=== PATIENT | female | born 1980 | race Caucasian/White ===

== ENCOUNTER → 2016-10-01 | Outpatient (CLI) | payer BC, MEDICAID ==
[~2016-10-01] MED LIST: AMLO10TA4 PO; ASP81CT PO; Amlodipine Besylate PO; CEPH-507 PO; CEPH500C PO; Docusate Sodium PO; Ibuprofen PO; LORA10CA PO; NITR-65 PO; Oxycodone Hcl/Acetaminophen PO; PREN-93 PO; PREN1TAB71 PO; antibiotic; blood pressure; nasal spray NS
--- NOTE | 2016-10-01 13:13 | Diagnostic Imaging Report ---
PROCEDURE: US Abdomen, limited. TECHNIQUE: Multiple realtime grayscale images were obtained over the abdomen in various projections. INDICATION: Right-sided abdominal pain. COMPARISON: None. DISCUSSION: Sonographic evaluation of the right upper quadrant was performed. The liver appears normal in echotexture and size. No hepatic mass identified. The gallbladder is contracted as the patient is not n.p.o. No shadowing stone or pericholecystic fluid identified. No evidence of biliary duct dilatation. The common bile duct is normal measuring 0.4 cm. The pancreas appears normal as visualized. The right kidney appears normal in echotexture and size without evidence of hydronephrosis or renal mass. The right kidney measures 12.0 cm.. There is no ascites or abnormal bowel loops identified. No sonographic Anthony sign was reported. The right lower quadrant was also evaluated with ultrasound; however, the appendix was not identified with certainty. No abnormal mass or fluid identified within the right lower quadrant. IMPRESSION: 1. Contracted gallbladder. 2. Nonvisualization of the appendix. Dictated by: Dictated on workstation # [id number]
== END ==
LOC: RAD 12:21
PROVIDERS: ATTEND Nurse Practitioner Family
DX: K82.8 Other specified diseases of gallbladder (principal)
CPT/HCPCS: 76705

== ENCOUNTER → 2016-11-20 | Outpatient (CLI) | payer BC, MEDICAID ==
--- NOTE | 2016-11-20 17:09 | Diagnostic Imaging Report ---
PROCEDURE: US Thyroid. TECHNIQUE: Multiple real-time grayscale images were obtained of the thyroid in various projections. INDICATION: Hyperthyroidism. FINDINGS: The right thyroid lobe is 5.2 x 2.4 x 2 cm. The left lobe is 5.8 x 2.5 x 2.7 cm. The thyroid parenchyma is heterogenous and hypervascular with no discrete lesion. IMPRESSION: Enlarged heterogenous and hypervascular thyroid gland may relate to thyroiditis. Multinodular goiter with numerous tiny nodules is possible. Dictated by: Dictated on workstation # [id number]
== END ==
LOC: RAD 14:07
PROVIDERS: ATTEND Nurse Practitioner Family
DX: E04.9 Nontoxic goiter, unspecified (principal)
CPT/HCPCS: 76536

== ENCOUNTER → 2018-04-02 | Outpatient (CLI) | payer MEDICAID ==
--- NOTE | 2018-04-02 16:22 | Diagnostic Imaging Report ---
PROCEDURE: US Non-ob pelvis comp/trans. TECHNIQUE: Multiple realtime grayscale images were obtained of the pelvis in various projections endovaginally. Transabdominal imaging was also performed. INDICATION: Evaluate IUD. FINDINGS: The uterus measures 9.4 x 6.6 x 5.2 cm. There is a 15 mm fibroid in the left uterus. Endometrium is 8 mm in thickness. IUD appears to be appropriately centered in the endometrial canal. The ovaries were not visualized due to bowel gas. No adnexal mass or free fluid is seen. IMPRESSION: 1. Appropriately positioned IUD within the endometrial canal. 2. Nonvisualized ovaries. Dictated by: Dictated on workstation # [id number]
== END ==
LOC: RAD 14:01
PROVIDERS: ATTEND Nurse Practitioner
DX: T83.32XA Displacement of intrauterine contraceptive device, initial encounter (principal); Z97.5 Presence of (intrauterine) contraceptive device
CPT/HCPCS: 76830; 76856

== ENCOUNTER → 2018-06-08 | Outpatient (CLI) | payer MEDICAID ==
[~2018-06-08] VITALS: Ht 162.6 cm; Wt 69.9 kg
[~2018-06-08] MED LIST changes: +CATHETER FLUSH 10 ML SYR IV PRN
[2018-06-08 09:00] VITALS: BP 145/86
[2018-06-08 09:13] VITALS: BP 116/64
[2018-06-08 09:23] VITALS: BP 101/48
[2018-06-08 09:25] VITALS: BP 166/100
[2018-06-08 09:26] VITALS: BP 160/101
[2018-06-08 09:27] VITALS: BP 147/99
--- NOTE | 2018-06-10 17:54 | STRESS TEST ---
DATE OF SERVICE: 06/08/2018 LEXISCAN MYOVIEW STRESS TEST REPORT Baseline heart rate is 74, baseline blood pressure 114/83, baseline EKG is sinus rhythm with no ischemic changes. In summary, the patient was injected with 10.45 mCi of technetium-99 Myoview and the resting images were obtained. Then, the patient received 0.4 mg of Lexiscan followed by 29.7 mCi of technetium-99 Myoview. Throughout the test, there were no EKG changes. The resting and stress images were reviewed and compared in the short axis, horizontal long axis, and vertical long axis views. Review of the images showed decreased uptake involving the mid to apical inferior wall and inferolateral wall with mild reversibility. SSS is 11, SDS 11. TID value 0.92. On the gated images, the left ventricle appeared to be in normal size with normal contractility. Calculated ejection fraction 60%. CONCLUSION: 1. The patient tolerated Lexiscan well. 2. Reversible ischemia involving the mid to apical inferior wall and inferolateral wall. 3. Normal left ventricular size with normal contractility. Calculated ejection fraction 60%. Job ID: [id number] DocumentID: [id number] Dictated Date: 06/10/2018 14:12:34 Goat Driver Date: 06/10/2018 17:53:35 Dictated By: JOSE DE JESUS ELAINE MD
== END ==
LOC: CARD 07:22
PROVIDERS: ATTEND Internal Medicine Cardiovascular Disease
DX: I25.10 Atherosclerotic heart disease of native coronary artery without angina pectoris (principal); I10 Essential (primary) hypertension; E78.2 Mixed hyperlipidemia; E05.00 Thyrotoxicosis with diffuse goiter without thyrotoxic crisis or storm; I25.2 Old myocardial infarction
CPT/HCPCS: 78452; 93017

== ENCOUNTER → 2018-06-09 | Outpatient (CLI) | payer MEDICAID ==
[~2018-06-09] MED LIST changes: -CATHETER FLUSH 10 ML SYR IV PRN
== END ==
LOC: CARD 14:41
PROVIDERS: ATTEND Internal Medicine Cardiovascular Disease
DX: I25.10 Atherosclerotic heart disease of native coronary artery without angina pectoris (principal); E05.00 Thyrotoxicosis with diffuse goiter without thyrotoxic crisis or storm; I10 Essential (primary) hypertension; I21.9 Acute myocardial infarction, unspecified; E78.2 Mixed hyperlipidemia
CPT/HCPCS: 93306

== ENCOUNTER 2018-06-17 08:51 | Day surgery (SDC) | payer MEDICAID ==
[~2018-06-17] VITALS: Ht 162.6 cm; Wt 70.3 kg
[2018-06-17] VITALS (11 sets, daily range): BP systolic 110–134; BP diastolic 74–90
[2018-06-17] MEDS ORDERED: NS IV 1000 ML 1,000 ML ONE (08:59)
[2018-06-17] MEDS ORDERED: HEParin (CATH LAB) 2,000 ML IV ONE (08:59)
[2018-06-17] MEDS ORDERED: LIDOCAINE 1% INJ 20 ML 20 ML VIAL ONE (08:59)
[2018-06-17] MEDS ORDERED: NS IV 1000 ML 1,000 ML IV SCH ×2 (09:06→12:49)
[2018-06-17 09:32] LABS: HEMOGLOBIN 13.8 G/DL (11.5-16.0); MEAN PLATELET VOLUME 9.8 FL (7.4-10.4); RED BLOOD COUNT 4.64 10^6/uL (4.35-5.85); RED CELL DISTRIBUTION WIDTH 12.9 % (10.0-14.5)
[2018-06-17 09:34] LABS: BILIRUBIN,URINE NEGATIVE (NEGATIVE); CLARITY,URINE CLEAR; COLOR,URINE YELLOW; GLUCOSE, URINE (UA) NEGATIVE (NEGATIVE); KETONES,URINE NEGATIVE (NEGATIVE); LEUKOCYTE ESTERASE ,URINE 1+ (NEGATIVE); NITRITE,URINE NEGATIVE (NEGATIVE); PH,URINE 6 (5-9); PROTEIN,URINE NEGATIVE (NEGATIVE); UROBILINOGEN,URINE NORMAL (NORMAL)
[2018-06-17] MEDS ORDERED: LOSA100T8 PO (09:34)
[2018-06-17] MEDS ORDERED: ASPI-999 PO (09:34)
[2018-06-17] MEDS ORDERED: METO-387 PO (09:34)
[2018-06-17] MEDS ORDERED: CLON0.5T13 PO (09:34)
[2018-06-17 09:44] LABS: BACTERIA,URINE TRACE /HPF
[2018-06-17 09:47] LABS: PROTHROMBIN TIME PATIENT 13.5 SEC (12.2-14.7)
[2018-06-17 09:52] LABS: ALANINE AMINOTRANSFERASE 16 U/L (0-55); ALBUMIN 4.2 GM/DL (3.2-4.5); ALKALINE PHOSPHATASE 85 U/L (40-136); BILIRUBIN,TOTAL 0.5 MG/DL (0.1-1.0); BUN/CREATININE RATIO 14; CALCIUM 8.9 MG/DL (8.5-10.1); CARBON DIOXIDE 24 MMOL/L (21-32); CHLORIDE 108 MMOL/L (98-107); CHOLESTEROL 139 MG/DL (< 200); CREATININE SERUM 0.79 MG/DL (0.60-1.30); GFR ESTIMATED > 60; GLUCOSE 77 MG/DL (70-105); HDL CHOLESTEROL 36 MG/DL (40-60); POTASSIUM 4.2 MMOL/L (3.6-5.0); SODIUM 140 MMOL/L (135-145); TOTAL PROTEIN 6.5 GM/DL (6.4-8.2); TRIGLYCERIDES 48 MG/DL (<150); VLDL CHOLESTEROL 10 MG/DL (5-40)
--- NOTE | 2018-06-17 09:52 | Diagnostic Imaging Report ---
INDICATION: Abnormal stress test with coronary artery disease and hypertension. TIME OF EXAM: 9:41 AM No prior studies are available for comparison. FINDINGS: The heart size is normal. The pulmonary vascularity is unremarkable. The lungs are clear. No infiltrate, effusion or pneumothorax is detected. IMPRESSION: No acute cardiopulmonary process is detected. Dictated by: Dictated on workstation # [id number]
[2018-06-17] MEDS ORDERED: FLU QUADRIvalent (5+ YOA) 2018-2019 (AFLURIA) 0.5 ML IM ONE (10:15)
[2018-06-17] MEDS ORDERED: MIDAZOLAM 5 MG/5 ML (VERSED) VIAL ONE (11:24)
--- OUTSIDE RECORDS SUMMARY | 2018-06-17 11:24 | XMS REPORT ---
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 Name Role Phone AGUSTÍN NGUYEN Unavailable PROBLEMS Type Condition ICD9-CM Code RVR60-HF Code Onset Dates Condition Status SNOMED Code Problem History of ST elevation myocardial infarction (STEMI) I25.2 Active 181441137434310 Problem Anxiety about health F41.8 Active 044487497 Problem Coronary artery disease involving kotlik heart, angina presence unspecified, unspecified vessel or lesion type I25.10 Active 12096257 Problem Major depressive disorder, recurrent, moderate F33.1 Active 98631271 Problem Hyperthyroidism E05.90 Active 98867041 Problem S/P coronary artery stent placement Z95.5 Active 108243684 Problem Seasonal allergic rhinitis due to other allergic trigger J30.89 Active 612784387 Problem Graves disease E05.00 Active 321318070 Problem Dyslipidemia E78.5 Active 210394587 Problem Anxiety F41.9 Active 56499988 Problem Thyroid nodule E04.1 Active 007414700 Problem Enlarged thyroid E01.0 Active 59490464 ALLERGIES No Information ENCOUNTERS Encounter Location Date Diagnosis [facility] [address] [facility] [id number] [address] Jul, [facility] [address] [id number] [address] Jun, [facility] [address] [id number] [id number] May, [facility] [address] [id number] [address] May, Graves disease E05.00 [facility] [address] [facility] [id number], [place] [address] May, Graves disease E05.00 [facility] [address] [id number] [id number] Apr, Periodontitis K05.30 [facility] [address] [place] [address] Apr, Graves disease E05.00 and Major depressive disorder, recurrent, moderate F33.1 [facility] [address] [id number][place] [id number] Apr, Periodontitis K05.30 and Dental examination Z01.20 [facility] [address] [place] [address] Mar, [facility] [id number] [place] [address] Jan, Graves disease E05.00 [facility] [address] [place] [address] Dec, Major depressive disorder, recurrent, moderate F33.1 [facility] [id number][place] [id number] Dec, Dental examination Z01.20 [facility] [address] [place] [address] Nov, Graves disease E05.00 and Major depressive disorder, recurrent, moderate F33.1 [facility] [address] [id number] Nov, Sinus congestion R09.81 and Seasonal allergic rhinitis due to other allergic trigger J30.89 [facility] [address] [place] [id number] Oct, Acute non-recurrent frontal sinusitis J01.10 [facility] [id number] [place] [address] Oct, Graves disease E05.00 [facility] [address] [place] [address] September, Major depressive disorder, recurrent, moderate F33.1 [facility] [address] [address] September, Graves disease E05.00 and Major depressive disorder, recurrent, moderate F33.1 [facility] [id number] [id number] Aug, [facility] [address] [id number] [id number] Aug, Graves disease E05.00 [facility] [address] [place] [address] [id number] [id number] Aug, Dental caries K02.9 [place] [id number] [place] [address] Aug, Major depressive disorder, recurrent, moderate F33.1 [place] [address] [address] Aug, Major depressive disorder, recurrent, moderate F33.1 and Graves disease E05.00 [facility] [address] [address] Jul, Graves disease E05.00 [place] [id number] [place] [address] Jul, Major depressive disorder, recurrent, moderate F33.[address] [id number][place] [id number] Jul, Dental examination Z01.[address] [id number][place] [id number] Jul, Dental examination Z01.20 [id number] [id number] Jul, Major depressive disorder, recurrent, moderate F33.1 ; Anxiety F41.9 ; Graves disease E05.[address] elevation myocardial infarction (STEMI) I25.2 [facility] [address] [address] Jul, Major depressive disorder, recurrent, moderate F33.1 [facility] [id number] [place] [address] Jun, Major depressive disorder, recurrent, moderate F33.1 [id number] [place] [id number] Jun, Graves disease E05.00 [id number] [place] [id number] Jun, Influenza A J10.1 [facility] [address] [address] May, Chest wall pain R07.89 [facility] [address] [address] May, Major depressive disorder, recurrent, moderate F33.1 [facility] [address] [address] May, Graves disease E05.00 and Major depressive disorder, recurrent, moderate F33.1 [id number] [place] [id number] May, Anxiety F41.9 and Graves disease E05.00 [facility] [address] [address] Apr, Major depressive disorder, recurrent, moderate F33.1 and Graves disease E05.00 [id number] [place] [address] [id number] Apr, Anxiety F41.9 [facility] [id number] [place] [address] Apr, Major depressive disorder, recurrent, moderate F33.[address] [id number] Apr, Graves disease E05.00 ; Anxiety F41.9 ; S/P coronary artery stent placement Z95.5 ; Dyslipidemia E78.5 ; History of IN (myocardial infarction) I25.2 ; Hypokalemia E87.6 ; High risk medication use Z79.899 and Controlled substance agreement signed Z79.8[address] [place] [id number] Mar, Atypical mole D22.[address] [id number] Mar, Graves disease E05.00 ; Anxiety F41.9 ; S/P coronary artery stent placement Z95.5 ; Dyslipidemia E78.5 ; History of IN (myocardial infarction) I25.2 ; Hypokalemia E87.6 and Encounter for immunization Z23 [id number] [place] [id number] Jan, Anxiety F41.[address] [id number] Nov, Anxiety F41.9 [address] [place] [address] [id number] Nov, Hyperthyroidism E05.90 ; Anxiety F41.9 ; Enlarged thyroid E01.0 ; Right sided abdominal pain R10.9 ; Thyroid nodule E04.1 ; Dyslipidemia E78.[address] elevation myocardial infarction (STEMI) I25.2 [address] [id number] [place] [address] [id number] Nov, Hyperthyroidism E05.90 ; Enlarged thyroid E01.0 and Thyroid nodule E04.1 [address] [place] [address] [id number] Oct, [address] [address] [place] [address] [id number] Oct, Hyperthyroidism E05.90 [address] [place] [address] [id number] Oct, Anxiety F41.9 ; Right sided abdominal pain R10.9 ; Dyslipidemia E78.[address] elevation myocardial infarction (STEMI) I25.2 [address] [id number] [place] [address] [id number] September, Coronary artery disease involving kotlik heart, angina presence unspecified, unspecified vessel or lesion type I25.10 ; Anxiety F41.9 ; History of ST elevation myocardial infarction (STEMI) I25.2 and Low back pain M54.5 [facility] [id number] [place] [address] [id number] September, RLQ abdominal pain R10.31 and Diarrhea, unspecified type R19.7 [address] [place] [id number] Aug, Coronary artery disease involving kotlik heart, angina presence unspecified, unspecified vessel or lesion type I25.10 ; Anxiety F41.9 ; Anxiety about health F41.8 ; History of ST elevation myocardial infarction (STEMI) I25.2 and S/P coronary artery stent placement Z95.5 [id number] [place] [address] [id number] Jul, [address] [place] [address] [id number] Jul, Nonintractable headache, unspecified chronicity pattern, unspecified headache type R51 and Sleeping difficulty G47.9 [address] [place] [address] [id number] Jul, Essential hypertension, hypertension with unspecified goal I10 [address] [place] [address] [id number] Jun, Essential hypertension, hypertension with unspecified goal I10 and Cervicalgia M54.[address] [id number] [id number] May, Bronchiolitis J21.9 and Essential hypertension, hypertension with unspecified goal I10 [address] [place] [address] [id number] Mar, [address] [place] [address] [id number] Mar, Cervical stenosis of spinal canal M48.02 and Foraminal stenosis of cervical region M99.81 [address] [place] [address] [id number] Mar, [facility] [address] [address] Mar, [place] [id number] [place] [address] [place] [id number] Mar, Cervicalgia M54.2 [facility] [address] [id number] [place] [id number] Mar, [facility] [address] [id number] [place] [id number] Jan, [facility] [address] [id number] [place] [id number] Dec, [facility] [address] [id number] [place] [id number] Dec, [facility] [address] [id number] [place] [id number] Dec, Cervicalgia M54.[address] [facility] [address] [id number] [id number] Nov, Cervicalgia M54.2 [facility] [address] [id number] [place] [id number] Nov, Cervicalgia M54.2 [facility] [address] [id number] [place] [id number] Oct, Cervicalgia M54.2 and Essential hypertension, hypertension with unspecified goal I10 [facility] [address] [id number] [place] [id number] Oct, [facility] [address] [id number][place] [id number] Aug, Cervicalgia M54.2 [facility] [address] [id number][place] [id number] Aug, [facility] [address] [id number][place] [id number] Aug, Headache R51 and Essential hypertension, hypertension with unspecified goal I10 [facility] [address] [id number], [place] [id number] Jul, [facility] [address] [address] Aug, [facility] [address] [place] [address] [id number]- 9813 Aug, [facility] [address] [facility] [id number][place] [address] Mar, [facility] [address] [facility] [id number], [place] [address] Mar, [facility] [address] [facility] [id number], [place] [address] Dec, [facility] [address] [id number], [place] [id number] Dec, [facility] [address] [id number], [place] [id number] Aug, [facility] [address] [facility] [id number], [place] [address] Aug, [facility] [address] [facility] [id number], [place] [address] Jul, [facility] [address] [facility] [id number], [place] [address] Jul, [facility] [address] [facility] [id number], [place] [id number] Dec, [facility] [address] [id number], [place] [id number] Apr, [facility] [address] [facility] [id number], [place] [address] Apr, [facility] [address] [facility] [id number], [place] [address] Mar, [facility] [address] [id number], [place] [id number] Mar, [facility] [address] [id number], [place] [id number] Oct, [facility] [address] [facility] [id number], [place] [address] Oct, [facility] [address] [id number], [place] [id number] Oct, [facility] [address] [id number], [place] [id number] September, [facility] [address] [facility] [id number] [place] [id number] Jul, [facility] 120 [facility] [id number], [place] [id number] Jun, [facility] [address] [facility] [id number], [place] [id number] Jun, [facility] [address] [address] May, [facility] [address] [address] May, [facility] [address] [address] May, [facility] [address] [address] May, [facility] [address] [address] Dec, IMMUNIZATIONS No Known Immunizations SOCIAL HISTORY Never Assessed REASON FOR VISIT klonopin refill PLAN OF CARE VITAL SIGNS MEDICATIONS Medication Instructions Dosage Frequency Start Date End Date Duration Status Clonazepam 1 mg Orally BID as needed for anxiety 0.5-1 tablet September, 30 days Active RESULTS No Results PROCEDURES No Known procedures INSTRUCTIONS MEDICATIONS ADMINISTERED No Known Medications MEDICAL (GENERAL) HISTORY Type Description Date Medical History preeclampsia x3 Medical History neck pain Medical History 08/2016 Acute STEMI inferior wall, cardiogenic shock Medical History Dr. Bella cardiology fu, stress echo, holter, labs 12/2016-- FU 04/2017 Medical History HBP Medical History Blood thinners Medical History Metal plate in neck Medical History Angina Medical History Coronary artery disease Medical History Grave's Disease Surgical History section x's 4 Surgical History Cervical stenosis repair, hardware placed by at [address] 07/2016 Surgical History Acute STEMI, heart cath performed-balloon stent to RCA, stent Mid LAD 08/2016 Hospitalization History [facility] STEMI, Cardiogenic shock, increased LFTS 08/2016 Hospitalization History inpatient psych [place] after OD after losing baby 2009
--- OUTSIDE RECORDS SUMMARY | 2018-06-17 11:24 | XMS REPORT ---
Author Author AGUSTÍN NGUYEN Organization [facility] Address [address] [place] [address] Care Team Providers Care Cardiac Technologist Name Role Phone AGUSTÍN NGUYEN Unavailable PROBLEMS Type Condition ICD9-CM Code MIE91-BF Code Onset Dates Condition Status SNOMED Code Problem History of ST elevation myocardial infarction (STEMI) I25.2 Active 180850558365709 Problem Anxiety about health F41.8 Active 085059255 Problem Coronary artery disease involving quileute heart, angina presence unspecified, unspecified vessel or lesion type I25.10 Active 32863676 Problem Major depressive disorder, recurrent, moderate F33.1 Active 44703811 Problem Hyperthyroidism E05.90 Active 25710555 Problem S/P coronary artery stent placement Z95.5 Active 574836527 Problem Seasonal allergic rhinitis due to other allergic trigger J30.89 Active 730261973 Problem Graves disease E05.00 Active 088187240 Problem Dyslipidemia E78.5 Active 139172845 Problem Anxiety F41.9 Active 43125600 Problem Thyroid nodule E04.1 Active 754513216 Problem Enlarged thyroid E01.0 Active 59585421 ALLERGIES No Information ENCOUNTERS Encounter Location Date Diagnosis [facility] [address] [facility] [id number] [address] Jul, [facility] [address] [id number] [address] Jun, [facility] [id number] [id number] [place] [id number] May, [facility] [address] [id number] [address] May, Graves disease E05.00 [facility] [address] [facility] [id number] [address] May, Graves disease E05.00 [facility] [address] [facility] [id number] [place] [id number] Apr, Periodontitis K05.30 [facility] [address] [place] [address] Apr, Graves disease E05.00 and Major depressive disorder, recurrent, moderate F33.1 [facility] [address] [facility] [id number] [place] [id number] Apr, Periodontitis K05.30 and Dental examination Z01.20 [facility] [address] [place] [address] Mar, [facility] [id number] [place] [address]- [address] Jan, Graves disease E05.00 [facility] [address] [place] [address]- [address]68 Dec, Major depressive disorder, recurrent, moderate F33.1 [facility] [address] [facility] [id number] [place] [id number] Dec, Dental examination Z01.20 [facility] [address] [place] [address] Nov, Graves disease E05.00 and Major depressive disorder, recurrent, moderate F33.1 [facility] [address] [id number] Nov, Sinus congestion R09.81 and Seasonal allergic rhinitis due to other allergic trigger J30.89 [facility] [address] [place] [id number] Oct, Acute non-recurrent frontal sinusitis J01.10 [facility] [id number] [place] [address]44- 2116 Oct, Graves disease E05.00 [facility] [address] [place] [address]5942- 6648 September, Major depressive disorder, recurrent, moderate F33.1 [facility] [address] [address] September, Graves disease E05.00 and Major depressive disorder, recurrent, moderate F33.1 [facility] [id number][place] [id number] Aug, [facility] [address] [id number] [id number] Aug, Graves disease E05.00 [facility] [address] [place] [address] [id number] [place] [id number] Aug, Dental caries K02.9 [place] [id number] [place] [address] Aug, Major depressive disorder, recurrent, moderate F33.1 [place] [address]65100[place] [address] Aug, Major depressive disorder, recurrent, moderate F33.1 and Graves disease E05.00 [facility] [address], [place] [address] Jul, Graves disease E05.00 [place] [id number] [place] [address]15- [address] Jul, Major depressive disorder, recurrent, moderate F33.[address] [id number] [place] [id number] Jul, Dental examination Z01.[address] [id number] [place] [id number] Jul, Dental examination Z01.20 [address] [id number] [id number] Jul, Major depressive disorder, recurrent, moderate F33.1 ; Anxiety F41.9 ; Graves disease E05.[address] elevation myocardial infarction (STEMI) I25.2 [facility] [address] [address] Jul, Major depressive disorder, recurrent, moderate F33.1 [facility] [id number] [place] [address]- [address]84 Jun, Major depressive disorder, recurrent, moderate F33.1 [id number] [place] [id number] Jun, Graves disease E05.00 [address] [id number] [place] [id number] Jun, Influenza A J10.1 [facility] [address] [address] May, Chest wall pain R07.89 [facility] [address] [address] May, Major depressive disorder, recurrent, moderate F33.1 [facility] [address] [address] May, Graves disease E05.00 and Major depressive disorder, recurrent, moderate F33.1 [address] [id number] [place] [address] [id number] May, Anxiety F41.9 and Graves disease E05.00 [facility] [address] [address] Apr, Major depressive disorder, recurrent, moderate F33.1 and Graves disease E05.00 [id number] [place] [address] [id number] Apr, Anxiety F41.9 [facility] [id number] [place] [address] Apr, Major depressive disorder, recurrent, moderate F33.[address] [id number] Apr, Graves disease E05.00 ; Anxiety F41.9 ; S/P coronary artery stent placement Z95.5 ; Dyslipidemia E78.5 ; History of DE (myocardial infarction) I25.2 ; Hypokalemia E87.6 ; High risk medication use Z79.899 and Controlled substance agreement signed Z79.[address] [place] [address] [id number] Mar, Atypical mole D22.[address] [id number] Mar, Graves disease E05.00 ; Anxiety F41.9 ; S/P coronary artery stent placement Z95.5 ; Dyslipidemia E78.5 ; History of DE (myocardial infarction) I25.2 ; Hypokalemia E87.6 and Encounter for immunization Z23 [place] [id number] [place] [address] [id number] Jan, Anxiety F41.[address] [id number] Nov, Anxiety F41.9 [address] [id number] [place] [id number] Nov, Hyperthyroidism E05.90 ; Anxiety F41.9 ; Enlarged thyroid E01.0 ; Right sided abdominal pain R10.9 ; Thyroid nodule E04.1 ; Dyslipidemia E78.[address] elevation myocardial infarction (STEMI) I25.2 [place] [address] [id number] [place] [address] [id number] Nov, Hyperthyroidism E05.90 ; Enlarged thyroid E01.0 and Thyroid nodule E04.1 [place] [address] [id number] [place] [address] [id number] Oct, [place] [address] [id number] [place] [address] [id number] Oct, Hyperthyroidism E05.90 [place] [address] [address] [place] [address] [id number] Oct, Anxiety F41.9 ; Right sided abdominal pain R10.9 ; Dyslipidemia E78.[address] elevation myocardial infarction (STEMI) I25.2 [id number] [place] [address] [id number] September, Coronary artery disease involving quileute heart, angina presence unspecified, unspecified vessel or lesion type I25.10 ; Anxiety F41.9 ; History of ST elevation myocardial infarction (STEMI) I25.2 and Low back pain M54.5 [facility] [id number] [place] [address] [id number] September, RLQ abdominal pain R10.31 and Diarrhea, unspecified type R19.7 [id number] [place] [address] [id number] Aug, Coronary artery disease involving quileute heart, angina presence unspecified, unspecified vessel or lesion type I25.10 ; Anxiety F41.9 ; Anxiety about health F41.8 ; History of ST elevation myocardial infarction (STEMI) I25.2 and S/P coronary artery stent placement Z95.5 [id number] [place] [address] [id number] Jul, [address] [address] [id number] [place] [address] [id number] Jul, Nonintractable headache, unspecified chronicity pattern, unspecified headache type R51 and Sleeping difficulty G47.9 [id number] [place] [address] [id number] Jul, Essential hypertension, hypertension with unspecified goal I10 [address] [id number] [place] [address] [id number] Jun, Essential hypertension, hypertension with unspecified goal I10 and Cervicalgia M54.[address] [id number] [place] [id number] May, Bronchiolitis J21.9 and Essential hypertension, hypertension with unspecified goal I10 [address] [place] [address] [id number] Mar, [address] [place] [address] [id number] Mar, Cervical stenosis of spinal canal M48.02 and Foraminal stenosis of cervical region M99.[address] [place] [address] [id number] Mar, [facility] [address]005[address]100[place] [address] Mar, [place] [id number] [place] [address] [place] [id number] Mar, Cervicalgia M54.2 [facility] [address] [id number] [place] [id number] Mar, [facility] [address] [id number] [place] [id number] Jan, [facility] [address] [id number] [place] [id number] Dec, [facility] [address] [id number] [place] [id number] Dec, [facility] [address] [id number] [place] [id number] Dec, Cervicalgia M54.[address] [facility] [address] [id number]. [facility] [id number] Nov, Cervicalgia M54.2 [facility] [address] [id number] [place] [id number] Nov, Cervicalgia M54.2 [facility] [address] [id number] [place] [id number] Oct, Cervicalgia M54.2 and Essential hypertension, hypertension with unspecified goal I10 [facility] [address] [id number] [place] [id number] Oct, [facility] [address] [id number][place] [id number] Aug, Cervicalgia M54.2 [facility] [address] [id number][place] [id number] Aug, [facility] [address] [id number][place] [id number] Aug, Headache R51 and Essential hypertension, hypertension with unspecified goal I10 [facility] [address] [id number][place] [id number] Jul, [facility] [address] [address] Aug, [facility] [address] [place] [address] [id number]- [address]287 Aug, [facility] [address] [facility] [id number] [address] Mar, [facility] [address] [facility] [id number], [place] [address]- [address] Mar, [facility] [address] [facility] [id number], [place] [address] Dec, [facility] [address] [id number], [place] [id number] Dec, [facility] [address] [id number], [place] [id number] Aug, [facility] [address] [facility] [id number], [place] [address] Aug, [facility] [address] [facility] [id number], [place] [address] Jul, [facility] [address] [facility] [id number] [address]- [address] Jul, [facility] [address] [facility] [id number], [place] [id number] Dec, [facility] [address] [id number][place] [id number] Apr, [facility] [address] [facility] [id number], [place] [address] Apr, [facility] [address] [facility] [id number], [place] [address] Mar, [facility] [address] [id number], [place] [id number] Mar, [facility] [address] [id number], [place] [id number] Oct, [facility] [address] [facility] [id number], [place] [address]- [address] Oct, [facility] [address] [id number], [place] [id number] Oct, [facility] [address] [id number], [place] [id number] September, [facility] [address] [facility] [id number] [place] [id number] Jul, [facility] [address] [facility] [id number], [place] [id number] Jun, [facility] [address] [facility] [id number], [place] [id number] Jun, [facility] [address]65[address], [place] [address] May, [facility] [address]00565100[place], [place] [address]- [address] May, [facility] [address]65100[place], [place] [address]- 7[address] May, [facility] [address]65100[place], [place] [address]- [address] May, [facility] [address] [address] Dec, IMMUNIZATIONS No Known Immunizations SOCIAL HISTORY Never Assessed REASON FOR VISIT med refill PLAN OF CARE VITAL SIGNS MEDICATIONS [...] Cervical stenosis repair, hardware placed by at [address] 07/2016 Surgical History Acute STEMI, heart cath performed-balloon stent to RCA, stent Mid LAD 08/2016 Hospitalization History [facility] STEMI, Cardiogenic shock, increased LFTS 08/2016 Hospitalization History inpatient psych [facility] after OD after losing baby 2009
--- OUTSIDE RECORDS SUMMARY | 2018-06-17 11:24 | XMS REPORT ---
Author Author ROBYN BAHENA [facility] Address [address] [place] [address] Care Team Providers Care Analytical Sciences Director Name Role Phone ROBYN BAHENA Unavailable PROBLEMS Type Condition ICD9-CM Code ILR02-HH Code Onset Dates Condition Status SNOMED Code Problem History of ST elevation myocardial infarction (STEMI) I25.2 Active 777835027670843 Problem Anxiety about health F41.8 Active 002292709 Problem Coronary artery disease involving [place] heart, angina presence unspecified, unspecified vessel or lesion type I25.10 Active 37515204 Problem Major depressive disorder, recurrent, moderate F33.1 Active 13686211 Problem Hyperthyroidism E05.90 Active 50454205 Problem S/P coronary artery stent placement Z95.5 Active 159468511 Problem Seasonal allergic rhinitis due to other allergic trigger J30.89 Active 556062722 Problem Graves disease E05.00 Active 712677321 Problem Dyslipidemia E78.5 Active 248267427 Problem Anxiety F41.9 Active 49743462 Problem Thyroid nodule E04.1 Active 492666639 Problem Enlarged thyroid E01.0 Active 36859120 ALLERGIES No Information ENCOUNTERS Encounter Location Date Diagnosis [place] [id number], [place] [address] Jul, [place] [id number] [place] [phone] Jun, [facility] [address] [place] [address] AVE [id number][place] [id number] May, [address] [id number][place] [id number] Apr, Periodontitis K05.30 [place] [id number], [place] [address] Apr, Graves disease E05.00 and Major depressive disorder, recurrent, moderate F33.1 [facility] [address] [facility] [address] [id number][place] [id number] Apr, Periodontitis K05.30 and Dental examination Z01.20 [facility] [address], [place] [address] Mar, [facility] [address] [place] [address] 964614- [address]77 Jan, Graves disease E05.00 [facility] [address] [place] [address]- 8986 Dec, Major depressive disorder, recurrent, moderate F33.1 [facility] [address] [facility] [address] [address] [id number][place] [id number] Dec, Dental examination Z01.20 [facility] [address] [place] [address] 9[address]- [address] Nov, Graves disease E05.00 and Major depressive disorder, recurrent, moderate F33.1 [address] [place] [id number] Nov, Sinus congestion R09.81 and Seasonal allergic rhinitis due to other allergic trigger J30.89 [place] [id number] [place] [id number] Oct, Acute non-recurrent frontal sinusitis J01.10 [facility] [address] [place] [address] 45175- 9293 Oct, Graves disease E05.00 [facility] [address] [place] [address] 48[address]- [address]26 September, Major depressive disorder, recurrent, moderate F33.1 [facility] [id number] [place] [address] 030[address]- [address] September, Graves disease E05.00 and Major depressive disorder, recurrent, moderate F33.1 [address] [place] [id number] Aug, [address] [id number] [place] [id number] Aug, Graves disease E05.00 [facility] [address] [id number][place] [id number] Aug, Dental caries K02.9 [facility] [address], [place] [address] Aug, Major depressive disorder, recurrent, moderate F33.1 [facility] [address], [place] [address] Aug, Major depressive disorder, recurrent, moderate F33.1 and Graves disease E05.00 [facility] [address] [place] [address]64- 2518 Jul, Graves disease E05.00 [facility] [address], [place] [address] Jul, Major depressive disorder, recurrent, moderate F33.1 [facility] [address] [facility] [address] [id number], [place] [id number] Jul, Dental examination Z01.20 [facility] [address] [place] [id number] Jul, Dental examination Z01.20 [facility] [address] [facility] [id number] [place] [id number] Jul, Major depressive disorder, recurrent, moderate F33.1 ; Anxiety F41.9 ; Graves disease E05.[address] elevation myocardial infarction (STEMI) I25.2 [facility] [address], [place] [address] Jul, Major depressive disorder, recurrent, moderate F33.1 [facility] [address], [place] [address] Jun, Major depressive disorder, recurrent, moderate F33.1 [facility] [address] [id number] [place] [id number] Jun, Graves disease E05.00 [address] [place] [address] [id number] Jun, Influenza A J10.1 [facility] [address] [address] May, Chest wall pain R07.89 [facility] [address] [address] May, Major depressive disorder, recurrent, moderate F33.1 [facility] [address] [address] May, Graves disease E05.00 and Major depressive disorder, recurrent, moderate F33.[address] [id number] May, Anxiety F41.9 and Graves disease E05.00 [facility] [address] [address] Apr, Major depressive disorder, recurrent, moderate F33.1 and Graves disease E05.00 [place] [id number] [place] [id number] Apr, Anxiety F41.[address] [address] Apr, Major depressive disorder, recurrent, moderate F33.1 [place] [id number] [place] [address] [id number] Apr, Graves disease E05.00 ; Anxiety F41.9 ; S/P coronary artery stent placement Z95.5 ; Dyslipidemia E78.5 ; History of [place] (myocardial infarction) I25.2 ; Hypokalemia E87.6 ; High risk medication use Z79.899 and Controlled substance agreement signed Z79.899 [place] [id number] [place] [address] [id number] Mar, Atypical mole D22.9 [place] [id number] [place] [address] [id number] Mar, Graves disease E05.00 ; Anxiety F41.9 ; S/P coronary artery stent placement Z95.5 ; Dyslipidemia E78.5 ; History of GA (myocardial infarction) I25.2 ; Hypokalemia E87.6 and Encounter for immunization Z23 [place] [id number] [place] [address] [id number] Jan, Anxiety F41.9 [place] [id number] [place] [address] [id number] Nov, Anxiety F41.9 [place] [id number] [place] [address] [id number] Nov, Hyperthyroidism E05.90 ; Anxiety F41.9 ; Enlarged thyroid E01.0 ; Right sided abdominal pain R10.9 ; Thyroid nodule E04.1 ; Dyslipidemia E78.[address] elevation myocardial infarction (STEMI) I25.2 [place] [id number] [place] [address] [id number] Nov, Hyperthyroidism E05.90 ; Enlarged thyroid E01.0 and Thyroid nodule E04.1 [place] [id number] [place] [address] [id number] Oct, [place] [id number] [place] [address] [id number] Oct, Hyperthyroidism E05.90 [place] [id number] [place] [address] [id number] Oct, Anxiety F41.9 ; Right sided abdominal pain R10.9 ; Dyslipidemia E78.[address] elevation myocardial infarction (STEMI) I25.2 [place] [id number] [place] [address] [id number] September, Coronary artery disease involving [place] heart, angina presence unspecified, unspecified vessel or lesion type I25.10 ; Anxiety F41.9 ; History of ST elevation myocardial infarction (STEMI) I25.2 and Low back pain M54.5 [place] [id number] [place] [address] [id number] September, RLQ abdominal pain R10.31 and Diarrhea, unspecified type R19.7 [place] [id number] [place] [address] [id number] Aug, Coronary artery disease involving [place] heart, angina presence unspecified, unspecified vessel or lesion type I25.10 ; Anxiety F41.9 ; Anxiety about health F41.8 ; History of ST elevation myocardial infarction (STEMI) I25.2 and S/P coronary artery stent placement Z95.5 [facility] [id number] [place] [id number] Jul, [place] [id number] [place] [address] [id number] Jul, Nonintractable headache, unspecified chronicity pattern, unspecified headache type R51 and Sleeping difficulty G47.9 [place] [id number] [place] [address] [id number] Jul, Essential hypertension, hypertension with unspecified goal I10 [place] [id number] [place] [address] [id number] Jun, Essential hypertension, hypertension with unspecified goal I10 and Cervicalgia M54.2 [address] [id number] May, Bronchiolitis J21.9 and Essential hypertension, hypertension with unspecified goal I10 [place] [id number] [place] [address] [id number] Mar, [place] [id number] [place] [address] [id number] Mar, Cervical stenosis of spinal canal M48.02 and Foraminal stenosis of cervical region M99.81 [facility] [address]005[address] [id number] Mar, [facility] [address], [place] [address] Mar, [place] [id number] [place] [address] [id number] Mar, Cervicalgia M54.2 [facility] [id number] [place] [address] [id number] Mar, [place] [id number] [place] [address] [id number] Jan, [facility] [address] [id number] [place] [id number] Dec, [facility] [address] [id number] [place] [id number] Dec, [facility] [address] [id number] [place] [id number] Dec, Cervicalgia M54.2 [facility] [place] [address] [id number] [id number] Nov, Cervicalgia M54.2 [facility] [address] [id number] [place] [id number] Nov, Cervicalgia M54.2 [facility] [address] [id number] [place] [id number] Oct, Cervicalgia M54.2 and Essential hypertension, hypertension with unspecified goal I10 [facility] [address] [id number] [place] [id number] Oct, [facility] [address] [id number] [place] [id number] Aug, Cervicalgia M54.2 [facility] [address] [id number] [place] [id number] Aug, [facility] [address] [id number] [place] [id number] Aug, Headache R51 and Essential hypertension, hypertension with unspecified goal I10 [facility] [address] [id number] [place] [id number] Jul, [facility] [address] [address] Aug, [facility] [address] [place] [address] [phone] Aug, [facility] [id number] [place] [address] 947683- 7986 Mar, [facility] [address] [place] [address] [phone]- 1503 Mar, [facility] [id number] [place] [address] 82957- 4076 Dec, [facility] [address] [id number] [place] [id number] Dec, [facility] [address] [id number] [place] [id number] Aug, [facility] [address] [facility] [id number], [place] [address]- [address] Aug, [facility] [address] [facility] [id number], [place] [address] Jul, [facility] [address] [facility] [id number], [place] [address] Jul, [facility] [address] [id number] [place] [id number] Dec, [facility] [address] [id number] [place] [id number] Apr, [facility] [address] [facility] [id number], [place] [address]- 8[address] Apr, [facility] [address] [facility] [id number], [place] [address]- 7069 Mar, [facility] [address] [id number] [place] [id number] Mar, [facility] [address] [id number] [place] [id number] Oct, [facility] [address] [facility] [id number], [place] [address]- [address] Oct, [facility] [address] [id number] [place] [id number] Oct, [facility] [address] [id number] [place] [id number] September, [facility] [address] [id number] [place] [id number] Jul, [facility] [address] [id number] [place] [id number] Jun, [facility] [address] [id number] [place] [id number] Jun, [facility] [address] [facility] [id number] [place] [address]- [address] May, [facility] [address] [facility] [id number], [place] [address]- 2857 May, [facility] [address] [facility] [id number], [place] [address]- 3937 May, [facility] [address] [facility] [id number], [place] [address]- 0498 May, [facility] [address] [facility] [id number], [place] [address]- 2078 Dec, IMMUNIZATIONS No Known Immunizations SOCIAL HISTORY Never Assessed REASON FOR VISIT SRP PLAN OF CARE Activity Details Follow Up SRP 1.5 hour Reason: VITAL SIGNS Height 63.75 in 2018-04-30 Heart Rate 90 bpm 2018-04-30 Blood pressure systolic 122 mmHg 2018-04-30 Blood pressure diastolic 79 mmHg 2018-04-30 MEDICATIONS Medication Instructions Dosage Frequency Start Date End Date Duration Status Aspir-81 81 MG Orally Once a day 1 tablet 24h Active Propylthiouracil 50 mg Orally 3 times a day 4 tablets 8h Active Potassium Chloride ER 20 MEQ Orally Once a day 1 tablet with food 24h Active Clonazepam 1 mg Orally BID as needed for anxiety 0.5-1 tablet September, 30 days Active Atorvastatin Calcium 20 MG Orally Once a day 1 tablet 24h Active Toprol XL 25 MG Orally Once a day at bedtime 1 tablet Active Sotalol HCl 80 MG Orally every 12 hrs 1/2 tablet 12h Active Plavix 75 MG Orally Once a day 1 tablet 24h Active Nitroglycerin 0.4 MG Active Zoloft 100 MG Orally Once a day 2 tablets 24h 30 days Active RESULTS No Results PROCEDURES Procedure Date Ordered Result Body Site Periodontal scaling and root Apr 30, 2018 Periodontal scaling and root Apr 30, 2018 Billing Notes on claim Apr 30, 2018 Periodontal scaling and root Apr 30, 2018 INSTRUCTIONS MEDICATIONS ADMINISTERED No Known Medications MEDICAL [...] Cervical stenosis repair, hardware placed by at [address] 07/2016 Surgical History Acute STEMI, heart cath performed-balloon stent to RCA, stent Mid LAD 08/2016 Hospitalization History [facility] STEMI, Cardiogenic shock, increased LFTS 08/2016 Hospitalization History inpatient psych [place] after OD after losing baby 2009
[2018-06-17] MEDS ORDERED: fentaNYL INJECTION 100 MCG/2 ML AMP ONE (11:25)
--- OUTSIDE RECORDS SUMMARY | 2018-06-17 11:25 | XMS REPORT ---
Author Author AGUSTÍN SAMUEL Organization [facility] Address [address] [place] [address] Care Team Providers Care Milk Sampler Name Role Phone LIZZIE AGUSTÍN Unavailable PROBLEMS Type Condition ICD9-CM Code XHU25-YP Code Onset Dates Condition Status SNOMED Code Problem History of ST elevation myocardial infarction (STEMI) I25.2 Active [id number] Problem Anxiety about health F41.8 Active 164055954 Problem Coronary artery disease involving [place] heart, angina presence unspecified, unspecified vessel or lesion type I25.10 Active 80455261 Problem Major depressive disorder, recurrent, moderate F33.1 Active 76286202 Problem Hyperthyroidism E05.90 Active 87764106 Problem S/P coronary artery stent placement Z95.5 Active 778829072 Problem Seasonal allergic rhinitis due to other allergic trigger J30.89 Active 825839459 Problem Graves disease E05.00 Active 296137561 Problem Dyslipidemia E78.5 Active 474067404 Problem Anxiety F41.9 Active 64949249 Problem Thyroid nodule E04.1 Active 416248197 Problem Enlarged thyroid E01.0 Active 00738707 ALLERGIES No Information ENCOUNTERS Encounter Location Date Diagnosis [facility] [id number], [place] [address] Jul, [facility] [id number] [place] [address] Jun[facility] [address] [id number] [id number] May, [address] [id number][place] [id number] Apr, Periodontitis K05.30 [facility] [id number], [place] [address] Apr, Graves disease E05.00 and Major depressive disorder, recurrent, moderate F33.1 [facility] [address] [id number][place] [id number] Apr, Periodontitis K05.30 and Dental examination Z01.20 [facility] [address], [place] [address] Mar, [facility] [address] [place] [address] 122881- [address] Jan, Graves disease E05.00 [facility] [address] [place] [address]- [address] Dec, Major depressive disorder, recurrent, moderate F33.1 [facility] [address] [id number][place] [id number] Dec, Dental examination Z01.20 [facility] [address] [place] [address]69- [address] Nov, Graves disease E05.00 and Major depressive disorder, recurrent, moderate F33.1 [address] [place] [address] [id number] Nov, Sinus congestion R09.81 and Seasonal allergic rhinitis due to other allergic trigger J30.89 [id number] [place] [id number] Oct, Acute non-recurrent frontal sinusitis J01.10 [facility] [address] [place] [address] Oct, Graves disease E05.00 [facility] [address] [place] [address] 0[address]92- [address] September, Major depressive disorder, recurrent, moderate F33.1 [facility] [id number] [place] [address] September, Graves disease E05.00 and Major depressive disorder, recurrent, moderate F33.1 [address] [place] [address] [id number] Aug, [address] [id number][place] [id number] Aug, Graves disease E05.00 [facility] [address] [address] [id number][place] [id number] Aug, Dental caries K02.9 [facility] [address], [place] [address] Aug, Major depressive disorder, recurrent, moderate F33.1 [facility] [address], [place] [address] Aug, Major depressive disorder, recurrent, moderate F33.1 and Graves disease E05.00 [facility] [address] [place] [address] Jul, Graves disease E05.00 [facility] [address], [place] [address] Jul, Major depressive disorder, recurrent, moderate F33.1 [facility] [address] [id number][place] [id number] Jul, Dental examination Z01.20 [facility] [address] [place] [id number] Jul, Dental examination Z01.20 [facility] [address] [facility] [id number][place] [id number] Jul, Major depressive disorder, recurrent, moderate F33.1 ; Anxiety F41.9 ; Graves disease E05.[address] elevation myocardial infarction (STEMI) I25.2 [facility] [address], [place] [address] Jul, Major depressive disorder, recurrent, moderate F33.1 [facility] [address] [address] Jun, Major depressive disorder, recurrent, moderate F33.1 [facility] [address] [id number] [id number] Jun, Graves disease E05.00 [address] [place] [id number] Jun, Influenza A J10.1 [facility] [address] [address] May, Chest wall pain R07.89 [facility] [address] [address] May, Major depressive disorder, recurrent, moderate F33.1 [facility] [address] [address] May, Graves disease E05.00 and Major depressive disorder, recurrent, moderate F33.[address] [id number] May, Anxiety F41.9 and Graves disease E05.00 [facility] [address] [address] Apr, Major depressive disorder, recurrent, moderate F33.1 and Graves disease E05.00 [id number] [place] [id number] Apr, Anxiety F41.[address] [address] Apr, Major depressive disorder, recurrent, moderate F33.1 [id number] [place] [address] [id number] Apr, Graves disease E05.00 ; Anxiety F41.9 ; S/P coronary artery stent placement Z95.5 ; Dyslipidemia E78.5 ; History of [place] (myocardial infarction) I25.2 ; Hypokalemia E87.6 ; High risk medication use Z79.899 and Controlled substance agreement signed Z79.899 [id number] [place] [id number] Mar, Atypical mole D22.9 [id number] [place] [address] [id number] Mar, Graves disease E05.00 ; Anxiety F41.9 ; S/P coronary artery stent placement Z95.5 ; Dyslipidemia E78.5 ; History of [place] (myocardial infarction) I25.2 ; Hypokalemia E87.6 and Encounter for immunization Z23 [id number] [place] [address] [id number] Jan, Anxiety F41.9 [id number] [place] [address] [id number] Nov, Anxiety F41.9 [id number] [place] [address] [id number] Nov, Hyperthyroidism E05.90 ; Anxiety F41.9 ; Enlarged thyroid E01.0 ; Right sided abdominal pain R10.9 ; Thyroid nodule E04.1 ; Dyslipidemia E78.[address] elevation myocardial infarction (STEMI) I25.2 [id number] [place] [address] [id number] Nov, Hyperthyroidism E05.90 ; Enlarged thyroid E01.0 and Thyroid nodule E04.1 [id number] [place] [address] [id number] Oct, [id number] [place] [address] [id number] Oct, Hyperthyroidism E05.90 [id number] [place] [address] [id number] Oct, Anxiety F41.9 ; Right sided abdominal pain R10.9 ; Dyslipidemia E78.[address] elevation myocardial infarction (STEMI) I25.2 [id number] [place] [address] [id number] September, Coronary artery disease involving [place] heart, angina presence unspecified, unspecified vessel or lesion type I25.10 ; Anxiety F41.9 ; History of ST elevation myocardial infarction (STEMI) I25.2 and Low back pain M54.5 [id number] [place] [address] [id number] September, RLQ abdominal pain R10.31 and Diarrhea, unspecified type R19.7 [id number] [place] [address] [id number] Aug, Coronary artery disease involving [place] heart, angina presence unspecified, unspecified vessel or lesion type I25.10 ; Anxiety F41.9 ; Anxiety about health F41.8 ; History of ST elevation myocardial infarction (STEMI) I25.2 and S/P coronary artery stent placement Z95.5 [facility] [id number][place] [id number] Jul, [id number] [place] [address] [id number] Jul, Nonintractable headache, unspecified chronicity pattern, unspecified headache type R51 and Sleeping difficulty G47.9 [id number] [place] [address] [id number] Jul, Essential hypertension, hypertension with unspecified goal I10 [id number] [place] [address] [id number] Jun, Essential hypertension, hypertension with unspecified goal I10 and Cervicalgia M54.2 [address] [id number] May, Bronchiolitis J21.9 and Essential hypertension, hypertension with unspecified goal I10 [id number] [place] [address] [id number] Mar, [id number] [place] [address] [id number] Mar, Cervical stenosis of spinal canal M48.02 and Foraminal stenosis of cervical region M99.81 [facility] [address] [id number] Mar, [facility] [address] [address] Mar, [id number] [place] [address] [id number] Mar, Cervicalgia M54.2 [facility] [id number] [place] [address] [id number] Mar, [id number] [place] [address] [id number] Jan, [facility] [address] [id number] [place] [id number] Dec, [facility] [address] [id number] [place] [id number] Dec, [facility] [address] [id number] [place] [id number] Dec, Cervicalgia M54.2 [facility] [id number] [facility] [id number]. [facility] [place] [id number] Nov, Cervicalgia M54.2 [facility] [address] [id number] [place] [id number] Nov, Cervicalgia M54.2 [facility] [address] [id number] [place] [id number] Oct, Cervicalgia M54.2 and Essential hypertension, hypertension with unspecified goal I10 [facility] [address] [id number] [place] [id number] Oct, [facility] [address] [id number] [place] [id number] Aug, Cervicalgia M54.2 [facility] [address] [id number] [place] [id number] Aug, [facility] [address] [id number] [place] [id number] Aug, Headache R51 and Essential hypertension, hypertension with unspecified goal I10 [facility] [address] [id number] [place] [id number] Jul, [facility] [address] [address] Aug, [facility] [id number] [place] [address] [id number]- 1208 Aug, [facility] [id number] [place] [address] 538944- 7465 Mar, [facility] [address] [place] [address] 298998- [address] Mar, [facility] [id number] [place] [address] 11566- 0[address] Dec, [facility] [address] [id number] [place] [id number] Dec, [facility] [address] [id number] [place] [id number] Aug, [facility] [address] [facility] [id number], [place] [address] Aug, [facility] [address] [facility] [id number], [place] [address] Jul, [facility] [address] [facility] [id number], [place] [address] Jul, [facility] [address] [id number] [place] [id number] Dec, [facility] [address] [id number] [place] [id number] Apr, [facility] [address] [facility] [id number], [place] [address] Apr, [facility] [address] [facility] [id number], [place] [address] Mar, [facility] [address] [id number] [place] [id number] Mar, [facility] [address] [id number] [place] [id number] Oct, [facility] [address] [facility] [id number], [place] [address] Oct, [facility] [address] [id number] [place] [id number] Oct, [facility] [address] [id number] [place] [id number] September, [facility] [address] [id number] [place] [id number] Jul, [facility] [address] [id number] [place] [id number] Jun, [facility] [address] [id number] [place] [id number] Jun, [facility] [address] [facility] [id number], [place] [address] May, [facility] [address] [facility] [id number], [place] [address] May, [facility] [address] [facility] [id number], [place] [address] May, [facility] [address] [facility] [id number], [place] [address] May, [facility] [address] [facility] [id number], [place] [address] Dec, IMMUNIZATIONS No Known Immunizations SOCIAL HISTORY Never Assessed REASON FOR VISIT f/natalie ott ma, contract and PDM PLAN OF CARE Activity Details Follow Up 4 Months Reason: VITAL SIGNS Height 63.75 in 2018-04-27 Weight 154.6 lbs 2018-04-27 Heart Rate 87 bpm 2018-04-27 Respiratory Rate 20 2018-04-27 BMI 26.74 kg/m2 2018-04-27 Blood pressure systolic 146 mmHg 2018-04-27 Blood pressure diastolic 112 mmHg 2018-04-27 MEDICATIONS Medication Instructions Dosage Frequency Start Date End Date Duration Status Propylthiouracil 50 mg Orally 3 times a day 4 tablets 8h Active Aspir-81 81 MG Orally Once a day 1 tablet 24h Active Plavix 75 MG Orally Once a day 1 tablet 24h Active Zoloft 100 MG Orally Once a day 2 tablets 24h 30 days Active Atorvastatin Calcium 20 MG Orally Once a day 1 tablet 24h Active Clonazepam 1 mg Orally BID as needed for anxiety 0.5-1 tablet September, 30 days Active Toprol XL 25 MG Orally Once a day at bedtime 1 tablet Active Potassium Chloride ER 20 MEQ Orally Once a day 1 tablet with food 24h Active Nitroglycerin 0.4 MG Active Sotalol HCl 80 MG Orally every 12 hrs 1/2 tablet 12h Active RESULTS No Results PROCEDURES No Known [...] Cervical stenosis repair, hardware placed by at [address] 07/2016 Surgical History Acute STEMI, heart cath performed-balloon stent to RCA, stent Mid LAD 08/2016 Hospitalization History [facility] STEMI, Cardiogenic shock, increased LFTS 08/2016 Hospitalization History inpatient psych [place] after OD after losing baby 2010
--- OUTSIDE RECORDS SUMMARY | 2018-06-17 11:25 | XMS REPORT ---
Author Author ROBYN BAHENA [facility] Address [address] [place] [address] Care Team Providers Care Embroiderer Name Role Phone ROBYN BAHENA Unavailable PROBLEMS Type Condition ICD9-CM Code RJP75-RC Code Onset Dates Condition Status SNOMED Code Problem History of ST elevation myocardial infarction (STEMI) I25.2 Active [id number] Problem Anxiety about health F41.8 Active 175204601 Problem Coronary artery disease involving nez perce heart, angina presence unspecified, unspecified vessel or lesion type I25.10 Active 05033798 Problem Major depressive disorder, recurrent, moderate F33.1 Active 49955800 Problem Hyperthyroidism E05.90 Active 24515495 Problem S/P coronary artery stent placement Z95.5 Active 447649558 Problem Seasonal allergic rhinitis due to other allergic trigger J30.89 Active 507933153 Problem Graves disease E05.00 Active 270685481 Problem Dyslipidemia E78.5 Active 155717964 Problem Anxiety F41.9 Active 60548124 Problem Thyroid nodule E04.1 Active 928724144 Problem Enlarged thyroid E01.0 Active 15620710 ALLERGIES No Known Allergies ENCOUNTERS Encounter Location Date Diagnosis [facility] [address] [id number] [address] Jul, [facility] [address] [id number], [place] [address] Jun, [facility] [address] [place] [address] AVE [id number] [id number] May, [facility] [address] [id number] [id number] Apr, Periodontitis K05.30 [id number], [place] [address] Apr, Graves disease E05.00 and Major depressive disorder, recurrent, moderate F33.1 [facility] [address] [id number][place] [id number] Apr, Periodontitis K05.30 and Dental examination Z01.20 [facility] [address], [place] [address] Mar, [facility] [id number] [place] [address] Jan, Graves disease E05.00 [facility] [address] [place] [address] Dec, Major depressive disorder, recurrent, moderate F33.1 [facility] [address] [id number][place] [id number] Dec, Dental examination Z01.20 [facility] [address] [place] [address] Nov, Graves disease E05.00 and Major depressive disorder, recurrent, moderate F33.1 [address] [place] [id number] Nov, Sinus congestion R09.81 and Seasonal allergic rhinitis due to other allergic trigger J30.89 [id number] [place] [id number] Oct, Acute non-recurrent frontal sinusitis J01.10 [facility] [address] [place] [address] Oct, Graves disease E05.00 [facility] [address] [place] [address] September, Major depressive disorder, recurrent, moderate F33.1 [address] [address] [id number] [place] [address] September, Graves disease E05.00 and Major depressive disorder, recurrent, moderate F33.1 [address] [place] [id number] Aug, [address] [id number] [id number] Aug, Graves disease E05.00 [facility] [address] [id number] [id number] Aug, Dental caries K02.9 [facility] [address], [place] [address] Aug, Major depressive disorder, recurrent, moderate F33.1 [facility] [address], [place] [address] Aug, Major depressive disorder, recurrent, moderate F33.1 and Graves disease E05.00 [facility] [address], [place] [address] Jul, Graves disease E05.00 [facility] [address], [place] [address] Jul, Major depressive disorder, recurrent, moderate F33.1 [facility] [address] [id number] [id number] Jul, Dental examination Z01.20 [facility] [id number] [place] [id number] Jul, Dental examination Z01.20 [facility] [address] [facility] [id number][place] [id number] Jul, Major depressive disorder, recurrent, moderate F33.1 ; Anxiety F41.9 ; Graves disease E05.[address] elevation myocardial infarction (STEMI) I25.2 [facility] [address] [id number], [place] [address] Jul, Major depressive disorder, recurrent, moderate F33.1 [facility] [address]100[place] [address] Jun, Major depressive disorder, recurrent, moderate F33.1 [facility] [address] [id number][place] [id number] Jun, Graves disease E05.00 [address] [place] [id number] Jun, Influenza A J10.1 [facility] [address] [address] May, Chest wall pain R07.89 [facility] [address] [address] May, Major depressive disorder, recurrent, moderate F33.1 [facility] [address] [address] May, Graves disease E05.00 and Major depressive disorder, recurrent, moderate F33.[address] [id number] May, Anxiety F41.9 and Graves disease E05.00 [facility] [address] [address] Apr, Major depressive disorder, recurrent, moderate F33.1 and Graves disease E05.00 [id number] [place] [id number] Apr, Anxiety F41.9 [address] [address] Apr, Major depressive disorder, recurrent, moderate F33.1 [address] [place] [id number] Apr, Graves disease E05.00 ; Anxiety F41.9 ; S/P coronary artery stent placement Z95.5 ; Dyslipidemia E78.5 ; History of PR (myocardial infarction) I25.2 ; Hypokalemia E87.6 ; High risk medication use Z79.899 and Controlled substance agreement signed Z79.899 [address] [place] [id number] Mar, Atypical mole D22.9 [address] [place] [id number] Mar, Graves disease E05.00 ; Anxiety F41.9 ; S/P coronary artery stent placement Z95.5 ; Dyslipidemia E78.5 ; History of PR (myocardial infarction) I25.2 ; Hypokalemia E87.6 and Encounter for immunization Z23 [address] [place] [id number] Jan, Anxiety F41.[address] [id number] Nov, Anxiety F41.[address] [id number] Nov, Hyperthyroidism E05.90 ; Anxiety F41.9 ; Enlarged thyroid E01.0 ; Right sided abdominal pain R10.9 ; Thyroid nodule E04.1 ; Dyslipidemia E78.[address] elevation myocardial infarction (STEMI) I25.2 [id number] [place] [address] [id number] Nov, Hyperthyroidism E05.90 ; Enlarged thyroid E01.0 and Thyroid nodule E04.1 [address] [place] [address] [id number] Oct, [address] [place] [address] [id number] Oct, Hyperthyroidism E05.90 [address] [place] [address] [id number] Oct, Anxiety F41.9 ; Right sided abdominal pain R10.9 ; Dyslipidemia E78.[address] elevation myocardial infarction (STEMI) I25.2 [address] [place] [address] [id number] September, Coronary artery disease involving nez perce heart, angina presence unspecified, unspecified vessel or lesion type I25.10 ; Anxiety F41.9 ; History of ST elevation myocardial infarction (STEMI) I25.2 and Low back pain M54.[address] [id number] September, RLQ abdominal pain R10.31 and Diarrhea, unspecified type R19.7 [address] [place] [address] [id number] Aug, Coronary artery disease involving nez perce heart, angina presence unspecified, unspecified vessel or lesion type I25.10 ; Anxiety F41.9 ; Anxiety about health F41.8 ; History of ST elevation myocardial infarction (STEMI) I25.2 and S/P coronary artery stent placement Z95.5 [facility] [id number][place] [id number] Jul, [address] [place] [address] [id number] Jul, Nonintractable headache, unspecified chronicity pattern, unspecified headache type R51 and Sleeping difficulty G47.9 [id number] [place] [address] [id number] Jul, Essential hypertension, hypertension with unspecified goal I10 [address] [place] [address] [id number] Jun, Essential hypertension, hypertension with unspecified goal I10 and Cervicalgia M54.2 [address] [id number] May, Bronchiolitis J21.9 and Essential hypertension, hypertension with unspecified goal I10 [address] [place] [address] [id number] Mar, [address] [place] [address] [id number] Mar, Cervical stenosis of spinal canal M48.02 and Foraminal stenosis of cervical region M99.81 [facility] [id number], [place] [id number] Mar, [facility] [address]100[place] [address] Mar, [address] [id number] [place] [address] [id number] Mar, Cervicalgia M54.2 [facility] [id number], [place] [id number] Mar, [address] [place] [address] [id number] Jan, [facility] [address] [id number] [place] [id number] Dec, [facility] [address] [id number] [place] [id number] Dec, [facility] [address] [id number] [place] [id number] Dec, Cervicalgia M54.[address] [facility] [address] [id number] [id number] Nov, Cervicalgia M54.2 [facility] [address] [id number] [place] [id number] Nov, Cervicalgia M54.2 [facility] [address] [id number] [place] [id number] Oct, Cervicalgia M54.2 and Essential hypertension, hypertension with unspecified goal I10 [facility] [address] [id number] [place] [id number] Oct, [facility] [address] [id number] [place] [id number] Aug, Cervicalgia M54.2 [facility] [address] [id number] [place] [id number] Aug, [facility] [address] [id number] [place] [id number] Aug, Headache R51 and Essential hypertension, hypertension with unspecified goal I10 [facility] [address] [id number] [place] [id number] Jul, [facility] [address] [address] Aug, [facility] [address] [place] [id number] Aug, [facility] [id number] [place] [address]365[address] Mar, [facility] [address] [address] Mar, [facility] [id number] [place] [address] Dec, [facility] [address] [id number] [place] [id number] Dec, [facility] [address] [id number] [place] [id number] Aug, [facility] [address] [facility] [id number] [place] [address] Aug, [facility] [address] [facility] [address] [id number], [place] [address] Jul, [facility] [address] [facility] [address] [id number] [place] [address] Jul, [facility] [address] [id number] [place] [id number] Dec, [facility] [address] [id number] [place] [id number] Apr, [facility] [address] [facility] [address] [id number], [place] [address] Apr, [facility] [address] [facility] [address] [id number], [place] [address] Mar, [facility] [address] [id number] [place] [id number] Mar, [facility] [address] [id number] [place] [id number] Oct, [facility] [address] [facility] [address] [id number] [address] Oct, [facility] [address] [id number] [place] [id number] Oct, [facility] [address] [id number] [place] [id number] September, [facility] [address] [id number] [place] [id number] Jul, [facility] [address] [id number] [place] [id number] Jun, [facility] [address] [id number] [place] [id number] Jun, [facility] [address] [facility] [address] [id number], [place] [address] May, [facility] [address] [facility] [address] [id number], [place] [address] May, [facility] [address] [facility] [address] [id number] [address] May, [facility] [address] [facility] [address] [id number], [place] [address] May, [facility] [address] [facility] [address] [id number], [place] [address] Dec, IMMUNIZATIONS No Known Immunizations SOCIAL HISTORY Never Assessed REASON FOR VISIT x rays / prophy PLAN OF CARE Activity Details Follow Up SRP all 4 quads with localized anesthetic Reason: VITAL SIGNS MEDICATIONS Medication Instructions Dosage Frequency Start Date End Date Duration Status Aspir-81 81 MG Orally Once a day 1 tablet 24h Active Plavix 75 MG Orally Once a day 1 tablet 24h Active Atorvastatin Calcium 20 MG Orally Once a day 1 tablet 24h Active Clonazepam 1 MG Orally Three times a day as needed for anxiety 1 tablet September, 30 days Active Fluticasone Propionate 50 MCG/ACT Nasally Once a day 1 spray in each nostril 24h Nov, 30 day(s) Active Propylthiouracil 50 mg Orally 3 times a day 4 tablets 8h Active Toprol XL 25 MG Orally Once a day at bedtime 1 tablet Active Nitroglycerin 0.4 MG Active Potassium Chloride ER 20 MEQ Orally Once a day 1 tablet with food 24h Active Sotalol HCl 80 MG Orally every 12 hrs 1/2 tablet 12h Active Zoloft 100 MG Orally Once a day 2 tablets 24h 30 days Active RESULTS No Results PROCEDURES Procedure Date Ordered Result Body Site INTRAORL-PERIAPICAL 1 FILM [id number] Apr 21, 2018 INTRAORL-PERIAPICAL EA ADD FILM Apr 21, 2018 INTRAORL-PERIAPICAL EA ADD FILM Apr 21, 2018 INTRAORL-PERIAPICAL EA ADD FILM Apr 21, 2018 Full mouth debridement Apr 21, 2018 VERTICAL BITEWINGS - 7 TO 8 FILMS Apr 21, 2018 INSTRUCTIONS MEDICATIONS ADMINISTERED No Known Medications [...] Cervical stenosis repair, hardware placed by at [address] 07/2016 Surgical History Acute STEMI, heart cath performed-balloon stent to RCA, stent Mid LAD 08/2016 Hospitalization History [facility] STEMI, Cardiogenic shock, increased LFTS 08/2016 Hospitalization History inpatient psych [place] after OD after losing baby 2009
--- OUTSIDE RECORDS SUMMARY | 2018-06-17 11:26 | XMS REPORT ---
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 Name Role Phone HERNANDEZ IMMANUEL Unavailable PROBLEMS Type Condition ICD9-CM Code [id number] Code Onset Dates Condition Status SNOMED Code Problem History of ST elevation myocardial infarction (STEMI) I25.2 Active 559536726454141 Problem Anxiety about health F41.8 Active 201191286 Problem Coronary artery disease involving eastern shoshone heart, angina presence unspecified, unspecified vessel or lesion type I25.10 Active 97080034 Problem Major depressive disorder, recurrent, moderate F33.1 Active 69964251 Problem Hyperthyroidism E05.90 Active 41053679 Problem S/P coronary artery stent placement Z95.5 Active 601061480 Problem Seasonal allergic rhinitis due to other allergic trigger J30.89 Active 927687226 Problem Graves disease E05.00 Active 700554382 Problem Dyslipidemia E78.5 Active 960588459 Problem Anxiety F41.9 Active 97647837 Problem Thyroid nodule E04.1 Active 492827814 Problem Enlarged thyroid E01.0 Active 70562984 ALLERGIES No Known Allergies ENCOUNTERS Encounter Location Date Diagnosis [place] [id number] [facility] [id number] [place] [id number] Apr, [facility] [address] [facility] [id number] [id number] Mar, [facility] [address] [facility] [id number], [place] [address] Jan, Graves disease E05.00 [facility] [address] [facility] [id number] [address] Dec, Major depressive disorder, recurrent, moderate F33.[address] [id number] [place] [id number] Dec, Dental examination Z01.20 [facility] [address] [place] [address]37- 8827 Nov, Graves disease E05.00 and Major depressive disorder, recurrent, moderate F33.1 [facility] [id number] [place] [id number] Nov, Sinus congestion R09.81 and Seasonal allergic rhinitis due to other allergic trigger J30.89 [facility] [id number] [place] [address] [id number] Oct, Acute non-recurrent frontal sinusitis J01.10 [facility] [id number] [place] [address] 55536- 5138 Oct, Graves disease E05.00 [facility] [address] [place] [address] 01111- 6096 September, Major depressive disorder, recurrent, moderate F33.1 [facility] [address] [place] [address] 92603- 8825 September, Graves disease E05.00 and Major depressive disorder, recurrent, moderate F33.1 [address] [place] [address] [id number] Aug, [address] [place] [address] [id number] Aug, Graves disease E05.00 [facility] [facility] [address] [id number] [place] [id number] Aug, Dental caries K02.9 [facility] [address] [place] [address] 46814- 1705 Aug, Major depressive disorder, recurrent, moderate F33.1 [facility] [address] [place] [address] 13668- 5865 Aug, Major depressive disorder, recurrent, moderate F33.1 and Graves disease E05.00 [facility] [address] [place] [address] 48287- 6614 Jul, Graves disease E05.00 [facility] [address] [place] [address] 98743- 3024 Jul, Major depressive disorder, recurrent, moderate F33.1 [facility] [address] [facility] [address] [id number] [place] [id number] Jul, Dental examination Z01.20 [facility] [address] [facility] [address] [id number] [place] [id number] Jul, Dental examination Z01.20 [facility] [id number] [place] [address] [id number] Jul, Major depressive disorder, recurrent, moderate F33.1 ; Anxiety F41.9 ; Graves disease E05.[address] elevation myocardial infarction (STEMI) I25.2 [facility] [id number] [place] [address] 48691- 9027 Jul, Major depressive disorder, recurrent, moderate F33.1 [facility] [id number] [place] [address] 29721- 3464 Jun, Major depressive disorder, recurrent, moderate F33.1 [facility] [id number] [place] [address] [id number] Jun, Graves disease E05.00 [facility] [id number] [place] [address] [id number] Jun, Influenza A J10.1 [facility] [id number] [place] [address]273 -5094 May, Chest wall pain R07.89 [facility] [id number] [place] [address] 36872- 0342 May, Major depressive disorder, recurrent, moderate F33.1 [facility] [id number] [place] [address] 10900- 5811 May, Graves disease E05.00 and Major depressive disorder, recurrent, moderate F33.1 [facility] [id number] [place] [address] [id number] May, Anxiety F41.9 and Graves disease E05.00 [facility] [address] [place] [address] 58657- 5326 Apr, Major depressive disorder, recurrent, moderate F33.1 and Graves disease E05.00 [address] [place] [address] [id number] Apr, Anxiety F41.9 [facility] [address] [place] [address] 67151 2546 Apr, Major depressive disorder, recurrent, moderate F33.1 [address] [place] [address] [id number] Apr, Graves disease E05.00 ; Anxiety F41.9 ; S/P coronary artery stent placement Z95.5 ; Dyslipidemia E78.5 ; History of IN (myocardial infarction) I25.2 ; Hypokalemia E87.6 ; High risk medication use Z79.899 and Controlled substance agreement signed Z79.899 [address] [id number] [place] [address] [id number] Mar, Atypical mole D22.9 [place] [id number] [place] [address] [id number] Mar, Graves disease E05.00 ; Anxiety F41.9 ; S/P coronary artery stent placement Z95.5 ; Dyslipidemia E78.5 ; History of IN (myocardial infarction) I25.2 ; Hypokalemia E87.6 and Encounter for immunization Z23 [address] [place] [address] [id number] Jan, Anxiety F41.9 [place] [id number] [place] [address] [id number] Nov, Anxiety F41.9 [place] [id number] [place] [address] [id number] Nov, Hyperthyroidism E05.90 ; Anxiety F41.9 ; Enlarged thyroid E01.0 ; Right sided abdominal pain R10.9 ; Thyroid nodule E04.1 ; Dyslipidemia E78.[address] elevation myocardial infarction (STEMI) I25.2 [facility] [id number] [place] [id number] Nov, Hyperthyroidism E05.90 ; Enlarged thyroid E01.0 and Thyroid nodule E04.1 [place] [id number] [place] [address] [id number] Oct, [address] [place] [address] [id number] Oct, Hyperthyroidism E05.90 [place] [id number] [place] [address] [id number] Oct, Anxiety F41.9 ; Right sided abdominal pain R10.9 ; Dyslipidemia E78.[address] elevation myocardial infarction (STEMI) I25.2 [address] [place] [address] [id number] September, Coronary artery disease involving eastern shoshone heart, angina presence unspecified, unspecified vessel or lesion type I25.10 ; Anxiety F41.9 ; History of ST elevation myocardial infarction (STEMI) I25.2 and Low back pain M54.5 [address] [place] [address] [id number] September, RLQ abdominal pain R10.31 and Diarrhea, unspecified type R19.7 [address] [place] [address] [id number] Aug, Coronary artery disease involving eastern shoshone heart, angina presence unspecified, unspecified vessel or lesion type I25.10 ; Anxiety F41.9 ; Anxiety about health F41.8 ; History of ST elevation myocardial infarction (STEMI) I25.2 and S/P coronary artery stent placement Z95.5 [address] [id number] Jul, [address] [place] [address] [id number] Jul, Nonintractable headache, unspecified chronicity pattern, unspecified headache type R51 and Sleeping difficulty G47.9 [address] [place] [address] [id number] Jul, Essential hypertension, hypertension with unspecified goal I10 [id number] [id number] Jun, Essential hypertension, hypertension with unspecified goal I10 and Cervicalgia M54.2 [facility] [address] [id number] [place] [id number] May, Bronchiolitis J21.9 and Essential hypertension, hypertension with unspecified goal I10 [facility] [place] [address] [id number] [place] [id number] Mar, [facility] [place] [id number] [place] [address] [id number] Mar, Cervical stenosis of spinal canal M48.02 and Foraminal stenosis of cervical region M99.81 [facility] [place] [id number] [place] [id number] Mar, [facility] [address], [place] [address] 6[address] Mar, [facility] [id number] [place] [id number] Mar, Cervicalgia M54.2 [facility] [place] [address] [id number] [place] [id number] Mar, [facility] [address] [id number] [place] [id number] Jan, [facility] [address] [id number] [place] [phone] Dec, [facility] [address] [id number] [place] [phone] Dec, [facility] [place] [id number] [place] [id number] Dec, Cervicalgia M54.2 [facility] [address] [id number] [place] [id number] Nov, Cervicalgia M54.2 [facility] [place] [address] [id number] [place] [id number] Nov, Cervicalgia M54.2 [facility] [place] [address] [id number] [place] [phone] Oct, Cervicalgia M54.2 and Essential hypertension, hypertension with unspecified goal I10 [facility] [address] [facility] [id number] [place] [id number] Oct, [facility] [address] [id number] [place] [id number] Aug, Cervicalgia M54.2 [facility] [address] [id number] [place] [id number] Aug, [facility] [address] [id number] [place] [id number] Aug, Headache R51 and Essential hypertension, hypertension with unspecified goal I10 [facility] [address] [facility] [id number] [place] [id number] Jul, [facility] [id number] [place] [address] 34510- 7396 Aug, [facility] [id number] [place] [address] 91113- 4120 Aug, [facility] [id number] [place] [address] 31305- 8892 Mar, [facility] [id number] [place] [address] 27546- 0356 Mar, [facility] [address] [place] [address] 25686- 2262 Dec, [facility] [id number] [place] [id number] Dec, [facility] [id number] [place] [id number] Aug, [facility] [address] [facility] [id number], [place] [address]- 0946 Aug, [facility] [id number] [place] [address] 94102- 3816 Jul, [facility] [address] [id number], [place] [address] 4836 Jul, [facility] [id number] [place] [id number] Dec, [facility] [address] [facility] [id number] [place] [id number] Apr, [facility] [address] [id number], [place] [address] 6[address] Apr, [facility] [address]100[place], [place] [address]- 0416 Mar, [facility] [place] [address] [id number] [place] [id number] Mar, [facility] [place] [address] [id number] [place] [id number] Oct, [facility] [address] [place] [address] 45440- 6486 Oct, [facility] [address] [id number] [place] [id number] Oct, [facility] [address] [id number] [place] [id number] September, [facility] [address] [id number] [place] [id number] Jul, [facility] [address] [id number] [place] [id number] Jun, [facility] [place] [id number] [place] [id number] Jun, [facility] [address]65100[place], [place] [address]- 0[address] May, [facility] [address]65100[place], [place] [address]- 1295 May, [facility] [address]65100[place], [place] [address]- 4557 May, [facility] [id number] [place] [address] 60652- 6091 May, [facility] [address], [place] [address]- 4335 Dec, IMMUNIZATIONS No Known Immunizations SOCIAL HISTORY Never Assessed REASON FOR VISIT restorative PLAN OF CARE Activity Details Follow Up prn Reason:hygiene VITAL SIGNS Height 63.75 in 2018-01-12 Blood pressure systolic 138 mmHg 2018-01-12 Blood pressure diastolic 86 mmHg 2018-01-12 MEDICATIONS Medication Instructions Dosage Frequency Start Date End Date Duration Status Clonazepam 1 MG Orally Three times a day as needed for anxiety 1 tablet September, 30 days Active Sotalol HCl 80 MG Orally every 12 hrs 1/2 tablet 12h Active Toprol XL 25 MG Orally Once a day at bedtime 1 tablet Active Zoloft 100 MG Orally Once a day 2 tablets 24h 30 days Active Potassium Chloride ER 20 MEQ Orally Once a day 1 tablet with food 24h Active Nitroglycerin 0.4 MG Active Atorvastatin Calcium 20 MG Orally Once a day 1 tablet 24h Active Plavix 75 MG Orally Once a day 1 tablet 24h Active Propylthiouracil 50 mg Orally 3 times a day 4 tablets 8h Active Aspir-81 81 MG Orally Once a day 1 tablet 24h Active Fluticasone Propionate 50 MCG/ACT Nasally Once a day 1 spray in each nostril 24h Nov, 30 day(s) Active RESULTS No Results PROCEDURES Procedure Date Ordered Result Body Site RESIN COMPOS - 2 SURFACES POSTERIOR Jan 12, 2018 Billing Notes on claim Jan 12, 2018 INSTRUCTIONS MEDICATIONS ADMINISTERED No Known Medications [...] History Angina Medical History Coronary artery disease Surgical History section x's 4 Surgical History Cervical stenosis repair, hardware placed by at [address] 07/2016 Surgical History Acute STEMI, heart cath performed-balloon stent to RCA, stent Mid LAD 08/2016 Hospitalization History [facility] STEMI, Cardiogenic shock, increased LFTS 08/2016 Hospitalization History inpatient psych Cristof[facility] after OD after losing baby 2009
--- OUTSIDE RECORDS SUMMARY | 2018-06-17 11:26 | XMS REPORT ---
Author Author LIZZIE AGUSTÍN Organization [facility] Address [address] [place] [address] Care Team Providers Care Project Control Manager Name Role Phone AMANDAGIOVANNI AGUSTÍN Unavailable PROBLEMS Type Condition ICD9-CM Code PXP91-BV Code Onset Dates Condition Status SNOMED Code Problem History of ST elevation myocardial infarction (STEMI) I25.2 Active 913756943443013 Problem Anxiety about health F41.8 Active 978159767 Problem Coronary artery disease involving [place] heart, angina presence unspecified, unspecified vessel or lesion type I25.10 Active 02761270 Problem Major depressive disorder, recurrent, moderate F33.1 Active 79806029 Problem Hyperthyroidism E05.90 Active 12862463 Problem S/P coronary artery stent placement Z95.5 Active 096262133 Problem Seasonal allergic rhinitis due to other allergic trigger J30.89 Active 325015747 Problem Graves disease E05.00 Active 483657002 Problem Dyslipidemia E78.5 Active 303827193 Problem Anxiety F41.9 Active 40911720 Problem Thyroid nodule E04.1 Active 186404889 Problem Enlarged thyroid E01.0 Active 40192893 ALLERGIES No Information ENCOUNTERS Encounter Location Date Diagnosis [facility] [address] [id number] [id number] Apr, [facility] [address] [facility] [id number], [place] [address] Mar, [facility] [address] [facility] [id number], [place] [address] Jan, Graves disease E05.00 [facility] [address] [facility] [id number], [place] [address] Dec, Major depressive disorder, recurrent, moderate F33.[address] [id number][place] [id number] Dec, Dental examination Z01.20 [facility] [address] [address] Nov, Graves disease E05.00 and Major depressive disorder, recurrent, moderate F33.1 [facility] [address] [id number] Nov, Sinus congestion R09.81 and Seasonal allergic rhinitis due to other allergic trigger J30.89 [facility] [address] [place] [address] [id number] Oct, Acute non-recurrent frontal sinusitis J01.10 [facility] [address] [place] [address] Oct, Graves disease E05.00 [facility] [address] [place] [address] September, Major depressive disorder, recurrent, moderate F33.1 [facility] [address] [place] [address] September, Graves disease E05.00 and Major depressive disorder, recurrent, moderate F33.1 [address] [id number] Aug, [address] [place] [address] [id number] Aug, Graves disease E05.[address] [id number][place] [id number] Aug, Dental caries K02.9 [facility] [address] [place] [address]67- [address] Aug, Major depressive disorder, recurrent, moderate F33.1 [facility] [id number] [place] [address]- [address] Aug, Major depressive disorder, recurrent, moderate F33.1 and Graves disease E05.00 [facility] [address] [place] [address]2882- 9702 Jul, Graves disease E05.00 [facility] [address] [place] [address]- [address] Jul, Major depressive disorder, recurrent, moderate F33.1 [facility] [address] [facility] [address] [id number][place] [id number] Jul, Dental examination Z01.20 [facility] [address] [facility] [address] [id number], [place] [id number] Jul, Dental examination Z01.20 [facility] [id number] [place] [address] [id number] Jul, Major depressive disorder, recurrent, moderate F33.1 ; Anxiety F41.9 ; Graves disease E05.[address] elevation myocardial infarction (STEMI) I25.2 [facility] [id number] [place] [address]- [address] Jul, Major depressive disorder, recurrent, moderate F33.1 [facility] [id number] [place] [address]78- [address] Jun, Major depressive disorder, recurrent, moderate F33.1 [facility] [id number] [place] [address] [id number] Jun, Graves disease E05.00 [facility] [id number] [place] [address] [id number] Jun, Influenza A J10.1 [facility] [id number] [place] [address] -[address] May, Chest wall pain R07.89 [facility] [id number] [place] [address]- [address] May, Major depressive disorder, recurrent, moderate F33.1 [facility] [address] [address] May, Graves disease E05.00 and Major depressive disorder, recurrent, moderate F33.1 [facility] [id number] [place] [address] [id number] May, Anxiety F41.9 and Graves disease E05.00 [facility] [address] [address] Apr, Major depressive disorder, recurrent, moderate F33.1 and Graves disease E05.00 [address] [place] [address] [id number] Apr, Anxiety F41.9 [facility] [address] [place] [address] 88357- [address] Apr, Major depressive disorder, recurrent, moderate F33.1 [address] [place] [address] [id number] Apr, Graves disease E05.00 ; Anxiety F41.9 ; S/P coronary artery stent placement Z95.5 ; Dyslipidemia E78.5 ; History of [place] (myocardial infarction) I25.2 ; Hypokalemia E87.6 ; High risk medication use Z79.899 and Controlled substance agreement signed Z79.8[id number] [place] [address] [id number] Mar, Atypical mole D22.9 [address] [id number] [place] [address] [id number] Mar, Graves disease E05.00 ; Anxiety F41.9 ; S/P coronary artery stent placement Z95.5 ; Dyslipidemia E78.5 ; History of [place] (myocardial infarction) I25.2 ; Hypokalemia E87.6 and Encounter for immunization Z23 [address] [place] [address] [id number] Jan, Anxiety F41.9 [id number] [place] [address] [id number] Nov, Anxiety F41.[address] [id number] Nov, Hyperthyroidism E05.90 ; Anxiety F41.9 ; Enlarged thyroid E01.0 ; Right sided abdominal pain R10.9 ; Thyroid nodule E04.1 ; Dyslipidemia E78.[address] elevation myocardial infarction (STEMI) I25.[id number] [place] [address] [id number] Nov, Hyperthyroidism E05.90 ; Enlarged thyroid E01.0 and Thyroid nodule E04.1 [place] [address] [address] [id number] Oct, [id number] [place] [address] [id number] Oct, Hyperthyroidism E05.90 [id number] [place] [address] [id number] Oct, Anxiety F41.9 ; Right sided abdominal pain R10.9 ; Dyslipidemia E78.[address] elevation myocardial infarction (STEMI) I25.[address] [id number] September, Coronary artery disease involving [place] heart, angina presence unspecified, unspecified vessel or lesion type I25.10 ; Anxiety F41.9 ; History of ST elevation myocardial infarction (STEMI) I25.2 and Low back pain M54.5 [address] [id number] [place] [address] [id number] September, RLQ abdominal pain R10.31 and Diarrhea, unspecified type R19.7 [id number] [place] [address] [id number] Aug, Coronary artery disease involving k[place] heart, angina presence unspecified, unspecified vessel or lesion type I25.10 ; Anxiety F41.9 ; Anxiety about health F41.8 ; History of ST elevation myocardial infarction (STEMI) I25.2 and S/P coronary artery stent placement Z95.5 [address] [place] [address] [id number] Jul, [id number] [place] [address] [id number] Jul, Nonintractable headache, unspecified chronicity pattern, unspecified headache type R51 and Sleeping difficulty G47.9 [address] [place] [id number] [place] [address] [id number] Jul, Essential hypertension, hypertension with unspecified goal I10 [address] [phone] Jun, Essential hypertension, hypertension with unspecified goal I10 and Cervicalgia M54.2 [facility] [id number][address] [facility] [place] [id number] May, Bronchiolitis J21.9 and Essential hypertension, hypertension with unspecified goal I10 [facility] [address] [id number] [place] [id number] Mar, [facility] [id number] [place] [address] [id number] Mar, Cervical stenosis of spinal canal M48.02 and Foraminal stenosis of cervical region M99.81 [facility] [id number] [place] [id number] Mar, [facility] [address] [place] [address] Mar, [facility] [id number], [place] [id number] Mar, Cervicalgia M54.2 [facility] [address] [id number], [place] [id number] Mar, [facility] [id number], [place] [id number] Jan, [facility] [address] [id number], [place] [id number] Dec, [facility] [address] [id number], [place] [id number] Dec, [facility] [id number], [place] [id number] Dec, Cervicalgia M54.2 [facility] [address] [facility] [address] [id number]. [facility] [id number] Nov, Cervicalgia M54.2 [facility] [address] [id number], [place] [id number] Nov, Cervicalgia M54.2 [facility] [address] [id number], [place] [id number] Oct, Cervicalgia M54.2 and Essential hypertension, hypertension with unspecified goal I10 [facility] [address] [id number] [place] [id number] Oct, [facility] [address] [id number] [place] [id number] Aug, Cervicalgia M54.2 [facility] [address] [id number] [place] [id number] Aug, [facility] [address] [id number] [place] [id number] Aug, Headache R51 and Essential hypertension, hypertension with unspecified goal I10 [facility] [address] [id number] [place] [id number] Jul, [facility] [id number] [place] [address] 12087- 8886 Aug, [facility] [id number] [place] [address] 21412- 5379 Aug, [facility] [id number] [place] [address] 57840- 1350 Mar, [facility] [id number] [place] [address] 72061- 1549 Mar, [facility] [id number] [place] [address] 51223- 3805 Dec, [facility] [id number], [place] [id number] Dec, [facility] [id number], [place] [id number] Aug, [facility] [address]00565100[place], [place] [address] Aug, [facility] [id number] [place] [address] 40421- 8499 Jul, [facility] [address] [id number], [place] [address] Jul, [facility] [id number], [place] [id number] Dec, [facility] [address] [facility] [id number] [place] [id number] Apr, [facility] [address] [facility] [id number], [place] [address] Apr, [facility] [address] [facility] [id number], [place] [address]- [address] Mar, [facility] [address] [id number], [place] [id number] Mar, [facility] [address] [id number] [place] [id number] Oct, [facility] [address] [facility] [id number][place] [address] Oct, [facility] [address] [id number] [place] [id number] Oct, [facility] [address] [id number], [place] [id number] September, [facility] [id number], [place] [id number] Jul, [facility] [address] [facility] [id number], [place] [id number] Jun, [facility] [id number], [place] [id number] Jun, [facility] [address] [address] May, [facility] [address]100[place], [place] [address]- [address]29 May, [facility] [address]65100[place], [place] [address] May, [facility] [address] [place] [address] 21981- 1703 May, [facility] [address] [address] Dec, IMMUNIZATIONS No Known Immunizations SOCIAL HISTORY Never Assessed REASON FOR VISIT norman refill PLAN OF CARE VITAL SIGNS MEDICATIONS Medication Instructions Dosage Frequency Start Date End Date Duration Status Clonazepam 1 MG Orally Three times a day as needed for anxiety 1 tablet September, 30 days Active RESULTS No [...] Cervical stenosis repair, hardware placed by at [address] 07/2016 Surgical History Acute STEMI, heart cath performed-balloon stent to RCA, stent Mid LAD 08/2016 Hospitalization History [facility] STEMI, Cardiogenic shock, increased LFTS 08/2016 Hospitalization History inpatient psych [facility] after OD after losing baby 2009
--- OUTSIDE RECORDS SUMMARY | 2018-06-17 11:26 | XMS REPORT ---
Author Author HALEY KEVIN Organization [facility] Address [address] [place] [address] Care Team Providers Care Waiter/Waitress Buffet Name Role Phone HALEY KEVIN Unavailable PROBLEMS Type Condition ICD9-CM Code JLG80-EA Code Onset Dates Condition Status SNOMED Code Problem History of ST elevation myocardial infarction (STEMI) I25.2 Active [id number] Problem Anxiety about health F41.8 Active 161033898 Problem Coronary artery disease involving douglas heart, angina presence unspecified, unspecified vessel or lesion type I25.10 Active 89036304 Problem Major depressive disorder, recurrent, moderate F33.1 Active 63496291 Problem Hyperthyroidism E05.90 Active 76687070 Problem S/P coronary artery stent placement Z95.5 Active 940527684 Problem Seasonal allergic rhinitis due to other allergic trigger J30.89 Active 540398335 Problem Graves disease E05.00 Active 738597852 Problem Dyslipidemia E78.5 Active 933526799 Problem Anxiety F41.9 Active 65109574 Problem Thyroid nodule E04.1 Active 569434766 Problem Enlarged thyroid E01.0 Active 61128372 ALLERGIES No Information ENCOUNTERS Encounter Location Date Diagnosis [facility] [address] [id number] [id number] Apr, [facility] [address] [facility] [id number] [address] Mar, [facility] [address] [facility] [id number], [place] [address] Jan, Graves disease E05.00 [facility] [address] [facility] [id number], [place] [address] Dec, Major depressive disorder, recurrent, moderate F33.[address] [id number][place] [id number] Dec, Dental examination Z01.20 [facility] [address] [address] Nov, Graves disease E05.00 and Major depressive disorder, recurrent, moderate F33.1 [facility] [id number] [place] [id number] Nov, Sinus congestion R09.81 and Seasonal allergic rhinitis due to other allergic trigger J30.89 [facility] [address] [place] [address] [phone] Oct, Acute non-recurrent frontal sinusitis J01.10 [facility] [id number] [place] [id number] [phone] Oct, Graves disease E05.00 [facility] [address] [place] [address]- [address] September, Major depressive disorder, recurrent, moderate F33.1 [facility] [id number] [place] [address]30- 4506 September, Graves disease E05.00 and Major depressive disorder, recurrent, moderate F33.1 [address] [place] [address] [id number] Aug, [address] [place] [address] [id number] Aug, Graves disease E05.[address] [id number][place] [id number] Aug, Dental caries K02.9 [facility] [address], [place] [address] Aug, Major depressive disorder, recurrent, moderate F33.1 [facility] [address] [place] [address] 50996- 0360 Aug, Major depressive disorder, recurrent, moderate F33.1 and Graves disease E05.00 [facility] [address] [place] [address]35- 7175 Jul, Graves disease E05.00 [facility] [address] [place] [address] [phone]- [phone] Jul, Major depressive disorder, recurrent, moderate F33.1 [facility] [address] [facility] [address] [id number][place] [id number] Jul, Dental examination Z01.20 [facility] [address] [facility] [address] [id number][place] [id number] Jul, Dental examination Z01.20 [facility] [id number] [place] [address] [id number] Jul, Major depressive disorder, recurrent, moderate F33.1 ; Anxiety F41.9 ; Graves disease E05.[address] elevation myocardial infarction (STEMI) I25.2 [facility] [id number] [place] [address] 28659- 4520 Jul, Major depressive disorder, recurrent, moderate F33.1 [facility] [id number] [place] [address] 12799- 5376 Jun, Major depressive disorder, recurrent, moderate F33.1 [facility] [id number] [place] [address] [id number] Jun, Graves disease E05.00 [facility] [id number] [place] [address] [id number] Jun, Influenza A J10.1 [facility] [id number] [place] [address]60 -9909 May, Chest wall pain R07.89 [facility] [id number] [place] [address] 91922- 9005 May, Major depressive disorder, recurrent, moderate F33.1 [facility] [id number] [place] [address] 47270- 5928 May, Graves disease E05.00 and Major depressive disorder, recurrent, moderate F33.1 [facility] [id number] [place] [address] [id number] May, Anxiety F41.9 [address] Graves disease E05.00 [facility] [address], [place] [address] Apr, Major depressive disorder, recurrent, moderate F33.1 and Graves disease E05.00 [address] [place] [address] [id number] Apr, Anxiety F41.9 [facility] [address] [place] [address] 20236 2546 Apr, Major depressive disorder, recurrent, moderate F33.1 [address] [place] [address] [id number] Apr, Graves disease E05.00 ; Anxiety F41.9 ; S/P coronary artery stent placement Z95.5 ; Dyslipidemia E78.5 ; History of CA (myocardial infarction) I25.2 ; Hypokalemia E87.6 ; High risk medication use Z79.899 and Controlled substance agreement signed Z79.8[id number] [place] [address] [id number] Mar, Atypical mole D22.9 [place] [id number] [place] [address] [id number] Mar, Graves disease E05.00 ; Anxiety F41.9 ; S/P coronary artery stent placement Z95.5 ; Dyslipidemia E78.5 ; History of CA (myocardial infarction) I25.2 ; Hypokalemia E87.6 and Encounter for immunization Z23 [address] [place] [address] [id number] Jan, Anxiety F41.9 [address] [place] [address] [id number] Nov, Anxiety F41.9 [place] [address] [id number] [place] [address] [id number] Nov, Hyperthyroidism E05.90 ; Anxiety F41.9 ; Enlarged thyroid E01.0 ; Right sided abdominal pain R10.9 ; Thyroid nodule E04.1 ; Dyslipidemia E78.[address] elevation myocardial infarction (STEMI) I25.[id number] [place] [address] [id number] Nov, Hyperthyroidism E05.90 ; Enlarged thyroid E01.0 and Thyroid nodule E04.1 [place] [id number] [place] [address] [id number] Oct, [place] [id number] [place] [address] [id number] Oct, Hyperthyroidism E05.90 [place] [id number] [place] [address] [id number] Oct, Anxiety F41.9 ; Right sided abdominal pain R10.9 ; Dyslipidemia E78.[address] elevation myocardial infarction (STEMI) I25.2 [place] [id number] [place] [address] [id number] September, Coronary artery disease involving douglas heart, angina presence unspecified, unspecified vessel or lesion type I25.10 ; Anxiety F41.9 ; History of ST elevation myocardial infarction (STEMI) I25.2 and Low back pain M54.5 [place] [id number] [place] [address] [id number] September, RLQ abdominal pain R10.31 and Diarrhea, unspecified type R19.7 [place] [id number] [place] [address] [id number] Aug, Coronary artery disease involving douglas heart, angina presence unspecified, unspecified vessel or lesion type I25.10 ; Anxiety F41.9 ; Anxiety about health F41.8 ; History of ST elevation myocardial infarction (STEMI) I25.2 and S/P coronary artery stent placement Z95.5 [address] [place] [address] [id number] Jul, [place] [id number] [place] [address] [id number] Jul, Nonintractable headache, unspecified chronicity pattern, unspecified headache type R51 and Sleeping difficulty G47.9 [place] [id number] [place] [address] [id number] Jul, Essential hypertension, hypertension with unspecified goal I10 [address] [place] [phone] Jun, Essential hypertension, hypertension with unspecified goal I10 and Cervicalgia M54.2 [facility] [address] [id number] [id number] May, Bronchiolitis J21.9 and Essential hypertension, hypertension with unspecified goal I10 [facility] [address] [id number] [place] [id number] Mar, [facility] [place] [id number] [place] [address] [id number] Mar, Cervical stenosis of spinal canal M48.02 and Foraminal stenosis of cervical region M99.81 [facility] [id number] [place] [id number] Mar, [facility] [address], [place] [address] Mar, [facility] [place] [id number] [place] [id number] Mar, Cervicalgia M54.2 [facility] [place] [address] [id number] [place] [id number] Mar, [facility] [place] [address] [id number] [place] [id number] Jan, [facility] [place] [address] [id number] [place] [id number] Dec, [facility] [place] [address] [id number] [place] [id number] Dec, [facility] [place] [id number] [place] [id number] Dec, Cervicalgia M54.2 [facility] [address] [id number] [facility] [id number] Nov, Cervicalgia M54.2 [facility] [place] [address] [id number] [place] [id number] Nov, Cervicalgia M54.2 [facility] [place] [address] [id number] [place] [phone] Oct, Cervicalgia M54.2 and Essential hypertension, hypertension with unspecified goal I10 [facility] [place] [address] [id number] [place] [id number] Oct, [facility] [place] [address] [facility] [id number] [place] [id number] Aug, Cervicalgia M54.2 [facility] [address] [id number] [place] [id number] Aug, [facility] [place] [address] [id number] [place] [id number] Aug, Headache R51 and Essential hypertension, hypertension with unspecified goal I10 [facility] [address] [facility] [id number] [place] [id number] Jul, [facility] [id number] [place] [address] 81256- 1216 Aug, [facility] [id number] [place] [address] 96209- 7150 Aug, [facility] [id number] [place] [address] 34630- 7486 Mar, [facility] [id number] [place] [address] 02438- 5960 Mar, [facility] [address] [place] [address] 65572- 9982 Dec, [facility] [place] [id number] [place] [id number] Dec, [facility] [place] [id number] [place] [id number] Aug, [facility] [address], [place] [address]- 3[address] Aug, [facility] [id number] [place] [address] 45392- 7566 Jul, [facility] [address] [id number], [place] [address]- 7716 Jul, [facility] [id number] [place] [id number] Dec, [facility] [place] [address] [facility] [id number] [place] [id number] Apr, [facility] [id number] [place] [address] 50890- 7617 Apr, [facility] [address], [place] [address]- 2546 Mar, [facility] [place] [address] [id number] [place] [id number] Mar, [facility] [place] [address] [id number] [place] [id number] Oct, [facility] [id number] [place] [address] 99052- 3856 Oct, [facility] [place] [address] [id number] [place] [id number] Oct, [facility] [place] [id number] [place] [address] [id number] September, [facility] [id number] [place] [address] [id number] Jul, [facility] [place] [id number] [place] [address] [id number] Jun, [facility] [place] [id number] [place] [address] [id number] Jun, [facility] [address] [address] 1298 May, [facility] [id number] [place] [address] [id number]- [phone] May, [facility] [address] [address] 2455 May, [facility] [id number] [place] [address] 46530- 4173 May, [facility] [address] [place] [address] [id number] Dec, IMMUNIZATIONS No Known Immunizations SOCIAL HISTORY Never Assessed REASON FOR VISIT f/u PLAN OF CARE Activity Details Follow Up 2 Weeks Reason: VITAL SIGNS MEDICATIONS Unknown Medications RESULTS No Results PROCEDURES Procedure Date Ordered Result Body Site Psychotherapy, patient &/family, 45 minutes, established patient Jan 19, 2018 INSTRUCTIONS MEDICATIONS ADMINISTERED No Known Medications [...] Cervical stenosis repair, hardware placed by at [address] 07/2016 Surgical History Acute STEMI, heart cath performed-balloon stent to RCA, stent Mid LAD 08/2016 Hospitalization History [facility] STEMI, Cardiogenic shock, increased LFTS 08/2016 Hospitalization History inpatient psych [facility] after OD after losing baby 2009
--- OUTSIDE RECORDS SUMMARY | 2018-06-17 11:26 | XMS REPORT ---
Author Author AGUSTINA GARCIA Organization [facility] Address [address] [place] [address] Phone Unavailable Care Team Providers Care Matcher Operator Name Role Phone AGUSTINA GARCIA Unavailable Unavailable PROBLEMS Type Condition ICD9-CM Code TCE76-IN Code Onset Dates Condition Status SNOMED Code Problem History of ST elevation myocardial infarction (STEMI) I25.2 Active 513521459989039 Problem Anxiety about health F41.8 Active 496838139 Problem Coronary artery disease involving chuloonawick heart, angina presence unspecified, unspecified vessel or lesion type I25.10 Active 10618995 Problem Major depressive disorder, recurrent, moderate F33.1 Active 11816925 Problem Hyperthyroidism E05.90 Active 87095738 Problem S/P coronary artery stent placement Z95.5 Active 094016927 Problem Seasonal allergic rhinitis due to other allergic trigger J30.89 Active 536596722 Problem Graves disease E05.00 Active 830491850 Problem Dyslipidemia E78.5 Active 142328546 Problem Anxiety F41.9 Active 98468956 Problem Thyroid nodule E04.1 Active 913000311 Problem Enlarged thyroid E01.0 Active 96337425 ALLERGIES No Known Allergies ENCOUNTERS Encounter Location Date Diagnosis [facility] [address] [facility] [id number], [place] [address] Apr, [facility] [address] [id number] [id number] Apr, [facility] [address] [facility] [id number], [place] [address] Mar, [facility] [address] [id number], [place] [address] Jan, Graves disease E05.00 [facility] [address] [facility] [id number], [place] [address] Dec, Major depressive disorder, recurrent, moderate F33.1 [facility] [address] [facility] [address] [id number] [phone] Dec, Dental examination Z01.20 [facility] [id number] [place] [phone] Nov, Graves disease E05.00 and Major depressive disorder, recurrent, moderate F33.1 [id number] [place] [address] [id number] Nov, Sinus congestion R09.81 and Seasonal allergic rhinitis due to other allergic trigger J30.89 [facility] [id number] [place] [address] [id number] Oct, Acute non-recurrent frontal sinusitis J01.10 [place] [address] [place] [address] Oct, Graves disease E05.00 [place] [id number] [place] [address] September, Major depressive disorder, recurrent, moderate F33.1 [facility] [address] [place] [address] September, Graves disease E05.00 and Major depressive disorder, recurrent, moderate F33.1 [address] [id number] Aug, [place] [id number] [place] [address] [phone] Aug, Graves disease E05.00 [facility] [address] [facility] [id number] [id number] Aug, Dental caries K02.9 [facility] [id number] [place] [address] Aug, Major depressive disorder, recurrent, moderate F33.1 [facility] [address] [place] [address] Aug, Major depressive disorder, recurrent, moderate F33.1 and Graves disease E05.00 [facility] [address], [place] [address] Jul, Graves disease E05.00 [facility] [id number] [place] [address] Jul, Major depressive disorder, recurrent, moderate F33.1 [facility] [address] [id number] [id number] Jul, Dental examination Z01.[id number] [place] [id number] Jul, Dental examination Z01.20 [facility] [id number] [place] [address] [id number] Jul, Major depressive disorder, recurrent, moderate F33.1 ; Anxiety F41.9 ; Graves disease E05.[address] elevation myocardial infarction (STEMI) I25.2 [facility] [id number] [place] [address] Jul, Major depressive disorder, recurrent, moderate F33.1 [facility] [id number] [place] [address] Jun, Major depressive disorder, recurrent, moderate F33.1 [facility] [id number] [place] [address] [id number] Jun, Graves disease E05.00 [facility] [id number] [place] [address] [id number] Jun, Influenza A J10.[address] [facility] [address] [place] [address] May, Chest wall pain R07.89 [facility] [address] [address] May, Major depressive disorder, recurrent, moderate F33.1 [facility] [id number] [place] [address] May, Graves disease E05.00 and Major depressive disorder, recurrent, moderate F33.1 [address] [id number] May, Anxiety F41.9 and Graves disease E05.00 [facility] [id number] [place] [address] [phone] Apr, Major depressive disorder, recurrent, moderate F33.1 and Graves disease E05.00 [place] [id number] [place] [address] [id number] Apr, Anxiety F41.9 [facility] [address] [place] [address] [phone] Apr, Major depressive disorder, recurrent, moderate F33.1 [place] [id number] [place] [address] [id number] Apr, Graves disease E05.00 ; Anxiety F41.9 ; S/P coronary artery stent placement Z95.5 ; Dyslipidemia E78.5 ; History of [place] (myocardial infarction) I25.2 ; Hypokalemia E87.6 ; High risk medication use Z79.899 and Controlled substance agreement signed Z79.899 [place] [id number] [place] [address] [id number] Mar, Atypical mole D22.9 [place] [id number] [place] [address] [id number] Mar, Graves disease E05.00 ; Anxiety F41.9 ; S/P coronary artery stent placement Z95.5 ; Dyslipidemia E78.5 ; History of [place] (myocardial infarction) I25.2 ; Hypokalemia E87.6 and Encounter for immunization Z23 [address] [place] [address] [id number] Jan, Anxiety F41.9 [place] [id number] [place] [address] [id number] Nov, Anxiety F41.9 [place] [id number] [place] [address] [id number] Nov, Hyperthyroidism E05.90 ; Anxiety F41.9 ; Enlarged thyroid E01.0 ; Right sided abdominal pain R10.9 ; Thyroid nodule E04.1 ; Dyslipidemia E78.[address] elevation myocardial infarction (STEMI) I25.2 [place] [id number] [place] [address] [id number] Nov, Hyperthyroidism E05.90 ; Enlarged thyroid E01.0 and Thyroid nodule E04.1 [place] [id number] [place] [address] [id number] Oct, [address] [id number] Oct, Hyperthyroidism E05.90 [place] [id number] [place] [address] [id number] Oct, Anxiety F41.9 ; Right sided abdominal pain R10.9 ; Dyslipidemia E78.[address] elevation myocardial infarction (STEMI) I25.2 [place] [id number] [place] [address] [id number] September, Coronary artery disease involving chuloonawick heart, angina presence unspecified, unspecified vessel or lesion type I25.10 ; Anxiety F41.9 ; History of ST elevation myocardial infarction (STEMI) I25.2 and Low back pain M54.5 [place] [id number] [place] [address] [id number] September, RLQ abdominal pain R10.31 and Diarrhea, unspecified type R19.7 [place] [id number] [place] [address] [id number] Aug, Coronary artery disease involving chuloonawick heart, angina presence unspecified, unspecified vessel or lesion type I25.10 ; Anxiety F41.9 ; Anxiety about health F41.8 ; History of ST elevation myocardial infarction (STEMI) I25.2 and S/P coronary artery stent placement Z95.5 [place] [id number] [place] [address] [id number] Jul, [address] [id number] Jul, Nonintractable headache, unspecified chronicity pattern, unspecified headache type R51 and Sleeping difficulty G47.[address] [id number] Jul, Essential hypertension, hypertension with unspecified goal I10 [facility] [place] [address] [id number][place] [id number] Jun, Essential hypertension, hypertension with unspecified goal I10 and Cervicalgia M54.[address] [facility] [address] [id number] [id number] May, Bronchiolitis J21.9 and Essential hypertension, hypertension with unspecified goal I10 [facility] [place] [address] [id number], [place] [id number] Mar, [facility] [place] [id number][place] [id number] Mar, Cervical stenosis of spinal canal M48.02 and Foraminal stenosis of cervical region M99.81 [facility] [id number], [place] [id number] Mar, [facility] [place] [address]00565[address], [place] [address] Mar, [facility] [place] [id number], [place] [id number] Mar, Cervicalgia M54.2 [facility] [place] [address] [id number][place] [id number] Mar, [facility] [place] [id number], [place] [id number] Jan, [facility] [place] [address] [id number][place] [id number] Dec, [facility] [place] [address] [id number], [place] [id number] Dec, [facility] [place] [id number], [place] [id number] Dec, Cervicalgia M54.[address] [facility] [address] [id number] SPRINGS [facility] [phone] Nov, Cervicalgia M54.2 [facility] [place] [address] [id number], [place] [id number] Nov, Cervicalgia M54.2 [facility] [place] [address] [id number][place] [id number] Oct, Cervicalgia M54.2 and Essential hypertension, hypertension with unspecified goal I10 [facility] [place] [id number] [place] [id number] Oct, [facility] [place] [id number] [place] [id number] Aug, Cervicalgia M54.2 [facility] [place] [id number] [place] [id number] Aug, [facility] [place] [id number] [place] [id number] Aug, Headache R51 and Essential hypertension, hypertension with unspecified goal I10 [facility] [place] [id number] [place] [id number] Jul, [facility] [address] [place] [address] 58040- 5156 Aug, [facility] [id number] [place] [address] 34694- 0056 Aug, [facility] [id number] [place] [address] 14733- 3567 Mar, [facility] [id number] [place] [address] 24538- 3186 Mar, [facility] [address]00565100[place], [place] [address] Dec, [facility] [place] [id number], [place] [id number] Dec, [facility] [id number], [place] [id number] Aug, [facility] [id number] [place] [address] 27776- 1136 Aug, [facility] [id number] [place] [address] 64563- 5586 Jul, [facility] [address] [id number], [place] [address] Jul, [facility] [place] [address] [id number] [place] [id number] Dec, [facility] [place] [address] [id number] [place] [id number] Apr, [facility] [address] [facility] [id number], [place] [address] Apr, [facility] [place] [address] [facility] [id number], [place] [address] Mar, [facility] [place] [address] [id number] [place] [id number] Mar, [facility] [place] [address] [id number] [place] [id number] Oct, [facility] [place] [address] [facility] [id number], [place] [address] Oct, [facility] [place] [address] [id number] [place] [id number] Oct, [facility] [place] [address] [id number] [place] [id number] September, [facility] [place] [address] [id number] [place] [id number] Jul, [facility] [place] [address] [id number] [place] [id number] Jun, [facility] [place] [address] [id number] [place] [id number] Jun, [facility] [address]00565100[place], [place] [address] May, [facility] [address]65100[place], [place] [address] May, [facility] [address]00565100[place], [place] [address] May, [facility] [address]00565100[place], [place] [address] May, [facility] [address]65100[place], [place] [address] Dec, IMMUNIZATIONS No Known Immunizations SOCIAL HISTORY Never Assessed REASON FOR VISIT blood pressure-The patient saw her OB's nurse practitioner this afternoon and she was told to come and get her blood pressure checked out._ _RENE Winn PLAN OF CARE VITAL SIGNS Height 63.75 in 2018-03-10 Weight 152.8 lbs 2018-03-10 Temperature 98.3 degrees Fahrenheit 2018-03-10 Heart Rate 76 bpm 2018-03-10 Respiratory Rate 20 2018-03-10 BMI 26.43 kg/m2 2018-03-10 Blood pressure systolic 142 mmHg 2018-03-10 Blood pressure diastolic 98 mmHg 2018-03-10 MEDICATIONS Medication Instructions Dosage Frequency Start Date End Date Duration Status Aspir-81 81 MG Orally Once a day 1 tablet 24h Active Propylthiouracil 50 mg Orally 3 times a day 4 tablets 8h Active Plavix 75 MG Orally Once a day 1 tablet 24h Active Clonazepam 1 MG Orally Three times a day as needed for anxiety 1 tablet September, 30 days Active Fluticasone Propionate 50 MCG/ACT Nasally Once a day 1 spray in each nostril 24h Nov, 30 day(s) Active Potassium Chloride ER 20 MEQ Orally Once a day 1 tablet with food 24h Active Toprol XL 25 MG Orally Once a day at bedtime 1 tablet Active Sotalol HCl 80 MG Orally every 12 hrs 1/2 tablet 12h Active Atorvastatin Calcium 20 MG Orally Once [...] Cervical stenosis repair, hardware placed by at [address] 07/2016 Surgical History Acute STEMI, heart cath performed-balloon stent to RCA, stent Mid LAD 08/2016 Hospitalization History [facility] STEMI, Cardiogenic shock, increased LFTS 08/2016 Hospitalization History inpatient psych [place] after OD after losing baby 2009
--- OUTSIDE RECORDS SUMMARY | 2018-06-17 11:27 | XMS REPORT ---
Author Author LIZZIE AGUSTÍN Organization [facility] Address [address] [place] [address] Care Team Providers Care Game Author Name Role Phone AMANDAGIOVANNI AGUSTÍN Unavailable PROBLEMS Type Condition ICD9-CM Code TES62-CV Code Onset Dates Condition Status SNOMED Code Problem History of ST elevation myocardial infarction (STEMI) I25.2 Active 247044766623333 Problem Anxiety about health F41.8 Active 882809861 Problem Coronary artery disease involving chalkyitsik heart, angina presence unspecified, unspecified vessel or lesion type I25.10 Active 85811974 Problem Major depressive disorder, recurrent, moderate F33.1 Active 77232246 Problem Hyperthyroidism E05.90 Active 58869214 Problem S/P coronary artery stent placement Z95.5 Active 829783646 Problem Seasonal allergic rhinitis due to other allergic trigger J30.89 Active 160447036 Problem Graves disease E05.00 Active 908278328 Problem Dyslipidemia E78.5 Active 568280593 Problem Anxiety F41.9 Active 29741112 Problem Thyroid nodule E04.1 Active 434380081 Problem Enlarged thyroid E01.0 Active 86082471 ALLERGIES No Known Allergies ENCOUNTERS Encounter Location Date Diagnosis [place] [id number] [facility] [address] [address] [id number] [id number] Apr, [facility] [address] [facility] [id number] [address] Mar, [facility] [address] [facility] [id number], [place] [address] Jan, Graves disease E05.00 [facility] [address] [facility] [id number] [id number] Dec, Major depressive disorder, recurrent, moderate F33.[address] [id number] [id number] Dec, Dental examination Z01.20 [facility] [address] [address] Nov, Graves disease E05.00 and Major depressive disorder, recurrent, moderate F33.1 [facility] [address] [id number] Nov, Sinus congestion R09.81 and Seasonal allergic rhinitis due to other allergic trigger J30.89 [facility] [address] [place] [id number] Oct, Acute non-recurrent frontal sinusitis J01.10 [facility] [address] [place] [id number]- [address]843 Oct, Graves disease E05.00 [facility] [address] [place] [address] 765540- 4[address] September, Major depressive disorder, recurrent, moderate F33.1 [facility] [address] [place] [id number] [place] [address] September, Graves disease E05.00 and Major depressive disorder, recurrent, moderate F33.1 [address] [place] [address] [id number] Aug, [address] [place] [address] [id number] Aug, Graves disease E05.[address] [id number] [id number] Aug, Dental caries K02.9 [facility] [address], [place] [address] Aug, Major depressive disorder, recurrent, moderate F33.1 [facility] [address] [place] [address]- [address] Aug, Major depressive disorder, recurrent, moderate F33.1 and Graves disease E05.00 [facility] [address] [place] [address]11- 4373 Jul, Graves disease E05.00 [facility] [address], [place] [address] Jul, Major depressive disorder, recurrent, moderate F33.1 [facility] [address] [facility] [facility] [address] [address] [id number] [id number] Jul, Dental examination Z01.20 [facility] [address] [facility] [facility] [address] [id number] [id number] Jul, Dental examination Z01.20 [facility] [id number] [place] [address] [id number] Jul, Major depressive disorder, recurrent, moderate F33.1 ; Anxiety F41.9 ; Graves disease E05.[address] elevation myocardial infarction (STEMI) I25.2 [facility] [id number] [place] [address] Jul, Major depressive disorder, recurrent, moderate F33.1 [facility] [id number] [place] [address]- [address] Jun, Major depressive disorder, recurrent, moderate F33.1 [facility] [address] [place] [id number] [place] [address] [id number] Jun, Graves disease E05.00 [facility] [address] [id number] [place] [address] [id number] Jun, Influenza A J10.1 [facility] [id number] [place] [address] -[address] May, Chest wall pain R07.89 [facility] [address] [id number] [place] [address] 37722- 8989 May, Major depressive disorder, recurrent, moderate F33.1 [facility] [id number] [place] [address]- 2706 May, Graves disease E05.00 and Major depressive disorder, recurrent, moderate F33.1 [facility] [address] [id number] [place] [address] [id number] May, Anxiety F41.9 and Graves disease E05.00 [facility] [address], [place] [address] Apr, Major depressive disorder, recurrent, moderate F33.1 and Graves disease E05.00 [address] [place] [address] [id number] Apr, Anxiety F41.9 [facility] [address] [place] [address] 00466- 7966 Apr, Major depressive disorder, recurrent, moderate F33.1 [address] [place] [address] [id number] Apr, Graves disease E05.00 ; Anxiety F41.9 ; S/P coronary artery stent placement Z95.5 ; Dyslipidemia E78.5 ; History of [place] (myocardial infarction) I25.2 ; Hypokalemia E87.6 ; High risk medication use Z79.899 and Controlled substance agreement signed Z79.899 [place] [id number] [place] [address] [id number] Mar, Atypical mole D22.9 [place] [id number] [place] [address] [id number] Mar, Graves disease E05.00 ; Anxiety F41.9 ; S/P coronary artery stent placement Z95.5 ; Dyslipidemia E78.5 ; History of OK (myocardial infarction) I25.2 ; Hypokalemia E87.6 and Encounter for immunization Z23 [address] [place] [address] [id number] Jan, Anxiety F41.9 [place] [id number] [place] [address] [id number] Nov, Anxiety F41.[address] [id number] Nov, Hyperthyroidism E05.90 ; Anxiety F41.9 ; Enlarged thyroid E01.0 ; Right sided abdominal pain R10.9 ; Thyroid nodule E04.1 ; Dyslipidemia E78.[address] elevation myocardial infarction (STEMI) I25.[id number] [place] [address] [id number] Nov, Hyperthyroidism E05.90 ; Enlarged thyroid E01.0 and Thyroid nodule E04.1 [place] [address] [id number] [place] [address] [id number] Oct, [place] [id number] [place] [address] [id number] Oct, Hyperthyroidism E05.90 [place] [id number] [place] [address] [id number] Oct, Anxiety F41.9 ; Right sided abdominal pain R10.9 ; Dyslipidemia E78.[address] elevation myocardial infarction (STEMI) I25.2 [place] [id number] [place] [address] [id number] September, Coronary artery disease involving chalkyitsik heart, angina presence unspecified, unspecified vessel or lesion type I25.10 ; Anxiety F41.9 ; History of ST elevation myocardial infarction (STEMI) I25.2 and Low back pain M54.5 [place] [id number] [place] [address] [id number] September, RLQ abdominal pain R10.31 and Diarrhea, unspecified type R19.7 [place] [id number] [place] [address] [id number] Aug, Coronary artery disease involving chalkyitsik heart, angina presence unspecified, unspecified vessel or lesion type I25.10 ; Anxiety F41.9 ; Anxiety about health F41.8 ; History of ST elevation myocardial infarction (STEMI) I25.2 and S/P coronary artery stent placement Z95.5 [address] [place] [address] [id number] Jul, [place] [id number] [place] [address] [id number] Jul, Nonintractable headache, unspecified chronicity pattern, unspecified headache type R51 and Sleeping difficulty G47.9 [place] [id number] [place] [address] [id number] Jul, Essential hypertension, hypertension with unspecified goal I10 [address] [place] [id number] Jun, Essential hypertension, hypertension with unspecified goal I10 and Cervicalgia M54.2 [facility] [address] [id number] [place] [place] [id number] May, Bronchiolitis J21.9 and Essential hypertension, hypertension with unspecified goal I10 [facility] [place] [address] [id number] [place] [id number] Mar, [facility] [place] [id number] [place] [address] [id number] Mar, Cervical stenosis of spinal canal M48.02 and Foraminal stenosis of cervical region M99.81 [facility] [place] [id number] [place] [id number] Mar, [facility] [address], [place] [address] Mar, [facility] [place] [id number] [place] [id number] Mar, Cervicalgia M54.2 [facility] [place] [address] [id number] [place] [id number] Mar, [facility] [place] [address] [id number] [place] [id number] Jan, [facility] [place] [address] [id number] [place] [id number] Dec, [facility] [place] [address] [id number] [place] [id number] Dec, [facility] [place] [id number] [place] [id number] Dec, Cervicalgia M54.2 [facility] [address] [facility] [facility] [address] [id number] [facility] [place] [id number] Nov, Cervicalgia M54.2 [facility] [place] [address] [id number] [place] [id number] Nov, Cervicalgia M54.2 [facility] [place] [address] [id number] [place] [id number] Oct, Cervicalgia M54.2 and Essential hypertension, hypertension with unspecified goal I10 [facility] [place] [address] [id number] [place] [id number] Oct, [facility] [place] [address] [facility] [id number] [place] [id number] Aug, Cervicalgia M54.2 [facility] [place] [address] [id number] [place] [id number] Aug, [facility] [address] [place] [id number] [place] [id number] Aug, Headache R51 and Essential hypertension, hypertension with unspecified goal I10 [facility] [place] [address] [facility] [id number] [place] [id number] Jul, [facility] [address] [id number] [place] [address] 37612- 0576 Aug, [facility] [address] [place] [place] [id number] [place] [address] 28623- 8068 Aug, [facility] [address] [place] [id number] [place] [address] 15312- 3266 Mar, [facility] [address] [place] [id number] [place] [address] 02920- 7845 Mar, [facility] [address] [place] [id number] [place] [address] 72872- 3498 Dec, [facility] [id number] [place] [id number] Dec, [facility] [id number] [place] [id number] Aug, [facility] [address], [place] [address]- 4[address] Aug, [facility] [address] [place] [place] [id number] [place] [address] 41739- 3036 Jul, [facility] [address] [place] [id number], [place] [address]- 2546 Jul, [facility] [id number] [place] [id number] Dec, [facility] [place] [address] [facility] [id number] [place] [id number] Apr, [facility] [address] [facility] [id number], [place] [address] Apr, [facility] [address] [facility] [id number] [address]- 2546 Mar, [facility] [place] [address] [id number] [place] [id number] Mar, [facility] [place] [address] [id number] [place] [id number] Oct, [facility] [address] [facility] [id number] [place] [address] 32733- 2816 Oct, [facility] [place] [address] [id number] [place] [id number] Oct, [facility] [place] [address] [id number] [place] [id number] September, [facility] [place] [address] [id number] [place] [id number] Jul, [facility] [place] [address] [facility] [id number] [place] [id number] Jun, [facility] [place] [address] [place] [id number] [place] [id number] Jun, [facility] [address], [place] [address]- [address] May, [facility] [address], [place] [address]- [address]91 May, [facility] [address], [place] [address]- 3473 May, [facility] [address] [place] [address] 99058- 3567 May, [facility] [address], [place] [address]- 7661 Dec, IMMUNIZATIONS No Known Immunizations SOCIAL HISTORY Never Assessed REASON FOR VISIT Psychiatric f/u [place] PLAN OF CARE Activity Details Follow Up 3 Months, prn Reason: VITAL SIGNS Height 63.75 in 2017-12-17 Weight 158.0 lbs 2017-12-17 Heart Rate 68 bpm 2017-12-17 Respiratory Rate 22 2017-12-17 BMI 27.33 kg/m2 2017-12-17 Blood pressure systolic 124 mmHg 2017-12-17 Blood pressure diastolic 86 mmHg 2017-12-17 MEDICATIONS Medication Instructions Dosage Frequency Start Date End Date Duration Status Zoloft 100 MG Orally Once a day 2 tablets 24h 30 days Active Toprol XL 25 MG Orally Once a day at bedtime 1 tablet Active Nitroglycerin 0.4 MG Active Benadryl 25 MG Orally every 8 hrs 1 tablet as needed 8h Nov, Nov, 14 days Active Potassium Chloride ER 20 MEQ Orally Once a day 1 tablet with food 24h Active Propylthiouracil 50 mg Orally 3 times a day 4 tablets 8h Active Fluticasone Propionate 50 MCG/ACT Nasally Once a day 1 spray in each nostril 24h Nov, 30 day(s) Active Cetirizine HCl 10 mg Orally Once a day 1 tablet 24h Nov, Dec, 30 day(s) Active Clonazepam 1 MG Orally Three times a day as needed for anxiety 1 tablet September, 30 days Active Plavix 75 MG Orally Once a day 1 tablet 24h Active Sotalol HCl 80 MG Orally every 12 hrs 1/2 tablet 12h Active Atorvastatin Calcium 20 MG Orally Once a day 1 tablet 24h Active Aspir-81 81 MG Orally Once a day 1 tablet 24h Active RESULTS No Results PROCEDURES No Known [...] Cervical stenosis repair, hardware placed by at [address] 07/2016 Surgical History Acute STEMI, heart cath performed-balloon stent to RCA, stent Mid LAD 08/2016 Hospitalization History [facility] STEMI, Cardiogenic shock, increased LFTS 08/2016 Hospitalization History inpatient psych Crist[facility] after OD after losing baby 2009
--- OUTSIDE RECORDS SUMMARY | 2018-06-17 11:27 | XMS REPORT ---
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 Chief Name Role Phone NILDA CASON Unavailable PROBLEMS Type Condition ICD9-CM Code CRD71-DW Code Onset Dates Condition Status SNOMED Code Problem History of ST elevation myocardial infarction (STEMI) I25.2 Active 556232995039943 Problem Anxiety about health F41.8 Active 286575492 Problem Coronary artery disease involving sleetmute heart, angina presence unspecified, unspecified vessel or lesion type I25.10 Active 59728945 Problem Major depressive disorder, recurrent, moderate F33.1 Active 37888304 Problem Hyperthyroidism E05.90 Active 81616582 Problem S/P coronary artery stent placement Z95.5 Active 825579605 Problem Seasonal allergic rhinitis due to other allergic trigger J30.89 Active 478283208 Problem Graves disease E05.00 Active 404356929 Problem Dyslipidemia E78.5 Active 871031692 Problem Anxiety F41.9 Active 77736638 Problem Thyroid nodule E04.1 Active 309488662 Problem Enlarged thyroid E01.0 Active 77626716 ALLERGIES No Known Allergies ENCOUNTERS Encounter Location Date Diagnosis [facility] [address] [id number] [id number] Apr, [facility] [address] [facility] [id number], [place] [address] Mar, [facility] [address] [facility] [id number], [place] [address] Jan, Graves disease E05.00 [facility] [address] [facility] [id number], [place] [address] Dec, Major depressive disorder, recurrent, moderate F33.[address] [place] [id number][place] [id number] Dec, Dental examination Z01.20 [facility] [address] [place] [address] Nov, Graves disease E05.00 and Major depressive disorder, recurrent, moderate F33.1 [facility] [address] [place] [address] [phone] Nov, Sinus congestion R09.81 and Seasonal allergic rhinitis due to other allergic trigger J30.89 [facility] [address] [place] [address] [id number] Oct, Acute non-recurrent frontal sinusitis J01.10 [place] [address] [id number] [place] [address] Oct, Graves disease E05.00 [place] [address] [place] [address]- [address] September, Major depressive disorder, recurrent, moderate F33.1 [place] [address] [place] [address] 26586- [address] September, Graves disease E05.00 and Major depressive disorder, recurrent, moderate F33.1 [address] [place] [address] [id number] Aug, [address] [place] [address] [id number] Aug, Graves disease E05.00 [facility] [id number] [facility] [address] [id number][place] [id number] Aug, Dental caries K02.9 [facility] [address] [place] [address] 30199- 3273 Aug, Major depressive disorder, recurrent, moderate F33.1 [facility] [address] [place] [address] 24213- 5286 Aug, Major depressive disorder, recurrent, moderate F33.1 and Graves disease E05.00 [facility] [address] [place] [address] 15581- 5457 Jul, Graves disease E05.00 [facility] [address] [address] Jul, Major depressive disorder, recurrent, moderate F33.1 [facility] [address] [id number][place] [id number] Jul, Dental examination Z01.20 [facility] [address] [facility] [address] [id number][place] [id number] Jul, Dental examination Z01.20 [facility] [id number], [place] [id number] Jul, Major depressive disorder, recurrent, moderate F33.1 ; Anxiety F41.9 ; Graves disease E05.[address] elevation myocardial infarction (STEMI) I25.2 [facility] [address] [id number] [address] Jul, Major depressive disorder, recurrent, moderate F33.1 [facility] [address] [place] [address] 8[address]34- 2299 Jun, Major depressive disorder, recurrent, moderate F33.1 [facility] [id number] [place] [address] [id number] Jun, Graves disease E05.00 [facility] [id number] [place] [address] [id number] Jun, Influenza A J10.1 [facility] [address] [place] [address] May, Chest wall pain R07.89 [facility] [address] [id number], [place] [address] May, Major depressive disorder, recurrent, moderate F33.1 [facility] [address], [place] [address] May, Graves disease E05.00 and Major depressive disorder, recurrent, moderate F33.1 [facility] [id number] [place] [address] [id number] May, Anxiety F41.9 and Graves disease E05.00 [facility] [address] [place] [address] 90128- 7765 Apr, Major depressive disorder, recurrent, moderate F33.1 and Graves disease E05.00 [place] [id number] [place] [address] [id number] Apr, Anxiety F41.9 [facility] [id number] [place] [address] [id number]- [address]7 Apr, Major depressive disorder, recurrent, moderate F33.1 [address] [place] [address] [id number] Apr, Graves disease E05.00 ; Anxiety F41.9 ; S/P coronary artery stent placement Z95.5 ; Dyslipidemia E78.5 ; History of [place] (myocardial infarction) I25.2 ; Hypokalemia E87.6 ; High risk medication use Z79.899 and Controlled substance agreement signed Z79.899 [place] [id number] [place] [address] [id number] Mar, Atypical mole D22.9 [place] [id number] [place] [address] [id number] Mar, Graves disease E05.00 ; Anxiety F41.9 ; S/P coronary artery stent placement Z95.5 ; Dyslipidemia E78.5 ; History of [place] (myocardial infarction) I25.2 ; Hypokalemia E87.6 and Encounter for immunization Z23 [address] [place] [id number] Jan, Anxiety F41.9 [address] [place] [address] [id number] Nov, Anxiety F41.9 [place] [id number] [place] [address] [id number] Nov, Hyperthyroidism E05.90 ; Anxiety F41.9 ; Enlarged thyroid E01.0 ; Right sided abdominal pain R10.9 ; Thyroid nodule E04.1 ; Dyslipidemia E78.[address] elevation myocardial infarction (STEMI) I25.2 [place] [id number] [place] [address] [id number] Nov, Hyperthyroidism E05.90 ; Enlarged thyroid E01.0 and Thyroid nodule E04.1 [place] [id number] [place] [address] [id number] Oct, [address] [id number] Oct, Hyperthyroidism E05.90 [place] [id number] [place] [address] [id number] Oct, Anxiety F41.9 ; Right sided abdominal pain R10.9 ; Dyslipidemia E78.[address] elevation myocardial infarction (STEMI) I25.2 [place] [id number] [place] [address] [id number] September, Coronary artery disease involving sleetmute heart, angina presence unspecified, unspecified vessel or lesion type I25.10 ; Anxiety F41.9 ; History of ST elevation myocardial infarction (STEMI) I25.2 and Low back pain M54.5 [address] [place] [address] [id number] September, RLQ abdominal pain R10.31 and Diarrhea, unspecified type R19.7 [place] [id number] [place] [address] [id number] Aug, Coronary artery disease involving sleetmute heart, angina presence unspecified, unspecified vessel or lesion type I25.10 ; Anxiety F41.9 ; Anxiety about health F41.8 ; History of ST elevation myocardial infarction (STEMI) I25.2 and S/P coronary artery stent placement Z95.5 [address] [place] [address] [id number] Jul, [place] [id number] [place] [address] [id number] Jul, Nonintractable headache, unspecified chronicity pattern, unspecified headache type R51 and Sleeping difficulty G47.9 [place] [id number] [place] [address] [id number] Jul, Essential hypertension, hypertension with unspecified goal I10 [facility] [address] [id number], [place] [id number] Jun, Essential hypertension, hypertension with unspecified goal I10 and Cervicalgia M54.[address] [facility] [address] [id number]. [facility] [id number] May, Bronchiolitis J21.9 and Essential hypertension, hypertension with unspecified goal I10 [facility] [address] [id number][place] [id number] Mar, [facility] [id number] [place] [address] [id number] Mar, Cervical stenosis of spinal canal M48.02 and Foraminal stenosis of cervical region M99.81 [facility] [address] [id number], [place] [id number] Mar, [facility] [address], [place] [address] Mar, [facility] [address] [id number], [place] [id number] Mar, Cervicalgia M54.2 [facility] [address] [id number][place] [id number] Mar, [facility] [address] [id number][place] [id number] Jan, [facility] [address] [id number], [place] [phone] Dec, [facility] [address] [id number], [place] [id number] Dec, [facility] [address] [id number], [place] [id number] Dec, Cervicalgia M54.2 [facility] [address] [id number][place] [id number] Nov, Cervicalgia M54.2 [facility] [address] [id number], [place] [id number] Nov, Cervicalgia M54.2 [facility] [address] [id number][place] [id number] Oct, Cervicalgia M54.2 and Essential hypertension, hypertension with unspecified goal I10 [facility] [address] [place] [address] [id number] [place] [id number] Oct, [facility] [address] [facility] [id number] [place] [id number] Aug, Cervicalgia M54.2 [facility] [address] [place] [id number] [place] [id number] Aug, [facility] [id number] [place] [address], [place] [id number] Aug, Headache R51 and Essential hypertension, hypertension with unspecified goal I10 [facility] [address] [place] [id number] [place] [id number] Jul, [facility] [id number] [place] [address] 57631- 2475 Aug, [facility] [id number] [place] [address] 07178- 2462 Aug, [facility] [id number] [place] [address] 21210- 5523 Mar, [facility] [id number] [place] [address] 08933- 5849 Mar, [facility] [id number] [place] [address] 46287- 0389 Dec, [facility] [id number], [place] [id number] Dec, [facility] [id number], [place] [id number] Aug, [facility] [address]00565100[place], [place] [address] Aug, [facility] [id number] [place] [address] 72647- 6506 Jul, [facility] [id number] [place] [address] 89224- 0876 Jul, [facility] [id number] [place] [address] [id number] Dec, [facility] [address] [facility] [id number], [place] [id number] Apr, [facility] [id number] [place] [address] 79339- 5446 Apr, [facility] [address]00565100[place], [place] [address] Mar, [facility] [address] [id number] [place] [id number] Mar, [facility] [address] [id number] [place] [id number] Oct, [facility] [id number] [place] [address] 77905- 9206 Oct, [facility] [address] [id number], [place] [id number] Oct, [facility] [address] [id number], [place] [id number] September, [facility] [address] [id number], [place] [id number] Jul, [facility] [address] [id number], [place] [id number] Jun, [facility] [address] [place] [id number], [place] [id number] Jun, [facility] [address]00565100[place] [address] May, [facility] [address]00565100[place] [address] May, [facility] [address]00565100[place], [place] [address]- 3546 May, [facility] [id number] [place] [address] 67761- 6692 May, [facility] [address], [place] [address] 9[address] Dec, IMMUNIZATIONS No Known Immunizations SOCIAL HISTORY Never Assessed REASON FOR VISIT 2 month follow up on anxiety. States she is doing well. juan Gunter PLAN OF CARE Activity Details Follow Up 2 Months, prn Reason:CHM Anxiety/Graves FU VITAL SIGNS Height 63.75 in 2017-08-01 Weight 152.2 lbs 2017-08-01 Temperature 98.3 degrees Fahrenheit 2017-08-01 Heart Rate 100 bpm 2017-08-01 Respiratory Rate 16 2017-08-01 BMI 26.33 kg/m2 2017-08-01 Blood pressure systolic 124 mmHg 2017-08-01 Blood pressure diastolic 72 mmHg 2017-08-01 MEDICATIONS Medication Instructions Dosage Frequency Start Date End Date Duration Status Aspir-81 81 MG Orally Once a day 1 tablet 24h Active Zoloft 100 MG Orally Once a day 1.5 tablets 24h 30 days Active Potassium Chloride ER 20 MEQ Orally Once a day 1 tablet with food 24h Active Nitroglycerin 0.4 MG Active Atorvastatin Calcium 20 MG Orally Once a day 1 tablet 24h Active Sotalol HCl 80 MG Orally every 12 hrs 1/2 tablet 12h Active Plavix 75 MG Orally Once a day 1 tablet 24h Active Lorazepam 1 MG Orally every 6 hrs as needed for anxiety/panic 1 tablet 0 days Active Propylthiouracil 50 mg Orally 3 times a day 4 tablets 8h Active Toprol XL 25 MG Orally Once a day at bedtime 1 tablet Active RESULTS No Results PROCEDURES No Known [...] Cervical stenosis repair, hardware placed by at [address] 07/2016 Surgical History Acute STEMI, heart cath performed-balloon stent to RCA, stent Mid LAD 08/2016 Hospitalization History [facility] STEMI, Cardiogenic shock, increased LFTS 08/2016 Hospitalization History inpatient psych Tensed after OD after losing baby 2009
--- OUTSIDE RECORDS SUMMARY | 2018-06-17 11:27 | XMS REPORT ---
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 Name Role Phone NILDA CASON Unavailable PROBLEMS Type Condition ICD9-CM Code KIX48-KN Code Onset Dates Condition Status SNOMED Code Problem History of ST elevation myocardial infarction (STEMI) I25.2 Active [id number] Problem Anxiety about health F41.8 Active 411388918 Problem Coronary artery disease involving [place] heart, angina presence unspecified, unspecified vessel or lesion type I25.10 Active 14071226 Problem Major depressive disorder, recurrent, moderate F33.1 Active 63452461 Problem Hyperthyroidism E05.90 Active 49533411 Problem S/P coronary artery stent placement Z95.5 Active 185759977 Problem Seasonal allergic rhinitis due to other allergic trigger J30.89 Active 672527996 Problem Graves disease E05.00 Active 892331887 Problem Dyslipidemia E78.5 Active 407949226 Problem Anxiety F41.9 Active 84710305 Problem Thyroid nodule E04.1 Active 795889714 Problem Enlarged thyroid E01.0 Active 24307007 ALLERGIES No Known Allergies ENCOUNTERS Encounter Location Date Diagnosis [facility] [id number][place] [id number] Apr, [facility] [address] [facility] [id number] [place] [id number][address]135 Mar, [facility] [address] [facility] [place] [id number] HOME[place] [id number] Jan, [facility] [address] [facility] [place] [id number] HOME[place] [id number][address] Dec, Major depressive disorder, recurrent, moderate F33.[address] [id number][place] [id number] Dec, Dental examination Z01.20 [facility] [address] [place] [address] 67717- 7737 Nov, Graves disease E05.00 and Major depressive disorder, recurrent, moderate F33.1 [facility] [address] [place] [address] [id number] Nov, Sinus congestion R09.81 and Seasonal allergic rhinitis due to other allergic trigger J30.89 [facility] [id number] [place] [address] [id number] Oct, Acute non-recurrent frontal sinusitis J01.10 [facility] [id number] [place] [address] 15837- 4413 Oct, Graves disease E05.00 [facility] [id number] [place] [address] 54181- 8704 September, Major depressive disorder, recurrent, moderate F33.1 [facility] [id number] [place] [address] 55411- 3474 September, Graves disease E05.00 and Major depressive disorder, recurrent, moderate F33.1 [address] [place] [address] [id number] Aug, [address] [place] [address] [id number] Aug, Graves disease E05.00 [facility] [place] [id number] [id number][place] [id number] Aug, Dental caries K02.9 [facility] [address] [place] [address] 51152- 9489 Aug, Major depressive disorder, recurrent, moderate F33.1 [facility] [id number] [place] [address] 29694- 8088 Aug, Major depressive disorder, recurrent, moderate F33.1 and Graves disease E05.00 [facility] [id number] [place] [address] 69989- 2800 Jul, Graves disease E05.00 [facility] [address] [address] Jul, Major depressive disorder, recurrent, moderate F33.1 [facility] [address] [id number], [place] [id number] Jul, Dental examination Z01.20 [facility] [address] [id number], [place] [id number] Jul, Dental examination Z01.20 [facility] [id number] [place] [address] [id number] Jul, Major depressive disorder, recurrent, moderate F33.1 ; Anxiety F41.9 ; Graves disease E05.[address] elevation myocardial infarction (STEMI) I25.2 [facility] [id number] [place] [address] 86632- 0946 Jul, Major depressive disorder, recurrent, moderate F33.1 [facility] [id number] [place] [address] 57964- 2334 Jun, Major depressive disorder, recurrent, moderate F33.1 [facility] [id number] [place] [address] [id number] Jun, Graves disease E05.00 [facility] [id number] [place] [address] [id number] Jun, Influenza A J10.1 [facility] [id number] [place] [address] 41606 -1551 May, Chest wall pain R07.89 [facility] [id number] [place] [address] 62704- 1957 May, Major depressive disorder, recurrent, moderate F33.1 [facility] [id number] [place] [address] 99190- 2554 May, Graves disease E05.00 and Major depressive disorder, recurrent, moderate F33.1 [facility] [id number] [place] [address] [id number] May, Anxiety F41.9 and Graves disease E05.00 [facility] [address] [place] [address] 05182 2546 Apr, Major depressive disorder, recurrent, moderate F33.1 and Graves disease E05.00 [address] [place] [address] [id number] Apr, Anxiety F41.9 [facility] [address] [place] [address] 05458 2546 Apr, Major depressive disorder, recurrent, moderate F33.1 [address] [place] [address] [id number] Apr, Graves disease E05.00 ; Anxiety F41.9 ; S/P coronary artery stent placement Z95.5 ; Dyslipidemia E78.5 ; History of DE (myocardial infarction) I25.2 ; Hypokalemia E87.6 ; High risk medication use Z79.899 and Controlled substance agreement signed Z79.899 [id number] [place] [address] [id number] Mar, Atypical mole D22.9 [place] [id number] [place] [address] [id number] Mar, Graves disease E05.00 ; Anxiety F41.9 ; S/P coronary artery stent placement Z95.5 ; Dyslipidemia E78.5 ; History of DE (myocardial infarction) I25.2 ; Hypokalemia E87.6 and Encounter for immunization Z23 [address] [place] [address] [id number] Jan, Anxiety F41.9 [place] [id number] [place] [address] [id number] Nov, Anxiety F41.9 [place] [id number] [place] [address] [id number] Nov, Hyperthyroidism E05.90 ; Anxiety F41.9 ; Enlarged thyroid E01.0 ; Right sided abdominal pain R10.9 ; Thyroid nodule E04.1 ; Dyslipidemia E78.[address] elevation myocardial infarction (STEMI) I25.2 [facility] [id number], [place] [id number] Nov, Hyperthyroidism E05.90 ; Enlarged thyroid E01.0 and Thyroid nodule E04.1 [place] [id number] [place] [address] [id number] Oct, [place] [id number] [place] [address] [id number] Oct, Hyperthyroidism E05.90 [place] [id number] [place] [address] [id number] Oct, Anxiety F41.9 ; Right sided abdominal pain R10.9 ; Dyslipidemia E78.[address] elevation myocardial infarction (STEMI) I25.2 [place] [id number] [place] [address] [id number] September, Coronary artery disease involving [place] heart, angina presence unspecified, unspecified vessel or lesion type I25.10 ; Anxiety F41.9 ; History of ST elevation myocardial infarction (STEMI) I25.2 and Low back pain M54.5 [address] [place] [address] [id number] September, RLQ abdominal pain R10.31 and Diarrhea, unspecified type R19.7 [place] [id number] [place] [address] [id number] Aug, Coronary artery disease involving [place] heart, angina presence unspecified, unspecified vessel or lesion type I25.10 ; Anxiety F41.9 ; Anxiety about health F41.8 ; History of ST elevation myocardial infarction (STEMI) I25.2 and S/P coronary artery stent placement Z95.5 [address] [id number] Jul, [place] [id number] [place] [address] [id number] Jul, Nonintractable headache, unspecified chronicity pattern, unspecified headache type R51 and Sleeping difficulty G47.9 [address] [place] [address] [id number] Jul, Essential hypertension, hypertension with unspecified goal I10 [address]005[address]100[place] [id number] Jun, Essential hypertension, hypertension with unspecified goal I10 and Cervicalgia M54.2 [facility] [address] [id number] [facility] [id number] May, Bronchiolitis J21.9 and Essential hypertension, hypertension with unspecified goal I10 [facility] [place] [address] [id number] [place] [id number] Mar, [facility] [place] [id number] [place] [address] [id number] Mar, Cervical stenosis of spinal canal M48.02 and Foraminal stenosis of cervical region M99.81 [facility] [place] [id number] [place] [id number] Mar, [facility] [address]100[place] [address] Mar, [facility] [id number], [place] [id number] Mar, Cervicalgia M54.2 [facility] [place] [address] [id number], [place] [id number] Mar, [facility] [address] [id number], [place] [id number] Jan, [facility] [address] [id number], [place] [id number] Dec, [facility] [place] [address] [id number], [place] [id number] Dec, [facility] [place] [address] [id number][place] [id number] Dec, Cervicalgia M54.2 [facility] [address] [id number] [facility] [place] [id number] Nov, Cervicalgia M54.2 [facility] [place] [address] [id number] [place] [id number] Nov, Cervicalgia M54.2 [facility] [place] [address] [id number][place] [id number] Oct, Cervicalgia M54.2 and Essential hypertension, hypertension with unspecified goal I10 [facility] [address] [facility] [id number] [place] [id number] Oct, [facility] [address] [facility] [id number] [place] [id number] Aug, Cervicalgia M54.2 [facility] [address] [id number] [place] [id number] Aug, [facility] [address] [id number] [place] [id number] Aug, Headache R51 and Essential hypertension, hypertension with unspecified goal I10 [facility] [address] [facility] [id number] [place] [id number] Jul, [facility] [id number] [place] [address] 33859- 1686 Aug, [facility] [id number] [place] [address] 72252- 5439 Aug, [facility] [id number] [place] [address] 85556- 9223 Mar, [facility] [id number] [place] [address] 74140- 7346 Mar, [facility] [id number] [place] [address] 20977- 1600 Dec, [facility] [id number], [place] [id number] Dec, [facility] [id number], [place] [id number] Aug, [facility] [address] [facility] [id number] [place] [address]- 9796 Aug, [facility] [id number] [place] [address] 60423- 6796 Jul, [facility] [address] [address]- 9076 Jul, [facility] [id number], [place] [id number] Dec, [facility] [address] [facility] [id number], [place] [id number] Apr, [facility] [address]100[place] [address]- 8124 Apr, [facility] [address] [facility] [id number] [place] [address]- 1286 Mar, [facility] [place] [address] [id number] [place] [id number] Mar, [facility] [place] [address] [id number] [place] [id number] Oct, [facility] [address] [facility] [id number] [place] [address]- 4206 Oct, [facility] [place] [address] [id number] [place] [id number] Oct, [facility] [place] [address] [id number], [place] [id number] September, [facility] [place] [address] [id number][place] [id number] Jul, [facility] [place] [address] [facility] [id number], [place] [id number] Jun, [facility] [place] [address] [id number], [place] [id number] Jun, [facility] [address] [address]- 7784 May, [facility] [address]100[place] [address]- 9917 May, [facility] [address]100[place] [address]- 2214 May, [facility] [address]100[place] [address]- 0997 May, [facility] [address] [address]- 2576 Dec, IMMUNIZATIONS No Known Immunizations SOCIAL HISTORY Never Assessed REASON FOR VISIT Allergies Maricel VILLALOBOS PLAN OF CARE Activity Details Follow Up if s/s not improving with PCP or in Clinic Reason: VITAL SIGNS Height 63.75 in 2017-12-10 Weight 159.2 lbs 2017-12-10 Temperature 98.1 degrees Fahrenheit 2017-12-10 Heart Rate 86 bpm 2017-12-10 Respiratory Rate 20 2017-12-10 BMI 27.54 kg/m2 2017-12-10 Blood pressure systolic 130 mmHg 2017-12-10 Blood pressure diastolic 82 mmHg 2017-12-10 MEDICATIONS Medication Instructions Dosage Frequency Start Date End Date Duration Status Fluticasone Propionate 50 MCG/ACT Nasally Once a day 1 spray in each nostril 24h Nov, 30 day(s) Active Cetirizine HCl 10 mg Orally Once a day 1 tablet 24h Nov, Dec, 30 day(s) Active Zoloft 100 mg Orally Once a day 2 tablets 24h 30 days Active Benadryl 25 MG Orally every 8 hrs 1 tablet as needed 8h Nov, Nov, 14 days Active Atorvastatin Calcium 20 MG Orally Once a day 1 tablet 24h Active Nitroglycerin 0.4 MG Active Clonazepam 1 MG Orally Three times a day as needed for anxiety 1 tablet September, 30 days Active Aspir-81 81 MG Orally Once a day 1 tablet 24h Active Potassium Chloride ER 20 MEQ Orally Once a day 1 tablet with food 24h Active Plavix 75 MG Orally Once a day 1 tablet 24h Active Toprol XL 25 MG Orally Once a day at bedtime 1 tablet Active PredniSONE 20 mg Orally Once a day 2 tablet 24h Nov, Nov, 05 days Active Propylthiouracil 50 mg Orally 3 times a day 4 tablets 8h Active Sotalol HCl 80 MG Orally every [...] Cervical stenosis repair, hardware placed by at [address] 07/2016 Surgical History Acute STEMI, heart cath performed-balloon stent to RCA, stent Mid LAD 08/2016 Hospitalization History [facility] STEMI, Cardiogenic shock, increased LFTS 08/2016 Hospitalization History inpatient psych [place] after OD after losing baby 2010
--- OUTSIDE RECORDS SUMMARY | 2018-06-17 11:27 | XMS REPORT ---
Author Author NILDA CASON Organization [facility] Address [address] [place] [address] Care Team Providers Care Door Opener Name Role Phone NILDA CASON Unavailable PROBLEMS Type Condition ICD9-CM Code GDE95-GN Code Onset Dates Condition Status SNOMED Code Problem History of ST elevation myocardial infarction (STEMI) I25.2 Active 019431709284204 Problem Anxiety about health F41.8 Active 038624353 Problem Coronary artery disease involving nuiqsut heart, angina presence unspecified, unspecified vessel or lesion type I25.10 Active 97354730 Problem Major depressive disorder, recurrent, moderate F33.1 Active 31260342 Problem Hyperthyroidism E05.90 Active 45323612 Problem S/P coronary artery stent placement Z95.5 Active 065071313 Problem Seasonal allergic rhinitis due to other allergic trigger J30.89 Active 432610756 Problem Graves disease E05.00 Active 152312489 Problem Dyslipidemia E78.5 Active 165361076 Problem Anxiety F41.9 Active 82999773 Problem Thyroid nodule E04.1 Active 943122344 Problem Enlarged thyroid E01.0 Active 41027056 ALLERGIES No Known Allergies ENCOUNTERS Encounter Location Date Diagnosis [facility] [place] [id number] [id number] [id number] Apr, [facility] [address] [facility] [place] [id number][place] [address] Mar, [facility] [address] [facility] [place] [id number][place] [address] Dec, Major depressive disorder, recurrent, moderate F33.[address] [id number] [id number] 13 Dec, 2017 Dental examination Z01.20 [facility] [address] [facility] [place] [facility] [id number] [place] [address]4044- [address] Nov, Graves disease E05.00 and Major depressive disorder, recurrent, moderate F33.1 [address] [place] [address] [id number] Nov, Sinus congestion R09.81 and Seasonal allergic rhinitis due to other allergic trigger J30.89 [place] [id number] [place] [address] [id number] Oct, Acute non-recurrent frontal sinusitis J01.10 [facility] [address] [place] [id number] [place] [address]- 3[address] Oct, Graves disease E05.00 [facility] [address] [address] [id number] [place] [address] 05981- 5557 September, Major depressive disorder, recurrent, moderate F33.1 [facility] [address] [place] [address] [id number] [place] [address] 92470- 5607 September, Graves disease E05.00 and Major depressive disorder, recurrent, moderate F33.1 [address] [place] [address] [id number] Aug, [place] [id number] [place] [address] [id number] Aug, Graves disease E05.00 [place] [address] [facility] [id number] [id number] Aug, Dental caries K02.9 [facility] [address] [place] [address] 23287- 3711 Aug, Major depressive disorder, recurrent, moderate F33.1 [facility] [address] [place] [address] 20802- 6212 Aug, Major depressive disorder, recurrent, moderate F33.1 and Graves disease E05.00 [facility] [address] [place] [address] 31175- 3209 Jul, Graves disease E05.00 [facility] [address] [address] [id number] [place] [address] 33829- 8777 Jul, Major depressive disorder, recurrent, moderate F33.1 [facility] [address] [id number][place] [id number] Jul, Dental examination Z01.20 [facility] [id number][place] [id number] Jul, Dental examination Z01.20 [facility] [id number] [place] [address] [id number] Jul, Major depressive disorder, recurrent, moderate F33.1 ; Anxiety F41.9 ; Graves disease E05.[address] elevation myocardial infarction (STEMI) I25.2 [place] [address] [address] Jul, Major depressive disorder, recurrent, moderate F33.1 [place] [address] [address]- [address] Jun, Major depressive disorder, recurrent, moderate F33.1 [facility] [id number] [place] [address] [id number] Jun, Graves disease E05.00 [facility] [address] [id number] Jun, Influenza A J10.1 [facility] [id number] [place] [address] -[address]365 May, Chest wall pain R07.89 [facility] [address] [address]- [address] May, Major depressive disorder, recurrent, moderate F33.1 [facility] [address] [address]- [address] May, Graves disease E05.00 and Major depressive disorder, recurrent, moderate F33.1 [facility] [id number] [place] [address] [id number] May, Anxiety F41.9 and Graves disease E05.00 [facility] [address] [place] [address] Apr, Major depressive disorder, recurrent, moderate F33.1 and Graves disease E05.00 [address] [place] [address] [id number] Apr, Anxiety F41.9 [facility] [address] [id number] [address] Apr, Major depressive disorder, recurrent, moderate F33.1 [address] [place] [address] [id number] Apr, Graves disease E05.00 ; Anxiety F41.9 ; S/P coronary artery stent placement Z95.5 ; Dyslipidemia E78.5 ; History of AR (myocardial infarction) I25.2 ; Hypokalemia E87.6 ; High risk medication use Z79.899 and Controlled substance agreement signed Z79.899 [place] [id number] [place] [address] [id number] Mar, Atypical mole D22.9 [place] [id number] [place] [address] [id number] Mar, Graves disease E05.00 ; Anxiety F41.9 ; S/P coronary artery stent placement Z95.5 ; Dyslipidemia E78.5 ; History of AR (myocardial infarction) I25.2 ; Hypokalemia E87.6 and Encounter for immunization Z23 [address] [place] [address] [id number] Jan, Anxiety F41.9 [address] [place] [address] [id number] Nov, Anxiety F41.9 [address] [place] [address] [id number] Nov, Hyperthyroidism E05.90 ; Anxiety F41.9 ; Enlarged thyroid E01.0 ; Right sided abdominal pain R10.9 ; Thyroid nodule E04.1 ; Dyslipidemia E78.[address] elevation myocardial infarction (STEMI) I25.2 [address] [place] [address] [id number] Nov, Hyperthyroidism E05.90 ; Enlarged thyroid E01.0 and Thyroid nodule E04.1 [place] [id number] [place] [id number] Oct, [address] [id number] Oct, Hyperthyroidism E05.90 [place] [id number] [place] [address] [id number] 05 Oct, 2016 Anxiety F41.9 ; Right sided abdominal pain R10.9 ; Dyslipidemia E78.[address] elevation myocardial infarction (STEMI) I25.2 [place] [id number] [place] [address] [id number] September, Coronary artery disease involving nuiqsut heart, angina presence unspecified, unspecified vessel or lesion type I25.10 ; Anxiety F41.9 ; History of ST elevation myocardial infarction (STEMI) I25.2 and Low back pain M54.5 [place] [id number] [place] [address] [id number] September, RLQ abdominal pain R10.31 and Diarrhea, unspecified type R19.7 [place] [id number] [place] [address] [id number] Aug, Coronary artery disease involving nuiqsut heart, angina presence unspecified, unspecified vessel or lesion type I25.10 ; Anxiety F41.9 ; Anxiety about health F41.8 ; History of ST elevation myocardial infarction (STEMI) I25.2 and S/P coronary artery stent placement Z95.5 [place] [id number] [place] [address] [id number] Jul, [place] [id number] [place] [address] [id number] Jul, Nonintractable headache, unspecified chronicity pattern, unspecified headache type R51 and Sleeping difficulty G47.9 [place] [id number] [place] [address] [id number] Jul, Essential hypertension, hypertension with unspecified goal I10 [place] [id number] [place] [address] [id number] Jun, Essential hypertension, hypertension with unspecified goal I10 and Cervicalgia M54.[address] [facility] [address] [id number][place] [id number] May, Bronchiolitis J21.9 and Essential hypertension, hypertension with unspecified goal I10 [facility] [address] [id number] [place] [id number] Mar, [facility] [address] [id number] [place] [id number] Mar, Cervical stenosis of spinal canal M48.02 and Foraminal stenosis of cervical region M99.81 [facility] [address] [id number] [place] [id number] Mar, [facility] [address] [place] [id number], [place] [address] Mar, [facility] [id number][place] [id number] Mar, Cervicalgia M54.2 [facility] [address] [id number], [place] [id number] Mar, [facility] [address] [id number], [place] [id number] Jan, [facility] [id number] [place] [address] [id number] Dec, [facility] [address] [id number][place] [id number] Dec, [facility] [address] [id number], [place] [id number] Dec, Cervicalgia M54.2 [facility] [place] [address] [id number], [place] [id number] Nov, Cervicalgia M54.2 [facility] [address] [id number], [place] [id number] Nov, Cervicalgia M54.2 [facility] [address] [id number], [place] [id number] Oct, Cervicalgia M54.2 and Essential hypertension, hypertension with unspecified goal I10 [facility] [address] [id number][place] [id number] Oct, [facility] [address] [id number] [place] [id number] Aug, Cervicalgia M54.2 [facility] [address] [facility] [id number] [place] [id number] Aug, [facility] [address] [facility] [id number] [place] [id number] Aug, Headache R51 and Essential hypertension, hypertension with unspecified goal I10 [facility] [address] [facility] [id number][place] [id number] Jul, [facility] [address] [facility] [place] [id number] [place] [address] 5[address]27- 9877 Aug, [facility] [address] [place] [id number] [place] [address] 38800- 2846 Aug, [facility] [id number] [place] [address] 01678- 9186 Mar, [facility] [address] [id number] [place] [address] 30954- 0326 Mar, [facility] [address] [place] [id number] [place] [address] 21730- 9574 Dec, [facility] [id number], [place] [id number] Dec, [facility] [id number], [place] [id number] Aug, [facility] [address] [place] [id number], [place] [address] Aug, [facility] [address] [place] [id number], [place] [address]- [address]26 Jul, [facility] [address] [id number], [place] [address]- [address] Jul, [facility] [address] [place] [id number], [place] [id number] Dec, [facility] [address] [place] [id number], [place] [id number] Apr, [facility] [address]00565100[place], [place] [address]- [address] Apr, [facility] [address]00565100[place], [place] [address] Mar, [facility] [address] [facility] [id number], [place] [id number] Mar, [facility] [id number], [place] [id number] Oct, [facility] [address]00565100[place], [place] [address]- [address] Oct, [facility] [address] [id number] [place] [id number] Oct, [facility] [address] [place] [id number] [place] [address] [id number] September, [facility] [id number] [place] [address] [id number] Jul, [facility] [id number] [place] [address] [id number] Jun, [facility] [id number], [place] [id number] Jun, [facility] [address]65100[place], [place] [address]- [address] May, [facility] [address]00565100[place], [place] [address]- [address] May, [facility] [address]00565100[place], [place] [address]- [address]66 May, [facility] [address]00565100[place], [place] [address]- 9[address] May, [facility] [address]00565100[place], [place] [address]- [address] Dec, IMMUNIZATIONS No Known Immunizations SOCIAL HISTORY Never Assessed REASON FOR VISIT Pt c/o sinus congestion/ drainage, cough Ruddy LÓPEZ PLAN OF CARE Activity Details Follow Up prn if not improving in clinic or with PCP. if s/s not improving with PCP or in Clinic Reason: VITAL SIGNS Height 63.75 in 2017-11-12 Weight 155 lbs 2017-11-12 Temperature 99 degrees Fahrenheit 2017-11-12 Heart Rate 90 bpm 2017-11-12 Respiratory Rate 18 2017-11-12 BMI 26.81 kg/m2 2017-11-12 Blood pressure systolic 150 mmHg 2017-11-12 Blood pressure diastolic 94 mmHg 2017-11-12 MEDICATIONS Medication Instructions Dosage Frequency Start Date End Date Duration Status Amoxicillin-Pot Clavulanate 875-125 MG Orally every 12 hrs 1 tablet 12h Oct, Oct, 10 day(s) Active PredniSONE 20 mg Orally Once a day 2 tablet 24h Oct, Oct, 05 days Active Plavix 75 MG Orally Once a day 1 tablet 24h Active Clonazepam 1 MG Orally Three times a day as needed for anxiety 1 tablet September, 30 days Active Potassium Chloride ER 20 MEQ Orally Once a day 1 tablet with food 24h Active Zoloft 100 mg Orally Once a day 2 tablets 24h 30 days Active Aspir-81 81 MG Orally Once a day 1 tablet 24h Active Toprol XL 25 MG Orally Once a day at bedtime 1 tablet Active Propylthiouracil 50 mg Orally 3 times a day 4 tablets 8h Active Sotalol HCl 80 MG Orally every 12 hrs 1/2 tablet 12h Active Nitroglycerin 0.4 MG Active Atorvastatin Calcium [...] Cervical stenosis repair, hardware placed by at [address] 07/2016 Surgical History Acute STEMI, heart cath performed-balloon stent to RCA, stent Mid LAD 08/2016 Hospitalization History [facility] STEMI, Cardiogenic shock, increased LFTS 08/2016 Hospitalization History inpatient psych [facility] after OD after losing baby 2009
--- OUTSIDE RECORDS SUMMARY | 2018-06-17 11:28 | XMS REPORT ---
Author Author PRETTY MORGAN [facility] Address [address] [place] [address] Care Team Providers Care Firer Automatic Stoker Name Role Phone PRETTY MORGAN Unavailable PROBLEMS Type Condition ICD9-CM Code [id number] Code Onset Dates Condition Status SNOMED Code Problem History of ST elevation myocardial infarction (STEMI) I25.2 Active 576710863027260 Problem Anxiety about health F41.8 Active 906478029 Problem Coronary artery disease involving [place] heart, angina presence unspecified, unspecified vessel or lesion type I25.10 Active 14814049 Problem Major depressive disorder, recurrent, moderate F33.1 Active 87466133 Problem Hyperthyroidism E05.90 Active 41573454 Problem S/P coronary artery stent placement Z95.5 Active 585209148 Problem Seasonal allergic rhinitis due to other allergic trigger J30.89 Active 409039003 Problem Graves disease E05.00 Active 001085763 Problem Dyslipidemia E78.5 Active 244367588 Problem Anxiety F41.9 Active 74845570 Problem Thyroid nodule E04.1 Active 652767842 Problem Enlarged thyroid E01.0 Active 87278532 ALLERGIES No Information ENCOUNTERS Encounter Location Date Diagnosis [place] [id number] [id number] [place] [id number] Apr, [facility] [id number] [address] Mar, [facility] [address] [facility] [place] [id number], [place] [address] Dec, Major depressive disorder, recurrent, moderate F33.[address] [facility] [address] [id number] [place] [id number] Dec, Dental examination Z01.20 [facility] [id number] [place] [address]38- [address]285 Nov, Graves disease E05.00 and Major depressive disorder, recurrent, moderate F33.1 [address] [id number] Nov, Sinus congestion R09.81 and Seasonal allergic rhinitis due to other allergic trigger J30.[address] [place] [address] [id number] Oct, Acute non-recurrent frontal sinusitis J01.10 [facility] [address] [place] [address] 93142- 1484 Oct, Graves disease E05.00 [facility] [id number] [place] [address]- [address] September, Major depressive disorder, recurrent, moderate F33.1 [facility] [address] [place] [address] 67208- 7565 September, Graves disease E05.00 and Major depressive disorder, recurrent, moderate F33.1 [address] [id number] Aug, [address] [id number] Aug, Graves disease E05.00 [facility] [id number] [place] [id number] Aug, Dental caries K02.9 [facility] [address] [place] [address] 81496- 6139 Aug, Major depressive disorder, recurrent, moderate F33.1 [facility] [address] [place] [address] 68732- 7759 Aug, Major depressive disorder, recurrent, moderate F33.1 and Graves disease E05.00 [facility] [address] [place] [address] 72282- 6582 Jul, Graves disease E05.00 [facility] [address] [place] [address] 88344- 6771 Jul, Major depressive disorder, recurrent, moderate F33.1 [facility] [address] [id number] [place] [id number] Jul, Dental examination Z01.20 [facility] [address] [facility] [address] [id number] [place] [id number] Jul, Dental examination Z01.20 [facility] [id number] [place] [id number] Jul, Major depressive disorder, recurrent, moderate F33.1 ; Anxiety F41.9 ; Graves disease E05.[address] elevation myocardial infarction (STEMI) I25.2 [facility] [address] [address] Jul, Major depressive disorder, recurrent, moderate F33.1 [facility] [id number] [place] [address] 91533- 4988 Jun, Major depressive disorder, recurrent, moderate F33.1 [facility] [id number] [place] [address] [id number] Jun, Graves disease E05.00 [facility] [id number] [place] [address] [id number] Jun, Influenza A J10.1 [facility] [id number] [place] [address]506 -8920 May, Chest wall pain R07.89 [facility] [id number] [place] [address] 50205- 4978 May, Major depressive disorder, recurrent, moderate F33.1 [facility] [id number] [place] [address] 52010- 4805 May, Graves disease E05.00 and Major depressive disorder, recurrent, moderate F33.1 [facility] [id number] [place] [address] [id number] May, Anxiety F41.9 and Graves disease E05.00 [facility] [id number] [place] [address] 48679- 0333 Apr, Major depressive disorder, recurrent, moderate F33.1 and Graves disease E05.00 [address] [place] [address] [id number] Apr, Anxiety F41.9 [facility] [address] [facility] [place] [id number] [place] [address] Apr, Major depressive disorder, recurrent, moderate F33.1 [address] [place] [address] [id number] Apr, Graves disease E05.00 ; Anxiety F41.9 ; S/P coronary artery stent placement Z95.5 ; Dyslipidemia E78.5 ; History of [place] (myocardial infarction) I25.2 ; Hypokalemia E87.6 ; High risk medication use Z79.899 and Controlled substance agreement signed Z79.899 [address] [place] [address] [id number] Mar, Atypical mole D22.9 [place] [id number] [place] [address] [id number] Mar, Graves disease E05.00 ; Anxiety F41.9 ; S/P coronary artery stent placement Z95.5 ; Dyslipidemia E78.5 ; History of [place] (myocardial infarction) I25.2 ; Hypokalemia E87.6 and Encounter for immunization Z23 [address] [place] [address] [id number] Jan, Anxiety F41.9 [address] [place] [address] [id number] Nov, Anxiety F41.9 [address] [place] [address] [id number] Nov, Hyperthyroidism E05.90 ; Anxiety F41.9 ; Enlarged thyroid E01.0 ; Right sided abdominal pain R10.9 ; Thyroid nodule E04.1 ; Dyslipidemia E78.[address] elevation myocardial infarction (STEMI) I25.2 [address] [place] [address] [id number] Nov, Hyperthyroidism E05.90 ; Enlarged thyroid E01.0 and Thyroid nodule E04.1 [place] [id number] [place] [address] [id number] Oct, [address] [id number] Oct, Hyperthyroidism E05.90 [place] [id number] [place] [address] [id number] Oct, Anxiety F41.9 ; Right sided abdominal pain R10.9 ; Dyslipidemia E78.[address] elevation myocardial infarction (STEMI) I25.2 [place] [id number] [place] [address] [id number] September, Coronary artery disease involving [place] heart, angina presence unspecified, unspecified vessel or lesion type I25.10 ; Anxiety F41.9 ; History of ST elevation myocardial infarction (STEMI) I25.2 and Low back pain M54.5 [place] [id number] [place] [address] [id number] September, RLQ abdominal pain R10.31 and Diarrhea, unspecified type R19.7 [place] [id number] [place] [address] [id number] Aug, Coronary artery disease involving [place] heart, angina presence unspecified, unspecified vessel or lesion type I25.10 ; Anxiety F41.9 ; Anxiety about health F41.8 ; History of ST elevation myocardial infarction (STEMI) I25.2 and S/P coronary artery stent placement Z95.5 [address] [place] [address] [id number] Jul, [place] [id number] [place] [address] [id number] Jul, Nonintractable headache, unspecified chronicity pattern, unspecified headache type R51 and Sleeping difficulty G47.[address] [id number] Jul, Essential hypertension, hypertension with unspecified goal I10 [place] [id number] [place] [address] [id number] Jun, Essential hypertension, hypertension with unspecified goal I10 and Cervicalgia M54.[address] [facility] [address] [id number] [place] [id number] May, Bronchiolitis J21.9 and Essential hypertension, hypertension with unspecified goal I10 [facility] [address] [id number] [place] [id number] Mar, [facility] [address] [id number][place] [id number] Mar, Cervical stenosis of spinal canal M48.02 and Foraminal stenosis of cervical region M99.81 [facility] [id number], [place] [id number] Mar, [facility] [address], [place] [address] Mar, [facility] [id number], [place] [id number] Mar, Cervicalgia M54.2 [facility] [address] [id number], [place] [id number] Mar, [facility] [address] [id number], [place] [id number] Jan, [facility] [address] [id number], [place] [id number] Dec, [facility] [address] [id number], [place] [id number] Dec, [facility] [address] [id number], [place] [id number] Dec, Cervicalgia M54.2 [facility] [address] [id number] [place] [id number] Nov, Cervicalgia M54.2 [facility] [address] [id number], [place] [id number] Nov, Cervicalgia M54.2 [facility] [address] [id number] [place] [id number] Oct, Cervicalgia M54.2 and Essential hypertension, hypertension with unspecified goal I10 [facility] [address] [id number], [place] [id number] Oct, [facility] [address] [facility][1] [id number] [id number] Aug, Cervicalgia M54.2 [facility] [address] [facility][1] [id number] [place] [id number] Aug, [facility] [address] [id number] [place] [id number] Aug, Headache R51 and Essential hypertension, hypertension with unspecified goal I10 [facility] [id number], [place] [id number] Jul, [facility] [address] [id number], [place] [address] 6[address] Aug, [facility] [id number] [place] [address] 42926- 1098 Aug, [facility] [id number] [place] [address] 13502- 7516 Mar, [facility] [id number] [place] [address] 65863- 3777 Mar, [facility] [address], [place] [address]- 8767 Dec, [facility] [id number], [place] [id number] Dec, [facility] [id number], [place] [id number] Aug, [facility] [address], [place] [address]- 3096 Aug, [facility] [address]100[place], [place] [address]- 8[address] Jul, [facility] [address]100[place], [place] [address]- 1314 Jul, [facility] [address] [id number], [place] [id number] Dec, [facility] [address] [id number] [id number] Apr, [facility] [address] [id number], [place] [address]- 2546 Apr, [facility] [id number] [place] [address] 23342- 2546 Mar, [facility] [id number], [place] [id number] Mar, [facility] [id number], [place] [id number] Oct, [facility] [id number] [place] [address] 41509- 2546 Oct, [facility] [address] [id number] [place] [id number] Oct, [facility] [id number] [place] [address], [place] [id number] September, [facility] [id number] [place] [address] [id number] Jul, [facility] [id number] [place] [address] [id number] Jun, [facility] [id number], [place] [id number] Jun, [facility] [id number] [place] [address] 63963- 6367 May, [facility] [id number] [place] [address] 63003- 4296 May, [facility] [id number] [place] [address] 41631- 5143 May, [facility] [id number] [place] [address] 51762- 2324 May, [facility] [id number] [place] [address] 76312- 2392 Dec, IMMUNIZATIONS No Known Immunizations SOCIAL HISTORY Never Assessed REASON FOR VISIT med refill PLAN OF CARE VITAL SIGNS MEDICATIONS Medication Instructions Dosage Frequency Start Date End Date Duration Status Clonazepam 1 MG Orally Three times a day as needed for anxiety 1 tablet September, 30 days Active Zoloft 100 mg Orally Once a [...] Cervical stenosis repair, hardware placed by at [address] 07/2016 Surgical History Acute STEMI, heart cath performed-balloon stent to RCA, stent Mid LAD 08/2016 Hospitalization History [facility] STEMI, Cardiogenic shock, increased LFTS 08/2016 Hospitalization History inpatient psych [place] after OD after losing baby 2009
--- OUTSIDE RECORDS SUMMARY | 2018-06-17 11:28 | XMS REPORT ---
Author Author AGUSTÍN SAMUEL Organization [facility] Address [address] [place] [address] Care Team Providers Care Medical Biller/Coder Name Role Phone AMANDAGIOVANNI AGUSTÍN Unavailable PROBLEMS Type Condition ICD9-CM Code FHL96-XT Code Onset Dates Condition Status SNOMED Code Problem History of ST elevation myocardial infarction (STEMI) I25.2 Active 490085199855884 Problem Anxiety about health F41.8 Active 415133730 Problem Coronary artery disease involving [place] heart, angina presence unspecified, unspecified vessel or lesion type I25.10 Active 83422512 Problem Major depressive disorder, recurrent, moderate F33.1 Active 20986409 Problem Hyperthyroidism E05.90 Active 66444298 Problem S/P coronary artery stent placement Z95.5 Active 353613051 Problem Seasonal allergic rhinitis due to other allergic trigger J30.89 Active 148681938 Problem Graves disease E05.00 Active 301318257 Problem Dyslipidemia E78.5 Active 112364066 Problem Anxiety F41.9 Active 90521107 Problem Thyroid nodule E04.1 Active 002965819 Problem Enlarged thyroid E01.0 Active 79018765 ALLERGIES No Information ENCOUNTERS Encounter Location Date Diagnosis [place] [address] [facility] [id number], [place] [address] Mar, [facility] [address] [id number], [place] [address] Dec, [facility] [address] [id number] [id number] Dec, [facility] [address] [facility] [id number], [place] [address] Nov, Graves disease E05.00 and Major depressive disorder, recurrent, moderate F33.1 [facility] [address] [facility] [id number] [place] [id number] Nov, Sinus congestion R09.81 and Seasonal allergic rhinitis due to other allergic trigger J30.89 [facility] [id number] [place] [address] [id number] Oct, Acute non-recurrent frontal sinusitis J01.10 [facility] [address], [place] [address] Oct, Graves disease E05.00 [facility] [id number] [place] [address] September, Major depressive disorder, recurrent, moderate F33.1 [facility] [id number] [place] [address] September, Graves disease E05.00 and Major depressive disorder, recurrent, moderate F33.1 [facility] [address] [place] [address] [id number] Aug, [place] [id number] [place] [address] [id number] Aug, Graves disease E05.00 [facility] [address] [id number] [id number] Aug, Dental caries K02.9 [place] [address] [place] [address]88- [address] Aug, Major depressive disorder, recurrent, moderate F33.1 [facility] [address] [place] [address]- [address]67 Aug, Major depressive disorder, recurrent, moderate F33.1 and Graves disease E05.00 [facility] [address] [place] [address] 915[address]- 3419 Jul, Graves disease E05.00 [facility] [id number] [place] [address]207- 1182 Jul, Major depressive disorder, recurrent, moderate F33.1 [facility] [address] [id number] [id number] Jul, Dental examination Z01.20 [facility] [address] [id number][place] [id number] Jul, Dental examination Z01.20 [place] [id number] [place] [address] [id number] Jul, Major depressive disorder, recurrent, moderate F33.1 ; Anxiety F41.9 ; Graves disease E05.[address] elevation myocardial infarction (STEMI) I25.2 [place] [address] [place] [id number] Jul, Major depressive disorder, recurrent, moderate F33.1 [place] [id number] [place] [address]- [address] Jun, Major depressive disorder, recurrent, moderate F33.1 [place] [id number] [place] [address] [id number] Jun, Graves disease E05.00 [place] [id number] [place] [address] [id number] Jun, Influenza A J10.1 [facility] [id number] [place] [address] -[address] May, Chest wall pain R07.89 [place] [id number] [place] [address]- [address] May, Major depressive disorder, recurrent, moderate F33.1 [place] [id number] [place] [address] 632[address]- [address]91 May, Graves disease E05.00 and Major depressive disorder, recurrent, moderate F33.1 [place] [id number] [place] [address] [id number] May, Anxiety F41.9 and Graves disease E05.00 [facility] [id number] [place] [address]44- 0632 Apr, Major depressive disorder, recurrent, moderate F33.1 and Graves disease E05.00 [facility] [id number] [place] [address] [id number] Apr, Anxiety F41.9 [facility] [address] [address] Apr, Major depressive disorder, recurrent, moderate F33.1 [place] [id number] [place] [address] [id number] Apr, Graves disease E05.00 ; Anxiety F41.9 ; S/P coronary artery stent placement Z95.5 ; Dyslipidemia E78.5 ; History of [place] (myocardial infarction) I25.2 ; Hypokalemia E87.6 ; High risk medication use Z79.899 and Controlled substance agreement signed Z79.899 [place] [id number] [place] [address] [id number] Mar, Atypical mole D22.9 [place] [id number] [place] [address] [id number] Mar, Graves disease E05.00 ; Anxiety F41.9 ; S/P coronary artery stent placement Z95.5 ; Dyslipidemia E78.5 ; History of [place] (myocardial infarction) I25.2 ; Hypokalemia E87.6 and Encounter for immunization Z23 [place] [id number] [place] [address] [id number] Jan, Anxiety F41.9 [place] [id number] [place] [address] [id number] Nov, Anxiety F41.9 [place] [id number] [place] [address] [id number] Nov, Hyperthyroidism E05.90 ; Anxiety F41.9 ; Enlarged thyroid E01.0 ; Right sided abdominal pain R10.9 ; Thyroid nodule E04.1 ; Dyslipidemia E78.[address] elevation myocardial infarction (STEMI) I25.2 [place] [id number] [place] [address] [id number] Nov, Hyperthyroidism E05.90 ; Enlarged thyroid E01.0 and Thyroid nodule E04.1 [place] [id number] [place] [id number] Oct, [address] [id number] Oct, Hyperthyroidism E05.90 [address] [id number] Oct, Anxiety F41.9 ; Right sided abdominal pain R10.9 ; Dyslipidemia E78.[address] elevation myocardial infarction (STEMI) I25.[address] [place] [address] [id number] September, Coronary artery disease involving [place] heart, angina presence unspecified, unspecified vessel or lesion type I25.10 ; Anxiety F41.9 ; History of ST elevation myocardial infarction (STEMI) I25.2 and Low back pain M54.5 [place] [id number] [place] [address] [id number] September, RLQ abdominal pain R10.31 and Diarrhea, unspecified type R19.7 [place] [id number] [place] [address] [id number] Aug, Coronary artery disease involving [place] heart, angina presence unspecified, unspecified vessel or lesion type I25.10 ; Anxiety F41.9 ; Anxiety about health F41.8 ; History of ST elevation myocardial infarction (STEMI) I25.2 and S/P coronary artery stent placement Z95.5 [address] [place] [address] [id number] Jul, [place] [id number] [place] [address] [id number] Jul, Nonintractable headache, unspecified chronicity pattern, unspecified headache type R51 and Sleeping difficulty G47.[address] [place] [address] [id number] Jul, Essential hypertension, hypertension with unspecified goal I10 [address] [place] [address] [id number] Jun, Essential hypertension, hypertension with unspecified goal I10 and Cervicalgia M54.2 [facility] [address] [id number] [id number] May, Bronchiolitis J21.9 and Essential hypertension, hypertension with unspecified goal I10 [place] [id number] [id number] Mar, [facility] [address] [id number] [place] [id number] Mar, Cervical stenosis of spinal canal M48.02 and Foraminal stenosis of cervical region M99.81 [facility] [address] [id number] [place] [id number] Mar, [facility] [address], [place] [address] Mar, [facility] [address] [id number] [place] [id number] Mar, Cervicalgia M54.2 [facility] [address] [id number] [place] [id number] Mar, [facility] [address] [id number] [place] [id number] Jan, [facility] [address] [id number] [place] [id number] Dec, [facility] [address] [id number] [place] [id number] Dec, [facility] [address] [id number] [place] [id number] Dec, Cervicalgia M54.2 [facility] [address] [id number][place] [id number] Nov, Cervicalgia M54.2 [facility] [address] [id number] [place] [id number] Nov, Cervicalgia M54.2 [facility] [address] [id number] [place] [id number] Oct, Cervicalgia M54.2 and Essential hypertension, hypertension with unspecified goal I10 [facility] [address] [id number] [place] [id number] Oct, [facility] [address] [id number] [place] [id number] Aug, Cervicalgia M54.2 [facility] [address] [id number] [place] [id number] Aug, [facility] [address] [id number] [place] [id number] Aug, Headache R51 and Essential hypertension, hypertension with unspecified goal I10 [facility] [address] [id number] [place] [id number] Jul, [facility] [address] [id number] [address] Aug, [facility] [place] [facility] [address] [facility] [id number] [place] [address]- 39[address] Aug, [facility] [address] [facility] [id number] [place] [address]- 69[address] Mar, [facility] [address], [place] [address] Mar, [facility] [address], [place] [address] Dec, [facility] [id number] [place] [id number] Dec, [facility] [address] [place] [id number] [place] [id number] Aug, [facility] [address], [place] [address] Aug, [facility] [address], [place] [address] 97[address] Jul, [facility] [address], [place] [address] Jul, [facility] [address] [facility] [id number] [place] [id number] Dec, [facility] [address] [facility] [id number] [place] [id number] Apr, [facility] [place] [facility] [address] [facility] [id number], [place] [address] 6[address] Apr, [facility] [address], [place] [address] Mar, [facility] [id number] [place] [id number] Mar, [facility] [id number] [place] [id number] Oct, [facility] [id number] [place] [address]82- 2546 Oct, [facility] [id number] [place] [id number] Oct, [facility] [id number] [place] [address] [id number] September, [facility] [id number] [place] [address] [id number] Jul, [facility] [id number] [place] [address] [id number] Jun, [facility] [id number] [place] [address] [id number] Jun, [facility] [id number] [place] [address] 49831- 5576 May, [facility] [id number] [place] [address] 63241- 5470 May, [facility] [id number] [place] [address] 18818- 8922 May, [facility] [id number] [place] [address] 59499- 6810 May, [facility] [id number] [place] [address] 33475- 3187 Dec, IMMUNIZATIONS No Known Immunizations SOCIAL HISTORY Never Assessed REASON FOR VISIT f/denise Maxwell RN PLAN OF CARE Activity Details Follow Up 6 Weeks, prn Reason: VITAL SIGNS Height 63.75 in 2017-10-01 Weight 156 lbs 2017-10-01 BMI 26.98 kg/m2 2017-10-01 Blood pressure systolic 134 mmHg 2017-10-01 Blood pressure diastolic 88 mmHg 2017-10-01 MEDICATIONS Medication Instructions Dosage Frequency Start Date End Date Duration Status Potassium Chloride ER 20 MEQ Orally Once a day 1 tablet with food 24h Active Propylthiouracil 50 mg Orally 3 times a day 4 tablets 8h Active Aspir-81 81 MG Orally Once a day 1 tablet 24h Active Nitroglycerin 0.4 MG Active Zoloft 100 MG Orally Once a day 2 tablets 24h Active Plavix 75 MG Orally Once a day 1 tablet 24h Active Atorvastatin Calcium 20 MG Orally Once a day 1 tablet 24h Active Sotalol HCl 80 MG Orally every 12 hrs 1/2 tablet 12h Active Clonazepam 1 MG Orally Three times a day as needed for anxiety 1 tablet September, 30 days Active Toprol XL 25 MG Orally Once a day at bedtime 1 tablet Active Twain 5-325 MG Orally every 6 hrs 1 tablet as needed 6h 4 days Active RESULTS No Results PROCEDURES No [...] stenosis repair, hardware placed by at [address] 07/2016 Surgical History Acute STEMI, heart cath performed-balloon stent to RCA, stent Mid LAD 08/2016 Hospitalization History [facility] STEMI, Cardiogenic shock, increased LFTS 08/2016 Hospitalization History inpatient psych [facility] after OD after losing baby 2009
--- OUTSIDE RECORDS SUMMARY | 2018-06-17 11:28 | XMS REPORT ---
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 Name Role Phone HALEY KEVIN Unavailable PROBLEMS Type Condition ICD9-CM Code ORB85-DL Code Onset Dates Condition Status SNOMED Code Problem History of ST elevation myocardial infarction (STEMI) I25.2 Active 882220162114712 Problem Anxiety about health F41.8 Active 439062108 Problem Coronary artery disease involving chicken ranch heart, angina presence unspecified, unspecified vessel or lesion type I25.10 Active 27438259 Problem Major depressive disorder, recurrent, moderate F33.1 Active 03995434 Problem Hyperthyroidism E05.90 Active 11957544 Problem S/P coronary artery stent placement Z95.5 Active 657620490 Problem Seasonal allergic rhinitis due to other allergic trigger J30.89 Active 451077347 Problem Graves disease E05.00 Active 595222348 Problem Dyslipidemia E78.5 Active 679545526 Problem Anxiety F41.9 Active 11599253 Problem Thyroid nodule E04.1 Active 324981361 Problem Enlarged thyroid E01.0 Active 73922946 ALLERGIES No Information ENCOUNTERS Encounter Location Date Diagnosis [place] [id number] [facility] [id number] [address] Mar, [facility] [address] [facility] [id number] [place] [address] Dec, [facility] [address] [id number] [id number] Dec, [facility] [address] [facility] [id number] [place] [address] Nov, Graves disease E05.00 and Major depressive disorder, recurrent, moderate F33.1 [facility] [address] [id number] [id number] Nov, Sinus congestion R09.81 and Seasonal allergic rhinitis due to other allergic trigger J30.89 [id number] [place] [address] [id number] Oct, Acute non-recurrent frontal sinusitis J01.10 [facility] [address]65[address] [address] Oct, Graves disease E05.00 [facility] [id number] [place] [address] September, Major depressive disorder, recurrent, moderate F33.1 [facility] [id number] [place] [address] September, Graves disease E05.00 and Major depressive disorder, recurrent, moderate F33.1 [address] [place] [address] [id number] Aug, [place] [id number] [place] [address] [id number] Aug, Graves disease E05.00 [facility] [address] [id number][place] [id number] Aug, Dental caries K02.9 [place] [address] [place] [address] Aug, Major depressive disorder, recurrent, moderate F33.1 [facility] [address]65100[place] [address] Aug, Major depressive disorder, recurrent, moderate F33.1 and Graves disease E05.00 [facility] [address]65100[place] [address] Jul, Graves disease E05.00 [facility] [address]65[address] [address] Jul, Major depressive disorder, recurrent, moderate F33.1 [facility] [address] [id number][place] [id number] Jul, Dental examination Z01.20 [facility] [address] [id number][place] [id number] Jul, Dental examination Z01.20 [facility] [id number] [place] [address] [id number] Jul, Major depressive disorder, recurrent, moderate F33.1 ; Anxiety F41.9 ; Graves disease E05.[address] elevation myocardial infarction (STEMI) I25.2 [facility] [address] [address] Jul, Major depressive disorder, recurrent, moderate F33.1 [place] [id number] [place] [address] Jun, Major depressive disorder, recurrent, moderate F33.1 [place] [id number] [place] [address] [id number] Jun, Graves disease E05.00 [place] [id number] [place] [address] [id number] Jun, Influenza A J10.1 [facility] [id number] [place] [address] May, Chest wall pain R07.89 [facility] [id number] [place] [address]- [address] May, Major depressive disorder, recurrent, moderate F33.1 [facility] [id number] [place] [address]- [address] May, Graves disease E05.00 and Major depressive disorder, recurrent, moderate F33.1 [place] [id number] [place] [address] [id number] May, Anxiety F41.9 and Graves disease E05.00 [facility] [id number] [place] [address]- [address] Apr, Major depressive disorder, recurrent, moderate F33.1 and Graves disease E05.00 [facility] [id number] [place] [address] [id number] Apr, Anxiety F41.9 [facility] [address]00565100[place] [address] Apr, Major depressive disorder, recurrent, moderate F33.1 [place] [id number] [place] [address] [id number] Apr, Graves disease E05.00 ; Anxiety F41.9 ; S/P coronary artery stent placement Z95.5 ; Dyslipidemia E78.5 ; History of IA (myocardial infarction) I25.2 ; Hypokalemia E87.6 ; High risk medication use Z79.899 and Controlled substance agreement signed Z79.899 [place] [id number] [place] [address] [id number] Mar, Atypical mole D22.9 [place] [id number] [place] [address] [id number] Mar, Graves disease E05.00 ; Anxiety F41.9 ; S/P coronary artery stent placement Z95.5 ; Dyslipidemia E78.5 ; History of IA (myocardial infarction) I25.2 ; Hypokalemia E87.6 and Encounter for immunization Z23 [place] [id number] [place] [address] [id number] Jan, Anxiety F41.9 [place] [id number] [place] [address] [id number] Nov, Anxiety F41.9 [address] [place] [address] [id number] Nov, Hyperthyroidism E05.90 ; Anxiety F41.9 ; Enlarged thyroid E01.0 ; Right sided abdominal pain R10.9 ; Thyroid nodule E04.1 ; Dyslipidemia E78.[address] elevation myocardial infarction (STEMI) I25.2 [place] [id number] [place] [address] [id number] Nov, Hyperthyroidism E05.90 ; Enlarged thyroid E01.0 and Thyroid nodule E04.1 [place] [id number] [place] [address] [id number] Oct, [address] [id number] Oct, 2016 Hyperthyroidism E05.90 [address] [place] [address] [id number] Oct, Anxiety F41.9 ; Right sided abdominal pain R10.9 ; Dyslipidemia E78.[address] elevation myocardial infarction (STEMI) I25.2 [address] [place] [address] [id number] September, Coronary artery disease involving chicken ranch heart, angina presence unspecified, unspecified vessel or lesion type I25.10 ; Anxiety F41.9 ; History of ST elevation myocardial infarction (STEMI) I25.2 and Low back pain M54.5 [place] [id number] [place] [address] [id number] September, RLQ abdominal pain R10.31 and Diarrhea, unspecified type R19.7 [place] [id number] [place] [address] [id number] Aug, Coronary artery disease involving chicken ranch heart, angina presence unspecified, unspecified vessel or lesion type I25.10 ; Anxiety F41.9 ; Anxiety about health F41.8 ; History of ST elevation myocardial infarction (STEMI) I25.2 and S/P coronary artery stent placement Z95.5 [address] [place] [address] [id number] Jul, [place] [id number] [place] [address] [id number] Jul, Nonintractable headache, unspecified chronicity pattern, unspecified headache type R51 and Sleeping difficulty G47.9 [address] [place] [address] [id number] Jul, Essential hypertension, hypertension with unspecified goal I10 [address] [place] [address] [id number] Jun, Essential hypertension, hypertension with unspecified goal I10 and Cervicalgia M54.2 [facility] [address] [id number][place] [id number] May, Bronchiolitis J21.9 and Essential hypertension, hypertension with unspecified goal I10 [address] [id number] [place] [id number] Mar, [facility] [address] [id number] [place] [id number] Mar, Cervical stenosis of spinal canal M48.02 and Foraminal stenosis of cervical region M99.81 [facility] [address] [id number] [place] [id number] Mar, [facility] [address]65[address] [address] Mar, [facility] [address] [id number][place] [id number] Mar, Cervicalgia M54.2 [facility] [address] [id number] [place] [id number] Mar, [facility] [address] [id number], [place] [id number] Jan, [facility] [address] [id number], [place] [id number] Dec, [facility] [address] [id number][place] [id number] Dec, [facility] [address] [id number], [place] [id number] Dec, Cervicalgia M54.[address] [facility] [address] [id number][place] [id number] Nov, Cervicalgia M54.2 [facility] [address] [id number][place] [id number] Nov, Cervicalgia M54.2 [facility] [address] [id number], [place] [id number] Oct, Cervicalgia M54.2 and Essential hypertension, hypertension with unspecified goal I10 [facility] [address] [id number] [place] [id number] Oct, [facility] [address] [id number][place] [id number] Aug, Cervicalgia M54.2 [facility] [address] [id number], [place] [id number] Aug, [facility] [address] [facility] [id number] [id number] Aug, Headache R51 and Essential hypertension, hypertension with unspecified goal I10 [facility] [address] [id number], [place] [id number] Jul, [facility] [address] [address] Aug, [facility] [address] [facility] [id number] [place] [address] Aug, [facility] [id number] [place] [address] 893[address]- 4048 Mar, [facility] [address] [place] [address]73[address]- 6904 Mar, [facility] [address] [id number] [address] Dec, [facility] [id number], [place] [id number] Dec, [facility] [address] [id number], [place] [id number] Aug, [facility] [address] [address]- [address] Aug, [facility] [address] [address]- [address] Jul, [facility] [address] [address]- [address] Jul, [facility] [address] [id number][place] [id number] Dec, [facility] [address] [facility] [id number][place] [id number] Apr, [facility] [address] [id number] [address]- [address] Apr, [facility] [address]65[address] [address] Mar, [facility] [address] [id number], [place] [id number] Mar, [facility] [id number], [place] [id number] Oct, [facility] [id number] [place] [address]- 2546 Oct, [facility] [id number][place] [id number] Oct, [facility] [id number] [place] [address] [id number] September, [facility] [id number] [place] [address] [id number] Jul, [facility] [id number] [place] [address] [id number] Jun, [facility] [id number] [place] [address] [id number] Jun, [facility] [id number] [place] [address] 07567- 2546 May, [facility] [id number] [place] [address] 36695- 2546 May, [facility] [id number] [place] [address] 964[address]- 2546 May, [facility] [id number] [place] [address] 85935- 2546 May, [facility] [id number] [place] [address] 97647- 2546 Dec, IMMUNIZATIONS No Known Immunizations SOCIAL HISTORY Never Assessed REASON FOR VISIT f/u PLAN OF CARE Activity Details Follow Up 2 Weeks Reason: VITAL SIGNS MEDICATIONS Unknown Medications RESULTS No Results PROCEDURES Procedure Date Ordered Result Body Site Psychotherapy, patient &/family, 45 minutes, established patient October 01, 2017 INSTRUCTIONS MEDICATIONS ADMINISTERED No Known Medications MEDICAL [...] Cervical stenosis repair, hardware placed by at [address] 07/2016 Surgical History Acute STEMI, heart cath performed-balloon stent to RCA, stent Mid LAD 08/2016 Hospitalization History [facility] STEMI, Cardiogenic shock, increased LFTS 08/2016 Hospitalization History inpatient psych [place] after OD after losing baby 2010
--- OUTSIDE RECORDS SUMMARY | 2018-06-17 11:29 | XMS REPORT ---
Author Author MARVIN Hayes [facility] Address [address] [place] [address] Care Team Providers Care Engine Monitor Name Role Phone MARVIN Hayes Unavailable PROBLEMS Type Condition ICD9-CM Code ZBT40-XZ Code Onset Dates Condition Status SNOMED Code Problem History of ST elevation myocardial infarction (STEMI) I25.2 Active 357801827420181 Problem Anxiety about health F41.8 Active 109254124 Problem Coronary artery disease involving cocopah heart, angina presence unspecified, unspecified vessel or lesion type I25.10 Active 97455521 Problem Major depressive disorder, recurrent, moderate F33.1 Active 69967847 Problem Hyperthyroidism E05.90 Active 35645397 Problem S/P coronary artery stent placement Z95.5 Active 568160786 Problem Seasonal allergic rhinitis due to other allergic trigger J30.89 Active 832703632 Problem Graves disease E05.00 Active 374956933 Problem Dyslipidemia E78.5 Active 264840636 Problem Anxiety F41.9 Active 40113855 Problem Thyroid nodule E04.1 Active 309903285 Problem Enlarged thyroid E01.0 Active 06788929 ALLERGIES No Known Allergies ENCOUNTERS Encounter Location Date Diagnosis [facility] [id number] [address] Mar, [facility] [id number] [address] Dec, [facility] [address] [facility] [id number] [id number] Dec, [facility] [id number] [address] Nov, Graves disease E05.00 and Major depressive disorder, recurrent, moderate F33.1 [facility] [address] [id number] [id number] Nov, Sinus congestion R09.81 and Seasonal allergic rhinitis due to other allergic trigger J30.[id number] [place] [id number] Oct, Acute non-recurrent frontal sinusitis J01.10 [facility] [id number] [place] [address] Oct, Graves disease E05.00 [facility] [id number] [place] [address]30[address] September, Major depressive disorder, recurrent, moderate F33.1 [id number] [place] [address] September, Graves disease E05.00 and Major depressive disorder, recurrent, moderate F33.[id number] [place] [address] [id number] Aug, [id number] [place] [address] [id number] Aug, Graves disease E05.00 [facility] [address] [id number] [id number] Aug, Dental caries K02.9 [address] [place] [address]- [address] Aug, Major depressive disorder, recurrent, moderate F33.1 [facility] [id number] [place] [address]- 79[address] Aug, Major depressive disorder, recurrent, moderate F33.1 and Graves disease E05.00 [facility] [address] [place] [address]- 9852 Jul, Graves disease E05.00 [facility] [id number] [place] [address]- [address] Jul, Major depressive disorder, recurrent, moderate F33.1 [facility] [address] [id number] [id number] Jul, Dental examination Z01.20 [facility] [facility] [address] [id number] [id number] Jul, Dental examination Z01.20 [id number] [place] [address] [id number] Jul, Major depressive disorder, recurrent, moderate F33.1 ; Anxiety F41.9 ; Graves disease E05.[address] elevation myocardial infarction (STEMI) I25.2 [facility] [address] [address] Jul, Major depressive disorder, recurrent, moderate F33.1 [address] [address] Jun, Major depressive disorder, recurrent, moderate F33.1 [id number] [place] [address] [id number] Jun, Graves disease E05.00 [id number] [place] [address] [id number] Jun, Influenza A J10.1 [facility] [address] [address] May, Chest wall pain R07.89 [facility] [id number] [place] [address] May, Major depressive disorder, recurrent, moderate F33.1 [id number] [place] [address] 56[address] May, Graves disease E05.00 and Major depressive disorder, recurrent, moderate F33.1 [id number] [place] [address] [id number] May, Anxiety F41.9 and Graves disease E05.00 [facility] [address] [address] Apr, Major depressive disorder, recurrent, moderate F33.1 and Graves disease E05.00 [facility] [id number] [place] [address] [id number] Apr, Anxiety F41.9 [facility] [address] [address] Apr, Major depressive disorder, recurrent, moderate F33.1 [address] [place] [address] [id number] Apr, Graves disease E05.00 ; Anxiety F41.9 ; S/P coronary artery stent placement Z95.5 ; Dyslipidemia E78.5 ; History of ME (myocardial infarction) I25.2 ; Hypokalemia E87.6 ; High risk medication use Z79.899 and Controlled substance agreement signed Z79.[address] [id number] Mar, Atypical mole D22.9 [id number] [place] [address] [id number] Mar, Graves disease E05.00 ; Anxiety F41.9 ; S/P coronary artery stent placement Z95.5 ; Dyslipidemia E78.5 ; History of ME (myocardial infarction) I25.2 ; Hypokalemia E87.6 and Encounter for immunization Z23 [id number] [place] [address] [id number] Jan, Anxiety F41.9 [id number] [place] [address] [id number] Nov, Anxiety F41.9 [address] [place] [address] [id number] Nov, Hyperthyroidism E05.90 ; Anxiety F41.9 ; Enlarged thyroid E01.0 ; Right sided abdominal pain R10.9 ; Thyroid nodule E04.1 ; Dyslipidemia E78.[address] elevation myocardial infarction (STEMI) I25.2 [id number] [place] [address] [id number] Nov, Hyperthyroidism E05.90 ; Enlarged thyroid E01.0 and Thyroid nodule E04.1 [id number] [place] [address] [id number] Oct, [address] [id number] Oct, 2016 Hyperthyroidism E05.90 [id number] [place] [address] [id number] Oct, Anxiety F41.9 ; Right sided abdominal pain R10.9 ; Dyslipidemia E78.[address] elevation myocardial infarction (STEMI) I25.2 [id number] [place] [address] [id number] September, Coronary artery disease involving cocopah heart, angina presence unspecified, unspecified vessel or lesion type I25.10 ; Anxiety F41.9 ; History of ST elevation myocardial infarction (STEMI) I25.2 and Low back pain M54.[address] [id number] September, RLQ abdominal pain R10.31 and Diarrhea, unspecified type R19.7 [id number] [place] [address] [id number] Aug, Coronary artery disease involving cocopah heart, angina presence unspecified, unspecified vessel or lesion type I25.10 ; Anxiety F41.9 ; Anxiety about health F41.8 ; History of ST elevation myocardial infarction (STEMI) I25.2 and S/P coronary artery stent placement Z95.5 [address] [place] [address] [id number] Jul, [id number] [place] [address] [id number] Jul, Nonintractable headache, unspecified chronicity pattern, unspecified headache type R51 and Sleeping difficulty G47.9 [address] [place] [address] [id number] Jul, Essential hypertension, hypertension with unspecified goal I10 [id number] [place] [address] [id number] Jun, Essential hypertension, hypertension with unspecified goal I10 and Cervicalgia M54.2 [address] [facility] [address] [id number] [id number] May, Bronchiolitis J21.9 and Essential hypertension, hypertension with unspecified goal I10 [facility] [address] [id number] [place] [id number] Mar, [facility] [address] [id number] [place] [id number] Mar, Cervical stenosis of spinal canal M48.02 and Foraminal stenosis of cervical region M99.81 [facility] [address] [id number] [place] [id number] Mar, [facility] [id number], [place] [address] Mar, [facility] [address] [id number] [place] [id number] Mar, Cervicalgia M54.2 [facility] [address] [id number] [place] [id number] Mar, [facility] [address] [id number][place] [phone] Jan, [facility] [address] [id number], [place] [id number] Dec, [facility] [address] [id number], [place] [id number] Dec, [facility] [address] [id number][place] [id number] Dec, Cervicalgia M54.[address] [facility] [address] [id number] [id number] Nov, Cervicalgia M54.2 [facility] [address] [id number][place] [id number] Nov, Cervicalgia M54.2 [facility] [address] [id number], [place] [id number] Oct, Cervicalgia M54.2 and Essential hypertension, hypertension with unspecified goal I10 [facility] [address] [id number][place] [phone] Oct, [facility] [address] [id number][place] [id number] Aug, Cervicalgia M54.2 [facility] [address] [id number][place] [phone] Aug, [facility] [address] [facility] [id number] [place] [id number] Aug, Headache R51 and Essential hypertension, hypertension with unspecified goal I10 [facility] [address] [id number] [place] [id number] Jul, [facility] [address] [place] [address] Aug, [facility] [address] [place] [address]- [address] Aug, [facility] [id number] [place] [address], [place] [address]- [address] Mar, [facility] [address] [id number] [place] [address] Mar, [facility] [address], [place] [address] Dec, [facility] [id number], [place] [id number] Dec, [facility] [address] [id number] [place] [id number] Aug, [facility] [address], [place] [address] Aug, [facility] [address], [place] [address] Jul, [facility] [address], [place] [address] Jul, [facility] [address] [facility] [id number] [place] [id number] Dec, [facility] [address] [facility] [id number] [place] [id number] Apr, [facility] [id number] [place] [address] Apr, [facility] [address], [place] [address] Mar, [facility] [address] [id number], [place] [id number] Mar, [facility] [id number], [place] [id number] Oct, [facility] [address] [id number] [address] Oct, [facility] [id number], [place] [id number] Oct, [facility] [id number] [place] [address] [id number] September, [facility] [id number] [place] [address] [id number] Jul, [facility] [id number] [place] [address] [id number] Jun, [facility] [id number], [place] [id number] Jun, [facility] [id number] [place] [address]- [address] May, [facility] [id number] [place] [address] 14514- 2142 May, [facility] [id number] [place] [address]20- 4106 May, [facility] [id number] [place] [address] 12[address] 2546 May, [facility] [id number] [place] [address] 56563- 2549 Dec, IMMUNIZATIONS No Known Immunizations SOCIAL HISTORY Never Assessed REASON FOR VISIT TE #30 PLAN OF CARE Activity Details Follow Up 1 Week Reason:1 hour restorative VITAL SIGNS Height 63.75 in 2017-09-09 Blood pressure systolic 122 mmHg 2017-09-09 Blood pressure diastolic 79 mmHg 2017-09-09 MEDICATIONS Medication Instructions Dosage Frequency Start Date End Date Duration Status Potassium Chloride ER 20 MEQ Orally Once a day 1 tablet with food 24h Active Atorvastatin Calcium 20 MG Orally Once a day 1 tablet 24h Active Aspir-81 81 MG Orally Once a day 1 tablet 24h Not-Taking Zoloft 100 MG Orally Once a day 2 tablets 24h Active Irving 5-325 MG Orally every 6 hrs 1 tablet as needed 6h 4 days Active Propylthiouracil 50 mg Orally 3 times a day 4 tablets 8h Active Lorazepam 1 MG Orally every 6 hrs as needed for anxiety/panic 1 tablet 0 days Active Plavix 75 MG Orally Once a day 1 tablet 24h Not-Taking Nitroglycerin 0.4 MG Active Sotalol HCl 80 MG Orally every 12 hrs 1/2 tablet 12h Active Toprol XL 25 MG Orally Once a day at bedtime 1 tablet Active RESULTS No Results PROCEDURES Procedure Date Ordered Result Body Site INTRAORL-PERIAPICAL 1 FILM 10100 September 09, 2017 EXTRAC ERUPTED TOOTH/EXPOSED ROOT September 09, 2017 INSTRUCTIONS MEDICATIONS ADMINISTERED No Known Medications [...] Cervical stenosis repair, hardware placed by at [email or web address] 07/2016 Surgical History Acute STEMI, heart cath performed-balloon stent to RCA, stent Mid LAD 08/2016 Hospitalization History [facility] STEMI, Cardiogenic shock, increased LFTS 08/2016 Hospitalization History inpatient psych [facility] after OD after losing baby 2009
--- OUTSIDE RECORDS SUMMARY | 2018-06-17 11:29 | XMS REPORT ---
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 Name Role Phone NILDA CASON Unavailable PROBLEMS Type Condition ICD9-CM Code TRX20-LE Code Onset Dates Condition Status SNOMED Code Problem History of ST elevation myocardial infarction (STEMI) I25.2 Active 995579432322279 Problem Anxiety about health F41.8 Active 805578662 Problem Coronary artery disease involving gambell heart, angina presence unspecified, unspecified vessel or lesion type I25.10 Active 99195883 Problem Major depressive disorder, recurrent, moderate F33.1 Active 88079382 Problem Hyperthyroidism E05.90 Active 68225954 Problem S/P coronary artery stent placement Z95.5 Active 098729870 Problem Seasonal allergic rhinitis due to other allergic trigger J30.89 Active 091277949 Problem Graves disease E05.00 Active 034377747 Problem Dyslipidemia E78.5 Active 561124913 Problem Anxiety F41.9 Active 48439785 Problem Thyroid nodule E04.1 Active 631526230 Problem Enlarged thyroid E01.0 Active 43791008 ALLERGIES No Information ENCOUNTERS Encounter Location Date Diagnosis [place] [address] [facility] [id number], [place] [address] Mar, [place] [address] [facility] [id number], [place] [address] Dec, [facility] [address] [id number] [id number] Dec, [facility] [address] [facility] [id number], [place] [address] Nov, Graves disease E05.00 and Major depressive disorder, recurrent, moderate F33.1 [facility] [address] [facility] [id number] [place] [address] [id number] Nov, Sinus congestion R09.81 and Seasonal allergic rhinitis due to other allergic trigger J30.89 [facility] [address] [place] [id number] [place] [address] [id number] Oct, Acute non-recurrent frontal sinusitis J01.10 [place] [address] [address] Oct, Graves disease E05.00 [facility] [address] [place] [id number] [place] [address]229[address] September, Major depressive disorder, recurrent, moderate F33.1 [place] [address] [place] [id number] [place] [address] September, Graves disease E05.00 and Major depressive disorder, recurrent, moderate F33.1 [address] [place] [address] [id number] Aug, [place] [id number] [place] [address] [id number] Aug, Graves disease E05.00 [facility] [address] [id number] [id number] Aug, Dental caries K02.9 [place] [address] [place] [address] Aug, Major depressive disorder, recurrent, moderate F33.1 [place] [address] [place] [address]- [address] Aug, Major depressive disorder, recurrent, moderate F33.1 and Graves disease E05.00 [facility] [address]65100[place], [place] [address] Jul, Graves disease E05.00 [facility] [address] [place] [address]- 4[address] Jul, Major depressive disorder, recurrent, moderate F33.1 [facility] [address] [address] [id number][place] [id number] Jul, Dental examination Z01.20 [facility] [id number][place] [id number] Jul, Dental examination Z01.20 [place] [id number] [place] [address] [id number] Jul, Major depressive disorder, recurrent, moderate F33.1 ; Anxiety F41.9 ; Graves disease E05.[address] elevation myocardial infarction (STEMI) I25.2 [facility] [address] [address] Jul, Major depressive disorder, recurrent, moderate F33.1 [place] [address] [address] Jun, Major depressive disorder, recurrent, moderate F33.1 [place] [id number] [place] [address] [id number] Jun, Graves disease E05.[address] [id number] Jun, Influenza A J10.1 [facility] [address] [address] May, Chest wall pain R07.89 [facility] [address] [address] May, Major depressive disorder, recurrent, moderate F33.1 [place] [address] [place] [id number] [place] [address] May, Graves disease E05.00 and Major depressive disorder, recurrent, moderate F33.1 [place] [id number] [place] [address] [id number] May, Anxiety F41.9 and Graves disease E05.00 [facility] [address] [address] Apr, Major depressive disorder, recurrent, moderate F33.1 and Graves disease E05.00 [facility] [address] [place] [id number] [place] [address] [id number] Apr, Anxiety F41.9 [facility] [address] [address] Apr, Major depressive disorder, recurrent, moderate F33.1 [facility] [id number] [place] [address] [id number] Apr, Graves disease E05.00 ; Anxiety F41.9 ; S/P coronary artery stent placement Z95.5 ; Dyslipidemia E78.5 ; History of [place] (myocardial infarction) I25.2 ; Hypokalemia E87.6 ; High risk medication use Z79.899 and Controlled substance agreement signed Z79.[address] [id number] Mar, Atypical mole D22.9 [place] [id number] [place] [address] [id number] Mar, Graves disease E05.00 ; Anxiety F41.9 ; S/P coronary artery stent placement Z95.5 ; Dyslipidemia E78.5 ; History of [place] (myocardial infarction) I25.2 ; Hypokalemia E87.6 and Encounter for immunization Z23 [place] [id number] [place] [address] [id number] Jan, Anxiety F41.9 [place] [address] [place] [address] [id number] Nov, Anxiety F41.[address] [place] [address] [id number] Nov, Hyperthyroidism E05.90 ; Anxiety F41.9 ; Enlarged thyroid E01.0 ; Right sided abdominal pain R10.9 ; Thyroid nodule E04.1 ; Dyslipidemia E78.[address] elevation myocardial infarction (STEMI) I25.2 [place] [id number] [place] [address] [id number] Nov, Hyperthyroidism E05.90 ; Enlarged thyroid E01.0 and Thyroid nodule E04.1 [place] [id number] [place] [address] [id number] Oct, [place] [address] [place] [id number] Oct, 2016 Hyperthyroidism E05.90 [place] [address] [place] [address] [id number] Oct, Anxiety F41.9 ; Right sided abdominal pain R10.9 ; Dyslipidemia E78.[address] elevation myocardial infarction (STEMI) I25.2 [place] [id number] [place] [address] [id number] September, Coronary artery disease involving gambell heart, angina presence unspecified, unspecified vessel or lesion type I25.10 ; Anxiety F41.9 ; History of ST elevation myocardial infarction (STEMI) I25.2 and Low back pain M54.5 [place] [id number] [place] [address] [id number] September, RLQ abdominal pain R10.31 and Diarrhea, unspecified type R19.7 [place] [address] [place] [address] [id number] Aug, Coronary artery disease involving gambell heart, angina presence unspecified, unspecified vessel or lesion type I25.10 ; Anxiety F41.9 ; Anxiety about health F41.8 ; History of ST elevation myocardial infarction (STEMI) I25.2 and S/P coronary artery stent placement Z95.5 [address] [place] [address] [id number] Jul, [place] [id number] [place] [address] [id number] Jul, Nonintractable headache, unspecified chronicity pattern, unspecified headache type R51 and Sleeping difficulty G47.9 [address] [place] [address] [id number] Jul, Essential hypertension, hypertension with unspecified goal I10 [place] [address] [place] [address] [id number] Jun, Essential hypertension, hypertension with unspecified goal I10 and Cervicalgia M54.[address] [place] [address] [id number] [id number] May, Bronchiolitis J21.9 and Essential hypertension, hypertension with unspecified goal I10 [facility] [place] [address] [id number][place] [id number] Mar, [facility] [place] [address] [id number][place] [id number] Mar, Cervical stenosis of spinal canal M48.02 and Foraminal stenosis of cervical region M99.81 [facility] [place] [address] [id number], [place] [id number] Mar, [facility] [address]00565100[place], [place] [address] Mar, [facility] [place] [id number], [place] [id number] Mar, Cervicalgia M54.2 [facility] [place] [address] [id number], [place] [id number] Mar, [facility] [place] [address] [id number], [place] [id number] Jan, [facility] [place] [address] [id number], [place] [id number] Dec, [facility] [place] [address] [id number], [place] [id number] Dec, [facility] [place] [address] [id number], [place] [id number] Dec, Cervicalgia M54.[address] [facility] [address] [id number][place] [id number] Nov, Cervicalgia M54.2 [facility] [place] [address] [id number], [place] [id number] Nov, Cervicalgia M54.2 [facility] [place] [address] [id number], [place] [id number] Oct, Cervicalgia M54.2 and Essential hypertension, hypertension with unspecified goal I10 [facility] [place] [address] [id number], [place] [id number] Oct, [facility] [place] [address] [id number][place] [id number] Aug, Cervicalgia M54.2 [facility] [place] [address] [id number], [place] [id number] Aug, [facility] [place] [address] [place] [id number] [place] [id number] Aug, Headache R51 and Essential hypertension, hypertension with unspecified goal I10 [facility] [place] [id number] [place] [id number] Jul, [facility] [address]65100[place], [place] [address] Aug, [facility] [address] [place] [id number] [place] [address] Aug, [facility] [address] [place] [id number] [place] [address] 92390- 1042 Mar, [facility] [address] [place] [id number] [place] [address] 85206- 8446 Mar, [facility] [address] [place] [id number] [place] [address] 32969- 8775 Dec, [facility] [place] [id number], [place] [id number] Dec, [facility] [place] [id number], [place] [id number] Aug, [facility] [address]00565100[place], [place] [address] Aug, [facility] [address]65100[place], [place] [address] Jul, [facility] [address]00565100[place], [place] [address]46 Jul, [facility] [place] [address] [place] [id number], [place] [id number] Dec, [facility] [place] [id number], [place] [id number] Apr, [facility] [address]100[place], [place] [address] Apr, [facility] [address]65100[place], [place] [address] Mar, [facility] [id number], [place] [id number] Mar, [facility] [id number], [place] [id number] Oct, [facility] [address] [place] [id number] [place] [address]39[address]- 2546 Oct, [facility] [id number], [place] [id number] Oct, [facility] [id number], [place] [id number] September, [facility] [id number] [place] [address] [id number] Jul, [facility] [id number] [place] [address] [id number] Jun, [facility] [id number], [place] [id number] Jun, [facility] [address] [place] [id number] [place] [address] 29506- 6426 May, [facility] [address] [place] [id number] [place] [address] 10459- 7128 May, [facility] [address] [place] [id number] [place] [address] 60882- 7898 May, [facility] [address] [place] [id number] [place] [address] 08633- 0225 May, [facility] [address] [place] [id number] [place] [address] 12115- 0989 Dec, IMMUNIZATIONS No Known Immunizations SOCIAL HISTORY Never Assessed REASON FOR VISIT Medication refill request PLAN OF CARE VITAL SIGNS MEDICATIONS Unknown Medications RESULTS No Results PROCEDURES No Known procedures [...] Cervical stenosis repair, hardware placed by at [address] 07/2016 Surgical History Acute STEMI, heart cath performed-balloon stent to RCA, stent Mid LAD 08/2016 Hospitalization History [facility] STEMI, Cardiogenic shock, increased LFTS 08/2016 Hospitalization History inpatient [facility] after OD after losing baby 2009
--- OUTSIDE RECORDS SUMMARY | 2018-06-17 11:29 | XMS REPORT ---
Author Author HALEY KEVIN Organization [facility] Address [address] [place] [address] Care Team Providers Care Environmental Programs Specialist Name Role Phone HALEY KEVIN Unavailable PROBLEMS Type Condition ICD9-CM Code VDH57-XH Code Onset Dates Condition Status SNOMED Code Problem History of ST elevation myocardial infarction (STEMI) I25.2 Active 368588740031794 Problem Anxiety about health F41.8 Active 990490410 Problem Coronary artery disease involving [place] heart, angina presence unspecified, unspecified vessel or lesion type I25.10 Active 56172315 Problem Major depressive disorder, recurrent, moderate F33.1 Active 86780326 Problem Hyperthyroidism E05.90 Active 12610528 Problem S/P coronary artery stent placement Z95.5 Active 618002769 Problem Seasonal allergic rhinitis due to other allergic trigger J30.89 Active 625226321 Problem Graves disease E05.00 Active 267926428 Problem Dyslipidemia E78.5 Active 814802156 Problem Anxiety F41.9 Active 58767623 Problem Thyroid nodule E04.1 Active 137859539 Problem Enlarged thyroid E01.0 Active 39267150 ALLERGIES No Information ENCOUNTERS Encounter Location Date Diagnosis [place] [id number] [facility] [id number], [place] [address] Mar, [facility] [address] [facility] [id number], [place] [address] Dec, [facility] [address] [id number] [id number] Dec, [facility] [address] [facility] [id number], [place] [address] Nov, Graves disease E05.00 and Major depressive disorder, recurrent, moderate F33.1 [facility] [address] [id number] [id number] Nov, Sinus congestion R09.81 and Seasonal allergic rhinitis due to other allergic trigger J30.[address] [place] [address] [id number] Oct, Acute non-recurrent frontal sinusitis J01.10 [facility] [address] [address] Oct, Graves disease E05.00 [facility] [id number] [place] [address]36[address] September, Major depressive disorder, recurrent, moderate F33.1 [facility] [id number] [place] [address] September, Graves disease E05.00 and Major depressive disorder, recurrent, moderate F33.[address] [place] [address] [id number] Aug, [place] [id number] [place] [address] [id number] Aug, Graves disease E05.00 [facility] [address] [id number][place] [id number] Aug, Dental caries K02.9 [place] [address] [place] [address] Aug, Major depressive disorder, recurrent, moderate F33.1 [facility] [address]00565[place] [address] Aug, Major depressive disorder, recurrent, moderate F33.1 and Graves disease E05.00 [facility] [address]65100[place], [place] [address] Jul, Graves disease E05.00 [facility] [address]65[address], [place] [address] Jul, Major depressive disorder, recurrent, moderate F33.[address] [facility] [address] [id number][place] [id number] Jul, Dental examination Z01.20 [facility] [address] [id number][place] [id number] Jul, Dental examination Z01.20 [facility] [id number] [place] [address] [id number] Jul, Major depressive disorder, recurrent, moderate F33.1 ; Anxiety F41.9 ; Graves disease E05.[address] elevation myocardial infarction (STEMI) I25.2 [facility] [address] [address] Jul, Major depressive disorder, recurrent, moderate F33.1 [place] [id number] [place] [address] Jun, Major depressive disorder, recurrent, moderate F33.1 [place] [id number] [place] [address] [id number] Jun, Graves disease E05.00 [place] [address] [place] [address] [id number] Jun, Influenza A J10.1 [facility] [id number] [place] [address] May, Chest wall pain R07.89 [facility] [id number] [place] [address]11- [address] May, Major depressive disorder, recurrent, moderate F33.1 [facility] [id number] [place] [address] May, Graves disease E05.00 and Major depressive disorder, recurrent, moderate F33.1 [place] [id number] [place] [address] [id number] May, Anxiety F41.9 and Graves disease E05.00 [facility] [id number] [place] [address]78- 8065 Apr, Major depressive disorder, recurrent, moderate F33.1 and Graves disease E05.00 [facility] [id number] [place] [address] [id number] Apr, Anxiety F41.9 [facility] [address] [address] Apr, Major depressive disorder, recurrent, moderate F33.1 [place] [address] [place] [address] [id number] Apr, Graves disease E05.00 ; Anxiety F41.9 ; S/P coronary artery stent placement Z95.5 ; Dyslipidemia E78.5 ; History of [place] (myocardial infarction) I25.2 ; Hypokalemia E87.6 ; High risk medication use Z79.899 and Controlled substance agreement signed Z79.899 [place] [id number] [place] [address] [id number] Mar, Atypical mole D22.9 [place] [address] [place] [address] [id number] Mar, Graves disease E05.00 ; Anxiety F41.9 ; S/P coronary artery stent placement Z95.5 ; Dyslipidemia E78.5 ; History of [place] (myocardial infarction) I25.2 ; Hypokalemia E87.6 and Encounter for immunization Z23 [place] [id number] [place] [address] [id number] Jan, Anxiety F41.9 [place] [address] [place] [address] [id number] Nov, Anxiety F41.[address] [place] [address] [id number] Nov, Hyperthyroidism E05.90 ; Anxiety F41.9 ; Enlarged thyroid E01.0 ; Right sided abdominal pain R10.9 ; Thyroid nodule E04.1 ; Dyslipidemia E78.[address] elevation myocardial infarction (STEMI) I25.2 [place] [id number] [place] [address] [id number] Nov, Hyperthyroidism E05.90 ; Enlarged thyroid E01.0 and Thyroid nodule E04.1 [place] [address] [place] [address] [id number] Oct, [address] [id number] Oct, 2016 Hyperthyroidism E05.[address] [place] [address] [id number] Oct, Anxiety F41.9 ; Right sided abdominal pain R10.9 ; Dyslipidemia E78.[address] elevation myocardial infarction (STEMI) I25.[address] [place] [address] [id number] September, Coronary artery disease involving [place] heart, angina presence unspecified, unspecified vessel or lesion type I25.10 ; Anxiety F41.9 ; History of ST elevation myocardial infarction (STEMI) I25.2 and Low back pain M54.5 [place] [id number] [place] [address] [id number] September, RLQ abdominal pain R10.31 and Diarrhea, unspecified type R19.7 [place] [address] [place] [address] [id number] Aug, Coronary artery disease involving [place] heart, angina presence unspecified, unspecified vessel or lesion type I25.10 ; Anxiety F41.9 ; Anxiety about health F41.8 ; History of ST elevation myocardial infarction (STEMI) I25.2 and S/P coronary artery stent placement Z95.5 [address] [place] [address] [id number] Jul, [place] [address] [place] [address] [id number] Jul, Nonintractable headache, unspecified chronicity pattern, unspecified headache type R51 and Sleeping difficulty G47.[address] [place] [address] [id number] Jul, Essential hypertension, hypertension with unspecified goal I10 [address] [place] [address] [id number] Jun, Essential hypertension, hypertension with unspecified goal I10 and Cervicalgia M54.2 [facility] [address] [id number] [id number] May, Bronchiolitis J21.9 and Essential hypertension, hypertension with unspecified goal I10 [address] [id number] [place] [id number] Mar, [facility] [address] [id number] [place] [id number] Mar, Cervical stenosis of spinal canal M48.02 and Foraminal stenosis of cervical region M99.81 [facility] [address] [id number] [place] [id number] Mar, [facility] [address]00565[address], [place] [address] Mar, [facility] [address] [id number][place] [id number] Mar, Cervicalgia M54.2 [facility] [address] [id number] [place] [id number] Mar, [facility] [address] [id number][place] [id number] Jan, [facility] [address] [id number][place] [id number] Dec, [facility] [address] [id number], [place] [id number] Dec, [facility] [address] [id number], [place] [id number] Dec, Cervicalgia M54.[address] [facility] [address] [id number], [place] [id number] Nov, Cervicalgia M54.2 [facility] [address] [id number], [place] [id number] Nov, Cervicalgia M54.2 [facility] [address] [id number], [place] [id number] Oct, Cervicalgia M54.2 and Essential hypertension, hypertension with unspecified goal I10 [facility] [address] [id number] [place] [id number] Oct, [facility] [address] [id number], [place] [id number] Aug, Cervicalgia M54.2 [facility] [address] [id number], [place] [id number] Aug, [facility] [address] [facility] [id number][place] [id number] Aug, Headache R51 and Essential hypertension, hypertension with unspecified goal I10 [facility] [address] [id number], [place] [id number] Jul, [facility] [address]65100[place], [place] [address] Aug, [facility] [address] [facility] [id number], [place] [address] Aug, [facility] [id number] [place] [address] 15261- 9906 Mar, [facility] [address] [place] [address] 42276- 0882 Mar, [facility] [address] [id number], [place] [address] Dec, [facility] [id number], [place] [id number] Dec, [facility] [address] [id number], [place] [id number] Aug, [facility] [address]65[address], [place] [address] Aug, [facility] [address]65[address], [place] [address]- [address] Jul, [facility] [address]65[address], [place] [address]- [address] Jul, [facility] [address] [id number], [place] [id number] Dec, [facility] [address] [facility] [id number][place] [id number] Apr, [facility] [address] [id number], [place] [address] Apr, [facility] [address]65[address], [place] [address] Mar, [facility] [address] [id number], [place] [id number] Mar, [facility] [id number], [place] [id number] Oct, [facility] [id number] [place] [address] 84187- 2546 Oct, [facility] [id number], [place] [id number] Oct, [facility] [id number] [place] [address] [id number] September, [facility] [id number] [place] [address] [id number] Jul, [facility] [id number] [place] [address] [id number] Jun, [facility] [id number] [place] [address] [id number] Jun, [facility] [id number] [place] [address] 64288- 2546 May, [facility] [id number] [place] [address] 03341- 2546 May, [facility] [id number] [place] [address] 70744- 2546 May, [facility] [id number] [place] [address] 48872- 2546 May, [facility] [id number] [place] [address] 92479- 2546 Dec, IMMUNIZATIONS No Known Immunizations SOCIAL HISTORY Never Assessed REASON FOR VISIT f/u PLAN OF CARE Activity Details Follow Up 2 Weeks Reason: VITAL SIGNS MEDICATIONS Unknown Medications RESULTS No Results PROCEDURES Procedure Date Ordered Result Body Site Psychotherapy, patient &/family, 45 minutes, established patient September 03, 2017 INSTRUCTIONS MEDICATIONS ADMINISTERED No Known Medications [...] Cervical stenosis repair, hardware placed by at [address] 07/2016 Surgical History Acute STEMI, heart cath performed-balloon stent to RCA, stent Mid LAD 08/2016 Hospitalization History [facility] STEMI, Cardiogenic shock, increased LFTS 08/2016 Hospitalization History inpatient psych [place] after OD after losing baby 2010
--- OUTSIDE RECORDS SUMMARY | 2018-06-17 11:29 | XMS REPORT ---
Author Author NILDA CASON [facility] Address [address] [place] [address] Care Team Providers Care New Car Make Ready Worker Name Role Phone NILDA CASON Unavailable PROBLEMS Type Condition ICD9-CM Code BFK23-AK Code Onset Dates Condition Status SNOMED Code Problem History of ST elevation myocardial infarction (STEMI) I25.2 Active 007471598926004 Problem Anxiety about health F41.8 Active 741448022 Problem Coronary artery disease involving sen[place]cay[place] heart, angina presence unspecified, unspecified vessel or lesion type I25.10 Active 86049244 Problem Major depressive disorder, recurrent, moderate F33.1 Active 88421833 Problem Hyperthyroidism E05.90 Active 69084747 Problem S/P coronary artery stent placement Z95.5 Active 637259616 Problem Seasonal allergic rhinitis due to other allergic trigger J30.89 Active 328012325 Problem Graves disease E05.00 Active 266368129 Problem Dyslipidemia E78.5 Active 120685333 Problem Anxiety F41.9 Active 31293642 Problem Thyroid nodule E04.1 Active 942679534 Problem Enlarged thyroid E01.0 Active 14446159 ALLERGIES No Information ENCOUNTERS Encounter Location Date Diagnosis [place] [address] [facility] [facility] [id number], [place] [address] Mar, [place] [address] FORMERLY NAM[address] [facility] [id number], [place] [address] Dec, [facility] [address] [id number] [id number] Dec, [facility] [address] FORMER[address] [facility] [id number], [place] [address] Nov, Graves disease E05.00 and Major depressive disorder, recurrent, moderate F33.1 [facility] [address] [facility] [id number] [place] [address] [id number] Nov, Sinus congestion R09.81 and Seasonal allergic rhinitis due to other allergic trigger J30.89 [facility] [address] [id number] [place] [address] [id number] Oct, Acute non-recurrent frontal sinusitis J01.10 [place] [address] [address] Oct, Graves disease E05.00 [facility] [address] [place] [id number] [place] [address]220[address] September, Major depressive disorder, recurrent, moderate F33.1 [place] [address] [place] [id number] [place] [address] September, Graves disease E05.00 and Major depressive disorder, recurrent, moderate F33.1 [address] [place] [address] [id number] Aug, [place] [id number] [place] [address] [id number] Aug, Graves disease E05.00 [facility] [address] [id number] [id number] Aug, Dental caries K02.9 [place] [address] [place] [address] Aug, Major depressive disorder, recurrent, moderate F33.1 [place] [address] [place] [address]- 4[address] Aug, Major depressive disorder, recurrent, moderate F33.1 and Graves disease E05.00 [facility] [address], [place] [address] Jul, Graves disease E05.00 [facility] [address] [place] [address] 19842- 6148 Jul, Major depressive disorder, recurrent, moderate F33.1 [facility] [address] [id number] [phone] Jul, Dental examination Z01.20 [facility] [address] [id number] [id number] Jul, Dental examination Z01.20 [place] [id number] [place] [address] [id number] Jul, Major depressive disorder, recurrent, moderate F33.1 ; Anxiety F41.9 ; Graves disease E05.[address] elevation myocardial infarction (STEMI) I25.2 [facility] [address] [address] Jul, Major depressive disorder, recurrent, moderate F33.1 [place] [address] [address] Jun, Major depressive disorder, recurrent, moderate F33.1 [place] [id number] [place] [address] [id number] Jun, Graves disease E05.[address] [id number] Jun, Influenza A J10.1 [facility] [address] [address] May, Chest wall pain R07.89 [facility] [address] [address] May, Major depressive disorder, recurrent, moderate F33.1 [place] [address] [place] [id number] [place] [address] May, Graves disease E05.00 and Major depressive disorder, recurrent, moderate F33.1 [place] [id number] [place] [address] [id number] May, Anxiety F41.9 and Graves disease E05.00 [facility] [address] [address] Apr, Major depressive disorder, recurrent, moderate F33.1 and Graves disease E05.00 [facility] [id number] [place] [address] [id number] Apr, Anxiety F41.9 [facility] [address] [address] Apr, Major depressive disorder, recurrent, moderate F33.1 [facility] [id number] [place] [address] [id number] Apr, Graves disease E05.00 ; Anxiety F41.9 ; S/P coronary artery stent placement Z95.5 ; Dyslipidemia E78.5 ; History of [place] (myocardial infarction) I25.2 ; Hypokalemia E87.6 ; High risk medication use Z79.899 and Controlled substance agreement signed Z79.[address] [id number] Mar, Atypical mole D22.9 [place] [id number] [place] [address] [id number] Mar, Graves disease E05.00 ; Anxiety F41.9 ; S/P coronary artery stent placement Z95.5 ; Dyslipidemia E78.5 ; History of [place] (myocardial infarction) I25.2 ; Hypokalemia E87.6 and Encounter for immunization Z23 [place] [id number] [place] [address] [id number] Jan, Anxiety F41.9 [place] [id number] [place] [address] [id number] Nov, Anxiety F41.9 [address] [place] [address] [id number] Nov, Hyperthyroidism E05.90 ; Anxiety F41.9 ; Enlarged thyroid E01.0 ; Right sided abdominal pain R10.9 ; Thyroid nodule E04.1 ; Dyslipidemia E78.[address] elevation myocardial infarction (STEMI) I25.2 [place] [id number] [place] [address] [id number] Nov, Hyperthyroidism E05.90 ; Enlarged thyroid E01.0 and Thyroid nodule E04.1 [place] [id number] [place] [address] [id number] Oct, [place] [address] [place] [id number] Oct, 2016 Hyperthyroidism E05.90 [place] [id number] [place] [address] [id number] Oct, Anxiety F41.9 ; Right sided abdominal pain R10.9 ; Dyslipidemia E78.[address] elevation myocardial infarction (STEMI) I25.2 [place] [id number] [place] [address] [id number] September, Coronary artery disease involving sen[place] heart, angina presence unspecified, unspecified vessel or lesion type I25.10 ; Anxiety F41.9 ; History of ST elevation myocardial infarction (STEMI) I25.2 and Low back pain M54.5 [place] [id number] [place] [address] [id number] September, RLQ abdominal pain R10.31 and Diarrhea, unspecified type R19.7 [place] [id number] [place] [address] [id number] Aug, Coronary artery disease involving sen[place] heart, angina presence unspecified, unspecified vessel or lesion type I25.10 ; Anxiety F41.9 ; Anxiety about health F41.8 ; History of ST elevation myocardial infarction (STEMI) I25.2 and S/P coronary artery stent placement Z95.5 [address] [place] [address] [id number] Jul, [place] [id number] [place] [address] [id number] Jul, Nonintractable headache, unspecified chronicity pattern, unspecified headache type R51 and Sleeping difficulty G47.9 [address] [place] [address] [id number] Jul, Essential hypertension, hypertension with unspecified goal I10 [place] [id number] [place] [address] [id number] Jun, Essential hypertension, hypertension with unspecified goal I10 and Cervicalgia M54.[address] [id number] [id number] May, Bronchiolitis J21.9 and Essential hypertension, hypertension with unspecified goal I10 [facility] [place] [address] [id number] [place] [id number] Mar, [facility] [place] [address] [id number] [place] [id number] Mar, Cervical stenosis of spinal canal M48.02 and Foraminal stenosis of cervical region M99.81 [facility] [place] [address] [id number] [place] [id number] Mar, [facility] [address]65[address], [place] [address] Mar, [facility] [place] [id number] [place] [id number] Mar, Cervicalgia M54.2 [facility] [place] [address] [id number] [place] [id number] Mar, [facility] [place] [address] [id number] [place] [id number] Jan, [facility] [place] [address] [id number] [place] [id number] Dec, [facility] [place] [address] [id number] [place] [id number] Dec, [facility] [place] [address] [id number] [place] [id number] Dec, Cervicalgia M54.[address] [facility] [address] [id number][place] [id number] Nov, Cervicalgia M54.2 [facility] [place] [address] [id number] [place] [id number] Nov, Cervicalgia M54.2 [facility] [place] [address] [id number] [place] [id number] Oct, Cervicalgia M54.2 and Essential hypertension, hypertension with unspecified goal I10 [facility] [place] [address] [id number] [place] [id number] Oct, [facility] [place] [address] [id number] [place] [id number] Aug, Cervicalgia M54.2 [facility] [place] [address] [id number] [place] [id number] Aug, [facility] [place] [address] [place] [id number] [place] [id number] Aug, Headache R51 and Essential hypertension, hypertension with unspecified goal I10 [facility] [place] [id number] [place] [id number] Jul, [facility] [address], [place] [address] Aug, [facility] [address] [place] [address] [id number] [place] [address] Aug, [facility] [address] [place] [id number] [place] [address] 93016- 0092 Mar, [facility] [address] [place] [id number] [place] [address]24- 1506 Mar, [facility] [address] [place] [id number] [place] [address] 665[address]- 8243 Dec, [facility] [place] [id number] [place] [id number] Dec, [facility] [place] [id number] [place] [id number] Aug, [facility] [address], [place] [address] Aug, [facility] [address], [place] [address] Jul, [facility] [address], [place] [address] Jul, [facility] [place] [address] [place] [address] [id number] [place] [id number] Dec, [facility] [place] [id number] [place] [id number] Apr, [facility] [address], [place] [address] Apr, [facility] [address], [place] [address] Mar, [facility] [id number] [place] [id number] Mar, [facility] [id number] [place] [address] [id number] Oct, [facility] [address] [place] [address] [id number] [place] [address]407- 2546 Oct, [facility] [id number] [place] [id number] Oct, [facility] [address] [place] [id number] [place] [address] [id number] September, [facility] [id number] [place] [address] [id number] Jul, [facility] [id number] [place] [address] [id number] Jun, [facility] [id number] [place] [id number] Jun, [facility] [address] [place] [id number] [place] [address] 6[address]- 1296 May, [facility] [address] [place] [id number] [place] [address] 82353- 0043 May, [facility] [address] [id number] [place] [address] 44428- 0646 May, [facility] [address] [place] [id number] [place] [address] 43777- 2337 May, [facility] [address] [place] [id number] [place] [address] 70654- 0967 Dec, IMMUNIZATIONS No Known Immunizations SOCIAL HISTORY Never Assessed REASON FOR VISIT Controlled med refill PLAN OF CARE VITAL SIGNS MEDICATIONS Medication Instructions Dosage Frequency Start Date End Date Duration Status Lorazepam 1 MG Orally every 6 hrs as needed for anxiety/panic 1 tablet 0 days Active RESULTS No Results PROCEDURES No [...] Cervical stenosis repair, hardware placed by at [address] 07/2016 Surgical History Acute STEMI, heart cath performed-balloon stent to RCA, stent Mid LAD 08/2016 Hospitalization History [facility] STEMI, Cardiogenic shock, increased LFTS 08/2016 Hospitalization History inpatient psych [facility] after OD after losing baby 2010
--- OUTSIDE RECORDS SUMMARY | 2018-06-17 11:30 | XMS REPORT ---
Author Author AGUSTÍN SAMUEL Organization [facility] Address [address] [place] [address] Care Team Providers Care Key Bed Installer Name Role Phone AMANDAGIOVANNI AGUSTÍN Unavailable PROBLEMS Type Condition ICD9-CM Code [id number] Code Onset Dates Condition Status SNOMED Code Problem History of ST elevation myocardial infarction (STEMI) I25.2 Active [id number] Problem Anxiety about health F41.8 Active 531715664 Problem Coronary artery disease involving [place] heart, angina presence unspecified, unspecified vessel or lesion type I25.10 Active 23189220 Problem Major depressive disorder, recurrent, moderate F33.1 Active 29635977 Problem Hyperthyroidism E05.90 Active 15073929 Problem S/P coronary artery stent placement Z95.5 Active 235151537 Problem Seasonal allergic rhinitis due to other allergic trigger J30.89 Active 436881588 Problem Graves disease E05.00 Active 359977543 Problem Dyslipidemia E78.5 Active 393362768 Problem Anxiety F41.9 Active 66013550 Problem Thyroid nodule E04.1 Active 129768912 Problem Enlarged thyroid E01.0 Active 96413524 ALLERGIES No Information ENCOUNTERS Encounter Location Date Diagnosis [place] [id number] [facility] [id number] [address] Mar, [facility] [address] [id number] [address] Dec, [facility] [address] [id number] [id number] Dec, [facility] [address] [facility] [id number], [place] [address] Nov, Graves disease E05.00 and Major depressive disorder, recurrent, moderate F33.1 [facility] [address] [facility][1] [id number] [place] [phone] Nov, Sinus congestion R09.81 and Seasonal allergic rhinitis due to other allergic trigger J30.89 [facility] [id number] [place] [address] [id number] Oct, Acute non-recurrent frontal sinusitis J01.10 [facility] [address], [place] [address] Oct, Graves disease E05.00 [facility] [id number] [place] [address] September, Major depressive disorder, recurrent, moderate F33.1 [facility] [id number] [place] [address]4412- [address] September, Graves disease E05.00 and Major depressive disorder, recurrent, moderate F33.1 [facility] [address] [place] [address] [id number] Aug, [place] [id number] [place] [address] [id number] Aug, Graves disease E05.00 [facility] [address] [id number], [place] [id number] Aug, Dental caries K02.9 [place] [address] [place] [address] 6[address]33- [address]56 Aug, Major depressive disorder, recurrent, moderate F33.1 [facility] [address] [place] [address] 68162- 7849 Aug, Major depressive disorder, recurrent, moderate F33.1 and Graves disease E05.00 [facility] [address] [place] [address] 87417- 9596 Jul, Graves disease E05.00 [facility] [id number] [place] [address] 62598- 4523 Jul, Major depressive disorder, recurrent, moderate F33.1 [facility] [address] [id number] [id number] Jul, Dental examination Z01.20 [facility] [address] [id number][place] [id number] Jul, Dental examination Z01.20 [place] [id number] [place] [address] [id number] Jul, Major depressive disorder, recurrent, moderate F33.1 ; Anxiety F41.9 ; Graves disease E05.[address] elevation myocardial infarction (STEMI) I25.2 [place] [address] [place] [id number] Jul, Major depressive disorder, recurrent, moderate F33.1 [place] [id number] [place] [address]8715- [address] Jun, Major depressive disorder, recurrent, moderate F33.1 [place] [id number] [place] [address] [id number] Jun, Graves disease E05.00 [place] [id number] [place] [address] [id number] Jun, Influenza A J10.1 [facility] [id number] [place] [address]94 -[phone] May, Chest wall pain R07.89 [place] [id number] [place] [address] 02272- 9609 May, Major depressive disorder, recurrent, moderate F33.1 [place] [id number] [place] [address] 42507- 3825 May, Graves disease E05.00 and Major depressive disorder, recurrent, moderate F33.1 [place] [id number] [place] [address] [id number] May, Anxiety F41.9 and Graves disease E05.00 [facility] [id number] [place] [address] 68480- [address]38 Apr, Major depressive disorder, recurrent, moderate F33.1 and Graves disease E05.00 [facility] [id number] [place] [address] [id number] Apr, Anxiety F41.9 [facility] [address] [address] Apr, Major depressive disorder, recurrent, moderate F33.1 [place] [id number] [place] [address] [id number] Apr, Graves disease E05.00 ; Anxiety F41.9 ; S/P coronary artery stent placement Z95.5 ; Dyslipidemia E78.5 ; History of MA (myocardial infarction) I25.2 ; Hypokalemia E87.6 ; High risk medication use Z79.899 and Controlled substance agreement signed Z79.899 [place] [id number] [place] [address] [id number] Mar, Atypical mole D22.9 [place] [id number] [place] [address] [id number] Mar, Graves disease E05.00 ; Anxiety F41.9 ; S/P coronary artery stent placement Z95.5 ; Dyslipidemia E78.5 ; History of MA (myocardial infarction) I25.2 ; Hypokalemia E87.6 and Encounter for immunization Z23 [place] [id number] [place] [address] [id number] Jan, Anxiety F41.9 [place] [id number] [place] [address] [id number] Nov, Anxiety F41.9 [place] [id number] [place] [address] [id number] Nov, Hyperthyroidism E05.90 ; Anxiety F41.9 ; Enlarged thyroid E01.0 ; Right sided abdominal pain R10.9 ; Thyroid nodule E04.1 ; Dyslipidemia E78.[address] elevation myocardial infarction (STEMI) I25.2 [place] [id number] [place] [address] [id number] Nov, Hyperthyroidism E05.90 ; Enlarged thyroid E01.0 and Thyroid nodule E04.1 [place] [id number] [place] [address] [id number] Oct, [address] [id number] Oct, Hyperthyroidism E05.90 [address] [id number] Oct, Anxiety F41.9 ; Right sided abdominal pain R10.9 ; Dyslipidemia E78.[address] elevation myocardial infarction (STEMI) I25.[address] [place] [address] [id number] September, Coronary artery disease involving [place] heart, angina presence unspecified, unspecified vessel or lesion type I25.10 ; Anxiety F41.9 ; History of ST elevation myocardial infarction (STEMI) I25.2 and Low back pain M54.5 [place] [id number] [place] [address] [id number] September, RLQ abdominal pain R10.31 and Diarrhea, unspecified type R19.7 [place] [id number] [place] [address] [id number] Aug, Coronary artery disease involving [place] heart, angina presence unspecified, unspecified vessel or lesion type I25.10 ; Anxiety F41.9 ; Anxiety about health F41.8 ; History of ST elevation myocardial infarction (STEMI) I25.2 and S/P coronary artery stent placement Z95.5 [address] [place] [address] [id number] Jul, [place] [id number] [place] [address] [id number] Jul, Nonintractable headache, unspecified chronicity pattern, unspecified headache type R51 and Sleeping difficulty G47.9 [address] [place] [address] [id number] Jul, Essential hypertension, hypertension with unspecified goal I10 [address] [place] [address] [id number] Jun, Essential hypertension, hypertension with unspecified goal I10 [address] [facility] [address] [id number] [id number] May, Bronchiolitis J21.9 and Essential hypertension, hypertension with unspecified goal I10 [place] [id number] [id number] Mar, [facility] [address] [id number] [place] [id number] Mar, Cervical stenosis of spinal canal M48.02 and Foraminal stenosis of cervical region M99.81 [facility] [address] [id number] [place] [id number] Mar, [facility] [address], [place] [address] Mar, [facility] [address] [id number] [place] [id number] Mar, Cervicalgia M54.2 [facility] [address] [id number] [place] [id number] Mar, [facility] [address] [id number] [place] [id number] Jan, [facility] [address] [id number] [place] [phone] Dec, [facility] [address] [id number] [place] [id number] Dec, [facility] [address] [id number] [place] [id number] Dec, Cervicalgia M54.2 [facility] [address] [id number][place] [id number] Nov, Cervicalgia M54.2 [facility] [address] [id number] [place] [id number] Nov, Cervicalgia M54.2 [facility] [address] [id number] [place] [id number] Oct, Cervicalgia M54.2 and Essential hypertension, hypertension with unspecified goal I10 [facility] [address] [id number] [place] [id number] Oct, [facility] [address] [id number] [place] [id number] Aug, Cervicalgia M54.2 [facility] [address] [id number] [place] [id number] Aug, [facility] [address] [id number] [place] [id number] Aug, Headache R51 and Essential hypertension, hypertension with unspecified goal I10 [facility] [address] [id number] [place] [id number] Jul, [facility] [id number] [address] Aug, [facility] [place] [facility] [address] [facility] [id number] [place] [address]- 4[address] Aug, [facility] [address] [facility] [id number] [place] [address]- [address] Mar, [facility] [address]65[address], [place] [address] Mar, [facility] [address]65100[place], [place] [address] Dec, [facility] [id number] [place] [id number] Dec, [facility] [address] [id number] [place] [id number] Aug, [facility] [address], [place] [address] Aug, [facility] [address]65100[place], [place] [address] Jul, [facility] [address]100[place], [place] [address] Jul, [facility] [address] [facility][1] [id number] [place] [id number] Dec, [facility] [address] [facility][1] [id number] [place] [id number] Apr, [facility] [place] [facility] [address] [facility] [id number], [place] [address] Apr, [facility] [address]65100[place], [place] [address] Mar, [facility] [id number] [place] [id number] Mar, [facility] [id number] [place] [id number] Oct, [facility] [id number] [place] [address] 47511- 2546 Oct, [facility] [id number] [place] [id number] Oct, [facility] [place] [id number] [place] [address] [id number] September, [facility] [id number] [place] [address] [id number] Jul, [facility] [id number] [place] [address] [id number] Jun, [facility] [id number] [place] [address] [id number] Jun, [facility] [id number] [place] [address] 63837- 9636 May, [facility] [id number] [place] [address] 95012- 5821 May, [facility] [id number] [place] [address] 10297- 6574 May, [facility] [id number] [place] [address] 62862- 4454 May, [facility] [id number] [place] [address] 11056- 9593 Dec, IMMUNIZATIONS No Known Immunizations SOCIAL HISTORY Never Assessed REASON FOR VISIT f/u PLAN OF CARE Activity Details Follow Up 4 Weeks Reason: VITAL SIGNS Height 63.75 in 2017-09-02 Weight 158 lbs 2017-09-02 BMI 27.33 kg/m2 2017-09-02 Blood pressure systolic 132 mmHg 2017-09-02 Blood pressure diastolic 88 mmHg 2017-09-02 MEDICATIONS Medication Instructions Dosage Frequency Start Date End Date Duration Status Potassium Chloride ER 20 MEQ Orally Once a day 1 tablet with food 24h Active Propylthiouracil 50 mg Orally 3 times a day 4 tablets 8h Active Aspir-81 81 MG Orally Once a day 1 tablet 24h Active Zoloft 100 MG Orally Once a day 2 tablets 24h Active Atorvastatin Calcium 20 MG Orally Once a day 1 tablet 24h Active Plavix 75 MG Orally Once a day 1 tablet 24h Active Lorazepam 1 MG Orally every 6 hrs as needed for anxiety/panic 1 tablet 0 days Active Nitroglycerin 0.4 MG Active Sotalol HCl [...] Cervical stenosis repair, hardware placed by at [address] 07/2016 Surgical History Acute STEMI, heart cath performed-balloon stent to RCA, stent Mid LAD 08/2016 Hospitalization History [facility] STEMI, Cardiogenic shock, increased LFTS 08/2016 Hospitalization History inpatient psych [facility] after OD after losing baby 2009
--- OUTSIDE RECORDS SUMMARY | 2018-06-17 11:30 | XMS REPORT ---
Author Author MARVIN Hayes [facility] Address [address] [place] [address] Care Team Providers Care Transplant Coordinator Name Role Phone MARVIN Hayes Unavailable PROBLEMS Type Condition ICD9-CM Code IHN31-GE Code Onset Dates Condition Status SNOMED Code Problem History of ST elevation myocardial infarction (STEMI) I25.2 Active [id number] Problem Anxiety about health F41.8 Active 297117286 Problem Coronary artery disease involving sh[place]paiute heart, angina presence unspecified, unspecified vessel or lesion type I25.10 Active 47029257 Problem Major depressive disorder, recurrent, moderate F33.1 Active 27003821 Problem Hyperthyroidism E05.90 Active 72635591 Problem S/P coronary artery stent placement Z95.5 Active 017608487 Problem Seasonal allergic rhinitis due to other allergic trigger J30.89 Active 295673991 Problem Graves disease E05.00 Active 719812709 Problem Dyslipidemia E78.5 Active 927054718 Problem Anxiety F41.9 Active 02788723 Problem Thyroid nodule E04.1 Active 655280575 Problem Enlarged thyroid E01.0 Active 82593704 ALLERGIES No Known Allergies ENCOUNTERS Encounter Location Date Diagnosis [facility] [id number], [place] [address] Mar, [facility] [id number], [place] [address] Dec, [facility] [address] [facility] [id number] [place] [id number] Dec, [facility] [id number], [place] [address] Nov, Graves disease E05.00 and Major depressive disorder, recurrent, moderate F33.1 [facility] [address] [id number] [id number] Nov, Sinus congestion R09.81 and Seasonal allergic rhinitis due to other allergic trigger J30.89 [address] [id number] [place] [address] [id number] Oct, Acute non-recurrent frontal sinusitis J01.10 [facility] [id number] [place] [address] Oct, Graves disease E05.00 [facility] [id number] [place] [address] 180[address]- [address] September, Major depressive disorder, recurrent, moderate F33.1 [place] [id number] [place] [address] September, Graves disease E05.00 and Major depressive disorder, recurrent, moderate F33.1 [id number] [place] [address] [id number] Aug, [address] [id number] [place] [address] [id number] Aug, Graves disease E05.00 [facility] [address] [id number] [place] [id number] Aug, Dental caries K02.9 [place] [address] [place] [address] Aug, Major depressive disorder, recurrent, moderate F33.1 [facility] [id number] [place] [address]- 2748 Aug, Major depressive disorder, recurrent, moderate F33.1 and Graves disease E05.00 [facility] [address] [place] [address]- [address] Jul, Graves disease E05.00 [facility] [id number] [place] [address]- [address] Jul, Major depressive disorder, recurrent, moderate F33.1 [facility] [address] [id number] [place] [id number] Jul, Dental examination Z01.20 [facility] [id number] [place] [id number] Jul, Dental examination Z01.20 [address] [place] [id number] [place] [address] [id number] Jul, Major depressive disorder, recurrent, moderate F33.1 ; Anxiety F41.9 ; Graves disease E05.[address] elevation myocardial infarction (STEMI) I25.2 [facility] [address] [address] Jul, Major depressive disorder, recurrent, moderate F33.1 [place] [address] [address] Jun, Major depressive disorder, recurrent, moderate F33.1 [address] [place] [id number] [place] [address] [id number] Jun, Graves disease E05.00 [address] [address] [place] [address] [id number] Jun, Influenza A J10.1 [facility] [address] [address] May, Chest wall pain R07.89 [facility] [id number] [place] [address]- [address] May, Major depressive disorder, recurrent, moderate F33.1 [place] [id number] [place] [address] May, Graves disease E05.00 and Major depressive disorder, recurrent, moderate F33.1 [address] [place] [id number] [place] [address] [id number] May, Anxiety F41.9 and Graves disease E05.00 [facility] [address] [address] Apr, Major depressive disorder, recurrent, moderate F33.1 and Graves disease E05.00 [facility] [id number] [place] [address] [id number] Apr, Anxiety F41.9 [facility] [address] [address] Apr, Major depressive disorder, recurrent, moderate F33.1 [address] [place] [address] [id number] Apr, Graves disease E05.00 ; Anxiety F41.9 ; S/P coronary artery stent placement Z95.5 ; Dyslipidemia E78.5 ; History of [place] (myocardial infarction) I25.2 ; Hypokalemia E87.6 ; High risk medication use Z79.899 and Controlled substance agreement signed Z79.8[address] [id number] Mar, Atypical mole D22.9 [address] [place] [address] [place] [address] [id number] Mar, Graves disease E05.00 ; Anxiety F41.9 ; S/P coronary artery stent placement Z95.5 ; Dyslipidemia E78.5 ; History of [place] (myocardial infarction) I25.2 ; Hypokalemia E87.6 and Encounter for immunization Z23 [address] [address] [place] [address] [id number] Jan, Anxiety F41.9 [address] [place] [address] [place] [address] [id number] Nov, Anxiety F41.9 [address] [place] [address] [id number] Nov, Hyperthyroidism E05.90 ; Anxiety F41.9 ; Enlarged thyroid E01.0 ; Right sided abdominal pain R10.9 ; Thyroid nodule E04.1 ; Dyslipidemia E78.[address] elevation myocardial infarction (STEMI) I25.2 [address] [id number] [place] [address] [id number] Nov, Hyperthyroidism E05.90 ; Enlarged thyroid E01.0 and Thyroid nodule E04.1 [address] [id number] [place] [address] [id number] Oct, [address] [id number] Oct, 2016 Hyperthyroidism E05.90 [address] [place] [address] [place] [address] [id number] Oct, Anxiety F41.9 ; Right sided abdominal pain R10.9 ; Dyslipidemia E78.[address] elevation myocardial infarction (STEMI) I25.2 [address] [place] [address] [place] [address] [id number] September, Coronary artery disease involving shosh[place]paiute heart, angina presence unspecified, unspecified vessel or lesion type I25.10 ; Anxiety F41.9 ; History of ST elevation myocardial infarction (STEMI) I25.2 and Low back pain M54.[address] [id number] September, RLQ abdominal pain R10.31 and Diarrhea, unspecified type R19.7 [address] [address] [place] [address] [id number] Aug, Coronary artery disease involving shosh[place]aiute heart, angina presence unspecified, unspecified vessel or lesion type I25.10 ; Anxiety F41.9 ; Anxiety about health F41.8 ; History of ST elevation myocardial infarction (STEMI) I25.2 and S/P coronary artery stent placement Z95.5 [address] [place] [address] [id number] Jul, [address] [id number] [place] [address] [id number] Jul, Nonintractable headache, unspecified chronicity pattern, unspecified headache type R51 and Sleeping difficulty G47.9 [address] [place] [address] [id number] Jul, Essential hypertension, hypertension with unspecified goal I10 [address] [address] [place] [address] [id number] Jun, Essential hypertension, hypertension with unspecified goal I10 and Cervicalgia M54.2 [address] [address] [facility] [id number] [place] [id number] May, Bronchiolitis J21.9 and Essential hypertension, hypertension with unspecified goal I10 [facility] [address] [id number] [place] [id number] Mar, [facility] [address] [id number] [place] [id number] Mar, Cervical stenosis of spinal canal M48.02 and Foraminal stenosis of cervical region M99.81 [facility] [address] [id number] [place] [id number] Mar, [facility] [id number], [place] [address] Mar, [facility] [address] [id number] [place] [id number] Mar, Cervicalgia M54.2 [facility] [address] [id number] [place] [id number] Mar, [facility] [address] [id number][place] [id number] Jan, [facility] [address] [id number], [place] [id number] Dec, [facility] [address] [id number], [place] [id number] Dec, [facility] [address] [id number][place] [id number] Dec, Cervicalgia M54.[address] [facility] [address] [id number] [place] [id number] Nov, Cervicalgia M54.2 [facility] [address] [id number][place] [id number] Nov, Cervicalgia M54.2 [facility] [address] [id number], [place] [id number] Oct, Cervicalgia M54.2 and Essential hypertension, hypertension with unspecified goal I10 [facility] [address] [id number][place] [id number] Oct, [facility] [address] [id number][place] [id number] Aug, Cervicalgia M54.2 [facility] [address] [id number][place] [id number] Aug, [facility] [address] [facility] [id number] [place] [id number] Aug, Headache R51 and Essential hypertension, hypertension with unspecified goal I10 [facility] [address] [id number] [place] [id number] Jul, [facility] [address] [place] [address] Aug, [facility] [address] [place] [address] Aug, [facility] [id number] [place] [address], [place] [address]- [address] Mar, [facility] [id number] [place] [address] Mar, [facility] [address], [place] [address] Dec, [facility] [id number], [place] [id number] Dec, [facility] [address] [id number] [place] [id number] Aug, [facility] [address], [place] [address] Aug, [facility] [address], [place] [address] Jul, [facility] [address], [place] [address] Jul, [facility] [address] [facility] [id number] [place] [id number] Dec, [facility] [address] [facility] [id number] [place] [id number] Apr, [facility] [id number] [place] [address] Apr, [facility] [address], [place] [address] Mar, [facility] [address] [facility] [id number][place] [id number] Mar, [facility] [id number], [place] [id number] Oct, [facility] [address], [place] [address] Oct, [facility] [address] [id number], [place] [id number] Oct, [facility] [id number][place] [id number] September, [facility] [id number], [place] [id number] Jul, [facility] [id number], [place] [id number] Jun, [facility] [id number], [place] [id number] Jun, [facility] [id number] [place] [address]- [address] May, [facility] [id number] [place] [address]- 2546 May, [facility] [id number] [place] [address] 22060- 2546 May, [facility] [address], [place] [address] May, [facility] [id number], [place] [address] Dec, IMMUNIZATIONS No Known Immunizations SOCIAL HISTORY Never Assessed REASON FOR VISIT MARCE PLAN OF CARE Activity Details Follow Up 2 Weeks Reason:TE 1 hour VITAL SIGNS Height 63.75 in 2017-08-05 Blood pressure systolic 120 mmHg 2017-08-05 Blood pressure diastolic 80 mmHg 2017-08-05 MEDICATIONS Medication Instructions Dosage Frequency Start Date End Date Duration Status Toprol XL 25 MG Orally Once a day at bedtime 1 tablet Active Nitroglycerin 0.4 MG Active Atorvastatin Calcium 20 MG Orally Once a day 1 tablet 24h Active Sotalol HCl 80 MG Orally every 12 hrs 1/2 tablet 12h Active Propylthiouracil 50 mg Orally 3 times a day 4 tablets 8h Active Plavix 75 MG Orally Once a day 1 tablet 24h Active Aspir-81 81 MG Orally Once a day 1 tablet 24h Active Potassium Chloride ER 20 MEQ Orally Once a day 1 tablet with food 24h Active Lorazepam 1 MG Orally every 6 hrs as needed for anxiety/panic 1 tablet 0 days Active Zoloft 100 MG Orally Once a day 1.5 tablets 24h 30 days Active RESULTS No Results PROCEDURES Procedure Date Ordered Result Body Site COMP ORAL EVALUATION - NEW/EST PT August 05, 2017 INTRAORL - CMPL SERIES CODE [id number] August 05, 2017 INSTRUCTIONS MEDICATIONS ADMINISTERED No Known Medications [...] Cervical stenosis repair, hardware placed by at [address] 07/2016 Surgical History Acute STEMI, heart cath performed-balloon stent to RCA, stent Mid LAD 08/2016 Hospitalization History [facility] STEMI, Cardiogenic shock, increased LFTS 08/2016 Hospitalization History inpatient psych [facility] after OD after losing baby 2009
--- OUTSIDE RECORDS SUMMARY | 2018-06-17 11:30 | XMS REPORT ---
Author Author MARVIN Hayes [facility] Address [address] [place] [address] Care Team Providers Care Data Coder Operator Name Role Phone MARVIN Hayes Unavailable PROBLEMS Type Condition ICD9-CM Code [id number] Code Onset Dates Condition Status SNOMED Code Problem History of ST elevation myocardial infarction (STEMI) I25.2 Active 618826239039105 Problem Anxiety about health F41.8 Active 550627843 Problem Coronary artery disease involving tazlina heart, angina presence unspecified, unspecified vessel or lesion type I25.10 Active 43444978 Problem Major depressive disorder, recurrent, moderate F33.1 Active 06839733 Problem Hyperthyroidism E05.90 Active 43023335 Problem S/P coronary artery stent placement Z95.5 Active 054136361 Problem Seasonal allergic rhinitis due to other allergic trigger J30.89 Active 435225669 Problem Graves disease E05.00 Active 946951387 Problem Dyslipidemia E78.5 Active 442133380 Problem Anxiety F41.9 Active 86752618 Problem Thyroid nodule E04.1 Active 411348707 Problem Enlarged thyroid E01.0 Active 10000407 ALLERGIES No Known Allergies ENCOUNTERS Encounter Location Date Diagnosis [facility] [address] [id number] [address] Mar, [facility] [address] [id number], [place] [address] Dec, [facility] [address] [facility] [id number] [place] [id number] Dec, [facility] [address] [id number], [place] [address] Nov, Graves disease E05.00 and Major depressive disorder, recurrent, moderate F33.1 [facility] [address] [id number] [id number] Nov, Sinus congestion R09.81 and Seasonal allergic rhinitis due to other allergic trigger J30.89 [place] [id number] [place] [address] [id number] Oct, Acute non-recurrent frontal sinusitis J01.10 [facility] [id number] [place] [address] Oct, Graves disease E05.00 [facility] [id number] [place] [address]20302[address] September, Major depressive disorder, recurrent, moderate F33.1 [place] [id number] [place] [address] September, Graves disease E05.00 and Major depressive disorder, recurrent, moderate F33.1 [address] [place] [id number] [place] [address] [id number] Aug, [id number] [place] [address] [id number] Aug, Graves disease E05.00 [facility] [address] [id number] [place] [id number] Aug, Dental caries K02.9 [place] [address] [place] [address] Aug, Major depressive disorder, recurrent, moderate F33.1 [facility] [id number] [place] [address] Aug, Major depressive disorder, recurrent, moderate F33.1 and Graves disease E05.00 [facility] [address] [place] [address]37 Jul, Graves disease E05.00 [facility] [id number] [place] [address]- [address]78 Jul, Major depressive disorder, recurrent, moderate F33.1 [facility] [address] [id number] [place] [id number] Jul, Dental examination Z01.20 [facility] [facility] [address] [id number] [place] [id number] Jul, Dental examination Z01.20 [address] [place] [id number] [place] [address] [id number] Jul, Major depressive disorder, recurrent, moderate F33.1 ; Anxiety F41.9 ; Graves disease E05.[address] elevation myocardial infarction (STEMI) I25.2 [facility] [address] [address] Jul, Major depressive disorder, recurrent, moderate F33.1 [place] [address] [address] Jun, Major depressive disorder, recurrent, moderate F33.1 [address] [place] [id number] [place] [address] [id number] Jun, Graves disease E05.00 [address] [place] [id number] [place] [address] [id number] Jun, Influenza A J10.1 [facility] [address] [address] May, Chest wall pain R07.89 [facility] [id number] [place] [address] May, Major depressive disorder, recurrent, moderate F33.1 [place] [id number] [place] [address] 7[address]25- 4448 May, Graves disease E05.00 and Major depressive disorder, recurrent, moderate F33.1 [address] [place] [id number] [place] [address] [id number] May, Anxiety F41.9 and Graves disease E05.00 [facility] [address] [address] Apr, Major depressive disorder, recurrent, moderate F33.1 and Graves disease E05.00 [facility] [id number] [place] [address] [id number] Apr, Anxiety F41.9 [facility] [address] [address] Apr, Major depressive disorder, recurrent, moderate F33.1 [address] [place] [address] [id number] Apr, Graves disease E05.00 ; Anxiety F41.9 ; S/P coronary artery stent placement Z95.5 ; Dyslipidemia E78.5 ; History of NE (myocardial infarction) I25.2 ; Hypokalemia E87.6 ; High risk medication use Z79.899 and Controlled substance agreement signed Z79.[address] [id number] Mar, Atypical mole D22.9 [address] [id number] [place] [address] [id number] Mar, Graves disease E05.00 ; Anxiety F41.9 ; S/P coronary artery stent placement Z95.5 ; Dyslipidemia E78.5 ; History of NE (myocardial infarction) I25.2 ; Hypokalemia E87.6 and Encounter for immunization Z23 [address] [id number] [place] [address] [id number] Jan, Anxiety F41.9 [id number] [place] [address] [id number] Nov, Anxiety F41.9 [address] [place] [address] [id number] Nov, Hyperthyroidism E05.90 ; Anxiety F41.9 ; Enlarged thyroid E01.0 ; Right sided abdominal pain R10.9 ; Thyroid nodule E04.1 ; Dyslipidemia E78.[address] elevation myocardial infarction (STEMI) I25.2 [address] [id number] [place] [address] [id number] Nov, Hyperthyroidism E05.90 ; Enlarged thyroid E01.0 and Thyroid nodule E04.1 [address] [place] [id number] [place] [address] [id number] Oct, [address] [id number] Oct, 2016 Hyperthyroidism E05.90 [address] [id number] [place] [address] [id number] Oct, Anxiety F41.9 ; Right sided abdominal pain R10.9 ; Dyslipidemia E78.[address] elevation myocardial infarction (STEMI) I25.2 [address] [place] [id number] [place] [address] [id number] September, Coronary artery disease involving tazlina heart, angina presence unspecified, unspecified vessel or lesion type I25.10 ; Anxiety F41.9 ; History of ST elevation myocardial infarction (STEMI) I25.2 and Low back pain M54.[address] [id number] September, RLQ abdominal pain R10.31 and Diarrhea, unspecified type R19.7 [address] [place] [id number] [place] [address] [id number] Aug, Coronary artery disease involving tazlina heart, angina presence unspecified, unspecified vessel or lesion type I25.10 ; Anxiety F41.9 ; Anxiety about health F41.8 ; History of ST elevation myocardial infarction (STEMI) I25.2 and S/P coronary artery stent placement Z95.5 [address] [place] [address] [id number] Jul, [address] [id number] [place] [address] [id number] Jul, Nonintractable headache, unspecified chronicity pattern, unspecified headache type R51 and Sleeping difficulty G47.9 [address] [place] [address] [id number] Jul, Essential hypertension, hypertension with unspecified goal I10 [address] [id number] [place] [address] [id number] Jun, Essential hypertension, hypertension with unspecified goal I10 and Cervicalgia M54.2 [place] [address] [facility] [address] [id number] [place] [id number] May, Bronchiolitis J21.9 and Essential hypertension, hypertension with unspecified goal I10 [facility] [address] [id number] [place] [id number] Mar, [facility] [address] [id number] [place] [id number] Mar, Cervical stenosis of spinal canal M48.02 and Foraminal stenosis of cervical region M99.81 [facility] [address] [id number] [place] [id number] Mar, [facility] [address] [id number], [place] [address] Mar, [facility] [address] [id number] [place] [id number] Mar, Cervicalgia M54.2 [facility] [address] [id number] [place] [id number] Mar, [facility] [address] [id number], [place] [id number] Jan, [facility] [address] [id number], [place] [id number] Dec, [facility] [address] [id number], [place] [id number] Dec, [facility] [address] [id number], [place] [id number] Dec, Cervicalgia M54.[address] [facility] [address] [id number] [place] [id number] Nov, Cervicalgia M54.2 [facility] [address] [id number], [place] [id number] Nov, Cervicalgia M54.2 [facility] [address] [id number][place] [id number] Oct, Cervicalgia M54.2 and Essential hypertension, hypertension with unspecified goal I10 [facility] [address] [id number], [place] [id number] Oct, [facility] [address] [id number], [place] [id number] Aug, Cervicalgia M54.2 [facility] [address] [id number], [place] [id number] Aug, [facility] [address] [facility] [id number] [place] [id number] Aug, Headache R51 and Essential hypertension, hypertension with unspecified goal I10 [facility] [address] [id number] [place] [id number] Jul, [facility] [address] [place] [address] Aug, [facility] [address] [place] [address] Aug, [facility] [id number] [place] [address], [place] [address] Mar, [facility] [address] [id number] [place] [address] Mar, [facility] [address], [place] [address] Dec, [facility] [id number], [place] [id number] Dec, [facility] [address] [id number] [place] [id number] Aug, [facility] [address], [place] [address] Aug, [facility] [address], [place] [address] Jul, [facility] [address], [place] [address] Jul, [facility] [address] [facility] [id number] [place] [id number] Dec, [facility] [address] [facility] [id number] [place] [id number] Apr, [facility] [id number] [address]- [address] Apr, [facility] [address], [place] [address] Mar, [facility] [address] [id number], [place] [id number] Mar, [facility] [id number][place] [id number] Oct, [facility] [address], [place] [address] Oct, [facility] [address] [id number], [place] [id number] Oct, [facility] [id number], [place] [id number] September, [facility] [id number], [place] [id number] Jul, [facility] [id number], [place] [id number] Jun, [facility] [id number], [place] [id number] Jun, [facility] [id number] [place] [address] 88681- 2546 May, [facility] [id number] [place] [address] 74576- 5892 May, [facility] [id number] [place] [address] 13069- 4234 May, [facility] [address], [place] [address] May, [facility] [address] [id number], [place] [address] Dec, IMMUNIZATIONS No Known Immunizations SOCIAL HISTORY Never Assessed REASON FOR VISIT TE #30 PLAN OF CARE Activity Details Follow Up [facility] Reason:TE #30 VITAL SIGNS Height 63.75 in 2017-08-20 Blood pressure systolic 132 mmHg 2017-08-20 Blood pressure diastolic 89 mmHg 2017-08-20 MEDICATIONS Medication Instructions Dosage Frequency Start Date End Date Duration Status Sotalol HCl 80 MG Orally every 12 hrs 1/2 tablet 12h Active Nitroglycerin 0.4 MG Active Toprol XL 25 MG Orally Once a day at bedtime 1 tablet Active Potassium Chloride ER 20 MEQ Orally Once a day 1 tablet with food 24h Active Propylthiouracil 50 mg Orally 3 times a day 4 tablets 8h Active Zoloft 100 MG Orally Once a day 1.5 tablets 24h 30 days Active Lorazepam 1 MG Orally every 6 hrs as needed for anxiety/panic 1 tablet 0 days Active Plavix 75 MG Orally Once a day 1 tablet 24h Active Atorvastatin Calcium 20 MG Orally Once a day 1 tablet 24h Active Aspir-81 81 MG Orally Once a day 1 tablet 24h Active RESULTS No Results PROCEDURES Procedure Date Ordered Result Body Site Dental no charge August 20, 2017 INSTRUCTIONS MEDICATIONS ADMINISTERED No Known Medications [...] stenosis repair, hardware placed by at [address] 07/2016 Surgical History Acute STEMI, heart cath performed-balloon stent to RCA, stent Mid LAD 08/2016 Hospitalization History [facility] STEMI, Cardiogenic shock, increased LFTS 08/2016 Hospitalization History inpatient psych [place] after OD after losing baby 2009
--- OUTSIDE RECORDS SUMMARY | 2018-06-17 11:31 | XMS REPORT ---
Author Author AGUSTÍN SAMUEL Organization [facility] Address [address] [place] [address] Care Team Providers Care Field Support Rep Name Role Phone AMANDAGIOVANNI AGUSTÍN Unavailable PROBLEMS Type Condition ICD9-CM Code WZF44-MN Code Onset Dates Condition Status SNOMED Code Problem History of ST elevation myocardial infarction (STEMI) I25.2 Active 698808198914217 Problem Anxiety about health F41.8 Active 797241035 Problem Coronary artery disease involving muckleshoot heart, angina presence unspecified, unspecified vessel or lesion type I25.10 Active 14590219 Problem Major depressive disorder, recurrent, moderate F33.1 Active 73843841 Problem Hyperthyroidism E05.90 Active 04186021 Problem S/P coronary artery stent placement Z95.5 Active 521284160 Problem Seasonal allergic rhinitis due to other allergic trigger J30.89 Active 933489471 Problem Graves disease E05.00 Active 594474996 Problem Dyslipidemia E78.5 Active 845015300 Problem Anxiety F41.9 Active 66086857 Problem Thyroid nodule E04.1 Active 900034987 Problem Enlarged thyroid E01.0 Active 97116178 ALLERGIES No Information ENCOUNTERS Encounter Location Date Diagnosis [place] [address] [facility] [id number] [address] Mar, [facility] [address] [id number] [address] Dec, [facility] [address] [id number] [id number] Dec, [facility] [address] [facility] [id number], [place] [address] Nov, Graves disease E05.00 and Major depressive disorder, recurrent, moderate F33.1 [facility] [address] [facility] [id number] [place] [id number] Nov, Sinus congestion R09.81 and Seasonal allergic rhinitis due to other allergic trigger J30.89 [facility] [id number] [place] [address] [id number] Oct, Acute non-recurrent frontal sinusitis J01.10 [facility] [address], [place] [address] Oct, Graves disease E05.00 [facility] [id number] [place] [address] September, Major depressive disorder, recurrent, moderate F33.1 [facility] [id number] [place] [address] September, Graves disease E05.00 and Major depressive disorder, recurrent, moderate F33.1 [facility] [address] [place] [id number] Aug, [place] [id number] [place] [address] [id number] Aug, Graves disease E05.00 [facility] [address] [id number] [id number] Aug, Dental caries K02.9 [place] [id number] [place] [address] Aug, Major depressive disorder, recurrent, moderate F33.1 [facility] [address] [place] [address]- [address] Aug, Major depressive disorder, recurrent, moderate F33.1 and Graves disease E05.00 [facility] [address] [place] [address]- 6004 Jul, Graves disease E05.00 [facility] [id number] [place] [address] Jul, Major depressive disorder, recurrent, moderate F33.1 [facility] [address] [id number][place] [id number] Jul, Dental examination Z01.20 [facility] [address] [id number][place] [id number] Jul, Dental examination Z01.20 [address] [id number] [place] [address] [id number] Jul, Major depressive disorder, recurrent, moderate F33.1 ; Anxiety F41.9 ; Graves disease E05.[address] elevation myocardial infarction (STEMI) I25.2 [place] [address] [place] [id number] [address] Jul, Major depressive disorder, recurrent, moderate F33.1 [place] [id number] [place] [address]- [address] Jun, Major depressive disorder, recurrent, moderate F33.1 [place] [id number] [place] [address] [id number] Jun, Graves disease E05.00 [place] [id number] [place] [address] [id number] Jun, Influenza A J10.1 [facility] [id number] [place] [address] May, Chest wall pain R07.89 [place] [id number] [place] [address] May, Major depressive disorder, recurrent, moderate F33.1 [place] [id number] [place] [address]- [address]36 May, Graves disease E05.00 and Major depressive disorder, recurrent, moderate F33.1 [place] [id number] [place] [address] [id number] May, Anxiety F41.9 and Graves disease E05.00 [facility] [id number] [place] [address] 6[address]- [address] Apr, Major depressive disorder, recurrent, moderate F33.1 and Graves disease E05.00 [facility] [id number] [place] [address] [id number] Apr, Anxiety F41.9 [facility] [address] [address] Apr, Major depressive disorder, recurrent, moderate F33.1 [place] [id number] [place] [address] [id number] Apr, Graves disease E05.00 ; Anxiety F41.9 ; S/P coronary artery stent placement Z95.5 ; Dyslipidemia E78.5 ; History of CA (myocardial infarction) I25.2 ; Hypokalemia E87.6 ; High risk medication use Z79.899 and Controlled substance agreement signed Z79.899 [place] [id number] [place] [id number] Mar, Atypical mole D22.9 [place] [id number] [place] [address] [id number] Mar, Graves disease E05.00 ; Anxiety F41.9 ; S/P coronary artery stent placement Z95.5 ; Dyslipidemia E78.5 ; History of CA (myocardial infarction) I25.2 ; Hypokalemia E87.6 and Encounter for immunization Z23 [place] [id number] [place] [address] [id number] Jan, Anxiety F41.9 [place] [id number] [place] [address] [id number] Nov, Anxiety F41.9 [address] [id number] [place] [address] [id number] Nov, Hyperthyroidism E05.90 ; Anxiety F41.9 ; Enlarged thyroid E01.0 ; Right sided abdominal pain R10.9 ; Thyroid nodule E04.1 ; Dyslipidemia E78.[address] elevation myocardial infarction (STEMI) I25.2 [place] [id number] [place] [address] [id number] Nov, Hyperthyroidism E05.90 ; Enlarged thyroid E01.0 and Thyroid nodule E04.1 [place] [id number] [place] [address] [id number] Oct, [address] [id number] Oct, Hyperthyroidism E05.90 [address]005[address]100[place] [id number] Oct, Anxiety F41.9 ; Right sided abdominal pain R10.9 ; Dyslipidemia E78.[address] elevation myocardial infarction (STEMI) I25.[address] [place] [address] [id number] September, Coronary artery disease involving muckleshoot heart, angina presence unspecified, unspecified vessel or lesion type I25.10 ; Anxiety F41.9 ; History of ST elevation myocardial infarction (STEMI) I25.2 and Low back pain M54.5 [place] [id number] [place] [address] [id number] September, RLQ abdominal pain R10.31 and Diarrhea, unspecified type R19.7 [place] [id number] [place] [address] [id number] Aug, Coronary artery disease involving muckleshoot heart, angina presence unspecified, unspecified vessel or lesion type I25.10 ; Anxiety F41.9 ; Anxiety about health F41.8 ; History of ST elevation myocardial infarction (STEMI) I25.2 and S/P coronary artery stent placement Z95.5 [address] [place] [address] [id number] Jul, [place] [id number] [place] [address] [id number] Jul, Nonintractable headache, unspecified chronicity pattern, unspecified headache type R51 and Sleeping difficulty G47.[address] [place] [address] [id number] Jul, Essential hypertension, hypertension with unspecified goal I10 [address] [place] [address] [id number] Jun, Essential hypertension, hypertension with unspecified goal I10 and Cervicalgia M54.2 [facility] [address] [id number] [id number] May, Bronchiolitis J21.9 and Essential hypertension, hypertension with unspecified goal I10 [place] [id number] [id number] Mar, [facility] [address] [id number] [place] [id number] Mar, Cervical stenosis of spinal canal M48.02 and Foraminal stenosis of cervical region M99.81 [facility] [address] [id number] [place] [id number] Mar, [facility] [address]00565100[place], [place] [address] Mar, [facility] [address] [id number] [place] [id number] Mar, Cervicalgia M54.2 [facility] [address] [id number] [place] [id number] Mar, [facility] [address] [id number] [place] [id number] Jan, [facility] [address] [id number] [place] [id number] Dec, [facility] [address] [id number] [place] [id number] Dec, [facility] [address] [id number] [place] [id number] Dec, Cervicalgia M54.2 [facility] [address] [id number][place] [id number] Nov, Cervicalgia M54.2 [facility] [address] [id number] [place] [id number] Nov, Cervicalgia M54.2 [facility] [address] [id number] [place] [id number] Oct, Cervicalgia M54.2 and Essential hypertension, hypertension with unspecified goal I10 [facility] [address] [id number] [place] [id number] Oct, [facility] [address] [id number] [place] [id number] Aug, Cervicalgia M54.2 [facility] [address] [id number] [place] [id number] Aug, [facility] [address] [id number] [place] [id number] Aug, Headache R51 and Essential hypertension, hypertension with unspecified goal I10 [facility] [address] [id number] [place] [id number] Jul, [facility] [address] [id number] [place] [address] Aug, [facility] [place] [facility] [address] [facility] [id number] [place] [address]- [address] Aug, [facility] [address] [facility] [id number] [place] [address]- 9871 Mar, [facility] [address]100[place], [place] [address] Mar, [facility] [address]100[place], [place] [address] Dec, [facility] [id number] [place] [id number] Dec, [facility] [address] [place] [id number] [place] [id number] Aug, [facility] [address], [place] [address] Aug, [facility] [address], [place] [address]- [address] Jul, [facility] [address]100[place], [place] [address] Jul, [facility] [address] [facility] [id number] [place] [id number] Dec, [facility] [address] [facility] [id number] [place] [id number] Apr, [facility] [place] [facility] [address] [facility] [id number], [place] [address] Apr, [facility] [address], [place] [address] Mar, [facility] [address] [id number] [place] [id number] Mar, [facility] [id number] [place] [id number] Oct, [facility] [address] [id number], [place] [address]- [address] Oct, [facility] [id number] [place] [id number] Oct, [facility] [id number] [place] [address] [id number] September, [facility] [id number] [place] [id number] Jul, [facility] [id number] [place] [address] [id number] Jun, [facility] [id number] [place] [id number] Jun, [facility] [id number] [place] [address] 45894- 2426 May, [facility] [id number] [place] [address] 89246- 8321 May, [facility] [id number] [place] [address] 71377- 3589 May, [facility] [id number] [place] [address] 51215- 5137 May, [facility] [id number] [place] [address] 62455- 3137 Dec, IMMUNIZATIONS No Known Immunizations SOCIAL HISTORY Never Assessed REASON FOR VISIT medication PLAN OF CARE VITAL SIGNS MEDICATIONS Medication [...] Cervical stenosis repair, hardware placed by at [address] 07/2016 Surgical History Acute STEMI, heart cath performed-balloon stent to RCA, stent Mid LAD 08/2016 Hospitalization History [facility] STEMI, Cardiogenic shock, increased LFTS 08/2016 Hospitalization History inpatient psych [facility] after OD after losing baby 2010
--- OUTSIDE RECORDS SUMMARY | 2018-06-17 11:31 | XMS REPORT ---
Author Author AGUSTÍN SAMUEL [facility] Address [address] [place] [address] Care Team Providers Care Mechanical Artist Name Role Phone AGUSTÍN SAMUEL Unavailable PROBLEMS Type Condition ICD9-CM Code QOX88-RL Code Onset Dates Condition Status SNOMED Code Problem S/P coronary artery stent placement Z95.5 Active 689870792 Problem Anxiety F41.9 Active 77670414 Problem Anxiety about health F41.8 Active 406150865 Problem Graves disease E05.00 Active 940071946 Problem Enlarged thyroid E01.0 Active 20232020 Problem History of DE (myocardial infarction) I25.2 Active 920835872 Problem Low back pain M54.5 Active 804443653 Problem Thyroid nodule E04.1 Active 699274565 Problem Dyslipidemia E78.5 Active 235810907 Problem Hyperthyroidism E05.90 Active 47166172 Problem Major depressive disorder, recurrent, moderate F33.1 Active 56853070 Problem Bronchiolitis J21.9 Active 1825779 Problem Sleeping difficulty G47.9 Active 095065605 Problem Essential hypertension, hypertension with unspecified goal I10 Active 79595103 Problem History of ST elevation myocardial infarction (STEMI) I25.2 Active [id number] Problem Cervicalgia M54.2 Active 24880537 Problem Coronary artery disease involving [place] heart, angina presence unspecified, unspecified vessel or lesion type I25.10 Active 35827359 ALLERGIES No Information ENCOUNTERS Encounter Location Date Diagnosis [facility] [address] [id number] [id number] Dec, [facility] [address] [facility] [id number] [place] [address] Oct, [facility] [address] [facility] [id number] [place] [address] Oct, [facility] [address] [id number] [id number] Oct, Acute non-recurrent frontal sinusitis J01.10 [facility] [address] [address] Oct, Graves disease E05.00 [facility] [address] [place] [address] September, Major depressive disorder, recurrent, moderate F33.1 [facility] [id number] [place] [address]- [address] September, Graves disease E05.00 and Major depressive disorder, recurrent, moderate F33.1 [id number] [place] [id number] Aug, [id number] [place] [address] [id number] Aug, Graves disease E05.00 [facility] [address] [facility] [address] [id number] [id number] Aug, Dental caries K02.9 [facility] [address] [place] [address] Aug, Major depressive disorder, recurrent, moderate F33.1 [facility] [address] [place] [address]- [address] Aug, Major depressive disorder, recurrent, moderate F33.1 and Graves disease E05.00 [facility] [address] [address] Jul, Graves disease E05.00 [facility] [address] [address] Jul, Major depressive disorder, recurrent, moderate F33.1 [facility] [address] [id number] [id number] Jul, Dental examination Z01.20 [facility] [address] [id number][place] [id number] Jul, Dental examination Z01.20 [facility] [id number] [place] [address] [id number] Jul, Major depressive disorder, recurrent, moderate F33.1 ; Anxiety F41.9 ; Graves disease E05.[address] elevation myocardial infarction (STEMI) I25.2 [facility] [address] [address] Jul, Major depressive disorder, recurrent, moderate F33.1 [place] [address] [address] Jun, Major depressive disorder, recurrent, moderate F33.[address] [id number] Jun, Graves disease E05.00 [facility] [address] [id number] Jun, Influenza A J10.1 [facility] [address] [address] May, Chest wall pain R07.89 [place] [address] [address] May, Major depressive disorder, recurrent, moderate F33.1 [place] [id number] [place] [address] May, Graves disease E05.00 and Major depressive disorder, recurrent, moderate F33.1 [id number] [place] [address] [id number] May, Anxiety F41.9 and Graves disease E05.00 [facility] [address] [address] Apr, Major depressive disorder, recurrent, moderate F33.1 and Graves disease E05.00 [facility] [id number] [place] [address] [id number] Apr, Anxiety F41.9 [place] [address] [address] Apr, Major depressive disorder, recurrent, moderate F33.1 [address] [place] [address] [id number] Apr, Graves disease E05.00 ; Anxiety F41.9 ; S/P coronary artery stent placement Z95.5 ; Dyslipidemia E78.5 ; History of DE (myocardial infarction) I25.2 ; Hypokalemia E87.6 ; High risk medication use Z79.899 and Controlled substance agreement signed Z79.[address] [id number] Mar, Atypical mole D22.[address] [id number] Mar, Graves disease E05.00 ; Anxiety F41.9 ; S/P coronary artery stent placement Z95.5 ; Dyslipidemia E78.5 ; History of DE (myocardial infarction) I25.2 ; Hypokalemia E87.6 and Encounter for immunization Z23 [id number] [place] [address] [id number] Jan, Anxiety F41.9 [id number] [place] [address] [id number] Nov, Anxiety F41.9 [address] [place] [address] [id number] Nov, Hyperthyroidism E05.90 ; Anxiety F41.9 ; Enlarged thyroid E01.0 ; Right sided abdominal pain R10.9 ; Thyroid nodule E04.1 ; Dyslipidemia E78.[address] elevation myocardial infarction (STEMI) I25.2 [id number] [place] [address] [id number] Nov, Hyperthyroidism E05.90 ; Enlarged thyroid E01.0 and Thyroid nodule E04.1 [address] [place] [address] [id number] Oct, [address] [id number] Oct, Hyperthyroidism E05.[address] [id number] Oct, Anxiety F41.9 ; Right sided abdominal pain R10.9 ; Dyslipidemia E78.[address] elevation myocardial infarction (STEMI) I25.2 [facility] [id number] [place] [address] [id number] September, Coronary artery disease involving [place] heart, angina presence unspecified, unspecified vessel or lesion type I25.10 ; Anxiety F41.9 ; History of ST elevation myocardial infarction (STEMI) I25.2 and Low back pain M54.5 [place] [id number] [place] [address] [id number] September, RLQ abdominal pain R10.31 and Diarrhea, unspecified type R19.7 [address] [place] [address] [id number] Aug, Coronary artery disease involving [place] heart, angina presence unspecified, unspecified vessel or lesion type I25.10 ; Anxiety F41.9 ; Anxiety about health F41.8 ; History of ST elevation myocardial infarction (STEMI) I25.2 and S/P coronary artery stent placement Z95.5 [facility] [id number] [place] [address] [id number] Jul, [id number] [place] [address] [id number] Jul, Nonintractable headache, unspecified chronicity pattern, unspecified headache type R51 and Sleeping difficulty G47.9 [address] [place] [address] [id number] Jul, Essential hypertension, hypertension with unspecified goal I10 [facility] [address] [place] [address] [id number] Jun, Essential hypertension, hypertension with unspecified goal I10 and Cervicalgia M54.2 [place] [address]005[address] [id number] May, Bronchiolitis J21.9 and Essential hypertension, hypertension with unspecified goal I10 [address] [place] [address] [id number] Mar, [id number] [place] [address] [place] [id number] Mar, Cervical stenosis of spinal canal M48.02 and Foraminal stenosis of cervical region M99.81 [facility] [address] [id number] [place] [id number] Mar, [facility] [address] [id number] [place] [address] Mar, [facility] [address] [id number] [place] [id number] Mar, Cervicalgia M54.2 [facility] [address] [id number] [place] [id number] Mar, [facility] [address] [id number] [place] [id number] Jan, [facility] [address] [id number] [place] [id number] Dec, [facility] [address] [id number] [place] [id number] Dec, [facility] [address] [id number] [place] [id number] Dec, Cervicalgia M54.[address] [facility] [address] [id number] [id number] Nov, Cervicalgia M54.2 [facility] [address] [id number] [place] [id number] Nov, Cervicalgia M54.2 [facility] [address] [id number] [place] [id number] Oct, Cervicalgia M54.2 and Essential hypertension, hypertension with unspecified goal I10 [facility] [address] [id number] [place] [id number] Oct, [facility] [address] [id number] [place] [id number] Aug, Cervicalgia M54.2 [facility] [address] [id number] [place] [id number] Aug, [facility] [address] [id number] [place] [id number] 04 Apr, 2016 Headache R51 and Essential hypertension, hypertension with unspecified goal I10 [facility] [address] [facility] [id number] [place] [id number] Jul, [facility] [address] [facility] [id number] [place] Aug, [facility] [address] [facility] [id number] [place] Aug, [facility] [address] [facility] [id number] [place] [address]40- [address] Mar, [facility] [address] [facility] [id number] [place] Mar, [facility] [address] [facility] [id number] [address] Dec, [facility] [address] [facility] [id number] [place] [id number] Dec, [facility] [address] [facility] [id number] [place] [id number] Aug, [facility] [address] [facility] [id number] [place] [address] Aug, [facility] [address] [facility] [id number] [place] [address] Jul, [facility] [address] [facility] [id number] [place] [address]- [address] Jul, [facility] [address] [id number] [place] [id number] Dec, [facility] [address] [id number] [place] [id number] Apr, [facility] [address] [facility] [id number] [place] [address] Apr, [facility] [place] [facility] [address] [facility] [id number] [place] [address] Mar, [facility] [address] [id number] [place] [id number] Mar, [facility] [id number] [place] [id number] Oct, [facility] [address] [address] Oct, [facility] [address] [id number] [place] [id number] Oct, [facility] [id number] [place] [id number] September, [facility] [id number] [place] [id number] Jul, [facility] [id number] [place] [id number] Jun, [facility] [id number] [place] [address] [id number] Jun, [facility] [id number] [place] [address] [id number]- [phone] May, [facility] [id number] [place] [address] 29[address]- 4454 May, [facility] [id number] [place] [address] 72779- 1745 May, [facility] [id number] [place] [address] 47519- 0345 May, [facility] [address] [address] Dec, IMMUNIZATIONS No Known Immunizations SOCIAL HISTORY Never Assessed REASON FOR VISIT f/u PLAN OF CARE Activity Details Follow Up 3 Months Reason: VITAL SIGNS Height 63.75 in 2017-05-27 Weight 141 lbs 2017-05-27 Heart Rate 82 bpm 2017-05-27 BMI 24.39 kg/m2 2017-05-27 Blood pressure systolic 128 mmHg 2017-05-27 Blood pressure diastolic 74 mmHg 2017-05-27 MEDICATIONS Medication Instructions Dosage Frequency Start Date [...] day 1.5 tablets 24h 30 days Active Sotalol HCl 80 MG Orally every 12 hrs 1/2 tablet 12h Active Plavix 75 MG Orally Once a day 1 tablet 24h Active Lorazepam 1 MG Orally every 6 hrs as needed for anxiety/panic 1 tablet Active Nitroglycerin 0.4 MG Active Toprol XL [...] Cervical stenosis repair, hardware placed by at [id number] 07/2016 Surgical History Acute STEMI, heart cath performed-balloon stent to RCA, stent Mid LAD 08/2016 Hospitalization History [facility] STEMI, Cardiogenic shock, increased LFTS 08/2016 Hospitalization History inpatient psych [facility] after OD after losing baby 2009
--- OUTSIDE RECORDS SUMMARY | 2018-06-17 11:31 | XMS REPORT ---
Author Author HALEY KEVIN Organization [facility] Address [address] [place] [address] Care Team Providers Care Director Hematology Name Role Phone HALEY KEVIN Unavailable PROBLEMS Type Condition ICD9-CM Code OOK60-SO Code Onset Dates Condition Status SNOMED Code Problem History of ST elevation myocardial infarction (STEMI) I25.2 Active 816610147578895 Problem Anxiety about health F41.8 Active 575718014 Problem Coronary artery disease involving zuni heart, angina presence unspecified, unspecified vessel or lesion type I25.10 Active 69007348 Problem Major depressive disorder, recurrent, moderate F33.1 Active 79238208 Problem Hyperthyroidism E05.90 Active 12908824 Problem S/P coronary artery stent placement Z95.5 Active 021422485 Problem Seasonal allergic rhinitis due to other allergic trigger J30.89 Active 735825402 Problem Graves disease E05.00 Active 174141785 Problem Dyslipidemia E78.5 Active 534979461 Problem Anxiety F41.9 Active 72244353 Problem Thyroid nodule E04.1 Active 283142196 Problem Enlarged thyroid E01.0 Active 18339440 ALLERGIES No Information ENCOUNTERS Encounter Location Date Diagnosis [place] [address] [facility] [id number] [address] Mar, [facility] [address] [facility] [id number] [address] Dec, [facility] [address] [id number] [id number] Dec, [facility] [address] [facility] [id number] [address] Nov, Graves disease E05.00 and Major depressive disorder, recurrent, moderate F33.1 [facility] [address] [id number] [id number] Nov, Sinus congestion R09.81 and Seasonal allergic rhinitis due to other allergic trigger J30.[id number] [place] [address] [id number] Oct, Acute non-recurrent frontal sinusitis J01.10 [facility] [id number] [address] Oct, Graves disease E05.00 [facility] [id number] [place] [address] September, Major depressive disorder, recurrent, moderate F33.1 [facility] [id number] [place] [address] September, Graves disease E05.00 and Major depressive disorder, recurrent, moderate F33.1 [id number] [place] [address] [id number] Aug, [place] [id number] [place] [address] [id number] Aug, Graves disease E05.00 [facility] [address] [id number] [place] [id number] Aug, Dental caries K02.9 [place] [id number] [place] [address]- 267[address] Aug, Major depressive disorder, recurrent, moderate F33.1 [facility] [address] [address] Aug, Major depressive disorder, recurrent, moderate F33.1 and Graves disease E05.00 [facility] [address] [address] Jul, Graves disease E05.00 [facility] [address] [address] Jul, Major depressive disorder, recurrent, moderate F33.1 [facility] [address] [id number] [id number] Jul, Dental examination Z01.20 [facility] [address] [id number] [place] [id number] Jul, Dental examination Z01.20 [facility] [id number] [place] [address] [id number] Jul, Major depressive disorder, recurrent, moderate F33.1 ; Anxiety F41.9 ; Graves disease E05.[address] elevation myocardial infarction (STEMI) I25.2 [facility] [address] [address] Jul, Major depressive disorder, recurrent, moderate F33.1 [place] [id number] [place] [address]- [address] Jun, Major depressive disorder, recurrent, moderate F33.1 [place] [id number] [place] [address] [id number] Jun, Graves disease E05.00 [place] [id number] [place] [address] [id number] Jun, Influenza A J10.1 [facility] [id number] [place] [address] May, Chest wall pain R07.89 [facility] [id number] [place] [address] 42794- 2413 May, Major depressive disorder, recurrent, moderate F33.1 [facility] [id number] [place] [address] 15908- 4769 May, Graves disease E05.00 and Major depressive disorder, recurrent, moderate F33.1 [place] [id number] [place] [address] [id number] May, Anxiety F41.9 and Graves disease E05.00 [facility] [id number] [place] [address]- [address] Apr, Major depressive disorder, recurrent, moderate F33.1 and Graves disease E05.00 [facility] [id number] [place] [address] [id number] Apr, Anxiety F41.9 [facility] [address] [address] Apr, Major depressive disorder, recurrent, moderate F33.1 [place] [id number] [place] [address] [id number] Apr, Graves disease E05.00 ; Anxiety F41.9 ; S/P coronary artery stent placement Z95.5 ; Dyslipidemia E78.5 ; History of [place] (myocardial infarction) I25.2 ; Hypokalemia E87.6 ; High risk medication use Z79.899 and Controlled substance agreement signed Z79.899 [place] [id number] [place] [address] [id number] Mar, Atypical mole D22.9 [place] [id number] [place] [address] [id number] Mar, Graves disease E05.00 ; Anxiety F41.9 ; S/P coronary artery stent placement Z95.5 ; Dyslipidemia E78.5 ; History of [place] (myocardial infarction) I25.2 ; Hypokalemia E87.6 and Encounter for immunization Z23 [place] [id number] [place] [address] [id number] Jan, Anxiety F41.9 [place] [id number] [place] [address] [id number] Nov, Anxiety F41.9 [address] [place] [address] [id number] Nov, Hyperthyroidism E05.90 ; Anxiety F41.9 ; Enlarged thyroid E01.0 ; Right sided abdominal pain R10.9 ; Thyroid nodule E04.1 ; Dyslipidemia E78.[address] elevation myocardial infarction (STEMI) I25.2 [place] [id number] [place] [address] [id number] Nov, Hyperthyroidism E05.90 ; Enlarged thyroid E01.0 and Thyroid nodule E04.1 [place] [id number] [place] [address] [id number] Oct, [address] [id number] Oct, 2016 Hyperthyroidism E05.90 [address] [place] [address] [id number] Oct, Anxiety F41.9 ; Right sided abdominal pain R10.9 ; Dyslipidemia E78.[address] elevation myocardial infarction (STEMI) I25.2 [address] [place] [address] [id number] September, Coronary artery disease involving zuni heart, angina presence unspecified, unspecified vessel or lesion type I25.10 ; Anxiety F41.9 ; History of ST elevation myocardial infarction (STEMI) I25.2 and Low back pain M54.5 [place] [id number] [place] [address] [id number] September, RLQ abdominal pain R10.31 and Diarrhea, unspecified type R19.7 [place] [id number] [place] [address] [id number] Aug, Coronary artery disease involving zuni heart, angina presence unspecified, unspecified vessel or lesion type I25.10 ; Anxiety F41.9 ; Anxiety about health F41.8 ; History of ST elevation myocardial infarction (STEMI) I25.2 and S/P coronary artery stent placement Z95.5 [address] [place] [address] [id number] Jul, [place] [id number] [place] [address] [id number] Jul, Nonintractable headache, unspecified chronicity pattern, unspecified headache type R51 and Sleeping difficulty G47.9 [address] [place] [address] [id number] Jul, Essential hypertension, hypertension with unspecified goal I10 [address] [place] [address] [id number] Jun, Essential hypertension, hypertension with unspecified goal I10 and Cervicalgia M54.2 [facility] [address] [id number] [id number] May, Bronchiolitis J21.9 and Essential hypertension, hypertension with unspecified goal I10 [address] [id number] [place] [id number] Mar, [facility] [address] [id number] [place] [id number] Mar, Cervical stenosis of spinal canal M48.02 and Foraminal stenosis of cervical region M99.81 [facility] [address] [id number] [place] [id number] Mar, [facility] [address] [address] Mar, [facility] [address] [id number][place] [id number] Mar, Cervicalgia M54.2 [facility] [address] [id number] [place] [id number] Mar, [facility] [address] [id number], [place] [id number] Jan, [facility] [address] [id number], [place] [id number] Dec, [facility] [address] [id number], [place] [id number] Dec, [facility] [address] [id number], [place] [id number] Dec, Cervicalgia M54.[address] [facility] [address] [id number] [id number] Nov, Cervicalgia M54.2 [facility] [address] [id number], [place] [id number] Nov, Cervicalgia M54.2 [facility] [address] [id number], [place] [id number] Oct, Cervicalgia M54.2 and Essential hypertension, hypertension with unspecified goal I10 [facility] [address] [id number] [place] [id number] Oct, [facility] [address] [id number][place] [id number] Aug, Cervicalgia M54.2 [facility] [address] [id number], [place] [id number] Aug, [facility] [address] [facility] [id number][place] [id number] Aug, Headache R51 and Essential hypertension, hypertension with unspecified goal I10 [facility] [address] [id number], [place] [id number] Jul, [facility] [address] [address] Aug, [facility] [address] [facility] [id number] [address]- [address] Aug, [facility] [id number] [place] [address] 08788- 5636 Mar, [facility] [id number] [place] [address]19- 1253 Mar, [facility] [address] [id number] [address] Dec, [facility] [id number], [place] [id number] Dec, [facility] [address] [id number], [place] [id number] Aug, [facility] [id number] [address] Aug, [facility] [address] [address]- 5006 Jul, [facility] [address] [address] Jul, [facility] [address] [id number], [place] [id number] Dec, [facility] [address] [facility] [id number], [place] [id number] Apr, [facility] [address] [id number] [address] 224[address] Apr, [facility] [address] [address] Mar, [facility] [address] [id number], [place] [id number] Mar, [facility] [id number], [place] [id number] Oct, [facility] [id number] [place] [address] 57977- 2546 Oct, [facility] [id number], [place] [id number] Oct, [facility] [id number] [place] [address] [id number] September, [facility] [id number] [place] [address] [id number] Jul, [facility] [id number] [place] [address] [id number] Jun, [facility] [id number] [place] [address] [id number] Jun, [facility] [id number] [place] [address] 66316- 2546 May, [facility] [id number] [place] [address] 61581- 2546 May, [facility] [id number] [place] [address] 45739- 2546 May, [facility] [id number] [place] [address] 27003- 2546 May, [facility] [id number] [place] [address] 58285- 2546 Dec, IMMUNIZATIONS No Known Immunizations SOCIAL HISTORY Never Assessed REASON FOR VISIT f/u PLAN OF CARE Activity Details Follow Up 2 Weeks Reason: VITAL SIGNS MEDICATIONS Unknown Medications RESULTS No Results PROCEDURES Procedure Date Ordered Result Body Site Psychotherapy, patient &/family, 45 minutes, established patient August 20, 2017 INSTRUCTIONS MEDICATIONS ADMINISTERED No [...] Cervical stenosis repair, hardware placed by at [address] 07/2016 Surgical History Acute STEMI, heart cath performed-balloon stent to RCA, stent Mid LAD 08/2016 Hospitalization History [facility] STEMI, Cardiogenic shock, increased LFTS 08/2016 Hospitalization History inpatient psych [facility] after OD after losing baby 2010
--- OUTSIDE RECORDS SUMMARY | 2018-06-17 11:32 | XMS REPORT ---
Author Author NILDA CASON [facility] Address [address] [place] [address] Care Team Providers Care Equal Opportunity Director Name Role Phone NILDA CASON Unavailable PROBLEMS Type Condition ICD9-CM Code ESP19-DD Code Onset Dates Condition Status SNOMED Code Problem S/P coronary artery stent placement Z95.5 Active 877862797 Problem Anxiety F41.9 Active 10114997 Problem Anxiety about health F41.8 Active 580864087 Problem Graves disease E05.00 Active 714779241 Problem Enlarged thyroid E01.0 Active 51113701 Problem History of [place] (myocardial infarction) I25.2 Active 250998508 Problem Low back pain M54.5 Active 800750254 Problem Thyroid nodule E04.1 Active 046532022 Problem Dyslipidemia E78.5 Active 978943868 Problem Hyperthyroidism E05.90 Active 56421741 Problem Major depressive disorder, recurrent, moderate F33.1 Active 50934569 Problem Bronchiolitis J21.9 Active 9540160 Problem Sleeping difficulty G47.9 Active 155643645 Problem Essential hypertension, hypertension with unspecified goal I10 Active 34420790 Problem History of ST elevation myocardial infarction (STEMI) I25.2 Active 772655779911683 Problem Cervicalgia M54.2 Active 29202472 Problem Coronary artery disease involving [place] heart, angina presence unspecified, unspecified vessel or lesion type I25.10 Active 24185577 ALLERGIES No Information ENCOUNTERS Encounter Location Date Diagnosis [facility] [address] [id number] [address] September, [facility] [address] [id number] [address] September, [facility] [address] [facility] [id number] [id number] Aug, [facility] [address] [id number] [id number] Aug, Graves disease E05.00 [facility] [address] [id number] [id number] Aug, Dental caries K02.9 [facility] [address]65100[place], [place] [address] Aug, Major depressive disorder, recurrent, moderate F33.1 [facility] [address]65100[place], [place] [address] Aug, Major depressive disorder, recurrent, moderate F33.1 and Graves disease E05.00 [facility] [address], [place] [address] Jul, Graves disease E05.00 [facility] [address]65[address], [place] [address] Jul, Major depressive disorder, recurrent, moderate F33.1 [facility] [address] [facility] [address] [id number][place] [id number] Jul, Dental examination Z01.20 [facility] [address] [id number][place] [id number] Jul, Dental examination Z01.20 [facility] [address] [id number] [id number] Jul, Major depressive disorder, recurrent, moderate F33.1 ; Anxiety F41.9 ; Graves disease E05.[address] elevation myocardial infarction (STEMI) I25.2 [facility] [address] [id number], [place] [address] Jul, Major depressive disorder, recurrent, moderate F33.1 [facility] [address]100[place] [address] Jun, Major depressive disorder, recurrent, moderate F33.1 [facility] [address] [id number][place] [id number] Jun, Graves disease E05.00 [place] [id number] [place] [id number] Jun, Influenza A J10.1 [facility] [address] [address] May, Chest wall pain R07.89 [facility] [id number] [place] [address] May, Major depressive disorder, recurrent, moderate F33.1 [facility] [address] [address] May, Graves disease E05.00 and Major depressive disorder, recurrent, moderate F33.[address] [id number] May, Anxiety F41.9 and Graves disease E05.00 [facility] [address] [address] Apr, Major depressive disorder, recurrent, moderate F33.1 and Graves disease E05.00 [id number] [place] [id number] Apr, Anxiety F41.9 [place] [address] [address] Apr, Major depressive disorder, recurrent, moderate F33.[address] [id number] Apr, Graves disease E05.00 ; Anxiety F41.9 ; S/P coronary artery stent placement Z95.5 ; Dyslipidemia E78.5 ; History of [place] (myocardial infarction) I25.2 ; Hypokalemia E87.6 ; High risk medication use Z79.899 and Controlled substance agreement signed Z79.899 [id number] [place] [id number] Mar, Atypical mole D22.9 [place] [id number] [place] [id number] Mar, Graves disease E05.00 ; Anxiety F41.9 ; S/P coronary artery stent placement Z95.5 ; Dyslipidemia E78.5 ; History of [place] (myocardial infarction) I25.2 ; Hypokalemia E87.6 and Encounter for immunization Z23 [address] [id number] Jan, Anxiety F41.[address] [id number] Nov, Anxiety F41.[address] [id number] Nov, Hyperthyroidism E05.90 ; Anxiety F41.9 ; Enlarged thyroid E01.0 ; Right sided abdominal pain R10.9 ; Thyroid nodule E04.1 ; Dyslipidemia E78.[address] elevation myocardial infarction (STEMI) I25.[address] [id number] Nov, Hyperthyroidism E05.90 ; Enlarged thyroid E01.0 and Thyroid nodule E04.[address] [id number] Oct, [address] [id number] Oct, Hyperthyroidism E05.[address] [id number] Oct, Anxiety F41.9 ; Right sided abdominal pain R10.9 ; Dyslipidemia E78.[address] elevation myocardial infarction (STEMI) I25.2 [place] [place] [id number] [place] [id number] September, Coronary artery disease involving [place] heart, angina presence unspecified, unspecified vessel or lesion type I25.10 ; Anxiety F41.9 ; History of ST elevation myocardial infarction (STEMI) I25.2 and Low back pain M54.5 [place] [id number] [place] [id number] September, RLQ abdominal pain R10.31 and Diarrhea, unspecified type R19.[address] [id number] Aug, Coronary artery disease involving [place] heart, angina presence unspecified, unspecified vessel or lesion type I25.10 ; Anxiety F41.9 ; Anxiety about health F41.8 ; History of ST elevation myocardial infarction (STEMI) I25.2 and S/P coronary artery stent placement Z95.5 [facility] [id number] [id number] Jul, [place] [id number] [place] [id number] Jul, Nonintractable headache, unspecified chronicity pattern, unspecified headache type R51 and Sleeping difficulty G47.9 [facility] [id number] [place] [id number] Jul, Essential hypertension, hypertension with unspecified goal I10 [place] [id number] [place] [id number] Jun, Essential hypertension, hypertension with unspecified goal I10 and Cervicalgia M54.2 [address]65100[place] [id number] May, Bronchiolitis J21.9 and Essential hypertension, hypertension with unspecified goal I10 [address] [address] [id number] [place] [id number] Mar, [address] [id number] [place] [id number] Mar, Cervical stenosis of spinal canal M48.02 and Foraminal stenosis of cervical region M99.81 [facility] [id number] [place] [id number] Mar, [facility] [address]65100[place] [address] Mar, [address] [place] [id number] Mar, Cervicalgia M54.2 [facility] [id number] [place] [id number] Mar, [address] [id number] [place] [id number] Jan, [address] [id number] Dec, [facility] [address] [id number] [place] [id number] Dec, [facility] [address] [id number] [place] [id number] Dec, Cervicalgia M54.2 [facility] [address] [facility] [address] [id number] [place] [id number] Nov, Cervicalgia M54.2 [facility] [address] [id number] [place] [id number] Nov, Cervicalgia M54.2 [facility] [address] [id number] [place] [id number] Oct, Cervicalgia M54.2 and Essential hypertension, hypertension with unspecified goal I10 [facility] [address] [id number] [place] [id number] Oct, [facility] [address] [id number] [place] [id number] Aug, Cervicalgia M54.2 [facility] [address] [id number] [place] [id number] Aug, [facility] [address] [id number] [place] [id number] Aug, Headache R51 and Essential hypertension, hypertension with unspecified goal I10 [facility] [address] [id number] [place] [id number] Jul, [facility] [address]65100[place], [place] [address] Aug, [facility] [address]100[place], [place] [address] Aug, [facility] [id number] [place] [address] Mar, [facility] [address]100[place], [place] [address] Mar, [facility] [address] [place] [address] Dec, [facility] [address] [id number] [place] [id number] Dec, [facility] [address] [id number] [place] [id number] Aug, [facility] [address] [facility] [id number], [place] [address] Aug, [facility] [address] [facility] [id number], [place] [address] Jul, [facility] [address] [facility] [facility] [id number], [place] [address] Jul, [facility] [address] [id number] [place] [id number] Dec, [facility] [address] [id number][place] [id number] Apr, [facility] [address] [facility] [id number], [place] [address] Apr, [facility] [address] [facility] [id number], [place] [address] Mar, [facility] [address] [id number] [place] [id number] Mar, [facility] [address] [id number] [place] [id number] Oct, [facility] [address] [facility] [id number], [place] [address] Oct, [facility] [address] [id number] [place] [id number] Oct, [facility] [address] [id number] [place] [id number] September, [facility] [address] [id number] [place] [id number] Jul, [facility] [address] [id number] [place] [id number] Jun, [facility] [address] [id number] [place] [id number] Jun, [facility] [address] [facility] [id number] [place] [address] May, [facility] [address] [facility] [id number], [place] [address] May, [facility] [address] [facility] [id number], [place] [address] May, [facility] [address] [facility] [id number], [place] [address] May, [facility] [address] [facility] [id number], [place] [address] Dec, IMMUNIZATIONS No Known Immunizations SOCIAL HISTORY Never Assessed REASON FOR VISIT rX-Lorazepam refill PLAN OF CARE VITAL SIGNS MEDICATIONS [...] Cervical stenosis repair, hardware placed by at [address] 07/2016 Surgical History Acute STEMI, heart cath performed-balloon stent to RCA, stent Mid LAD 08/2016 Hospitalization History [facility] STEMI, Cardiogenic shock, increased LFTS 08/2016 Hospitalization History inpatient [facility] after OD after losing baby 2009
--- OUTSIDE RECORDS SUMMARY | 2018-06-17 11:32 | XMS REPORT ---
Author Author NILDA CASON Organization [facility] Address [address] [place] [address] Care Team Providers Care Appeals Board Referee Name Role Phone NILDA CASON Unavailable PROBLEMS Type Condition ICD9-CM Code [id number] Code Onset Dates Condition Status SNOMED Code Problem Coronary artery disease involving [place] heart, angina presence unspecified, unspecified vessel or lesion type I25.10 Active 40941547 Problem Anxiety F41.9 Active 49509660 Problem Anxiety about health F41.8 Active 728333598 Problem Graves disease E05.00 Active 960843928 Problem Thyroid nodule E04.1 Active 518261611 Problem Dyslipidemia E78.5 Active 607342052 Problem Low back pain M54.5 Active 169892524 Problem Enlarged thyroid E01.0 Active 69314381 Problem History of [place] (myocardial infarction) I25.2 Active 958362080 Problem Hyperthyroidism E05.90 Active 54880464 Problem Bronchiolitis J21.9 Active 2188300 Problem Sleeping difficulty G47.9 Active 819351511 Problem Essential hypertension, hypertension with unspecified goal I10 Active 70371579 Problem S/P coronary artery stent placement Z95.5 Active 963158178 Problem Cervicalgia M54.2 Active 26462929 Problem History of ST elevation myocardial infarction (STEMI) I25.2 Active 426272893835619 ALLERGIES No Known Allergies SOCIAL HISTORY Never Assessed PLAN OF CARE Activity Details Follow Up 2 Months, prn Reason:CHM HTN VITAL SIGNS Height 63.75 in 2016-10-08 Weight 150.6 lbs 2016-10-08 Temperature 98.2 degrees Fahrenheit 2016-10-08 Heart Rate 98 bpm 2016-10-08 Respiratory Rate 18 2016-10-08 BMI 26.05 kg/m2 2016-10-08 Blood pressure systolic 102 mmHg 2016-10-08 Blood pressure diastolic 68 mmHg 2016-10-08 MEDICATIONS Medication Instructions Dosage Frequency Start Date End Date Duration Status Sotalol HCl 80 MG Orally every 12 hrs 1/2 tablet 12h Active HydrOXYzine HCl 25 MG Orally every 8 hrs for anxiety 1 tablet as needed Aug, 0 days Active Aspir-81 81 MG Orally Once a day 1 tablet 24h Active Toprol XL 25 MG Orally Once a day at bedtime 1/2 tablet Active Brilinta 90 MG Orally Twice a day 1 tablet 12h Active Nitroglycerin 0.4 MG Active Atorvastatin Calcium 20 MG Orally Once a day 1 tablet 24h Active RESULTS Name Result Date Reference Range UA LONG DIP (IN HOUSE) 2016-10-08 Lot # [id number] Exp date 06/2017 Clarity clear Color yellow Odor no GLU neg [place] neg KET neg SG >=1.030 BLO neg pH 5.5 Protein neg URO 1.0 NIT neg RACHEL neg Lot # Exp date PROCEDURES Procedure Date Ordered Result Body Site URINALYSIS, AUTO, W/O SCOPE October 08, 2016 IMMUNIZATIONS No Known Immunizations MEDICAL (GENERAL) HISTORY Type Description Date Medical History hypertension, during Medical History neck pain Medical History 08/2016 Acute STEMI inferior wall, cardiogenic shock Medical History Dr. Bella cardiology fu, stress echo, holter, labs 12/2016-- FU 04/2017 Surgical History section x's 4 Surgical History Cervical stenosis repair, hardware placed by at [address] 07/2016 Surgical History Acute STEMI, heart cath performed-balloon stent to RCA, stent Mid LAD 08/2016 Hospitalization History [facility] STEMI, Cardiogenic shock, increased LFTS 08/2016
--- OUTSIDE RECORDS SUMMARY | 2018-06-17 11:32 | XMS REPORT ---
Author Author MESSI MORALES [facility] Address [address] [place] [address] Care Team Providers Care Strategic Alliances Manager Name Role Phone MESSI MORALES Unavailable PROBLEMS Type Condition ICD9-CM Code [id number] Code Onset Dates Condition Status SNOMED Code Problem Coronary artery disease involving [place] heart, angina presence unspecified, unspecified vessel or lesion type I25.10 Active 62339318 Problem Anxiety about health F41.8 Active 397939408 Problem S/P coronary artery stent placement Z95.5 Active 015367293 Problem Thyroid nodule E04.1 Active 566774695 Problem Enlarged thyroid E01.0 Active 53809884 Problem Low back pain M54.5 Active 516653197 Problem Anxiety F41.9 Active 63504862 Problem History of [place] (myocardial infarction) I25.2 Active 777756298 Problem Dyslipidemia E78.5 Active 153264804 Problem Cervicalgia M54.2 Active 35896548 Problem Bronchiolitis J21.9 Active 5796750 Problem Hyperthyroidism E05.90 Active 65307529 Problem Sleeping difficulty G47.9 Active 555822110 Problem Essential hypertension, hypertension with unspecified goal I10 Active 47986483 Problem History of ST elevation myocardial infarction (STEMI) I25.2 Active 135105380302340 ALLERGIES No Known Allergies SOCIAL HISTORY No smoking Hx information available PLAN OF CARE VITAL SIGNS MEDICATIONS Medication Instructions Dosage Frequency Start Date End Date Duration Status Lisinopril-Hydrochlorothiazide 20-25 MG Orally Once a day, NEEDS APPT BEFORE ANY FURTHER REFILLS 1 tablet Aug, 0 days Active Ibuprofen 800 MG Orally Three times a day, prn. MUST LAST 1 MO. NEEDS APPT BEFORE ANY FURTHER REFILLS 1 tablet Aug, 0 days Active RESULTS No Results PROCEDURES No Known procedures IMMUNIZATIONS No Known Immunizations
--- OUTSIDE RECORDS SUMMARY | 2018-06-17 11:32 | XMS REPORT ---
Author Author MESSI MORALES Organization [employer] Address Unknown Phone Unavailable Care Team Providers Care Supervisor Toy Assembly Name Role Phone MESSI MORALES CP Unavailable Allergies No Known Allergies Problems Problem Type Condition Code Onset Dates Condition Status Problem Essential hypertension, hypertension with unspecified goal I10 Active Problem Other and unspecified hyperlipidemia 272.4 Active Problem Cervicalgia M54.2 Active Problem Polycystic ovaries 256.4 Active Medications No Known Medications Results No Known Results Summary Purpose [employer] Submission
--- OUTSIDE RECORDS SUMMARY | 2018-06-17 11:32 | XMS REPORT ---
Author Author MESSI MORALES Organization [employer] Address Unknown Phone Unavailable Care Team Providers Care Certified Executive Chef Name Role Phone MESSI MORALES CP Unavailable Allergies, Adverse Reactions, Alerts Substance Reaction Event Type N.K.D.A. Info Not Available Non Drug Allergy Problems Problem Type Condition Code Onset Dates Condition Status Problem Essential hypertension, hypertension with unspecified goal I10 Active Problem Other and unspecified hyperlipidemia 272.4 Active Problem Cervicalgia M54.2 Active Problem Polycystic ovaries 256.4 Active Assessment Cervicalgia M54.2 Active Medications Medication Code System Code Instructions Start Date End Date Status Dosage Traction Kit NDC 0 ... 3 times a day 15 min September 28, 2015 10-12 # water Lisinopril-Hydrochlorothiazide [facility] [address]-87 20-25 MG Orally Once a day September 04, 2015 1 tablet Cervical Collar NDC 0 ... November 14, 2015 as directed Ibuprofen [facility] [address]-19 800 MG Orally Three times a day, as needed. MUST LAST 1 MO September 04, 2015 1 tablet Procedures Procedure Coding System Code Date Office Visit, Est Pt., Level 3 CPT-4 31737 Mar 15, 2016 Vital Signs Date/Time: Mar 15, 2016 Cardiac Monitoring Heart Rate 82 bpm Weight 174 lbs Height 63.75 in BMI 30.10 Index Blood Pressure Diastolic 74 mmHg Blood Pressure Systolic 122 mmHg Results No Known Results Summary Purpose [employer] Submission
--- OUTSIDE RECORDS SUMMARY | 2018-06-17 11:32 | XMS REPORT ---
Author Author HALEY KEVIN Organization 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 Name Role Phone HALEY KEVIN Unavailable PROBLEMS Type Condition ICD9-CM Code RAD90-YB Code Onset Dates Condition Status SNOMED Code Problem S/P coronary artery stent placement Z95.5 Active 275898385 Problem Anxiety F41.9 Active 38217173 Problem Anxiety about health F41.8 Active 513270301 Problem Graves disease E05.00 Active 824627873 Problem Enlarged thyroid E01.0 Active 47213690 Problem History of MT (myocardial infarction) I25.2 Active 929065204 Problem Low back pain M54.5 Active 847812666 Problem Thyroid nodule E04.1 Active 057097765 Problem Dyslipidemia E78.5 Active 918132499 Problem Hyperthyroidism E05.90 Active 59165016 Problem Major depressive disorder, recurrent, moderate F33.1 Active 74336963 Problem Bronchiolitis J21.9 Active 7916320 Problem Sleeping difficulty G47.9 Active 895493392 Problem Essential hypertension, hypertension with unspecified goal I10 Active 31970208 Problem History of ST elevation myocardial infarction (STEMI) I25.2 Active 267585744098961 Problem Cervicalgia M54.2 Active 29538438 Problem Coronary artery disease involving [place] heart, angina presence unspecified, unspecified vessel or lesion type I25.10 Active 08891330 ALLERGIES No Information ENCOUNTERS Encounter Location Date Diagnosis [facility] [address] [facility] [id number] [address] September, Major depressive disorder, recurrent, moderate F33.1 [facility] [address] [id number], [place] [address] September, Graves disease E05.00 and Major depressive disorder, recurrent, moderate F33.1 [facility] [address] [id number] [id number] Aug, [facility] [address] [id number] [place] [id number] Aug, Graves disease E05.00 [facility] [address] [id number] [id number] Aug, Dental caries K02.9 [facility] [address]00565100[place], [place] [address] Aug, Major depressive disorder, recurrent, moderate F33.1 [facility] [id number] [address] Aug, Major depressive disorder, recurrent, moderate F33.1 and Graves disease E05.00 [facility] [address]65100[place], [place] [address] Jul, Graves disease E05.00 [facility] [id number] [place] [address] Jul, Major depressive disorder, recurrent, moderate F33.1 [facility] [address] [id number] [id number] Jul, Dental examination Z01.20 [facility] [address] [id number] [id number] Jul, Dental examination Z01.20 [address] [id number] [id number] Jul, Major depressive disorder, recurrent, moderate F33.1 ; Anxiety F41.9 ; Graves disease E05.[address] elevation myocardial infarction (STEMI) I25.2 [facility] [address], [place] [address] Jul, Major depressive disorder, recurrent, moderate F33.1 [facility] [address] [id number], [place] [address] Jun, Major depressive disorder, recurrent, moderate F33.1 [facility] [id number] [place] [id number] Jun, Graves disease E05.00 [id number] [place] [id number] Jun, Influenza A J10.1 [facility] [id number] [address] May, Chest wall pain R07.89 [facility] [address] [address] May, Major depressive disorder, recurrent, moderate F33.1 [facility] [address] [address] May, Graves disease E05.00 and Major depressive disorder, recurrent, moderate F33.1 [id number] [place] [address] [id number] May, Anxiety F41.9 and Graves disease E05.00 [facility] [id number] [address] Apr, Major depressive disorder, recurrent, moderate F33.1 and Graves disease E05.00 [id number] [place] [address] [id number] Apr, Anxiety F[address].9 [facility] [id number] [place] [address] Apr, Major depressive disorder, recurrent, moderate F33.1 [id number] [place] [address] [id number] Apr, Graves disease E05.00 ; Anxiety F41.9 ; S/P coronary artery stent placement Z95.5 ; Dyslipidemia E78.5 ; History of MT (myocardial infarction) I25.2 ; Hypokalemia E87.6 ; High risk medication use Z79.899 and Controlled substance agreement signed Z79.899 [id number] [place] [address] [id number] Mar, Atypical mole D22.[address] [id number] Mar, Graves disease E05.00 ; Anxiety F41.9 ; S/P coronary artery stent placement Z95.5 ; Dyslipidemia E78.5 ; History of MT (myocardial infarction) I25.2 ; Hypokalemia E87.6 and Encounter for immunization Z23 [facility] [id number] [place] [id number] Jan, Anxiety F41.9 [id number] [place] [address] [id number] Nov, Anxiety F41.9 [facility] [id number] [place] [id number] Nov, Hyperthyroidism E05.90 ; Anxiety F41.9 ; Enlarged thyroid E01.0 ; Right sided abdominal pain R10.9 ; Thyroid nodule E04.1 ; Dyslipidemia E78.[address] elevation myocardial infarction (STEMI) I25.2 [id number] [place] [address] [id number] Nov, Hyperthyroidism E05.90 ; Enlarged thyroid E01.0 and Thyroid nodule E04.1 [id number] [place] [id number] Oct, [address] [id number] Oct, Hyperthyroidism E05.90 [id number] [place] [address] [id number] Oct, Anxiety F41.9 ; Right sided abdominal pain R10.9 ; Dyslipidemia E78.[address] elevation myocardial infarction (STEMI) I25.2 [facility] [id number] [place] [id number] September, Coronary artery disease involving [place] heart, angina presence unspecified, unspecified vessel or lesion type I25.10 ; Anxiety F41.9 ; History of ST elevation myocardial infarction (STEMI) I25.2 and Low back pain M54.5 [id number] [place] [id number] September, RLQ abdominal pain R10.31 and Diarrhea, unspecified type R19.7 [address]005[address] [id number] Aug, Coronary artery disease involving [place] heart, angina presence unspecified, unspecified vessel or lesion type I25.10 ; Anxiety F41.9 ; Anxiety about health F41.8 ; History of ST elevation myocardial infarction (STEMI) I25.2 and S/P coronary artery stent placement Z95.5 [facility] [id number] [place] [address] [id number] Jul, [facility] [id number] [place] [address] [id number] Jul, Nonintractable headache, unspecified chronicity pattern, unspecified headache type R51 and Sleeping difficulty G47.9 [facility] [id number] [place] [address] [id number] Jul, Essential hypertension, hypertension with unspecified goal I10 [id number] [place] [address] [id number] Jun, Essential hypertension, hypertension with unspecified goal I10 and Cervicalgia M54.2 [address]00565[address] [id number] May, Bronchiolitis J21.9 and Essential hypertension, hypertension with unspecified goal I10 [facility] [id number] [place] [address] [id number] Mar, [id number] [place] [address] [id number] Mar, Cervical stenosis of spinal canal M48.02 and Foraminal stenosis of cervical region M99.81 [facility] [id number] [place] [id number] Mar, [facility] [address]005[address]100[place] [address] Mar, [facility] [id number] [place] [address] [id number] Mar, Cervicalgia M54.2 [facility] [id number] [place] [address] [id number] Mar, [id number] [place] [address] [id number] Jan, [facility] [address] [id number] [place] [id number] Dec, [facility] [address] [id number] [place] [id number] Dec, [facility] [address] [id number] [place] [id number] Dec, Cervicalgia M54.2 [facility] [place] [address] [id number] [id number] [place] [id number] Nov, Cervicalgia M54.2 [facility] [address] [id number] [place] [id number] Nov, Cervicalgia M54.2 [facility] [address] [id number] [place] [id number] Oct, Cervicalgia M54.2 and Essential hypertension, hypertension with unspecified goal I10 [facility] [address] [id number] [place] [id number] Oct, [facility] [address] [id number] [place] [id number] Aug, Cervicalgia M54.2 [facility] [address] [id number] [place] [id number] Aug, [facility] [address] [id number] [place] [id number] Aug, Headache R51 and Essential hypertension, hypertension with unspecified goal I10 [facility] [address] [id number] [place] [id number] Jul, [facility] [address]005[address], [place] [address] Aug, [facility] [id number] [place] [address] Aug, [facility] [id number] [place] [address] Mar, [facility] [address], [place] [address] Mar, [facility] [address] [facility] [id number], [place] [address] Dec, [facility] [address] [id number] [place] [id number] Dec, [facility] [address] [id number] [place] [phone] Aug, [facility] [address] [facility] [id number], [place] [address] Aug, [facility] [address] [facility] [id number], [place] [address] Jul, [facility] [address] [facility] [id number], [place] [address] Jul, [facility] [address] [id number] [place]ID[place] [id number] Dec, [facility] [address] [id number] [place] [id number] Apr, [facility] [address] [facility] [id number], [place] [address] Apr, [facility] [address] [facility] [id number], [place] [address] Mar, [facility] [address] [id number] [place] [id number] Mar, [facility] [address] [id number] [place]ID[place] [id number] Oct, [facility] [address] [facility] [id number], [place] [address] Oct, [facility] [address] [id number] [place] [id number] Oct, [facility] [address] [id number] [place] [id number] September, [facility] [address] [id number] [place] [id number] Jul, [facility] [address] [id number] [place] [id number] Jun, [facility] [address] [id number] [place] [id number] 10 Jun, 2011 [facility] [address] [facility] [id number] [place] [address] May, [facility] [address] [facility] [id number] [place] [address] May, [facility] [address] [facility] [id number], [place] [address] May, [facility] [address] [facility] [id number], [place] [address] May, [facility] [address] [facility] [id number], [place] [address] Dec, IMMUNIZATIONS No Known Immunizations SOCIAL HISTORY Never Assessed REASON FOR VISIT intake PLAN OF CARE Activity Details Follow Up 2 Weeks, 1 hour only, Friday ashwin, 6pm Reason: VITAL SIGNS MEDICATIONS Unknown Medications RESULTS No Results PROCEDURES Procedure Date Ordered Result Body Site Psych diagnostic evaluation, established patient Apr 29, 2017 INSTRUCTIONS MEDICATIONS ADMINISTERED No Known Medications [...] Cervical stenosis repair, hardware placed by at [address] 07/2016 Surgical History Acute STEMI, heart cath performed-balloon stent to RCA, stent Mid LAD 08/2016 Hospitalization History [facility] STEMI, Cardiogenic shock, increased LFTS 08/2016 Hospitalization History inpatient psych [facility] after OD after losing baby 2009
--- OUTSIDE RECORDS SUMMARY | 2018-06-17 11:32 | XMS REPORT ---
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 Info Not Available Non Drug Allergy Problems Problem Type Condition Code Onset Dates Condition Status Problem Hordeolum externum 373.11 Active Assessment Cervicalgia M54.2 Active Problem Essential hypertension, hypertension with unspecified goal I10 Active Problem Pediatric pre- visit for expectant mother V65.11 Active Problem Cervicalgia M54.2 Active Problem Periapical abscess without sinus 522.5 Active Problem Other acute sinusitis 461.8 Active Problem Other and unspecified hyperlipidemia 272.4 Active Problem Polycystic ovaries 256.4 Active Medications Medication Code System Code Instructions Start Date End Date Status Dosage Cyclobenzaprine HCl [facility] [address]-75 10 mg Orally Three times a day September 04, 2015 1 tablet Ibuprofen [facility] [address]-50 800 MG Orally Three times a day September 04, 2015 1 tablet Lisinopril-Hydrochlorothiazide [facility] [address]-33 20-25 MG Orally Once a day September 04, 2015 1 tablet Traction Kit ND 0 ... 3 times a day 15 min September 28, 2015 10-12 # water Procedures Procedure Coding System Code Date Office Visit, Est Pt., Level 3 CPT-4 02732 September 28, 2015 Vital Signs Date/Time: September 28, 2015 Temperature 97.8 F Weight 153 lbs Height 63.75 in BMI 26.47 Index Blood Pressure Diastolic 70 mmHg Blood Pressure Systolic 128 mmHg Cardiac Monitoring Heart Rate 82 bpm Results No Known Results Summary Purpose [employer] Submission
--- OUTSIDE RECORDS SUMMARY | 2018-06-17 11:33 | XMS REPORT ---
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 Name Role Phone NILDA CASON Unavailable PROBLEMS Type Condition ICD9-CM Code SGX20-KT Code Onset Dates Condition Status SNOMED Code Problem S/P coronary artery stent placement Z95.5 Active 623201065 Problem Anxiety F41.9 Active 55693660 Problem Anxiety about health F41.8 Active 682058733 Problem Graves disease E05.00 Active 020244241 Problem Enlarged thyroid E01.0 Active 31793122 Problem History of VT (myocardial infarction) I25.2 Active 345998268 Problem Low back pain M54.5 Active 384134319 Problem Thyroid nodule E04.1 Active 266096794 Problem Dyslipidemia E78.5 Active 573694417 Problem Hyperthyroidism E05.90 Active 55610759 Problem Major depressive disorder, recurrent, moderate F33.1 Active 56917877 Problem Bronchiolitis J21.9 Active 7898050 Problem Sleeping difficulty G47.9 Active 771416667 Problem Essential hypertension, hypertension with unspecified goal I10 Active 15677507 Problem History of ST elevation myocardial infarction (STEMI) I25.2 Active 302120010530883 Problem Cervicalgia M54.2 Active 30186336 Problem Coronary artery disease involving [employer] heart, angina presence unspecified, unspecified vessel or lesion type I25.10 Active 32117995 ALLERGIES No Known Allergies ENCOUNTERS Encounter Location Date Diagnosis [facility] [address] [facility] [id number], [place] [address] September, [facility] [address] [id number], [place] [address] September, [facility] [address] [id number], [place] [address] September, Major depressive disorder, recurrent, moderate F33.1 [facility] [address], [place] [address] September, Graves disease E05.00 and Major depressive disorder, recurrent, moderate F33.1 [facility] [address] [id number] [id number] Aug, [facility] [address] [id number] [id number] Aug, Graves disease E05.00 [facility] [address] [facility] [id number][place] [id number] Aug, Dental caries K02.9 [place] [id number] [place] [address] Aug, Major depressive disorder, recurrent, moderate F33.1 [place] [address], [place] [address] Aug, Major depressive disorder, recurrent, moderate F33.1 and Graves disease E05.00 [facility] [address], [place] [address] Jul, Graves disease E05.00 [facility] [id number] [place] [address] Jul, Major depressive disorder, recurrent, moderate F33.[address] [id number][place] [id number] Jul, Dental examination Z01.20 [address] [id number][place] [phone] Jul, Dental examination Z01.20 [facility] [address] [facility] [id number] [id number] Jul, Major depressive disorder, recurrent, moderate F33.1 ; Anxiety F41.9 ; Graves disease E05.[address] elevation myocardial infarction (STEMI) I25.2 [facility] [address] [address] Jul, Major depressive disorder, recurrent, moderate F33.1 [facility] [id number] [place] [address] Jun, Major depressive disorder, recurrent, moderate F33.1 [facility] [id number] [place] [id number] Jun, Graves disease E05.00 [id number] [place] [phone] Jun, Influenza A J10.1 [facility] [address] [address] May, Chest wall pain R07.89 [facility] [address] [address] May, Major depressive disorder, recurrent, moderate F33.1 [place] [id number] [place] [address] May, Graves disease E05.00 and Major depressive disorder, recurrent, moderate F33.1 [id number] [place] [id number] May, Anxiety F41.9 and Graves disease E05.00 [place] [id number] [place] [address] Apr, Major depressive disorder, recurrent, moderate F33.1 and Graves disease E05.00 [id number] [place] [address] [id number] Apr, Anxiety F41.9 [place] [id number] [place] [address] Apr, Major depressive disorder, recurrent, moderate F33.1 [id number] [place] [address] [id number] Apr, Graves disease E05.00 ; Anxiety F41.9 ; S/P coronary artery stent placement Z95.5 ; Dyslipidemia E78.5 ; History of VT (myocardial infarction) I25.2 ; Hypokalemia E87.6 ; High risk medication use Z79.899 and Controlled substance agreement signed Z79.899 [address] [place] [id number] Mar, Atypical mole D22.9 [id number] [place] [id number] Mar, Graves disease E05.00 ; Anxiety F41.9 ; S/P coronary artery stent placement Z95.5 ; Dyslipidemia E78.5 ; History of VT (myocardial infarction) I25.2 ; Hypokalemia E87.6 and Encounter for immunization Z23 [id number] [place] [address] [id number] Jan, Anxiety F41.9 [id number] [place] [address] [id number] Nov, Anxiety F41.9 [id number] [place] [address] [id number] Nov, Hyperthyroidism E05.90 ; Anxiety F41.9 ; Enlarged thyroid E01.0 ; Right sided abdominal pain R10.9 ; Thyroid nodule E04.1 ; Dyslipidemia E78.[address] elevation myocardial infarction (STEMI) I25.2 [id number] [place] [address] [id number] Nov, Hyperthyroidism E05.90 ; Enlarged thyroid E01.0 and Thyroid nodule E04.1 [id number] [place] [address] [id number] Oct, [address] [address] [id number] [place] [address] [phone] Oct, Hyperthyroidism E05.90 [id number] [place] [address] [id number] Oct, Anxiety F41.9 ; Right sided abdominal pain R10.9 ; Dyslipidemia E78.[address] elevation myocardial infarction (STEMI) I25.2 [id number] [place] [address] [id number] September, Coronary artery disease involving [employer] heart, angina presence unspecified, unspecified vessel or lesion type I25.10 ; Anxiety F41.9 ; History of ST elevation myocardial infarction (STEMI) I25.2 and Low back pain M54.5 [facility] [id number] [place] [address] [phone] September, RLQ abdominal pain R10.31 and Diarrhea, unspecified type R19.7 [facility] [id number] [place] [address] [id number] Aug, Coronary artery disease involving match[employer] heart, angina presence unspecified, unspecified vessel or lesion type I25.10 ; Anxiety F41.9 ; Anxiety about health F41.8 ; History of ST elevation myocardial infarction (STEMI) I25.2 and S/P coronary artery stent placement Z95.5 [id number] [place] [address] [id number] Jul, [address] [address] [id number] [place] [address] [id number] Jul, Nonintractable headache, unspecified chronicity pattern, unspecified headache type R51 and Sleeping difficulty G47.9 [address] [address] [id number] [place] [address] [id number] Jul, Essential hypertension, hypertension with unspecified goal I10 [address] [id number] [place] [address] [id number] Jun, Essential hypertension, hypertension with unspecified goal I10 and Cervicalgia M54.2 [place] [address] [facility] [address] [id number] [id number] May, Bronchiolitis J21.9 and Essential hypertension, hypertension with unspecified goal I10 [address] [place] [address] [id number] Mar, [address] [place] [address] [id number] Mar, Cervical stenosis of spinal canal M48.02 and Foraminal stenosis of cervical region M99.81 [address] [place] [address] [id number] Mar, [facility] [address] [place] [phone] Mar, [facility] [address] [id number] [place] [phone] Mar, Cervicalgia M54.2 [facility] [address] [id number] [place] [phone] Mar, [facility] [address] [id number] [place] [phone] Jan, [facility] [address] [id number] [place] [phone] Dec, [facility] [address] [id number] [place] [id number] Dec, [facility] [address] [id number] [place] [phone] Dec, Cervicalgia M54.[address] [facility] [address] [id number] [facility] [phone] Nov, Cervicalgia M54.2 [facility] [address] [id number] [place] [id number] Nov, Cervicalgia M54.2 [facility] [address] [id number] [place] [phone] Oct, Cervicalgia M54.2 and Essential hypertension, hypertension with unspecified goal I10 [facility] [address] [id number] [place] [id number] Oct, [facility] [address] [id number] [place] [phone] Aug, Cervicalgia M54.2 [facility] [address] [id number] [place] [id number] Aug, [facility] [address] [id number] [place] [id number] Aug, Headache R51 and Essential hypertension, hypertension with unspecified goal I10 [facility] [address] [id number] [place] [phone] Jul, [facility] [address]100[place], [place] [address] Aug, [facility] [id number] [place] [address] Aug, [facility] [address] [id number], [place] [address] Mar, [facility] [place] [facility] [address] [facility] [id number] [place] [address] Mar, [facility] [address] [facility] [id number], [place] [address] Dec, [facility] [address] [id number] [place] [id number] Dec, [facility] [address] [id number] [place] [phone] Aug, [facility] [place] [facility] [address] [facility] [id number] [place] [address] Aug, [facility] [place] [facility] [address] [facility] [id number], [place] [address] Jul, [facility] [place] [facility] [address] [facility] [id number], [place] [address] Jul, [facility] [address] [id number][place] [id number] Dec, [facility] [address] [id number][place] [id number] Apr, [facility] [place] [facility] [address] [facility] [id number], [place] [address] Apr, [facility] [place] [facility] [address] [facility] [id number], [place] [address] Mar, [facility] [address] [id number][place] [id number] Mar, [facility] [address] [id number][place] [id number] Oct, [facility] [place] [facility] [address] [facility] [id number], [place] [address] Oct, [facility] [address] [id number] [place] [id number] Oct, [facility] [address] [id number], [place] [phone] September, [facility] [address] [facility] [id number] [place] [phone] Jul, [facility] [address] [facility] [id number] [place] [phone] Jun, [facility] [address] [facility] [id number][place] [phone] Jun, [facility] [address], [place] [address] May, [facility] [address], [place] [address] May, [facility] [address], [place] [address] May, [facility] [address], [place] [address] May, [facility] [address], [place] [address] Dec, IMMUNIZATIONS No Known Immunizations SOCIAL HISTORY Never Assessed REASON FOR VISIT having increased anxiety, feels overwhelmed and very emotional and tearful x 2 days. juan Gunter PLAN OF CARE Activity Details Follow Up 1 Months Reason:CHM Anxiety VITAL SIGNS Height 63.75 in 2017-04-02 Weight 142.2 lbs 2017-04-02 Temperature 98.4 degrees Fahrenheit 2017-04-02 Heart Rate 100 bpm 2017-04-02 Respiratory Rate 20 2017-04-02 BMI 24.60 kg/m2 2017-04-02 Blood pressure systolic 142 mmHg 2017-04-02 Blood pressure diastolic 102 mmHg 2017-04-02 MEDICATIONS Medication Instructions Dosage Frequency Start Date End Date Duration Status Potassium Chloride ER 20 MEQ Orally Once a day 1 tablet with food 24h Active Zoloft 50 MG Orally Once a day 1 tablet 24h Active Toprol XL 25 MG Orally Once a day at bedtime 1 tablet Active Atorvastatin Calcium 20 MG Orally Once a day 1 tablet 24h Active Propylthiouracil 50 mg Orally 3 times a day 2 tablets 8h Active Plavix 75 MG Orally Once a day 1 tablet 24h Active Aspir-81 81 MG Orally Once a day 1 tablet 24h Active Nitroglycerin 0.4 MG Active Sotalol HCl 80 MG Orally every 12 hrs 1/2 tablet 12h Active Lorazepam 1 MG Orally every 6 hrs as needed for anxiety/panic 1 tablet 0 days Active RESULTS No Results PROCEDURES Procedure Date Ordered Result Body Site No Charge Apr 02, 2017 [facility] Apr 02, 2017 VENIPUNCT, ROUTINE* Apr 02, 2017 INSTRUCTIONS MEDICATIONS ADMINISTERED No Known Medications [...] Cervical stenosis repair, hardware placed by at [address] 07/2016 Surgical History Acute STEMI, heart cath performed-balloon stent to RCA, stent Mid LAD 08/2016 Hospitalization History [facility] STEMI, Cardiogenic shock, increased LFTS 08/2016 Hospitalization History inpatient psych [facility] after OD after losing baby 2009
--- OUTSIDE RECORDS SUMMARY | 2018-06-17 11:33 | XMS REPORT ---
Author Author NILDA CASON [facility] Address [address] [place] [address] Care Team Providers Care Telecommunications Field Engineer Name Role Phone NILDA CASON Unavailable PROBLEMS Type Condition ICD9-CM Code EEN93-VE Code Onset Dates Condition Status SNOMED Code Problem S/P coronary artery stent placement Z95.5 Active 137141041 Problem Anxiety F41.9 Active 23984188 Problem Anxiety about health F41.8 Active 803110933 Problem Graves disease E05.00 Active 870557005 Problem Enlarged thyroid E01.0 Active 36034497 Problem History of [place] (myocardial infarction) I25.2 Active 717306762 Problem Low back pain M54.5 Active 272757427 Problem Thyroid nodule E04.1 Active 145074416 Problem Dyslipidemia E78.5 Active 260725369 Problem Hyperthyroidism E05.90 Active 18401200 Problem Major depressive disorder, recurrent, moderate F33.1 Active 41043077 Problem Bronchiolitis J21.9 Active 9415870 Problem Sleeping difficulty G47.9 Active 223875285 Problem Essential hypertension, hypertension with unspecified goal I10 Active 49034916 Problem History of ST elevation myocardial infarction (STEMI) I25.2 Active 133031003837590 Problem Cervicalgia M54.2 Active 66267848 Problem Coronary artery disease involving newtok heart, angina presence unspecified, unspecified vessel or lesion type I25.10 Active 42287126 ALLERGIES No Information ENCOUNTERS Encounter Location Date Diagnosis [facility] [address] [facility] [id number] [address] September, [facility] [address] [id number] [address] Aug, [address] [id number] [id number] Aug, [facility] [address] [address] Aug, [facility] [id number] [place] [address] Jul, [facility] [id number] [place] [address]- [address]708 Jul, Graves disease E05.00 [facility] [id number] [place] [address]42- 7698 Jul, Major depressive disorder, recurrent, moderate F33.[address] [id number][place] [id number] Jul, Dental examination Z01.[id number] [place] [address] [id number] Jul, Dental examination Z01.20 [facility] [id number] [place] [address] [id number] Jul, Major depressive disorder, recurrent, moderate F33.1 ; Anxiety F41.9 ; Graves disease E05.[address] elevation myocardial infarction (STEMI) I25.2 [facility] [id number] [place] [address] Jul, Major depressive disorder, recurrent, moderate F33.1 [facility] [id number] [place] [address]- 6[address] Jun, Major depressive disorder, recurrent, moderate F33.1 [facility] [id number] [place] [address] [id number] Jun, Graves disease E05.00 [id number] [place] [address] [id number] Jun, Influenza A J10.1 [facility] [id number] [place] [address] May, Chest wall pain R07.89 [facility] [id number] [place] [address]- [address] May, Major depressive disorder, recurrent, moderate F33.1 [facility] [id number] [place] [address]67- [address] May, Graves disease E05.00 and Major depressive disorder, recurrent, moderate F33.1 [address] [place] [id number] [place] [address] [id number] May, Anxiety F41.9 and Graves disease E05.00 [address] [address] Apr, Major depressive disorder, recurrent, moderate F33.1 and Graves disease E05.[address] [id number] Apr, Anxiety F41.9 [place] [id number] [place] [address]- 79[address] Apr, Major depressive disorder, recurrent, moderate F33.[address] [id number] Apr, Graves disease E05.00 ; Anxiety F41.9 ; S/P coronary artery stent placement Z95.5 ; Dyslipidemia E78.5 ; History of [place] (myocardial infarction) I25.2 ; Hypokalemia E87.6 ; High risk medication use Z79.899 and Controlled substance agreement signed Z79.899 [address] [id number] [place] [address] [id number] Mar, Atypical mole D22.9 [place] [id number] [place] [address] [id number] Mar, Graves disease E05.00 ; Anxiety F41.9 ; S/P coronary artery stent placement Z95.5 ; Dyslipidemia E78.5 ; History of [place] (myocardial infarction) I25.2 ; Hypokalemia E87.6 and Encounter for immunization Z23 [place] [id number] [place] [address] [id number] Jan, Anxiety F41.[address] [id number] Nov, Anxiety F41.9 [facility] [id number][place] [id number] Nov, Hyperthyroidism E05.90 ; Anxiety F41.9 ; Enlarged thyroid E01.0 ; Right sided abdominal pain R10.9 ; Thyroid nodule E04.1 ; Dyslipidemia E78.[address] elevation myocardial infarction (STEMI) I25.2 [facility] [id number] [place] [address] [id number] Nov, Hyperthyroidism E05.90 ; Enlarged thyroid E01.0 and Thyroid nodule E04.1 [facility] [id number] [place] [address] [id number] Oct, [facility] [id number] [place] [address] [id number] Oct, Hyperthyroidism E05.90 [facility] [id number] [place] [address] [id number] Oct, Anxiety F41.9 ; Right sided abdominal pain R10.9 ; Dyslipidemia E78.[address] elevation myocardial infarction (STEMI) I25.2 [facility] [id number] [place] [address] [id number] September, Coronary artery disease involving new[place] heart, angina presence unspecified, unspecified vessel or lesion type I25.10 ; Anxiety F41.9 ; History of ST elevation myocardial infarction (STEMI) I25.2 and Low back pain M54.5 [facility] [id number] [place] [address] [id number] September, RLQ abdominal pain R10.31 and Diarrhea, unspecified type R19.7 [facility] [id number] [place] [address] [id number] Aug, Coronary artery disease involving newtok heart, angina presence unspecified, unspecified vessel or lesion type I25.10 ; Anxiety F41.9 ; Anxiety about health F41.8 ; History of ST elevation myocardial infarction (STEMI) I25.2 and S/P coronary artery stent placement Z95.5 [facility] [id number] [place] [address] [id number] Jul, [facility] [address] [id number] [id number] Jul, Nonintractable headache, unspecified chronicity pattern, unspecified headache type R51 and Sleeping difficulty G47.9 [facility] [place] [address] [id number][place] [id number] Jul, Essential hypertension, hypertension with unspecified goal I10 [facility] [place] [id number] [place] [address] [id number] Jun, Essential hypertension, hypertension with unspecified goal I10 and Cervicalgia M54.2 [facility] [address] [id number][place] [id number] May, Bronchiolitis J21.9 and Essential hypertension, hypertension with unspecified goal I10 [facility] [place] [id number], [place] [id number] Mar, [facility] [place] [id number] [place] [address] [id number] Mar, Cervical stenosis of spinal canal M48.02 and Foraminal stenosis of cervical region M99.81 [facility] [place] [id number], [place] [id number] Mar, [facility] [address]00565100[place] [address] Mar, [facility] [place] [id number][place] [id number] Mar, Cervicalgia M54.2 [facility] [place] [id number], [place] [id number] Mar, [facility] [place] [id number], [place] [id number] Jan, [facility] [place] [id number], [place] [id number] Dec, [facility] [place] [id number] [place] [address] [id number] Dec, [facility] [place] [id number], [place] [id number] Dec, Cervicalgia M54.2 [facility] [address] [id number][place] [id number] Nov, Cervicalgia M54.2 [facility] [address] [id number] [place] [id number] Nov, Cervicalgia M54.2 [facility] [address] [id number] [place] [id number] Oct, Cervicalgia M54.2 and Essential hypertension, hypertension with unspecified goal I10 [facility] [address] [id number] [place] [id number] Oct, [facility] [address] [id number] [place] [id number] Aug, Cervicalgia M54.2 [facility] [address] [id number] [place] [id number] Aug, [facility] [address] [id number] [place] [id number] Aug, Headache R51 and Essential hypertension, hypertension with unspecified goal I10 [facility] [address] [id number] [place] [id number] Jul, [facility] [id number] [place] [address]30- 5960 Aug, [facility] [id number] [place] [address] [id number] 2546 Aug, [facility] [address]00565100[place] [address] Mar, [facility] [id number] [place] [address] 74973- 2546 Mar, [facility] [id number] [place] [address] 75429- 3516 Dec, [facility] [address] [facility] [id number][place] [id number] Dec, [facility] [address] [facility] [id number][place] [id number] Aug, [facility] [id number] [place] [address] 30265- 2896 Aug, [facility] [place] [facility] [address] [facility] [place] [id number] [address] Jul, [facility] [place] [facility] [address] [facility] [place] [id number] [address] Jul, [facility] [address] [id number] [place] [id number] Dec, [facility] [address] [id number] [place] [id number] Apr, [facility] [place] [facility] [address] [facility] [place] [id number] [address] Apr, [facility] [address] [facility] [place] [id number] [address] Mar, [facility] [address] [id number] [place] [id number] Mar, [facility] [address] [id number] [place] [id number] Oct, [facility] [place] [facility] [address] [facility] [place] [id number] [address] Oct, [facility] [address] [id number] [place] [id number] Oct, [facility] [address] [id number] [place] [id number] September, [facility] [address] [id number] [place] [id number] Jul, [facility] [address] [id number][place] [id number] Jun, [facility] [address] [id number], [place] [id number] Jun, [facility] [place] [facility] [address] [facility] [place] [id number] [address] 8[address] May, [facility] [place] [facility] [address] [facility] [place] [id number] [address]- [address] May, [facility] [place] [facility] [address] [facility] [place] [id number], [place] [address] May, [facility] [place] [facility] [address] [facility] [place] [id number] [place] [address] May, [facility] [address] [facility] [place] [id number] [place] [address]- [address] Dec, IMMUNIZATIONS No Known Immunizations SOCIAL HISTORY Never Assessed REASON FOR VISIT endocrine referral PLAN OF CARE VITAL SIGNS MEDICATIONS Unknown [...] Cervical stenosis repair, hardware placed by at [address] 07/2016 Surgical History Acute STEMI, heart cath performed-balloon stent to RCA, stent Mid LAD 08/2016 Hospitalization History [facility] STEMI, Cardiogenic shock, increased LFTS 08/2016 Hospitalization History inpatient psych [facility] after OD after losing baby 2009
--- OUTSIDE RECORDS SUMMARY | 2018-06-17 11:33 | XMS REPORT ---
Author Author MESSI MORALES Organization [employer] Address Unknown Phone Unavailable Care Team Providers Care Personal Lines Account Executive Name Role Phone MESSI MORALES CP Unavailable Allergies No Known Allergies Problems Problem Type Condition Code Onset Dates Condition Status Problem Essential hypertension, hypertension with unspecified goal I10 Active Problem Other and unspecified hyperlipidemia 272.4 Active Problem Cervicalgia M54.2 Active Assessment Foraminal stenosis of cervical region M99.81 Active Problem Polycystic ovaries 256.4 Active Assessment Cervical stenosis of spinal canal M48.02 Active Medications No Known Medications Results No Known Results Summary Purpose [employer] Submission
--- OUTSIDE RECORDS SUMMARY | 2018-06-17 11:33 | XMS REPORT ---
Author Author MESSI MORALES Organization [employer] Address Unknown Phone Unavailable Care Team Providers Care Leaflet Distributor Name Role Phone MESSI MORALES CP Unavailable [...]
--- OUTSIDE RECORDS SUMMARY | 2018-06-17 11:33 | XMS REPORT ---
Author Author [facility] Address [address] [place] [address] Care Team Providers Care Bit Gatherer Name Role Phone NILDA CASON Unavailable PROBLEMS Type Condition ICD9-CM Code ABZ74-ZX Code Onset Dates Condition Status SNOMED Code Problem S/P coronary artery stent placement Z95.5 Active 965449732 Problem Anxiety F41.9 Active 46698667 Problem Anxiety about health F41.8 Active 599838932 Problem Graves disease E05.00 Active 356117035 Problem Enlarged thyroid E01.0 Active 97263763 Problem History of [place] (myocardial infarction) I25.2 Active 282792371 Problem Low back pain M54.5 Active 123791555 Problem Thyroid nodule E04.1 Active 988488305 Problem Dyslipidemia E78.5 Active 966743955 Problem Hyperthyroidism E05.90 Active 46653426 Problem Major depressive disorder, recurrent, moderate F33.1 Active 72081977 Problem Bronchiolitis J21.9 Active 3891092 Problem Sleeping difficulty G47.9 Active 131426023 Problem Essential hypertension, hypertension with unspecified goal I10 Active 20641839 Problem History of ST elevation myocardial infarction (STEMI) I25.2 Active 829417280219358 Problem Cervicalgia M54.2 Active 76687885 Problem Coronary artery disease involving [place] heart, angina presence unspecified, unspecified vessel or lesion type I25.10 Active 62764393 ALLERGIES No Information ENCOUNTERS Encounter Location Date Diagnosis [facility] [address] [facility] [id number], [place] [address] September, Major depressive disorder, recurrent, moderate F33.1 [facility] [address] [id number], [place] [address] September, Graves disease E05.00 and Major depressive disorder, recurrent, moderate F33.1 [facility] [address] [id number] [id number] Aug, [facility] [address] [id number] [id number] Aug, Graves disease E05.00 [facility] [address] [facility] [id number][place] [id number] Aug, Dental caries K02.9 [facility] [address]65100[place], [place] [address] Aug, Major depressive disorder, recurrent, moderate F33.1 [facility] [address] [place] [address] Aug, Major depressive disorder, recurrent, moderate F33.1 and Graves disease E05.00 [facility] [address]65[address], [place] [address] Jul, Graves disease E05.00 [facility] [id number] [place] [address] Jul, Major depressive disorder, recurrent, moderate F33.1 [facility] [address] [place] [address] [id number][place] [id number] Jul, Dental examination Z01.20 [facility] [address] [id number][place] [id number] Jul, Dental examination Z01.[address] [id number][place] [id number] Jul, Major depressive disorder, recurrent, moderate F33.1 ; Anxiety F41.9 ; Graves disease E05.[address] elevation myocardial infarction (STEMI) I25.2 [facility] [address] [place] [address] Jul, Major depressive disorder, recurrent, moderate F33.1 [facility] [address]65[address], [place] [address] Jun, Major depressive disorder, recurrent, moderate F33.1 [id number] [place] [id number] Jun, Graves disease E05.00 [address] [place] [id number] Jun, Influenza A J10.1 [facility] [address] [address] May, Chest wall pain R07.89 [facility] [address] [address] May, Major depressive disorder, recurrent, moderate F33.1 [facility] [address] [address] May, Graves disease E05.00 and Major depressive disorder, recurrent, moderate F33.[address] [id number] May, Anxiety F41.9 and Graves disease E05.00 [facility] [address] [address] Apr, Major depressive disorder, recurrent, moderate F33.1 and Graves disease E05.[address] [id number] Apr, Anxiety F41.9 [place] [address] [address] Apr, Major depressive disorder, recurrent, moderate F33.1 [id number] [place] [id number] Apr, Graves disease E05.00 ; Anxiety F41.9 ; S/P coronary artery stent placement Z95.5 ; Dyslipidemia E78.5 ; History of ND (myocardial infarction) I25.2 ; Hypokalemia E87.6 ; High risk medication use Z79.899 and Controlled substance agreement signed Z79.899 [id number] [place] [address] [id number] Mar, Atypical mole D22.[address] [id number] Mar, Graves disease E05.00 ; Anxiety F41.9 ; S/P coronary artery stent placement Z95.5 ; Dyslipidemia E78.5 ; History of ND (myocardial infarction) I25.2 ; Hypokalemia E87.6 and Encounter for immunization Z23 [facility] [id number] [place] [id number] Jan, Anxiety F41.9 [facility] [id number] [place] [address] [id number] Nov, Anxiety F41.9 [facility] [id number] [place] [address] [id number] Nov, Hyperthyroidism E05.90 ; Anxiety F41.9 ; Enlarged thyroid E01.0 ; Right sided abdominal pain R10.9 ; Thyroid nodule E04.1 ; Dyslipidemia E78.[address] elevation myocardial infarction (STEMI) I25.2 [place] [id number] [place] [address] [id number] Nov, Hyperthyroidism E05.90 ; Enlarged thyroid E01.0 and Thyroid nodule E04.1 [facility] [id number] [place] [address] [id number] Oct, [place] [id number] [place] [address] [id number] Oct, Hyperthyroidism E05.90 [place] [id number] [place] [address] [id number] Oct, Anxiety F41.9 ; Right sided abdominal pain R10.9 ; Dyslipidemia E78.[address] elevation myocardial infarction (STEMI) I25.2 [facility] [id number] [place] [id number] September, Coronary artery disease involving [place] heart, angina presence unspecified, unspecified vessel or lesion type I25.10 ; Anxiety F41.9 ; History of ST elevation myocardial infarction (STEMI) I25.2 and Low back pain M54.5 [facility] [id number] [place] [address] [id number] September, RLQ abdominal pain R10.31 and Diarrhea, unspecified type R19.7 [facility] [id number], [place] [id number] Aug, Coronary artery disease involving [place] heart, angina presence unspecified, unspecified vessel or lesion type I25.10 ; Anxiety F41.9 ; Anxiety about health F41.8 ; History of ST elevation myocardial infarction (STEMI) I25.2 and S/P coronary artery stent placement Z95.5 [facility] [id number] [place] [address] [id number] Jul, [facility] [id number] [place] [address] [id number] Jul, Nonintractable headache, unspecified chronicity pattern, unspecified headache type R51 and Sleeping difficulty G47.9 [place] [id number] [place] [address] [phone] Jul, Essential hypertension, hypertension with unspecified goal I10 [facility] [id number] [place] [address] [id number] Jun, Essential hypertension, hypertension with unspecified goal I10 and Cervicalgia M54.2 [address] [phone] May, Bronchiolitis J21.9 and Essential hypertension, hypertension with unspecified goal I10 [facility] [id number] [place] [address] [id number] Mar, [place] [id number] [place] [address] [id number] Mar, Cervical stenosis of spinal canal M48.02 and Foraminal stenosis of cervical region M99.81 [facility] [id number][place] [id number] Mar, [facility] [address]100[place] [address] Mar, [facility] [id number] [place] [address] [id number] Mar, Cervicalgia M54.2 [facility] [id number][place] [id number] Mar, [place] [address] [address] [id number] Jan, [facility] [address] [id number] [place] [phone] Dec, [facility] [address] [id number] [place] [id number] Dec, [facility] [address] [id number] [place] [phone] Dec, Cervicalgia M54.2 [facility] [place] [address] [facility] [address] [id number] [phone] Nov, Cervicalgia M54.2 [facility] [address] [id number] [place] [id number] Nov, Cervicalgia M54.2 [facility] [address] [id number] [place] [phone] Oct, Cervicalgia M54.2 and Essential hypertension, hypertension with unspecified goal I10 [facility] [address] [id number] [place] [phone] Oct, [facility] [address] [id number] [place] [id number] Aug, Cervicalgia M54.2 [facility] [address] [id number] [place] [phone] Aug, [facility] [address] [id number] [place] [id number] Aug, Headache R51 and Essential hypertension, hypertension with unspecified goal I10 [facility] [address] [id number] [place] [phone] Jul, [facility] [address]65100[place], [place] [address] Aug, [facility] [id number] [place] [address] Aug, [facility] [id number] [place] [address] Mar, [facility] [id number] [place] [address] Mar, [facility] [address] [facility] [id number], [place] [address] Dec, [facility] [address] [id number] [place] [phone] Dec, [facility] [address] [id number] [place] [id number] Aug, [facility] [address] [facility] [id number], [place] [address] Aug, [facility] [address] [facility] [id number], [place] [address] Jul, [facility] [address] [facility] [id number], [place] [address] Jul, [facility] [address] [id number][place] [phone] Dec, [facility] [address] [id number][place] [phone] Apr, [facility] [address] [facility] [id number], [place] [address] Apr, [facility] [address] [facility] [id number], [place] [address] Mar, [facility] [address] [id number][place] [id number] Mar, [facility] [address] [id number][place] [id number] Oct, [facility] [address] [facility] [id number], [place] [address] Oct, [facility] [address] [id number] [place] [id number] Oct, [facility] [address] [id number] [place] [phone] September, [facility] [address] [id number] [place] [id number] Jul, [facility] [address] [id number][place] [phone] Jun, [facility] [address] [id number] [place] [phone] Jun, 2011 [facility] [address] [facility] [id number], [place] [address] May, [facility] [address] [facility] [id number], [place] 197[address] May, [facility] [address] [facility] [id number], [place] [address] May, [facility] [address] [facility] [id number], [place] [address] May, [facility] [address] [facility] [id number], [place] [address] Dec, IMMUNIZATIONS No Known Immunizations SOCIAL HISTORY Never Assessed REASON FOR VISIT Controlled Med Refill PLAN OF CARE VITAL SIGNS MEDICATIONS Medication Instructions Dosage Frequency Start Date End Date Duration Status Lorazepam 1 MG Orally every 6 hrs as needed for anxiety/panic 1 tablet 30 days Active RESULTS No Results PROCEDURES [...] Cervical stenosis repair, hardware placed by at [address] 07/2016 Surgical History Acute STEMI, heart cath performed-balloon stent to RCA, stent Mid LAD 08/2016 Hospitalization History [facility] STEMI, Cardiogenic shock, increased LFTS 08/2016 Hospitalization History inpatient psych [facility] after OD after losing baby 2009
--- OUTSIDE RECORDS SUMMARY | 2018-06-17 11:33 | XMS REPORT ---
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 Role Phone TWIN VO Unavailable PROBLEMS Type Condition ICD9-CM Code [id number] Code Onset Dates Condition Status SNOMED Code Problem History of ST elevation myocardial infarction (STEMI) I25.2 Active 025858835012157 Problem Anxiety F41.9 Active 11161313 Problem Anxiety about health F41.8 Active 206689759 Problem Thyroid nodule E04.1 Active 134534271 Problem Enlarged thyroid E01.0 Active 29226745 Problem Low back pain M54.5 Active 577064642 Problem Coronary artery disease involving [place] heart, angina presence unspecified, unspecified vessel or lesion type I25.10 Active 21223395 Problem Dyslipidemia E78.5 Active 557753955 Problem History of [place] (myocardial infarction) I25.2 Active 956047751 Problem Cervicalgia M54.2 Active 73596198 Problem Bronchiolitis J21.9 Active 0174926 Problem Hyperthyroidism E05.90 Active 41240697 Problem Sleeping difficulty G47.9 Active 542826292 Problem Essential hypertension, hypertension with unspecified goal I10 Active 53746806 Problem S/P coronary artery stent placement Z95.5 Active 841855410 ALLERGIES Substance Reaction Event Type Date Status N.K.D.A. Unknown Non Drug Allergy May, Unknown SOCIAL HISTORY No smoking Hx information available PLAN OF CARE Activity Details Follow Up 1 Week Reason:with Ritesh for HTN VITAL SIGNS Height 63.75 in 2016-05-28 Weight 169.2 lbs 2016-05-28 Temperature 97.9 degrees Fahrenheit 2016-05-28 Heart Rate 88 bpm 2016-05-28 Respiratory Rate 16 2016-05-28 BMI 29.27 kg/m2 2016-05-28 Blood pressure systolic 158 mmHg 2016-05-28 Blood pressure diastolic 100 mmHg 2016-05-28 MEDICATIONS Medication Instructions Dosage Frequency Start Date End Date Duration Status Lisinopril-Hydrochlorothiazide 20-25 MG Orally Once a day 1 tablet 24h Aug, Active Albuterol Sulfate (2.5 MG/3ML) 0.083% Inhalation neb tx OR inhaler every 4 hours while awake 3 ml May, 07 days Active Ibuprofen 800 MG Orally Three times a day, as needed. MUST LAST 1 MO 1 tablet Aug, Active Vivlodex 10 MG Orally Once a day 1 capsule 24h Active PredniSONE 20 mg Orally Once a day 2 tablet 24h May, Jun, 6 days Active Proventil HFA 108 (90 Base) MCG/ACT Inhalation every 4 hrs while awake 2 puffs May, 07 days Active RESULTS Name Result Date Reference Range Xray : Chest (PA lateral) PROCEDURES Procedure Date Ordered Related Diagnosis Body Site NEBULIZER TREATMENT 2016-05-28 N/A ALBUTEROL UNIT DOSE FORM INHALED 2016-05-28 N/A NEB/MDI RX INITIAL May 28, 2016 ALBUTEROL INHAL UNIT DOSE 1 MG May 28, 2016 Office Visit, Est Pt., Level 3 May 28, 2016 IMMUNIZATIONS No Known Immunizations
--- OUTSIDE RECORDS SUMMARY | 2018-06-17 11:34 | XMS REPORT ---
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 Role Phone NILDA CASON Unavailable PROBLEMS Type Condition ICD9-CM Code AZF27-MA Code Onset Dates Condition Status SNOMED Code Problem S/P coronary artery stent placement Z95.5 Active 541368264 Problem Anxiety F41.9 Active 68140015 Problem Anxiety about health F41.8 Active 367682406 Problem Graves disease E05.00 Active 391314492 Problem Enlarged thyroid E01.0 Active 18493085 Problem History of ME (myocardial infarction) I25.2 Active 525981271 Problem Low back pain M54.5 Active 697094590 Problem Thyroid nodule E04.1 Active 450554946 Problem Dyslipidemia E78.5 Active 983966383 Problem Hyperthyroidism E05.90 Active 59234581 Problem Major depressive disorder, recurrent, moderate F33.1 Active 08252645 Problem Bronchiolitis J21.9 Active 6540075 Problem Sleeping difficulty G47.9 Active 906960640 Problem Essential hypertension, hypertension with unspecified goal I10 Active 77196275 Problem History of ST elevation myocardial infarction (STEMI) I25.2 Active [id number] Problem Cervicalgia M54.2 Active 01234620 Problem Coronary artery disease involving chicken ranch heart, angina presence unspecified, unspecified vessel or lesion type I25.10 Active 98041275 ALLERGIES No Information ENCOUNTERS Encounter Location Date Diagnosis [facility] [address] [id number] [id number] Dec, [facility] [address] [id number] [place] [id number] Oct, [facility] [address] [facility] [id number] [id number] Oct, Acute non-recurrent frontal sinusitis J01.10 [facility] [address], [place] [address] Oct, Graves disease E05.00 [facility] [address] [address] September, Major depressive disorder, recurrent, moderate F33.1 [facility] [address] [place] [address] September, Graves disease E05.00 and Major depressive disorder, recurrent, moderate F33.1 [facility] [id number] [place] [id number] Aug, [facility] [address] [id number] [place] [id number] Aug, Graves disease E05.00 [facility] [address] [id number] [id number] Aug, Dental caries K02.9 [facility] [address] [place] [address] Aug, Major depressive disorder, recurrent, moderate F33.1 [facility] [address] [place] [address] Aug, Major depressive disorder, recurrent, moderate F33.1 and Graves disease E05.00 [facility] [address] [address] Jul, Graves disease E05.00 [facility] [address] [address] Jul, Major depressive disorder, recurrent, moderate F33.1 [facility] [address] [id number] [id number] Jul, Dental examination Z01.20 [facility] [address] [id number] [id number] Jul, Dental examination Z01.20 [facility] [place] [id number] [place] [id number] Jul, Major depressive disorder, recurrent, moderate F33.1 ; Anxiety F41.9 ; Graves disease E05.[address] elevation myocardial infarction (STEMI) I25.2 [facility] [address] [address] Jul, Major depressive disorder, recurrent, moderate F33.1 [place] [address] [address] Jun, Major depressive disorder, recurrent, moderate F33.1 [facility] [address] [id number] Jun, Graves disease E05.[address] [id number] Jun, Influenza A J10.1 [facility] [address] [address] May, Chest wall pain R07.89 [facility] [address] [address] May, Major depressive disorder, recurrent, moderate F33.1 [place] [address] [address] May, Graves disease E05.00 and Major depressive disorder, recurrent, moderate F33.1 [place] [id number] [place] [id number] May, Anxiety F41.9 and Graves disease E05.00 [facility] [address] [address] Apr, Major depressive disorder, recurrent, moderate F33.1 and Graves disease E05.[address] [id number] Apr, Anxiety F41.9 [place] [address] [address] Apr, Major depressive disorder, recurrent, moderate F33.1 [place] [address] [place] [address] Apr, Graves disease E05.00 ; Anxiety F41.9 ; S/P coronary artery stent placement Z95.5 ; Dyslipidemia E78.5 ; History of ME (myocardial infarction) I25.2 ; Hypokalemia E87.6 ; High risk medication use Z79.899 and Controlled substance agreement signed Z79.899 [place] [id number] [place] [id number] Mar, Atypical mole D22.[address] [id number] Mar, Graves disease E05.00 ; Anxiety F41.9 ; S/P coronary artery stent placement Z95.5 ; Dyslipidemia E78.5 ; History of ME (myocardial infarction) I25.2 ; Hypokalemia E87.6 and Encounter for immunization Z23 [place] [id number] [place] [id number] Jan, Anxiety F41.9 [place] [id number] [place] [address] [id number] Nov, Anxiety F41.9 [place] [id number] [place] [address] [id number] Nov, Hyperthyroidism E05.90 ; Anxiety F41.9 ; Enlarged thyroid E01.0 ; Right sided abdominal pain R10.9 ; Thyroid nodule E04.1 ; Dyslipidemia E78.[address] elevation myocardial infarction (STEMI) I25.2 [place] [id number] [place] [address] [id number] Nov, Hyperthyroidism E05.90 ; Enlarged thyroid E01.0 and Thyroid nodule E04.1 [place] [id number] [place] [id number] Oct, [place] [id number] [place] [address] [id number] Oct, Hyperthyroidism E05.90 [place] [id number] [place] [id number] Oct, Anxiety F41.9 ; Right sided abdominal pain R10.9 ; Dyslipidemia E78.[address] elevation myocardial infarction (STEMI) I25.2 [facility] [id number] [place] [id number] September, Coronary artery disease involving chicken ranch heart, angina presence unspecified, unspecified vessel or lesion type I25.10 ; Anxiety F41.9 ; History of ST elevation myocardial infarction (STEMI) I25.2 and Low back pain M54.5 [place] [id number] [place] [address] [id number] September, RLQ abdominal pain R10.31 and Diarrhea, unspecified type R19.7 [place] [id number] [place] [address] [id number] Aug, Coronary artery disease involving chicken ranch heart, angina presence unspecified, unspecified vessel or lesion type I25.10 ; Anxiety F41.9 ; Anxiety about health F41.8 ; History of ST elevation myocardial infarction (STEMI) I25.2 and S/P coronary artery stent placement Z95.5 [address] [place] [id number] Jul, [place] [id number] [place] [address] [id number] Jul, Nonintractable headache, unspecified chronicity pattern, unspecified headache type R51 and Sleeping difficulty G47.[address] [place] [address] [id number] Jul, Essential hypertension, hypertension with unspecified goal I10 [address] [place] [address] [id number] Jun, Essential hypertension, hypertension with unspecified goal I10 and Cervicalgia M54.2 [place] [address] [facility] [address] [id number] [id number] May, Bronchiolitis J21.9 and Essential hypertension, hypertension with unspecified goal I10 [id number] [place] [address] [id number] Mar, [address] [place] [address] [id number] Mar, Cervical stenosis of spinal canal M48.02 and Foraminal stenosis of cervical region M99.81 [facility] [place] [address] [id number] [place] [id number] Mar, [facility] [address] [facility] [id number] [place] [address] Mar, [facility] [place] [address] [id number] [place] [id number] Mar, Cervicalgia M54.2 [facility] [place] [address] [id number] [place] [id number] Mar, [facility] [place] [address] [id number] [place] [id number] Jan, [facility] [place] [address] [id number] [place] [id number] Dec, [facility] [place] [address] [id number] [place] [id number] Dec, [facility] [place] [address] [id number] [place] [id number] Dec, Cervicalgia M54.2 [facility] [place] [address] [facility] [address] [id number] [place] [id number] Nov, Cervicalgia M54.2 [facility] [place] [address] [id number] [place] [id number] Nov, Cervicalgia M54.2 [facility] [place] [address] [id number] [place] [id number] Oct, Cervicalgia M54.2 and Essential hypertension, hypertension with unspecified goal I10 [facility] [place] [address] [id number] [place] [id number] Oct, [facility] [place] [address] [id number] [place] [id number] Aug, Cervicalgia M54.2 [facility] [place] [address] [id number] [place] [id number] Aug, [facility] [place] [address] [id number] [place] [id number] Aug, Headache R51 and Essential hypertension, hypertension with unspecified goal I10 [facility] [place] [address] [id number] [place] [id number] Jul, [facility] [place] [facility] [address] [facility] [id number] [place] [address] Aug, [facility] [place] [facility] [address] [facility] [id number], [place] [address] Aug, [facility] [place] [facility] [address] [facility] [id number], [place] [address] Mar, [facility] [place] [facility] [address] [facility] [id number], [place] [address] Mar, [facility] [place] [facility] [address] [facility] [id number] [place] [address] Dec, [facility] [place] [address] [facility] [id number] [place] [id number] Dec, [facility] [place] [address] [facility] [id number] [place] [id number] Aug, [facility] [place] [facility] [address] [facility] [id number], [place] [address] Aug, [facility] [place] [facility] [address] [facility] [id number], [place] [address] Jul, [facility] [place] [facility] [address] [facility] [id number], [place] [address] Jul, [facility] [place] [address] [facility] [id number] [place]INGS[place] [id number] Dec, [facility] [place] [address] [facility] [id number] [place] [id number] Apr, [facility] [place] [facility] [address] [facility] [id number], [place] [address] Apr, [facility] [place] [facility] [address] [facility] [id number], [place] [address] Mar, [facility] [place] [address] [facility] [id number] [place] [id number] Mar, [facility] [place] [address] [facility] [id number] [place] [id number] Oct, [facility] [place] [facility] [address], [place] [address] Oct, [facility] [address] [place] [address] [id number] [place] [id number] Oct, [facility] [address] [place] [address] [id number] [place] [id number] September, [facility] [address] [place] [address] [id number] [place] [id number] Jul, [facility] [id number] [place] [id number] Jun, [facility] [address] [place] [address] [id number] [place] [id number] Jun, [facility] [address] [place] [id number] [place] [address] May, [facility] [address] [id number] [place] [address] May, [facility] [address] [id number] [place] [address]- [address] May, [facility] [address], [place] [address] May, [facility] [address], [place] [address] Dec, IMMUNIZATIONS No Known Immunizations SOCIAL HISTORY Never Assessed REASON FOR VISIT Medication refill request PLAN OF CARE VITAL SIGNS MEDICATIONS Medication [...] stenosis repair, hardware placed by at [address] 07/2016 Surgical History Acute STEMI, heart cath performed-balloon stent to RCA, stent Mid LAD 08/2016 Hospitalization History [facility] STEMI, Cardiogenic shock, increased LFTS 08/2016 Hospitalization History inpatient psych [place] after OD after losing baby 2010
--- OUTSIDE RECORDS SUMMARY | 2018-06-17 11:34 | XMS REPORT ---
Author Author NILDA CASON [facility] Address [address] [place] [address] Care Team Providers Care Clinical Outcomes Manager Name Role Phone NILDA CASON Unavailable PROBLEMS Type Condition ICD9-CM Code RRC41-SQ Code Onset Dates Condition Status SNOMED Code Problem S/P coronary artery stent placement Z95.5 Active 348233296 Problem Anxiety F41.9 Active 08590890 Problem Anxiety about health F41.8 Active 802379352 Problem Graves disease E05.00 Active 343333029 Problem Enlarged thyroid E01.0 Active 36454930 Problem History of [place] (myocardial infarction) I25.2 Active 740990391 Problem Low back pain M54.5 Active 788408453 Problem Thyroid nodule E04.1 Active 640169129 Problem Dyslipidemia E78.5 Active 290235350 Problem Hyperthyroidism E05.90 Active 51679563 Problem Major depressive disorder, recurrent, moderate F33.1 Active 92865426 Problem Bronchiolitis J21.9 Active 1317426 Problem Sleeping difficulty G47.9 Active 026026493 Problem Essential hypertension, hypertension with unspecified goal I10 Active 92410215 Problem History of ST elevation myocardial infarction (STEMI) I25.2 Active 581748192777272 Problem Cervicalgia M54.2 Active 38858539 Problem Coronary artery disease involving cl[place]dale heart, angina presence unspecified, unspecified vessel or lesion type I25.10 Active 47453339 ALLERGIES No Known Allergies ENCOUNTERS Encounter Location Date Diagnosis [facility] [address] [facility] [id number] [address] Oct, [facility] [address] [id number] [address] Oct, [facility] [address] [id number] [address] Oct, Graves disease E05.00 [facility] [address] [address] September, Major depressive disorder, recurrent, moderate F33.1 [facility] [address] [place] [address] September, Graves disease E05.00 and Major depressive disorder, recurrent, moderate F33.1 [facility] [id number] [place] [id number] Aug, [facility] [id number] [place] [address] [id number] Aug, Graves disease E05.00 [facility] [address] [facility] [id number] [id number] Aug, Dental caries K02.9 [place] [place] [address] [address] Aug, Major depressive disorder, recurrent, moderate F33.1 [place] [address] [address] Aug, Major depressive disorder, recurrent, moderate F33.1 and Graves disease E05.00 [place] [address] [address] Jul, Graves disease E05.00 [place] [address] [address] Jul, Major depressive disorder, recurrent, moderate F33.1 [facility] [address] [facility] [id number] [id number] Jul, Dental examination Z01.20 [facility] [address] [id number] [id number] Jul, Dental examination Z01.20 [facility] [address] [id number] [id number] Jul, Major depressive disorder, recurrent, moderate F33.1 ; Anxiety F41.9 ; Graves disease E05.[address] elevation myocardial infarction (STEMI) I25.2 [facility] [id number] [place] [address] Jul, Major depressive disorder, recurrent, moderate F33.1 [facility] [id number] [place] [address] Jun, Major depressive disorder, recurrent, moderate F33.1 [place] [id number] [place] [address] [id number] Jun, Graves disease E05.00 [facility] [id number] [place] [address] [id number] Jun, Influenza A J10.1 [facility] [address] [address] May, Chest wall pain R07.89 [facility] [address] [address] May, Major depressive disorder, recurrent, moderate F33.1 [facility] [id number] [place] [address] May, Graves disease E05.00 and Major depressive disorder, recurrent, moderate F33.1 [place] [id number] [place] [address] [id number] May, Anxiety F41.9 and Graves disease E05.00 [facility] [id number] [place] [address] Apr, Major depressive disorder, recurrent, moderate F33.1 and Graves disease E05.00 [place] [id number] [place] [address] [id number] Apr, Anxiety F41.9 [place] [address] [address] Apr, Major depressive disorder, recurrent, moderate F33.1 [address] [place] [address] [id number] Apr, Graves disease E05.00 ; Anxiety F41.9 ; S/P coronary artery stent placement Z95.5 ; Dyslipidemia E78.5 ; History of [place] (myocardial infarction) I25.2 ; Hypokalemia E87.6 ; High risk medication use Z79.899 and Controlled substance agreement signed Z79.899 [place] [id number] [place] [address] [id number] Mar, Atypical mole D22.[address] [id number] Mar, Graves disease E05.00 ; Anxiety F41.9 ; S/P coronary artery stent placement Z95.5 ; Dyslipidemia E78.5 ; History of IN (myocardial infarction) I25.2 ; Hypokalemia E87.6 and Encounter for immunization Z23 [place] [id number] [place] [address] [id number] Jan, Anxiety F41.[address] [id number] Nov, Anxiety F41.[address] [id number] Nov, Hyperthyroidism E05.90 ; Anxiety F41.9 ; Enlarged thyroid E01.0 ; Right sided abdominal pain R10.9 ; Thyroid nodule E04.1 ; Dyslipidemia E78.[address] elevation myocardial infarction (STEMI) I25.2 [place] [id number] [place] [address] [id number] Nov, Hyperthyroidism E05.90 ; Enlarged thyroid E01.0 and Thyroid nodule E04.1 [place] [id number] [place] [address] [id number] Oct, [place] [id number] [place] [address] [id number] Oct, Hyperthyroidism E05.[address] [id number] Oct, Anxiety F41.9 ; Right sided abdominal pain R10.9 ; Dyslipidemia E78.[address] elevation myocardial infarction (STEMI) I25.2 [place] [id number] [place] [id number] September, Coronary artery disease involving clover[place] heart, angina presence unspecified, unspecified vessel or lesion type I25.10 ; Anxiety F41.9 ; History of ST elevation myocardial infarction (STEMI) I25.2 and Low back pain M54.5 [place] [id number] [place] [address] [id number] September, RLQ abdominal pain R10.31 and Diarrhea, unspecified type R19.7 [place] [id number] [place] [address] [id number] Aug, Coronary artery disease involving cl[place] heart, angina presence unspecified, unspecified vessel or lesion type I25.10 ; Anxiety F41.9 ; Anxiety about health F41.8 ; History of ST elevation myocardial infarction (STEMI) I25.2 and S/P coronary artery stent placement Z95.5 [place] [id number] [place] [id number] Jul, [address] [id number] Jul, Nonintractable headache, unspecified chronicity pattern, unspecified headache type R51 and Sleeping difficulty G47.9 [place] [id number] [place] [address] [id number] Jul, Essential hypertension, hypertension with unspecified goal I10 [place] [id number] [place] [address] [id number] Jun, Essential hypertension, hypertension with unspecified goal I10 and Cervicalgia M54.[address] [id number] [id number] May, Bronchiolitis J21.9 and Essential hypertension, hypertension with unspecified goal I10 [place] [id number] [place] [address] [id number] Mar, [place] [id number] [place] [address] [id number] Mar, Cervical stenosis of spinal canal M48.02 and Foraminal stenosis of cervical region M99.81 [place] [id number] [place] [address] [id number] Mar, [facility] [address] [facility] [id number] [address] Mar, [facility] [address] [id number] [place] [id number] Mar, Cervicalgia M54.2 [facility] [address] [id number] [place] [id number] Mar, [facility] [address] [id number] [place] [id number] Jan, [facility] [address] [id number] [place] [id number] Dec, [facility] [address] [id number] [place] [id number] Dec, [facility] [address] [id number] [place] [id number] Dec, Cervicalgia M54.2 [facility] [address]65[place] [id number] Nov, Cervicalgia M54.2 [facility] [address] [id number] [place] [id number] Nov, Cervicalgia M54.2 [facility] [address] [id number] [place] [id number] Oct, Cervicalgia M54.2 and Essential hypertension, hypertension with unspecified goal I10 [facility] [address] [id number] [id number] Oct, [facility] [address] [id number] [place] [id number] Aug, Cervicalgia M54.2 [facility] [address] [id number] [place] [id number] Aug, [facility] [address] [id number] [place] [id number] Aug, Headache R51 and Essential hypertension, hypertension with unspecified goal I10 [facility] [address] [id number][place] [id number] Jul, [facility] [address] [id number] [address] Aug, [facility] [address] [id number] [place] [address] Aug, [facility] [address] [id number] [place] [address] Mar, [facility] [address] [facility] [id number] [place] [address] Mar, [facility] [address] [id number] [place] [address] Dec, [facility] [address] [id number] [place] [id number] Dec, [facility] [address] [id number] [place] [id number] Aug, [facility] [address] [facility] [id number] [place] [address] Aug, [facility] [address] [facility] [id number] [place] [address] Jul, [facility] [address] [id number] [place] [address] Jul, [facility] [address] [id number][place] [id number] Dec, [facility] [address] [id number][place] [id number] Apr, [facility] [place] [facility] [address] [facility] [id number] [place] [address] Apr, [facility] [place] [facility] [address] [id number] [address] Mar, [facility] [address] [id number] [place] [id number] Mar, [facility] [address] [id number] [place] [id number] Oct, [facility] [place] [facility] [address] [id number] [place] [address] Oct, [facility] [address] [facility] [id number][place] [id number] Oct, [facility] [address] [facility] [id number][place] [id number] September, [facility] [address] [id number] [id number] Jul, [facility] [address] [id number] [id number] Jun, [facility] [id number], [place] [id number] Jun, [facility] [address] [address] May, [facility] [id number] [place] [address] May, [facility] [address] [place] [address] May, [facility] [address] [id number] [address] May, [facility] [address] [address] Dec, IMMUNIZATIONS No Known Immunizations SOCIAL HISTORY Never Assessed REASON FOR VISIT Mole Removal Ruddy LÓPEZ PLAN OF CARE Activity Details Follow Up prn Reason: VITAL SIGNS Height 63.75 in 2017-03-18 Weight 140 lbs 2017-03-18 Temperature 97 degrees Fahrenheit 2017-03-18 Heart Rate 80 bpm 2017-03-18 Respiratory Rate 16 2017-03-18 BMI 24.22 kg/m2 2017-03-18 Blood pressure systolic 122 mmHg 2017-03-18 Blood pressure diastolic 70 mmHg 2017-03-18 MEDICATIONS Medication Instructions Dosage Frequency Start Date End Date Duration Status Nitroglycerin 0.4 MG Not-Taking Lorazepam 1 MG Orally every 6 hrs as needed for anxiety/panic 1 tablet 0 days Active Aspir-81 81 MG Orally Once a day 1 tablet 24h Active Atorvastatin Calcium 20 MG Orally Once a day 1 tablet 24h Active Toprol XL 25 MG Orally Once a day at bedtime 1 tablet Active Propylthiouracil 50 mg Orally 3 times a day 2 tablets 8h Active Potassium Chloride ER 20 MEQ Orally Once a day 1 tablet with food 24h Active Sotalol HCl 80 MG Orally every 12 hrs 1/2 tablet 12h Active Plavix 75 MG Orally Once a day 1 tablet 24h Active Zoloft 50 MG Orally Once a day 1 tablet 24h Active RESULTS Name Result Date Reference Range PATHOLOGY REPORT (TISSUE PAHOLOGY) 2017-03-18 CLINICAL INFORMATION PATHOLOGIST TISSUE, SPECIMEN A 2017-03-18 A SOURCE A GROSS DESCRIPTION A DIAGNOSIS A COMMENT PROCEDURES No Known procedures INSTRUCTIONS MEDICATIONS ADMINISTERED [...] Cervical stenosis repair, hardware placed by at [email or web address] 07/2016 Surgical History Acute STEMI, heart cath performed-balloon stent to RCA, stent Mid LAD 08/2016 Hospitalization History [facility] STEMI, Cardiogenic shock, increased LFTS 08/2016 Hospitalization History inpatient psych [facility] after OD after losing baby 2009
--- OUTSIDE RECORDS SUMMARY | 2018-06-17 11:34 | XMS REPORT ---
Author PATY Brannon [facility] eClinicalWorks Address Unknown Phone Unavailable Care Team Providers Care Drier Feeder Name Role Phone PATY DIETZ CP Unavailable Allergies No Known Allergies Problems Problem Type Condition Code Onset Dates Condition Status Problem Essential hypertension, hypertension with unspecified goal I10 Active Problem Other and unspecified hyperlipidemia 272.4 Active Problem Cervicalgia M54.2 Active Problem Polycystic ovaries 256.4 Active Assessment Cervicalgia M54.2 Active Medications No Known Medications Procedures Procedure Coding System Code Date X-RAY EXAM OF NECK SPINE CPT-4 86034 December 14, 2015 Results No Known Results Summary Purpose eClinicalWorks Submission
--- OUTSIDE RECORDS SUMMARY | 2018-06-17 11:34 | XMS REPORT ---
Author Author NILDA CASON [facility] Address [address] [place] [address] Care Team Providers Care Button Station Worker Name Role Phone NILDA CASON Unavailable PROBLEMS Type Condition ICD9-CM Code OIM80-YV Code Onset Dates Condition Status SNOMED Code Problem S/P coronary artery stent placement Z95.5 Active 311488323 Problem Anxiety F41.9 Active 64811395 Problem Anxiety about health F41.8 Active 700683492 Problem Graves disease E05.00 Active 752627564 Problem Enlarged thyroid E01.0 Active 60808815 Problem History of [place] (myocardial infarction) I25.2 Active 341078717 Problem Low back pain M54.5 Active 722382076 Problem Thyroid nodule E04.1 Active 895205851 Problem Dyslipidemia E78.5 Active 261287498 Problem Hyperthyroidism E05.90 Active 51250469 Problem Major depressive disorder, recurrent, moderate F33.1 Active 42477597 Problem Bronchiolitis J21.9 Active 3611440 Problem Sleeping difficulty G47.9 Active 106442076 Problem Essential hypertension, hypertension with unspecified goal I10 Active 27212202 Problem History of ST elevation myocardial infarction (STEMI) I25.2 Active 454004405171186 Problem Cervicalgia M54.2 Active 91652072 Problem Coronary artery disease involving [place] heart, angina presence unspecified, unspecified vessel or lesion type I25.10 Active 89130300 ALLERGIES No Known Allergies ENCOUNTERS Encounter Location Date Diagnosis [facility] [address] [facility] [id number] [address] Oct, [facility] [address] [id number], [place] [address] Oct, [facility] [address] [id number], [place] [address] Oct, Graves disease E05.00 [facility] [address], [place] [address] September, Major depressive disorder, recurrent, moderate F33.1 [facility] [address] [place] [address] September, Graves disease E05.00 and Major depressive disorder, recurrent, moderate F33.1 [facility] [id number] [place] [id number] Aug, [facility] [id number] [place] [id number] Aug, Graves disease E05.00 [facility] [address] [id number] [id number] Aug, Dental caries K02.9 [place] [address], [place] [address] Aug, Major depressive disorder, recurrent, moderate F33.1 [place] [address], [place] [address] Aug, Major depressive disorder, recurrent, moderate F33.1 and Graves disease E05.00 [place] [address], [place] [address] Jul, Graves disease E05.00 [place] [address], [place] [address] Jul, Major depressive disorder, recurrent, moderate F33.1 [facility] [address] [id number] [id number] Jul, Dental examination Z01.20 [facility] [address] [id number] [id number] Jul, Dental examination Z01.20 [facility] [address] [id number] [id number] Jul, Major depressive disorder, recurrent, moderate F33.1 ; Anxiety F41.9 ; Graves disease E05.[address] elevation myocardial infarction (STEMI) I25.2 [facility] [id number] [place] [address] Jul, Major depressive disorder, recurrent, moderate F33.1 [facility] [id number] [place] [address] Jun, Major depressive disorder, recurrent, moderate F33.1 [place] [id number] [place] [address] [id number] Jun, Graves disease E05.00 [facility] [id number] [place] [address] [id number] Jun, Influenza A J10.1 [facility] [address] [address] May, Chest wall pain R07.89 [facility] [address] [address] May, Major depressive disorder, recurrent, moderate F33.1 [facility] [id number] [place] [address] May, Graves disease E05.00 and Major depressive disorder, recurrent, moderate F33.1 [place] [id number] [place] [address] [id number] May, Anxiety F41.9 and Graves disease E05.00 [facility] [id number] [place] [address] Apr, Major depressive disorder, recurrent, moderate F33.1 and Graves disease E05.00 [address] [id number] [place] [address] [id number] Apr, Anxiety F41.9 [place] [address] [address] Apr, Major depressive disorder, recurrent, moderate F33.1 [address] [place] [address] [id number] Apr, Graves disease E05.00 ; Anxiety F41.9 ; S/P coronary artery stent placement Z95.5 ; Dyslipidemia E78.5 ; History of [place] (myocardial infarction) I25.2 ; Hypokalemia E87.6 ; High risk medication use Z79.899 and Controlled substance agreement signed Z79.899 [address] [id number] [place] [id number] Mar, Atypical mole D22.[address] [id number] Mar, Graves disease E05.00 ; Anxiety F41.9 ; S/P coronary artery stent placement Z95.5 ; Dyslipidemia E78.5 ; History of [place] (myocardial infarction) I25.2 ; Hypokalemia E87.6 and Encounter for immunization Z23 [place] [id number] [place] [address] [id number] Jan, Anxiety F41.[address] [id number] Nov, Anxiety F41.[address] [id number] Nov, Hyperthyroidism E05.90 ; Anxiety F41.9 ; Enlarged thyroid E01.0 ; Right sided abdominal pain R10.9 ; Thyroid nodule E04.1 ; Dyslipidemia E78.[address] elevation myocardial infarction (STEMI) I25.2 [place] [id number] [place] [address] [id number] Nov, Hyperthyroidism E05.90 ; Enlarged thyroid E01.0 and Thyroid nodule E04.1 [address] [address] [place] [address] [id number] Oct, [place] [address] [place] [address] [id number] Oct, Hyperthyroidism E05.[address] [id number] Oct, Anxiety F41.9 ; Right sided abdominal pain R10.9 ; Dyslipidemia E78.[address] elevation myocardial infarction (STEMI) I25.2 [address] [address] [place] [address] [id number] September, Coronary artery disease involving [place] heart, angina presence unspecified, unspecified vessel or lesion type I25.10 ; Anxiety F41.9 ; History of ST elevation myocardial infarction (STEMI) I25.2 and Low back pain M54.5 [place] [id number] [place] [address] [id number] September, RLQ abdominal pain R10.31 and Diarrhea, unspecified type R19.7 [place] [id number] [place] [address] [id number] Aug, Coronary artery disease involving [place] heart, angina presence unspecified, unspecified vessel or lesion type I25.10 ; Anxiety F41.9 ; Anxiety about health F41.8 ; History of ST elevation myocardial infarction (STEMI) I25.2 and S/P coronary artery stent placement Z95.5 [address] [id number] [place] [address] [id number] Jul, [address] [id number] Jul, Nonintractable headache, unspecified chronicity pattern, unspecified headache type R51 and Sleeping difficulty G47.9 [place] [address] [place] [address] [id number] Jul, Essential hypertension, hypertension with unspecified goal I10 [address] [address] [place] [address] [id number] Jun, Essential hypertension, hypertension with unspecified goal I10 and Cervicalgia M54.[address] [id number] [id number] May, Bronchiolitis J21.9 and Essential hypertension, hypertension with unspecified goal I10 [address] [address] [place] [address] [id number] Mar, [address] [address] [place] [address] [id number] Mar, Cervical stenosis of spinal canal M48.02 and Foraminal stenosis of cervical region M99.81 [place] [address] [place] [address] [id number] Mar, [facility] [address] [facility] [id number], [place] [address] Mar, [facility] [address] [id number] [place] [id number] Mar, Cervicalgia M54.2 [facility] [address] [id number] [place] [id number] Mar, [facility] [address] [id number] [place] [id number] Jan, [facility] [address] [id number] [place] [id number] Dec, [facility] [address] [id number] [place] [id number] Dec, [facility] [address] [id number] [place] [id number] Dec, Cervicalgia M54.2 [facility] [address] [id number] Nov, Cervicalgia M54.2 [facility] [address] [id number] [place] [id number] Nov, Cervicalgia M54.2 [facility] [address] [id number] [place] [id number] Oct, Cervicalgia M54.2 and Essential hypertension, hypertension with unspecified goal I10 [facility] [address] [id number] [id number] Oct, [facility] [address] [id number] [place] [id number] Aug, Cervicalgia M54.2 [facility] [address] [id number] [place] [id number] Aug, [facility] [address] [id number] [place] [id number] Aug, Headache R51 and Essential hypertension, hypertension with unspecified goal I10 [facility] [address] [id number][place] [id number] Jul, [facility] [address] [id number], [place] [address] Aug, [facility] [address] [id number] [place] [address] Aug, [facility] [address] [id number] [place] [address] Mar, [facility] [address] [facility] [id number] [place] [address] Mar, [facility] [address] [id number] [place] [address] Dec, [facility] [address] [id number] [place] [id number] Dec, [facility] [address] [id number] [place] [id number] Aug, [facility] [address] [facility] [id number] [place] [address] Aug, [facility] [address] [facility] [id number], [place] [address] Jul, [facility] [address] [id number], [place] [address] Jul, [facility] [address] [id number][place] [id number] Dec, [facility] [address] [id number][place] [id number] Apr, [facility] [place] [facility] [address] [facility] [id number], [place] [address] Apr, [facility] [place] [facility] [address] [id number], [place] [address] Mar, [facility] [address] [id number] [place] [id number] Mar, [facility] [address] [id number] [place] [id number] Oct, [facility] [place] [facility] [address] [id number] [place] [address] Oct, [facility] [address] [facility] [id number][place] [id number] Oct, [facility] [address] [facility] [id number][place] [id number] September, [facility] [address] [id number] [id number] Jul, [facility] [address] [id number][place] [id number] Jun, [facility] [id number] [id number] Jun, [facility] [id number] [place] [address] May, [facility] [id number] [place] [address] May, [facility] [id number] [place] [address] May, [facility] [id number] [place] [address]- [address] May, [facility] [address], [place] [address] Dec, IMMUNIZATIONS No Known Immunizations SOCIAL HISTORY Never Assessed REASON FOR VISIT 1 month follow up on anxiety. Doing well. juan Gunter PLAN OF CARE Activity Details Follow Up 2 Months Reason:CHM Anxiety VITAL SIGNS Height 63.75 in 2017-05-19 Weight 148.6 lbs 2017-05-19 Temperature 98.5 degrees Fahrenheit 2017-05-19 Heart Rate 72 bpm 2017-05-19 Respiratory Rate 16 2017-05-19 BMI 25.70 kg/m2 2017-05-19 Blood pressure systolic 120 mmHg 2017-05-19 Blood pressure diastolic 76 mmHg 2017-05-19 MEDICATIONS Medication Instructions Dosage Frequency Start Date End Date Duration Status Sotalol HCl 80 MG Orally every 12 hrs 1/2 tablet 12h Active Propylthiouracil 50 mg Orally 3 times a day 4 tablets 8h Active Potassium Chloride ER 20 MEQ Orally Once a day 1 tablet with food 24h Active Zoloft 100 MG Orally Once a day 1.5 tablets 24h Active Toprol XL 25 MG Orally Once a day at bedtime 1 tablet Active Aspir-81 81 MG Orally Once a day 1 tablet 24h Active Atorvastatin Calcium 20 MG Orally Once a day 1 tablet 24h Active Nitroglycerin 0.4 MG Active Plavix 75 MG Orally Once a day 1 tablet 24h Active Lorazepam 1 MG Orally every 6 hrs as needed for anxiety/panic 1 tablet Active RESULTS No Results PROCEDURES [...] Cervical stenosis repair, hardware placed by at [address] 07/2016 Surgical History Acute STEMI, heart cath performed-balloon stent to RCA, stent Mid LAD 08/2016 Hospitalization History [facility] STEMI, Cardiogenic shock, increased LFTS 08/2016 Hospitalization History inpatient psych [facility] after OD after losing baby 2009
--- OUTSIDE RECORDS SUMMARY | 2018-06-17 11:34 | XMS REPORT ---
Author Author MESSI MORALES Organization [employer] Address Unknown Phone Unavailable Care Team Providers Care Air Quality Instrument Specialist Name Role Phone MESSI MORALES CP Unavailable Allergies No Known Allergies Problems Problem Type Condition Code Onset Dates Condition Status Problem Pediatric pre- visit for expectant mother V65.11 Active Problem Other and unspecified hyperlipidemia 272.4 Active Problem Essential hypertension, hypertension with unspecified goal I10 Active Problem Other acute sinusitis 461.8 Active Problem Hordeolum externum 373.11 Active Problem Polycystic ovaries 256.4 Active Problem Periapical abscess without sinus 522.5 Active Medications Medication Code System Code Instructions Start Date End Date Status Dosage Ibuprofen [facility] [address]-00 800 MG Orally Three times a day September 04, 2015 1 tablet Results No Known Results Summary Purpose [employer] Submission
--- OUTSIDE RECORDS SUMMARY | 2018-06-17 11:35 | XMS REPORT ---
Author Author HALEY KEVIN Organization [facility] Address [address] [place] [address] Care Team Providers Care Trans Router Name Role Phone HALEY KEVIN Unavailable PROBLEMS Type Condition ICD9-CM Code PSD84-BT Code Onset Dates Condition Status SNOMED Code Problem S/P coronary artery stent placement Z95.5 Active 868015597 Problem Anxiety F41.9 Active 78327124 Problem Anxiety about health F41.8 Active 451808346 Problem Graves disease E05.00 Active 431488928 Problem Enlarged thyroid E01.0 Active 95331824 Problem History of [place] (myocardial infarction) I25.2 Active 340790289 Problem Low back pain M54.5 Active 127269319 Problem Thyroid nodule E04.1 Active 580328055 Problem Dyslipidemia E78.5 Active 917671584 Problem Hyperthyroidism E05.90 Active 23964390 Problem Major depressive disorder, recurrent, moderate F33.1 Active 93776714 Problem Bronchiolitis J21.9 Active 7822786 Problem Sleeping difficulty G47.9 Active 071883812 Problem Essential hypertension, hypertension with unspecified goal I10 Active 84858485 Problem History of ST elevation myocardial infarction (STEMI) I25.2 Active 275514210134276 Problem Cervicalgia M54.2 Active 45116281 Problem Coronary artery disease involving chalkyitsik heart, angina presence unspecified, unspecified vessel or lesion type I25.10 Active 88237023 ALLERGIES No Information ENCOUNTERS Encounter Location Date Diagnosis [facility] [address] [id number] [id number] Dec, [facility] [address] [facility] [id number], [place] [address] Oct, [facility] [address] [facility] [id number], [place] [address] Oct, [facility] [id number] [id number] Oct, Acute non-recurrent frontal sinusitis J01.10 [facility] [address] [address] Oct, Graves disease E05.00 [facility] [address] [address] September, Major depressive disorder, recurrent, moderate F33.1 [facility] [address] [place] [address] September, Graves disease E05.00 and Major depressive disorder, recurrent, moderate F33.1 [facility] [id number] [place] [id number] Aug, [facility] [address] [place] [address] [id number] Aug, Graves disease E05.00 [facility] [address] [id number] [id number] Aug, Dental caries K02.9 [facility] [address] [address] Aug, Major depressive disorder, recurrent, moderate F33.1 [facility] [address] [address] Aug, Major depressive disorder, recurrent, moderate F33.1 and Graves disease E05.00 [facility] [address] [address] Jul, Graves disease E05.00 [facility] [address] [place] [address] [id number] [address] Jul, Major depressive disorder, recurrent, moderate F33.1 [facility] [address] [id number][place] [id number] Jul, Dental examination Z01.20 [facility] [address] [id number] [id number] 06 Mar, 2018 Dental examination Z01.20 [facility] [id number] [place] [address] [id number] Jul, Major depressive disorder, recurrent, moderate F33.1 ; Anxiety F41.9 ; Graves disease E05.[address] elevation myocardial infarction (STEMI) I25.2 [facility] [address] [place] [id number] [place] [address] Jul, Major depressive disorder, recurrent, moderate F33.1 [place] [address] [address] Jun, Major depressive disorder, recurrent, moderate F33.[address] [id number] Jun, Graves disease E05.[address] [id number] Jun, Influenza A J10.1 [facility] [address] [address] May, Chest wall pain R07.89 [place] [address] [address] May, Major depressive disorder, recurrent, moderate F33.1 [place] [address] [address] May, Graves disease E05.00 and Major depressive disorder, recurrent, moderate F33.1 [place] [id number] [place] [address] [id number] May, Anxiety F41.9 and Graves disease E05.00 [facility] [address] [address] Apr, Major depressive disorder, recurrent, moderate F33.1 and Graves disease E05.00 [facility] [id number] [place] [address] [id number] Apr, Anxiety F41.9 [place] [address] [address] Apr, Major depressive disorder, recurrent, moderate F33.1 [address] [place] [address] [id number] Apr, Graves disease E05.00 ; Anxiety F41.9 ; S/P coronary artery stent placement Z95.5 ; Dyslipidemia E78.5 ; History of [place] (myocardial infarction) I25.2 ; Hypokalemia E87.6 ; High risk medication use Z79.899 and Controlled substance agreement signed Z79.899 [place] [id number] [place] [address] [id number] Mar, Atypical mole D22.9 [place] [id number] [place] [address] [id number] Mar, Graves disease E05.00 ; Anxiety F41.9 ; S/P coronary artery stent placement Z95.5 ; Dyslipidemia E78.5 ; History of [place] (myocardial infarction) I25.2 ; Hypokalemia E87.6 and Encounter for immunization Z23 [place] [id number] [place] [address] [id number] Jan, Anxiety F41.9 [place] [id number] [place] [address] [id number] Nov, Anxiety F41.9 [place] [id number] [place] [address] [id number] Nov, Hyperthyroidism E05.90 ; Anxiety F41.9 ; Enlarged thyroid E01.0 ; Right sided abdominal pain R10.9 ; Thyroid nodule E04.1 ; Dyslipidemia E78.[address] elevation myocardial infarction (STEMI) I25.[address] [place] [address] [id number] Nov, Hyperthyroidism E05.90 ; Enlarged thyroid E01.0 and Thyroid nodule E04.1 [place] [id number] [place] [address] [id number] Oct, [place] [id number] [place] [address] [id number] Oct, Hyperthyroidism E05.90 [place] [id number] [place] [address] [id number] Oct, Anxiety F41.9 ; Right sided abdominal pain R10.9 ; Dyslipidemia E78.[address] elevation myocardial infarction (STEMI) I25.2 [place] [id number] [place] [address] [id number] September, Coronary artery disease involving chalkyitsik heart, angina presence unspecified, unspecified vessel or lesion type I25.10 ; Anxiety F41.9 ; History of ST elevation myocardial infarction (STEMI) I25.2 and Low back pain M54.5 [place] [id number] [place] [address] [id number] September, RLQ abdominal pain R10.31 and Diarrhea, unspecified type R19.7 [place] [id number] [place] [address] [id number] Aug, Coronary artery disease involving chalkyitsik heart, angina presence unspecified, unspecified vessel or lesion type I25.10 ; Anxiety F41.9 ; Anxiety about health F41.8 ; History of ST elevation myocardial infarction (STEMI) I25.2 and S/P coronary artery stent placement Z95.[id number] [place] [address] [id number] Jul, [place] [id number] [place] [address] [id number] Jul, Nonintractable headache, unspecified chronicity pattern, unspecified headache type R51 and Sleeping difficulty G47.9 [address] [place] [address] [id number] Jul, Essential hypertension, hypertension with unspecified goal I10 [facility] [address] [place] [address] [id number] Jun, Essential hypertension, hypertension with unspecified goal I10 and Cervicalgia M54.2 [place] [address]005[address] [id number] May, Bronchiolitis J21.9 and Essential hypertension, hypertension with unspecified goal I10 [address] [place] [address] [id number] Mar, [place] [id number] [place] [address] [id number] Mar, Cervical stenosis of spinal canal M48.02 and Foraminal stenosis of cervical region M99.81 [facility] [address] [id number] [place] [id number] Mar, [facility] [address] [id number] [place] [address] Mar, [facility] [address] [id number] [place] [id number] Mar, Cervicalgia M54.2 [facility] [address] [id number] [place] [id number] Mar, [facility] [address] [id number] [place] [id number] Jan, [facility] [address] [id number] [place] [id number] Dec, [facility] [address] [id number] [place] [id number] Dec, [facility] [address] [id number] [place] [id number] Dec, Cervicalgia M54.2 [facility] [address] [place] [id number] Nov, Cervicalgia M54.2 [facility] [address] [id number] [place] [id number] Nov, Cervicalgia M54.2 [facility] [address] [id number] [place] [id number] Oct, Cervicalgia M54.2 and Essential hypertension, hypertension with unspecified goal I10 [facility] [address] [id number] [place] [id number] Oct, [facility] [address] [id number] [place] [id number] Aug, Cervicalgia M54.2 [facility] [address] [id number] [place] [id number] Aug, [facility] [address] [id number] [place] [id number] Aug, Headache R51 and Essential hypertension, hypertension with unspecified goal I10 [facility] [address] [id number] [place] [phone] Jul, [facility] [address] [id number] [place] [address] Aug, [facility] [address] [facility] [id number] [place] Aug, [facility] [address] [facility] [id number] [place] [address] Mar, [facility] [address] [id number] [place] Mar, [facility] [address] [facility] [id number] [place] [address]- [address] Dec, [facility] [address] [id number][place] [id number] Dec, [facility] [place] [address] [id number], [place] [id number] Aug, [facility] [address] [facility] [id number] [address] Aug, [facility] [address] [facility] [id number], [place] [address] Jul, [facility] [address] [facility] [id number], [place] [address] Jul, [facility] [address] [id number], [place] [id number] Dec, [facility] [address] [id number], [place] [id number] Apr, [facility] [place] [facility] [address] [facility] [id number], [place] [address] Apr, [facility] [place] [facility] [address] [facility] [id number], [place] [address] Mar, [facility] [address] [id number], [place] [id number] Mar, [facility] [address] [id number], [place] [id number] Oct, [facility] [address] [address] Oct, [facility] [id number][place] [id number] Oct, [facility] [address] [place] [id number] [id number] September, [facility] [id number], [place] [id number] Jul, [facility] [id number], [place] [id number] Jun, [facility] [address] [place] [id number] [place] [address] [id number] Jun, [facility] [address] [place] [address] [id number] [place] [address] May, [facility] [address] [id number] [place] [address] 6[address]- [address] May, [facility] [address] [id number] [place] [address]- [address] May, [facility] [address] [id number] [place] [address] 8[address]- [address] May, [facility] [address], [place] [address] Dec, IMMUNIZATIONS No Known Immunizations SOCIAL HISTORY Never Assessed REASON FOR VISIT f/u PLAN OF CARE Activity Details Follow Up 2 Weeks, 1 hour only, Friday ashwin, 6pm Reason: VITAL SIGNS MEDICATIONS Unknown Medications RESULTS No Results PROCEDURES Procedure Date Ordered Result Body Site Psychotherapy, patient &/family, 45 minutes, established patient May 28, 2017 INSTRUCTIONS MEDICATIONS ADMINISTERED No Known Medications [...] stenosis repair, hardware placed by at [address] 07/2016 Surgical History Acute STEMI, heart cath performed-balloon stent to RCA, stent Mid LAD 08/2016 Hospitalization History [facility] STEMI, Cardiogenic shock, increased LFTS 08/2016 Hospitalization History inpatient [facility] after OD after losing baby 2009
--- OUTSIDE RECORDS SUMMARY | 2018-06-17 11:35 | XMS REPORT ---
Author Author NILDA CASON [facility] Address [address] [place] [address] Care Team Providers Care Agriculture Professor Name Role Phone NILDA CASON Unavailable PROBLEMS Type Condition ICD9-CM Code ACJ60-XU Code Onset Dates Condition Status SNOMED Code Problem S/P coronary artery stent placement Z95.5 Active 963770803 Problem Anxiety F41.9 Active 84808960 Problem Anxiety about health F41.8 Active 930853340 Problem Graves disease E05.00 Active 891435539 Problem Enlarged thyroid E01.0 Active 49334037 Problem History of [place] (myocardial infarction) I25.2 Active 845411122 Problem Low back pain M54.5 Active 270191639 Problem Thyroid nodule E04.1 Active 815400134 Problem Dyslipidemia E78.5 Active 850378865 Problem Hyperthyroidism E05.90 Active 58111695 Problem Major depressive disorder, recurrent, moderate F33.1 Active 33940644 Problem Bronchiolitis J21.9 Active 3364433 Problem Sleeping difficulty G47.9 Active 646706718 Problem Essential hypertension, hypertension with unspecified goal I10 Active 38882180 Problem History of ST elevation myocardial infarction (STEMI) I25.2 Active 733621175462862 Problem Cervicalgia M54.2 Active 16799360 Problem Coronary artery disease involving [place] heart, angina presence unspecified, unspecified vessel or lesion type I25.10 Active 59164851 ALLERGIES No Information ENCOUNTERS Encounter Location Date Diagnosis [facility] [id number] [id number] [id number] Dec, [facility] [address] [id number] [address] Oct, [facility] [address] [facility] [id number], [place] [address] Oct, [facility] [id number] [id number] Oct, Acute non-recurrent frontal sinusitis J01.10 [facility] [id number] [place] [address] Oct, Graves disease E05.00 [facility] [address] [place] [address] September, Major depressive disorder, recurrent, moderate F33.1 [facility] [address] [id number], [place] [address] September, Graves disease E05.00 and Major depressive disorder, recurrent, moderate F33.1 [facility] [address] [place] [id number] Aug, [facility] [address] [place] [address] [id number] Aug, Graves disease E05.[address] [facility] [address] [id number][place] [id number] Aug, Dental caries K02.9 [facility] [address], [place] [address] Aug, Major depressive disorder, recurrent, moderate F33.1 [facility] [address], [place] [address] Aug, Major depressive disorder, recurrent, moderate F33.1 and Graves disease E05.00 [facility] [address], [place] [address] Jul, Graves disease E05.00 [facility] [address] [id number], [place] [address] Jul, Major depressive disorder, recurrent, moderate F33.1 [facility] [address] [id number] [id number] Jul, Dental examination Z01.20 [facility] [address] [id number] [id number] Jul, Dental examination Z01.20 [facility] [id number] [place] [address] [id number] Jul, Major depressive disorder, recurrent, moderate F33.1 ; Anxiety F41.9 ; Graves disease E05.[address] elevation myocardial infarction (STEMI) I25.2 [facility] [address] [address] Jul, Major depressive disorder, recurrent, moderate F33.1 [place] [address] [address] Jun, Major depressive disorder, recurrent, moderate F33.[address] [id number] Jun, Graves disease E05.00 [facility] [address] [id number] Jun, Influenza A J10.1 [facility] [address] [address] May, Chest wall pain R07.89 [place] [address] [address] May, Major depressive disorder, recurrent, moderate F33.1 [place] [address] [address] May, Graves disease E05.00 and Major depressive disorder, recurrent, moderate F33.1 [id number] [place] [address] [id number] May, Anxiety F41.9 and Graves disease E05.00 [facility] [address] [address] Apr, Major depressive disorder, recurrent, moderate F33.1 and Graves disease E05.00 [facility] [id number] [place] [id number] Apr, Anxiety F41.9 [place] [address] [address] Apr, Major depressive disorder, recurrent, moderate F33.1 [address] [place] [address] [id number] Apr, Graves disease E05.00 ; Anxiety F41.9 ; S/P coronary artery stent placement Z95.5 ; Dyslipidemia E78.5 ; History of AL (myocardial infarction) I25.2 ; Hypokalemia E87.6 ; High risk medication use Z79.899 and Controlled substance agreement signed Z79.899 [id number] [place] [address] [id number] Mar, Atypical mole D22.[address] [id number] Mar, Graves disease E05.00 ; Anxiety F41.9 ; S/P coronary artery stent placement Z95.5 ; Dyslipidemia E78.5 ; History of AL (myocardial infarction) I25.2 ; Hypokalemia E87.6 and Encounter for immunization Z23 [place] [id number] [place] [address] [id number] Jan, Anxiety F41.9 [place] [id number] [place] [address] [id number] Nov, Anxiety F41.9 [place] [id number] [place] [address] [id number] Nov, Hyperthyroidism E05.90 ; Anxiety F41.9 ; Enlarged thyroid E01.0 ; Right sided abdominal pain R10.9 ; Thyroid nodule E04.1 ; Dyslipidemia E78.[address] elevation myocardial infarction (STEMI) I25.[address] [place] [address] [id number] Nov, Hyperthyroidism E05.90 ; Enlarged thyroid E01.0 and Thyroid nodule E04.1 [place] [id number] [place] [address] [id number] Oct, [place] [id number] [place] [address] [id number] Oct, Hyperthyroidism E05.90 [place] [id number] [place] [address] [id number] Oct, Anxiety F41.9 ; Right sided abdominal pain R10.9 ; Dyslipidemia E78.[address] elevation myocardial infarction (STEMI) I25.2 [facility] [id number] [place] [address] [id number] September, Coronary artery disease involving [place] heart, angina presence unspecified, unspecified vessel or lesion type I25.10 ; Anxiety F41.9 ; History of ST elevation myocardial infarction (STEMI) I25.2 and Low back pain M54.5 [facility] [id number] [place] [address] [id number] September, RLQ abdominal pain R10.31 and Diarrhea, unspecified type R19.7 [place] [id number] [place] [id number] Aug, Coronary artery disease involving [place] heart, angina presence unspecified, unspecified vessel or lesion type I25.10 ; Anxiety F41.9 ; Anxiety about health F41.8 ; History of ST elevation myocardial infarction (STEMI) I25.2 and S/P coronary artery stent placement Z95.5 [facility] [id number] [place] [address] [id number] Jul, [place] [id number] [place] [address] [id number] Jul, Nonintractable headache, unspecified chronicity pattern, unspecified headache type R51 and Sleeping difficulty G47.[address] [place] [address] [id number] Jul, Essential hypertension, hypertension with unspecified goal I10 [facility] [id number] [place] [address] [id number] Jun, Essential hypertension, hypertension with unspecified goal I10 and Cervicalgia M54.2 [facility] [address] [id number] May, Bronchiolitis J21.9 and Essential hypertension, hypertension with unspecified goal I10 [address] [place] [address] [id number] Mar, [id number] [place] [id number] Mar, Cervical stenosis of spinal canal M48.02 and Foraminal stenosis of cervical region M99.81 [facility] [address] [id number] [place] [id number] Mar, [facility] [address] [facility] [id number] [place] [address] Mar, [facility] [address] [id number] [place] [id number] Mar, Cervicalgia M54.2 [facility] [address] [id number] [place] [id number] Mar, [facility] [address] [id number] [place] [id number] Jan, [facility] [address] [id number] [place] [id number] Dec, [facility] [address] [id number] [place] [id number] Dec, [facility] [address] [id number] [place] [id number] Dec, Cervicalgia M54.2 [facility] [address] [id number] Nov, Cervicalgia M54.2 [facility] [address] [id number] [place] [id number] Nov, Cervicalgia M54.2 [facility] [address] [id number] [place] [id number] Oct, Cervicalgia M54.2 and Essential hypertension, hypertension with unspecified goal I10 [facility] [address] [id number] [place] [id number] Oct, [facility] [address] [id number] [place] [id number] Aug, Cervicalgia M54.2 [facility] [address] [id number] [place] [id number] Aug, [facility] [address] [id number] [place] [id number] Aug, Headache R51 and Essential hypertension, hypertension with unspecified goal I10 [facility] [address] [facility] [id number][place] [id number] Jul, [facility] [address] [facility] [id number], [place] [address] Aug, [facility] [address] [facility] [id number], [place] [address] Aug, [facility] [address] [facility] [id number] [place] [address] Mar, [facility] [address] [facility] [id number] [place] [address], [place] [address] Mar, [facility] [id number] [place] [address] Dec, [facility] [id number], [place] [id number] Dec, [facility] [id number] [place] [address] [id number] Aug, [facility] [address] [facility] [id number], [place] [address] Aug, [facility] [address], [place] [address] Jul, [facility] [address], [place] [address] Jul, [facility] [address] [facility] [id number][place] [id number] Dec, [facility] [address] [facility] [id number][place] [id number] Apr, [facility] [place] [facility] [address] [facility] [id number], [place] [address] Apr, [facility] [place] [facility] [address] [facility] [id number], [place] [address] Mar, [facility] [id number], [place] [id number] Mar, [facility] [id number], [place] [id number] Oct, [facility] [id number] [place] [address] Oct, [facility] [id number], [place] [id number] Oct, [facility] [id number], [place] [id number] September, [facility] [id number] [place] [address] [id number] Jul, [facility] [id number] [place] [address] [id number] Jun, [facility] [id number] [place] [address] [id number] Jun, [facility] [id number] [place] [address] May, [facility] [id number] [place] [address] May, [facility] [id number] [place] [address]- [address] May, [facility] [id number] [place] [address] May, [facility] [address] [id number], [place] [address] Dec, IMMUNIZATIONS No Known Immunizations SOCIAL HISTORY Never Assessed REASON FOR VISIT daughter flu A pos PLAN OF CARE VITAL SIGNS MEDICATIONS Medication Instructions Dosage Frequency Start Date End Date Duration Status Tamiflu 75 MG Orally once per day 1 capsule Jun, 10 days Active RESULTS No Results PROCEDURES No [...] Cervical stenosis repair, hardware placed by at [address] 07/2016 Surgical History Acute STEMI, heart cath performed-balloon stent to RCA, stent Mid LAD 08/2016 Hospitalization History [facility] STEMI, Cardiogenic shock, increased LFTS 08/2016 Hospitalization History inpatient [facility] after OD after losing baby 2010
--- OUTSIDE RECORDS SUMMARY | 2018-06-17 11:35 | XMS REPORT ---
Author Author NILDA CASON Organization [facility] Address [address] [place] [address] Care Team Providers Care Securities Trader Name Role Phone NILDA CASON Unavailable PROBLEMS Type Condition ICD9-CM Code UNP40-VG Code Onset Dates Condition Status SNOMED Code Problem Coronary artery disease involving [place] heart, angina presence unspecified, unspecified vessel or lesion type I25.10 Active 55575237 Problem Anxiety F41.9 Active 02793574 Problem Anxiety about health F41.8 Active 675886604 Problem Graves disease E05.00 Active 435064627 Problem Thyroid nodule E04.1 Active 640292424 Problem Dyslipidemia E78.5 Active 148442053 Problem Low back pain M54.5 Active 127632490 Problem Enlarged thyroid E01.0 Active 24924716 Problem History of [place] (myocardial infarction) I25.2 Active 901925008 Problem Hyperthyroidism E05.90 Active 94592205 Problem Bronchiolitis J21.9 Active 2098104 Problem Sleeping difficulty G47.9 Active 617845843 Problem Essential hypertension, hypertension with unspecified goal I10 Active 90667128 Problem S/P coronary artery stent placement Z95.5 Active 005649205 Problem Cervicalgia M54.2 Active 95729774 Problem History of ST elevation myocardial infarction (STEMI) I25.2 Active [id number] ALLERGIES No Known Allergies SOCIAL HISTORY Never Assessed PLAN OF CARE Activity Details Follow Up 4 Weeks Reason:CHM Anxiety VITAL SIGNS Height 63.75 in 2016-11-04 Weight 146.2 lbs 2016-11-04 Temperature 98.4 degrees Fahrenheit 2016-11-04 Heart Rate 84 bpm 2016-11-04 Respiratory Rate 18 2016-11-04 BMI 25.29 kg/m2 2016-11-04 Blood pressure systolic 140 mmHg 2016-11-04 Blood pressure diastolic 80 mmHg 2016-11-04 MEDICATIONS Medication Instructions Dosage Frequency Start Date End Date Duration Status Atorvastatin Calcium 20 MG Orally Once a day 1 tablet 24h Active Aspir-81 81 MG Orally Once a day 1 tablet 24h Active Sotalol HCl 80 MG Orally every 12 hrs 1/2 tablet 12h Active Zoloft 25 MG Orally Once a day 1 tablet per day for first week then increase to 2 tablets per day 24h Oct, 0 days Active Toprol XL 25 MG Orally Once a day at bedtime 1/2 tablet Active Brilinta 90 MG Orally Twice a day 1 tablet 12h Active HydrOXYzine HCl 25 MG Orally every 8 hrs for anxiety 1 tablet as needed Aug, 0 days Active RESULTS Name Result Date Reference Range CBC 2016-11-04 WBC 3.2 3.4-10.8 RBC 4.61 3.77-5.28 Hemoglobin 12.2 11.1-15.9 Hematocrit 37.3 34.0-46.6 MCV 81 79-97 MCH 26.5 26.6-33.0 MCHC 32.7 31.5-35.7 RDW 13.3 12.3-15.4 Platelets 242 150-379 Neutrophils 60 Lymphs 26 Monocytes 10 Eos 4 Basos 0 Neutrophils (Absolute) 1.9 1.4-7.0 Lymphs (Absolute) 0.9 0.7-3.1 Monocytes(Absolute) 0.3 0.1-0.9 Eos (Absolute) 0.1 0.0-0.4 Baso (Absolute) 0.0 0.0-0.2 Immature Granulocytes 0 Immature Grans (Abs) 0.0 0.0-0.1 LIPID PANEL 2016-11-04 Cholesterol, Total 128 100-199 Triglycerides 97 0-149 HDL Cholesterol 38 >39 VLDL Cholesterol Farhan 19 5-40 LDL Cholesterol Calc 71 0-99 CMP 2016-11-04 Glucose, Serum 83 65-99 BUN 9 6-20 Creatinine, Serum 0.43 0.57-1.00 eGFR If NonAfricn Am 131 >59 eGFR If Africn Am 151 >59 BUN/Creatinine Ratio 21 9-23 Sodium, Serum 143 134-144 Potassium, Serum 4.1 3.5-5.2 Chloride, Serum 107 96-106 Carbon Dioxide, Total 21 18-29 Calcium, Serum 9.7 8.7-10.2 Protein, Total, Serum 6.0 6.0-8.5 Albumin, Serum 4.1 3.5-5.5 Globulin, Total 1.9 1.5-4.5 A/G Ratio 2.2 1.2-2.2 Bilirubin, Total 0.6 0.0-1.2 Alkaline Phosphatase, S 142 39-117 AST (SGOT) 33 0-40 ALT (SGPT) 41 0-32 THYROID ANALYZER 2016-11-04 TSH 0.011 0.450-4.500 T4,Free (Direct) >4.81 0.82-1.77 PROCEDURES Procedure Date Ordered Result Body Site COMPLETE CBC W/AUTO DIFF WBC November 04, 2016 COMPREHEN METABOLIC PANEL November 04, 2016 ASSAY THYROID STIM HORMONE November 04, 2016 LIPID PANEL November 04, 2016 VENIPUNCT, ROUTINE* November 04, 2016 IMMUNIZATIONS No Known Immunizations MEDICAL (GENERAL) HISTORY Type Description Date Medical History hypertension, during Medical History neck pain Medical History 08/2016 Acute STEMI inferior wall, cardiogenic shock Medical History Dr. Bella cardiology fu, stress echo, holter, labs 12/2016-- FU 04/2017 Surgical History section x's 4 Surgical History Cervical stenosis repair, hardware placed by at [address] 07/2016 Surgical History Acute STEMI, heart cath performed-balloon stent to RCA, stent Mid LAD 08/2016 Hospitalization History [facility] STEMI, Cardiogenic shock, increased LFTS 08/2016
--- OUTSIDE RECORDS SUMMARY | 2018-06-17 11:36 | XMS REPORT ---
Author Author MESSI MORALES Organization [employer] Address Unknown Phone Unavailable Care Team Providers Care Wet Process Operator Name Role Phone MESSI MORALES CP Unavailable [...]
--- OUTSIDE RECORDS SUMMARY | 2018-06-17 11:36 | XMS REPORT ---
Author Author LEMUEL PIZANO [facility] Address [address] [place] [address] Care Team Providers Care Component Overhaul Operator Name Role Phone JERICA LEMUEL Unavailable PROBLEMS Type Condition ICD9-CM Code YJD21-QU Code Onset Dates Condition Status SNOMED Code Problem S/P coronary artery stent placement Z95.5 Active 805750183 Problem Anxiety F41.9 Active 05267079 Problem Anxiety about health F41.8 Active 119084695 Problem Graves disease E05.00 Active 142265484 Problem Enlarged thyroid E01.0 Active 77427808 Problem History of [place] (myocardial infarction) I25.2 Active 529901926 Problem Low back pain M54.5 Active 247714212 Problem Thyroid nodule E04.1 Active 113392874 Problem Dyslipidemia E78.5 Active 092255277 Problem Hyperthyroidism E05.90 Active 44244466 Problem Major depressive disorder, recurrent, moderate F33.1 Active 27801819 Problem Bronchiolitis J21.9 Active 8586856 Problem Sleeping difficulty G47.9 Active 061649809 Problem Essential hypertension, hypertension with unspecified goal I10 Active 59077392 Problem History of ST elevation myocardial infarction (STEMI) I25.2 Active 483136914414921 Problem Cervicalgia M54.2 Active 34457302 Problem Coronary artery disease involving enterprise heart, angina presence unspecified, unspecified vessel or lesion type I25.10 Active 21396434 ALLERGIES No Known Allergies ENCOUNTERS Encounter Location Date Diagnosis [facility] [address] [id number] [id number] Dec, [facility] [address] [facility] [id number] [id number] Oct, [facility] [address] [facility] [id number] [place] [address] Oct, [facility] [address] [id number] [place] [phone] Oct, Acute non-recurrent frontal sinusitis J01.10 [facility] [address] [address] Oct, Graves disease E05.00 [facility] [address] [address] September, Major depressive disorder, recurrent, moderate F33.1 [facility] [address] [place] [address] September, Graves disease E05.00 and Major depressive disorder, recurrent, moderate F33.1 [address] [place] [id number] Aug, [address] [place] [address] [id number] Aug, Graves disease E05.00 [facility] [address] [id number][place] [id number] Aug, Dental caries K02.9 [facility] [address] [address] Aug, Major depressive disorder, recurrent, moderate F33.1 [facility] [address] [address] Aug, Major depressive disorder, recurrent, moderate F33.1 and Graves disease E05.00 [facility] [address] [address] Jul, Graves disease E05.00 [facility] [address] [id number] [address] Jul, Major depressive disorder, recurrent, moderate F33.1 [facility] [address] [id number][place] [id number] Jul, Dental examination Z01.20 [facility] [address] [id number][place] [id number] Jul, Dental examination Z01.20 [facility] [id number] [place] [address] [phone] Jul, Major depressive disorder, recurrent, moderate F33.1 ; Anxiety F41.9 ; Graves disease E05.[address] elevation myocardial infarction (STEMI) I25.2 [facility] [id number] [place] [address] Jul, Major depressive disorder, recurrent, moderate F33.1 [facility] [address] [address] Jun, Major depressive disorder, recurrent, moderate F33.1 [id number] [place] [address] [id number] Jun, Graves disease E05.00 [facility] [id number] [place] [address] [id number] Jun, Influenza A J10.1 [facility] [address] [address] May, Chest wall pain R07.89 [facility] [id number] [place] [address] May, Major depressive disorder, recurrent, moderate F33.1 [facility] [id number] [place] [address] May, Graves disease E05.00 and Major depressive disorder, recurrent, moderate F33.1 [id number] [place] [address] [id number] May, Anxiety F41.9 and Graves disease E05.00 [facility] [id number] [place] [address]- [address]48 Apr, Major depressive disorder, recurrent, moderate F33.1 and Graves disease E05.00 [facility] [id number] [place] [address] [phone] Apr, Anxiety F41.9 [facility] [id number] [place] [address] Apr, Major depressive disorder, recurrent, moderate F33.1 [address] [place] [address] [id number] Apr, Graves disease E05.00 ; Anxiety F41.9 ; S/P coronary artery stent placement Z95.5 ; Dyslipidemia E78.5 ; History of IN (myocardial infarction) I25.2 ; Hypokalemia E87.6 ; High risk medication use Z79.899 and Controlled substance agreement signed Z79.899 [id number] [place] [address] [id number] Mar, Atypical mole D22.9 [id number] [place] [address] [id number] Mar, Graves disease E05.00 ; Anxiety F41.9 ; S/P coronary artery stent placement Z95.5 ; Dyslipidemia E78.5 ; History of IN (myocardial infarction) I25.2 ; Hypokalemia E87.6 and Encounter for immunization Z23 [id number] [place] [address] [id number] Jan, Anxiety F41.9 [id number] [place] [address] [id number] Nov, Anxiety F41.9 [id number] [place] [address] [id number] Nov, Hyperthyroidism E05.90 ; Anxiety F41.9 ; Enlarged thyroid E01.0 ; Right sided abdominal pain R10.9 ; Thyroid nodule E04.1 ; Dyslipidemia E78.[address] elevation myocardial infarction (STEMI) I25.2 [id number] [place] [address] [id number] Nov, Hyperthyroidism E05.90 ; Enlarged thyroid E01.0 and Thyroid nodule E04.[address] [id number] Oct, [id number] [place] [address] [id number] Oct, Hyperthyroidism E05.90 [id number] [place] [address] [id number] Oct, Anxiety F41.9 ; Right sided abdominal pain R10.9 ; Dyslipidemia E78.[address] elevation myocardial infarction (STEMI) I25.2 [id number] [place] [address] [id number] September, Coronary artery disease involving enterprise heart, angina presence unspecified, unspecified vessel or lesion type I25.10 ; Anxiety F41.9 ; History of ST elevation myocardial infarction (STEMI) I25.2 and Low back pain M54.5 [id number] [place] [address] [id number] September, RLQ abdominal pain R10.31 and Diarrhea, unspecified type R19.7 [id number] [place] [address] [id number] Aug, Coronary artery disease involving enterprise heart, angina presence unspecified, unspecified vessel or lesion type I25.10 ; Anxiety F41.9 ; Anxiety about health F41.8 ; History of ST elevation myocardial infarction (STEMI) I25.2 and S/P coronary artery stent placement Z95.5 [address] [place] [address] [id number] Jul, [address] [id number] Jul, Nonintractable headache, unspecified chronicity pattern, unspecified headache type R51 and Sleeping difficulty G47.9 [id number] [place] [address] [id number] Jul, Essential hypertension, hypertension with unspecified goal I10 [id number] [place] [address] [id number] Jun, Essential hypertension, hypertension with unspecified goal I10 and Cervicalgia M54.2 [address] [id number] [phone] May, Bronchiolitis J21.9 and Essential hypertension, hypertension with unspecified goal I10 [address] [place] [address] [id number] Mar, [id number] [place] [address] [id number] Mar, Cervical stenosis of spinal canal M48.02 and Foraminal stenosis of cervical region M99.81 [facility] [address] [id number] [place] [id number] Mar, [facility] [address] [id number] [place] [address] Mar, [facility] [address] [id number] [place] [id number] Mar, Cervicalgia M54.2 [facility] [address] [id number] [place] [id number] Mar, [facility] [address] [id number] [place] [id number] Jan, [facility] [address] [id number] [place] [id number] Dec, [facility] [address] [id number] [place] [id number] Dec, [facility] [address] [id number] [place] [id number] Dec, Cervicalgia M54.[address] [facility] [address] [id number] [place] [id number] Nov, Cervicalgia M54.2 [facility] [address] [id number] [place] [id number] Nov, Cervicalgia M54.2 [facility] [address] [id number] [place] [id number] Oct, Cervicalgia M54.2 and Essential hypertension, hypertension with unspecified goal I10 [facility] [address] [id number] [place] [id number] Oct, [facility] [address] [id number] [place] [id number] Aug, Cervicalgia M54.2 [facility] [address] [id number] [place] [id number] Aug, [facility] [address] [id number] [place] [id number] Aug, Headache R51 and Essential hypertension, hypertension with unspecified goal I10 [facility] [address] [id number] [place] [id number] Jul, [facility] [address] [id number] [place] [address]- [address] Aug, [facility] [address] [facility] [id number] [place] [address]- [address] Aug, [facility] [address] [facility] [id number] [place] [address] Mar, [facility] [address] [facility] [id number] [address] Mar, [facility] [address] [facility] [id number] [address]- [address] Dec, [facility] [id number] [place] [id number] Dec, [facility] [address] [facility] [id number] [place] [phone] Aug, [facility] [address] [facility] [id number] [place] [address] Aug, [facility] [address] [address] Jul, [facility] [address] [facility] [id number] [place] [address]- 70[address] Jul, [facility] [address] [facility] [id number] [place] [id number] Dec, [facility] [address] [id number] [place] [id number] Apr, [facility] [address] [facility] [id number] [place] [address]- 38[address] Apr, [facility] [address] [facility] [id number] [place] [address]- 2676 Mar, [facility] [address] [id number] [place] [id number] Mar, [facility] [address] [id number] [place] [phone] Oct, [facility] [address] [address] Oct, [facility] [id number] [place] [id number] Oct, [facility] [id number] [place] [id number] September, [facility] [id number] [place] [address] [id number] Jul, [facility] [id number] [place] [address] [id number] Jun, [facility] [id number] [place] [address] [id number] Jun, [facility] [id number] [place] [address] 47603- 2546 May, [facility] [id number] [place] [address] 2546 May, [facility] [id number] [place] [address] 52675 2546 May, [facility] [id number] [place] [address] 48055- 8459 May, [facility] [address] [place] [address] 79516- 5670 Dec, IMMUNIZATIONS No Known Immunizations SOCIAL HISTORY Never Assessed REASON FOR VISIT Chest pain for the last 3 days Samuel, Took notro earlier today and had no change PLAN OF CARE VITAL SIGNS Height 63.75 in 2017-05-28 Weight 146.6 lbs 2017-05-28 Temperature 99.9 degrees Fahrenheit 2017-05-28 Heart Rate 80 bpm 2017-05-28 Respiratory Rate 16 2017-05-28 BMI 25.36 kg/m2 2017-05-28 Blood pressure systolic 134 mmHg 2017-05-28 Blood pressure diastolic 92 mmHg 2017-05-28 MEDICATIONS Medication Instructions Dosage Frequency Start Date End Date Duration Status Nitroglycerin 0.4 MG Active Aspir-81 81 MG Orally Once a day 1 tablet 24h Active Atorvastatin Calcium 20 MG Orally Once a day 1 tablet 24h Active Sotalol HCl 80 MG Orally every 12 hrs 1/2 tablet 12h Active PredniSONE 20 mg Orally Once a day 2 tablets 24h 27 May, 2017 Jun, 05 days Active Potassium Chloride ER 20 MEQ Orally Once a day 1 tablet with food 24h Active Lorazepam 1 MG Orally every 6 hrs as needed for anxiety/panic 1 tablet Active Zoloft 100 MG Orally Once a day 1.5 tablets 24h 30 days Active Propylthiouracil 50 mg Orally 3 times a day 4 tablets 8h Active Toprol XL 25 MG Orally Once a day at bedtime 1 tablet Active Plavix 75 MG Orally Once a [...] Cervical stenosis repair, hardware placed by at [address] 07/2016 Surgical History Acute STEMI, heart cath performed-balloon stent to RCA, stent Mid LAD 08/2016 Hospitalization History [facility] STEMI, Cardiogenic shock, increased LFTS 08/2016 Hospitalization History inpatient psych [place] after OD after losing baby 2009
--- OUTSIDE RECORDS SUMMARY | 2018-06-17 11:37 | XMS REPORT ---
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
--- OUTSIDE RECORDS SUMMARY | 2018-06-17 11:37 | XMS REPORT ---
Author Author LIZZIE AGUSTÍN [facility] Address [address] [place] [address] Care Team Providers Care Learning Strategist Name Role Phone AMANDAGIOVANNI AGUSTÍN Unavailable PROBLEMS Type Condition ICD9-CM Code [id number] Code Onset Dates Condition Status SNOMED Code Problem S/P coronary artery stent placement Z95.5 Active 454056174 Problem Anxiety F41.9 Active 26305549 Problem Anxiety about health F41.8 Active 901468794 Problem Graves disease E05.00 Active 195629339 Problem Enlarged thyroid E01.0 Active 99324842 Problem History of [place] (myocardial infarction) I25.2 Active 878128725 Problem Low back pain M54.5 Active 035505712 Problem Thyroid nodule E04.1 Active 658640230 Problem Dyslipidemia E78.5 Active 644595510 Problem Hyperthyroidism E05.90 Active 68258070 Problem Major depressive disorder, recurrent, moderate F33.1 Active 99059720 Problem Bronchiolitis J21.9 Active 0061349 Problem Sleeping difficulty G47.9 Active 275932325 Problem Essential hypertension, hypertension with unspecified goal I10 Active 42900481 Problem History of ST elevation myocardial infarction (STEMI) I25.2 Active 542586890746225 Problem Cervicalgia M54.2 Active 10630670 Problem Coronary artery disease involving on[place] heart, angina presence unspecified, unspecified vessel or lesion type I25.10 Active 81028202 ALLERGIES No Known Allergies ENCOUNTERS Encounter Location Date Diagnosis [facility] [address] [facility] [id number] [address] September, Major depressive disorder, recurrent, moderate F33.1 [facility] [address] [id number] [address] September, Graves disease E05.00 and Major depressive disorder, recurrent, moderate F33.1 [facility] [address] [id number] [id number] Aug, [facility] [address] [facility] [id number][place] [id number] Aug, [facility] E05.[address] [facility] [address] [id number] [id number] Aug, Dental caries K02.9 [facility] [address]00565100[place] [address] Aug, Major depressive disorder, recurrent, moderate F33.1 [facility] [address] [place] [address] Aug, Major depressive disorder, recurrent, moderate F33.1 and Graves disease E05.00 [facility] [address]00565100[place] [address] Jul, Graves disease E05.00 [facility] [address] [place] [address] Jul, Major depressive disorder, recurrent, moderate F33.1 [facility] [address] [id number][place] [id number] Jul, Dental examination Z01.20 [facility] [address] [id number][place] [id number] Jul, Dental examination Z01.[address] [id number][place] [id number] Jul, Major depressive disorder, recurrent, moderate F33.1 ; Anxiety F41.9 ; Graves disease E05.[address] elevation myocardial infarction (STEMI) I25.2 [facility] [address]65100[place] [address] Jul, Major depressive disorder, recurrent, moderate F33.1 [facility] [address]65100[place] [address] Jun, Major depressive disorder, recurrent, moderate F33.1 [facility] [id number] [place] [id number] Jun, Graves disease E05.00 [id number] [place] [id number] Jun, Influenza A J10.1 [facility] [id number] [place] [address] May, Chest wall pain R07.89 [facility] [address] [address] May, Major depressive disorder, recurrent, moderate F33.1 [facility] [address] [address] May, Graves disease E05.00 and Major depressive disorder, recurrent, moderate F33.1 [id number] [place] [id number] May, Anxiety F41.9 and Graves disease E05.00 [facility] [address] [address] Apr, Major depressive disorder, recurrent, moderate F33.1 and Graves disease E05.00 [id number] [place] [id number] Apr, Anxiety F41.9 [facility] [address] [address] Apr, Major depressive disorder, recurrent, moderate F33.1 [id number] [place] [id number] Apr, Graves disease E05.00 ; Anxiety F41.9 ; S/P coronary artery stent placement Z95.5 ; Dyslipidemia E78.5 ; History of [place] (myocardial infarction) I25.2 ; Hypokalemia E87.6 ; High risk medication use Z79.899 and Controlled substance agreement signed Z79.899 [id number] [place] [id number] Mar, Atypical mole D22.[address] [id number] Mar, Graves disease E05.00 ; Anxiety F41.9 ; S/P coronary artery stent placement Z95.5 ; Dyslipidemia E78.5 ; History of [place] (myocardial infarction) I25.2 ; Hypokalemia E87.6 and Encounter for immunization Z23 [facility] [id number] [place] [address] [id number] Jan, Anxiety F41.9 [id number] [place] [id number] Nov, Anxiety F41.9 [facility] [id number] [place] [id number] Nov, Hyperthyroidism E05.90 ; Anxiety F41.9 ; Enlarged thyroid E01.0 ; Right sided abdominal pain R10.9 ; Thyroid nodule E04.1 ; Dyslipidemia E78.[address] elevation myocardial infarction (STEMI) I25.2 [id number] [place] [id number] Nov, Hyperthyroidism E05.90 ; Enlarged thyroid E01.0 and Thyroid nodule E04.1 [id number] [place] [id number] Oct, [address] [place] [id number] [place] [address] [id number] Oct, Hyperthyroidism E05.90 [address] [place] [address] [id number] Oct, Anxiety F41.9 ; Right sided abdominal pain R10.9 ; Dyslipidemia E78.[address] elevation myocardial infarction (STEMI) I25.2 [id number] [place] [id number] September, Coronary artery disease involving on[place] heart, angina presence unspecified, unspecified vessel or lesion type I25.10 ; Anxiety F41.9 ; History of ST elevation myocardial infarction (STEMI) I25.2 and Low back pain M54.5 [address] [place] [id number] September, RLQ abdominal pain R10.31 and Diarrhea, unspecified type R19.7 [address] [id number] [id number] Aug, Coronary artery disease involving on[place] heart, angina presence unspecified, unspecified vessel or lesion type I25.10 ; Anxiety F41.9 ; Anxiety about health F41.8 ; History of ST elevation myocardial infarction (STEMI) I25.2 and S/P coronary artery stent placement Z95.5 [facility] [id number] [place] [id number] Jul, [facility] [id number] [place] [address] [id number] Jul, Nonintractable headache, unspecified chronicity pattern, unspecified headache type R51 and Sleeping difficulty G47.9 [facility] [id number] [place] [address] [id number] Jul, Essential hypertension, hypertension with unspecified goal I10 [id number] [place] [id number] Jun, Essential hypertension, hypertension with unspecified goal I10 and Cervicalgia M54.2 [address]00565100[place] [id number] May, Bronchiolitis J21.9 and Essential hypertension, hypertension with unspecified goal I10 [facility] [id number] [place] [address] [id number] Mar, [id number] [place] [address] [id number] Mar, Cervical stenosis of spinal canal M48.02 and Foraminal stenosis of cervical region M99.81 [facility] [id number][place] [id number] Mar, [facility] [address]00565100[place] [address] Mar, [address] [id number] [place] [address] [id number] Mar, Cervicalgia M54.2 [facility] [id number] [place] [address] [id number] Mar, [facility] [id number] [place] [address] [id number] Jan, [facility] [address] [id number] [place] [id number] Dec, [facility] [address] [id number] [place] [id number] Dec, [facility] [address] [id number] [place] [id number] Dec, Cervicalgia M54.2 [facility] [address] [facility] [address] [id number] [facility] [place] [id number] Nov, Cervicalgia M54.2 [facility] [address] [id number] [place] [id number] Nov, Cervicalgia M54.2 [facility] [address] [id number] [place] [id number] Oct, Cervicalgia M54.2 and Essential hypertension, hypertension with unspecified goal I10 [facility] [address] [id number] [place] [id number] Oct, [facility] [address] [id number] [place] [id number] Aug, Cervicalgia M54.2 [facility] [address] [id number] [place] [id number] Aug, [facility] [address] [id number] [place] [id number] Aug, Headache R51 and Essential hypertension, hypertension with unspecified goal I10 [facility] [address] [id number] [place] [id number] Jul, [facility] [address]00565100[place] [address] Aug, [facility] [id number] [place] [address] Aug, [facility] [id number] [place] [address] Mar, [facility] [address]00565100[place] [address] Mar, [facility] [address] [facility] [id number] [place] [address] Dec, [facility] [address] [id number] [place] [id number] Dec, [facility] [address] [id number] [place] [id number] Aug, [facility] [address] [facility] [id number] [place] [address] Aug, [facility] [address] [facility] [id number] [place] [address] Jul, [facility] [address] [facility] [id number] [place] [address] Jul, [facility] [address] [id number][place] [id number] Dec, [facility] [address] [id number][place] [id number] Apr, [facility] [address] [facility] [id number] [place] [address] Apr, [facility] [address] [facility] [id number] [place] [address] Mar, [facility] [address] [id number][place] [id number] Mar, [facility] [address] [id number][place] [id number] Oct, [facility] [address] [facility] [id number] [place] [address] Oct, [facility] [address] [id number] [place] [id number] Oct, [facility] [address] [id number] [place] [id number] September, [facility] [address] [id number] [place] [id number] Jul, [facility] [address] [id number] [place] [id number] Jun, [facility] [address] [id number] [place] [id number] 10 Jun, 2011 [facility] [address] [facility] [id number] [place] [address] May, [facility] [address] [facility] [id number] [place] [address] May, [facility] [address] [facility] [id number] [place] [address] May, [facility] [address] [facility] [id number] [address] May, [facility] [address] [facility] [id number] [place] [address] Dec, IMMUNIZATIONS No Known Immunizations SOCIAL HISTORY Never Assessed REASON FOR VISIT intake- Beena Maxwell RN PLAN OF CARE Activity Details Follow Up 4 Weeks Reason: VITAL SIGNS Height 63.75 in 2017-05-01 Weight 144 lbs 2017-05-01 Heart Rate 98 bpm 2017-05-01 Respiratory Rate 18 2017-05-01 BMI 24.91 kg/m2 2017-05-01 Blood pressure systolic 132 mmHg 2017-05-01 Blood pressure diastolic 92 mmHg 2017-05-01 MEDICATIONS Medication Instructions Dosage Frequency Start Date End Date Duration Status Potassium Chloride ER 20 MEQ Orally Once a day 1 tablet with food 24h Active Aspir-81 81 MG Orally Once a day 1 tablet 24h Active Atorvastatin Calcium 20 MG Orally Once a day 1 tablet 24h Active Toprol XL 25 MG Orally Once a day at bedtime 1 tablet Active Nitroglycerin 0.4 MG Active Zoloft 100 MG Orally Once a day 1.5 tablets 24h 30 days Active Lorazepam 1 MG Orally every 6 hrs as needed for anxiety/panic 1 tablet Active Propylthiouracil 50 mg Orally [...] Cervical stenosis repair, hardware placed by at [address] 07/2016 Surgical History Acute STEMI, heart cath performed-balloon stent to RCA, stent Mid LAD 08/2016 Hospitalization History [facility] STEMI, Cardiogenic shock, increased LFTS 08/2016 Hospitalization History inpatient psych [facility] after OD after losing baby 2010
--- OUTSIDE RECORDS SUMMARY | 2018-06-17 11:37 | XMS REPORT ---
Author Author MESSI MORALES Organization [employer] Address Unknown Phone Unavailable Care Team Providers Care Engineering Technical Writer Name Role Phone MESSI MORALES CP Unavailable [...]
--- OUTSIDE RECORDS SUMMARY | 2018-06-17 11:38 | XMS REPORT ---
Author Author NILDA CASON [facility] Address [address] [place] [address] Care Team Providers Care Stonecutter Apprentice Hand Name Role Phone NILDA CASON Unavailable PROBLEMS Type Condition ICD9-CM Code [id number] Code Onset Dates Condition Status SNOMED Code Problem S/P coronary artery stent placement Z95.5 Active 788278906 Problem Anxiety F41.9 Active 24581208 Problem Anxiety about health F41.8 Active 563299567 Problem Graves disease E05.00 Active 498497523 Problem Enlarged thyroid E01.0 Active 61813017 Problem History of [place] (myocardial infarction) I25.2 Active 630741139 Problem Low back pain M54.5 Active 929973900 Problem Thyroid nodule E04.1 Active 970301590 Problem Dyslipidemia E78.5 Active 915396719 Problem Hyperthyroidism E05.90 Active 90490328 Problem Major depressive disorder, recurrent, moderate F33.1 Active 61468184 Problem Bronchiolitis J21.9 Active 5784576 Problem Sleeping difficulty G47.9 Active 883620837 Problem Essential hypertension, hypertension with unspecified goal I10 Active 76729749 Problem History of ST elevation myocardial infarction (STEMI) I25.2 Active 693657081841836 Problem Cervicalgia M54.2 Active 91585280 Problem Coronary artery disease involving [place] heart, angina presence unspecified, unspecified vessel or lesion type I25.10 Active 78160409 ALLERGIES No Information ENCOUNTERS Encounter Location Date Diagnosis [facility] [address] [facility] [id number], [place] [address] September, [facility] [address] [id number], [place] [address] Aug, [address] [id number] [id number] Aug, [facility] [address], [place] [address] Aug, [facility] [id number] [place] [address] Jul, [facility] [id number] [place] [address]68[address] 3262 Jul, Graves disease E05.00 [facility] [id number] [place] [address] Jul, Major depressive disorder, recurrent, moderate F33.[address] [id number] [id number] Jul, Dental examination Z01.[id number] [place] [id number] Jul, Dental examination Z01.20 [facility] [id number] [place] [address] [id number] Jul, Major depressive disorder, recurrent, moderate F33.1 ; Anxiety F41.9 ; Graves disease E05.[address] elevation myocardial infarction (STEMI) I25.2 [facility] [id number] [place] [address] Jul, Major depressive disorder, recurrent, moderate F33.1 [facility] [address] [place] [address]- [address] Jun, Major depressive disorder, recurrent, moderate F33.1 [facility] [id number] [place] [address] [id number] Jun, Graves disease E05.00 [place] [address] [id number] [place] [address] [id number] Jun, Influenza A J10.1 [facility] [id number] [place] [address] May, Chest wall pain R07.89 [facility] [id number] [place] [address]22- 1767 May, Major depressive disorder, recurrent, moderate F33.1 [facility] [id number] [place] [address]23- [address] May, Graves disease E05.00 and Major depressive disorder, recurrent, moderate F33.1 [place] [id number] [place] [address] [id number] May, Anxiety F41.9 and Graves disease E05.00 [place] [address] [address] Apr, Major depressive disorder, recurrent, moderate F33.1 and Graves disease E05.[address] [id number] Apr, Anxiety F41.9 [place] [id number] [place] [address] Apr, Major depressive disorder, recurrent, moderate F33.[address] [id number] Apr, Graves disease E05.00 ; Anxiety F41.9 ; S/P coronary artery stent placement Z95.5 ; Dyslipidemia E78.5 ; History of [place] (myocardial infarction) I25.2 ; Hypokalemia E87.6 ; High risk medication use Z79.899 and Controlled substance agreement signed Z79.899 [place] [address] [id number] [place] [address] [id number] Mar, Atypical mole D22.9 [place] [id number] [place] [address] [id number] Mar, Graves disease E05.00 ; Anxiety F41.9 ; S/P coronary artery stent placement Z95.5 ; Dyslipidemia E78.5 ; History of [place] (myocardial infarction) I25.2 ; Hypokalemia E87.6 and Encounter for immunization Z23 [place] [id number] [place] [address] [id number] Jan, Anxiety F41.[address] [id number] Nov, Anxiety F41.9 [facility] [id number] [place] [id number] Nov, Hyperthyroidism E05.90 ; Anxiety F41.9 ; Enlarged thyroid E01.0 ; Right sided abdominal pain R10.9 ; Thyroid nodule E04.1 ; Dyslipidemia E78.[address] elevation myocardial infarction (STEMI) I25.2 [facility] [id number] [place] [address] [id number] Nov, Hyperthyroidism E05.90 ; Enlarged thyroid E01.0 and Thyroid nodule E04.1 [facility] [id number] [place] [address] [id number] Oct, [facility] [id number] [place] [address] [id number] Oct, Hyperthyroidism E05.90 [facility] [id number] [place] [address] [id number] Oct, Anxiety F41.9 ; Right sided abdominal pain R10.9 ; Dyslipidemia E78.[address] elevation myocardial infarction (STEMI) I25.2 [facility] [id number] [place] [address] [id number] September, Coronary artery disease involving [place] heart, angina presence unspecified, unspecified vessel or lesion type I25.10 ; Anxiety F41.9 ; History of ST elevation myocardial infarction (STEMI) I25.2 and Low back pain M54.5 [facility] [id number] [place] [address] [id number] September, RLQ abdominal pain R10.31 and Diarrhea, unspecified type R19.7 [facility] [id number] [place] [address] [id number] Aug, Coronary artery disease involving [place] heart, angina presence unspecified, unspecified vessel or lesion type I25.10 ; Anxiety F41.9 ; Anxiety about health F41.8 ; History of ST elevation myocardial infarction (STEMI) I25.2 and S/P coronary artery stent placement Z95.5 [facility] [id number] [place] [address] [id number] Jul, [facility] [address] [id number] [id number] Jul, Nonintractable headache, unspecified chronicity pattern, unspecified headache type R51 and Sleeping difficulty G47.9 [facility] [place] [address] [id number] [place] [phone] Jul, Essential hypertension, hypertension with unspecified goal I10 [facility] [place] [id number] [place] [address] [id number] Jun, Essential hypertension, hypertension with unspecified goal I10 and Cervicalgia M54.2 [facility] [address] [id number] [phone] May, Bronchiolitis J21.9 and Essential hypertension, hypertension with unspecified goal I10 [facility] [place] [id number] [place] [id number] Mar, [facility] [place] [id number] [place] [address] [id number] Mar, Cervical stenosis of spinal canal M48.02 and Foraminal stenosis of cervical region M99.81 [facility] [place] [id number] [place] [id number] Mar, [facility] [address]005[address]100[place], [place] [address] Mar, [facility] [place] [id number] [place] [id number] Mar, Cervicalgia M54.2 [facility] [place] [id number] [place] [id number] Mar, [facility] [place] [id number] [place] [id number] Jan, [facility] [place] [id number] [place] [phone] Dec, [facility] [place] [id number] [place] [address] [id number] Dec, [facility] [place] [id number] [place] [id number] Dec, Cervicalgia M54.[address] [facility] [address] [id number][place] [id number] Nov, Cervicalgia M54.2 [facility] [address] [id number] [place] [id number] Nov, Cervicalgia M54.2 [facility] [address] [id number] [place] [id number] Oct, Cervicalgia M54.2 and Essential hypertension, hypertension with unspecified goal I10 [facility] [address] [id number] [place] [id number] Oct, [facility] [address] [id number] [place] [id number] Aug, Cervicalgia M54.2 [facility] [address] [id number] [place] [id number] Aug, [facility] [address] [id number] [place] [id number] Aug, Headache R51 and Essential hypertension, hypertension with unspecified goal I10 [facility] [address] [id number] [place] [id number] Jul, [facility] [id number] [place] [address] 79634- 1028 Aug, [facility] [id number] [place] [id number] Aug, [facility] [address]65100[place], [place] [address] Mar, [facility] [id number] [place] [address] 60348- 2546 Mar, [facility] [id number] [place] [address]63- 2865 Dec, [facility] [address] [facility] [id number] [place] [id number] Dec, [facility] [address] [facility] [id number] [place] [id number] Aug, [facility] [id number] [place] [address] 29138- 9336 Aug, [facility] [address] [facility] [id number], [place] [address] Jul, [facility] [address] [facility] [id number], [place] [address] Jul, [facility] [address] [id number] [place] [id number] Dec, [facility] [address] [id number] [place] [id number] Apr, [facility] [address] [facility] [id number], [place] [address] Apr, [facility] [address] [facility] [id number], [place] [address] Mar, [facility] [address] [id number] [place] [id number] Mar, [facility] [address] [id number] [place] [id number] Oct, [facility] [address] [facility] [id number], [place] [address] Oct, [facility] [address] [id number] [place] [id number] Oct, [facility] [address] [id number] [place] [id number] September, [facility] [address] [id number] [place] [id number] Jul, [facility] [address] [id number] [place] [id number] Jun, [facility] [address] [id number] [place] [id number] Jun, [facility] [address] [facility] [id number][place] [address] May, [facility] [address] [facility] [id number], [place] [address]- 08[address] May, [facility] [address] [facility] [id number], [place] [address]- 0[address] May, [facility] [address] [facility] [id number] [place] [address] 32[address] May, [facility] [address] [facility] [id number] [place] [address] Dec, IMMUNIZATIONS No Known Immunizations SOCIAL HISTORY Never Assessed REASON FOR VISIT PLAN OF CARE VITAL SIGNS MEDICATIONS Unknown [...] stenosis repair, hardware placed by at [address] 07/2016 Surgical History Acute STEMI, heart cath performed-balloon stent to RCA, stent Mid LAD 08/2016 Hospitalization History [facility] STEMI, Cardiogenic shock, increased LFTS 08/2016 Hospitalization History inpatient psych [place] after OD after losing baby 2009
--- OUTSIDE RECORDS SUMMARY | 2018-06-17 11:38 | XMS REPORT ---
Author Author MESSI MORALES Organization [employer] Address Unknown Phone Unavailable Care Team Providers Care Hospital Aide Name Role Phone MESSI MORALES CP Unavailable [...]
--- OUTSIDE RECORDS SUMMARY | 2018-06-17 11:38 | XMS REPORT ---
Author Author MESSI MORALES [facility] Address [address] [place] [address] Care Team Providers Care Rerolling Machine Operator Name Role Phone MESSI MORALES Unavailable PROBLEMS Type Condition ICD9-CM Code XGA43-BF Code Onset Dates Condition Status SNOMED Code Problem Coronary artery disease involving [place] heart, angina presence unspecified, unspecified vessel or lesion type I25.10 Active 59267669 Problem Anxiety F41.9 Active 37947492 Problem Anxiety about health F41.8 Active 433251363 Problem Graves disease E05.00 Active 995982789 Problem Thyroid nodule E04.1 Active 155880611 Problem Dyslipidemia E78.5 Active 545060589 Problem Low back pain M54.5 Active 432578663 Problem Enlarged thyroid E01.0 Active 76881679 Problem History of [place] (myocardial infarction) I25.2 Active 168575871 Problem Hyperthyroidism E05.90 Active 58879887 Problem Bronchiolitis J21.9 Active 0112783 Problem Sleeping difficulty G47.9 Active 271018019 Problem Essential hypertension, hypertension with unspecified goal I10 Active 79100423 Problem S/P coronary artery stent placement Z95.5 Active 337122293 Problem Cervicalgia M54.2 Active 22521507 Problem History of ST elevation myocardial infarction (STEMI) I25.2 Active 608024009850025 ALLERGIES No Information SOCIAL HISTORY Never Assessed PLAN OF CARE VITAL SIGNS MEDICATIONS Medication Instructions Dosage Frequency Start Date End Date Duration Status Lisinopril-Hydrochlorothiazide 20-25 MG Orally Once a day, NEEDS APPT BEFORE ANY FURTHER REFILLS 1 tablet Aug, 0 days Active RESULTS No Results PROCEDURES No Known procedures IMMUNIZATIONS No Known Immunizations MEDICAL (GENERAL) HISTORY Type Description Date Medical History hypertension, during Medical History neck pain Medical History 08/2016 Acute STEMI inferior wall, cardiogenic shock Surgical History section x's 4 Surgical History Cervical stenosis repair, hardware placed by at [address] 07/2016 Surgical History Acute STEMI, heart cath performed-balloon stent to RCA, stent Mid LAD 08/2016 Hospitalization History [facility] STEMI, Cardiogenic shock, increased LFTS 08/2016
--- OUTSIDE RECORDS SUMMARY | 2018-06-17 11:39 | XMS REPORT | Continuity of Care Document ---
Author Author [facility] Address Unknown Phone Unavailable Allergies Active Description Code Type Severity Reaction Onset Reported/Identified Relationship to Patient Clinical Status Yes No Known Drug Allergies [id number] Drug Allergy Unknown N/A 01/26/2014 Medications There is no data. Problems Date Dx Coded Attending Type Code Diagnosis Diagnosed By 01/09/2011 LANEY LUNSFORD DO 703.0 NAIL INGROWN 01/09/2011 TRISTA CARPENTER APRN E 703.0 NAIL INGROWN 01/09/2011 LANEY LUNSFORD DO K 703.0 NAIL INGROWN 01/09/2011 703.0 NAIL INGROWN 01/30/2011 LANEY LUNSFORD DO K 704.1 HIRSUTISM 01/30/2011 SURJIT LUNSFORD DOA K V72.31 ROUTINE PELVIC EXAM 01/30/2011 TRISTA CARPENTER APRN E 704.1 HIRSUTISM 01/30/2011 HELLTRISTA KRISHNAMURTHY APRN E V72.31 ROUTINE PELVIC EXAM 01/30/2011 SURJIT LUNSFORD DOA K 704.1 HIRSUTISM 01/30/2011 LUNSFORD SURJIT SELLERSA K V72.31 ROUTINE PELVIC EXAM 01/30/2011 704.1 HIRSUTISM 01/30/2011 V72.31 ROUTINE PELVIC EXAM 05/13/2011 LANEY LUNSFORD DO K 307.81 HEADACHE, TENSION 05/13/2011 SURJIT LUNSFORD DOA K 462 PHARYNGITIS ACUTE 05/13/2011 SURJIT LUNSFORD DOA K 465.9 UPPER RESPIRATORY INFECTION 05/13/2011 HELLTRISTA KRISHNAMURTHY APRN E 307.81 HEADACHE, TENSION 05/13/2011 HELLSURJIT KRISHNAMURTHY APRNSIE E 462 PHARYNGITIS ACUTE 05/13/2011 CORA CARPENTER APRNE E 465.9 UPPER RESPIRATORY INFECTION 05/13/2011 SURJIT LUNSFORD DOA K 307.81 HEADACHE, TENSION 05/13/2011 SURJIT LUNSFORD DOA K 462 PHARYNGITIS ACUTE 05/13/2011 ISATU SELLERS, LANEY K 465.9 UPPER RESPIRATORY INFECTION 05/13/2011 307.81 HEADACHE, TENSION 05/13/2011 462 PHARYNGITIS ACUTE 05/13/2011 465.9 UPPER RESPIRATORY INFECTION 06/11/2011 SURJIT LUNSFORD DOA K 256.4 POLYCYSTIC OVARIAN SYNDROME 06/11/2011 SURJIT LUNSFORD DOA K 272.4 DYSLIPIDEMIA 06/11/2011 TRISTA CARPENTER APRN 256.4 POLYCYSTIC OVARIAN SYNDROME 06/11/2011 TRISTA CARPENTER APRN 272.4 DYSLIPIDEMIA 06/11/2011 ISATU SELLERS LANEY K 256.4 POLYCYSTIC OVARIAN SYNDROME 06/11/2011 SURJIT LUNSFORD DOA K 272.4 DYSLIPIDEMIA 06/11/2011 256.4 POLYCYSTIC OVARIAN SYNDROME 06/11/2011 272.4 DYSLIPIDEMIA 11/29/2011 SURJIT LUNSFORD DOA K 373.11 HORDEOLUM EXTERNUM 11/29/2011 TRISTA CARPENTER APRN 373.11 HORDEOLUM EXTERNUM 11/29/2011 SURJIT LUNSFORD DOA K 373.11 HORDEOLUM EXTERNUM 11/29/2011 373.11 HORDEOLUM EXTERNUM 01/26/2013 SURJIT LUNSFORD DOA K 461.8 OTHER ACUTE SINUSITIS 01/26/2013 TRISTA CARPENTER APRN 461.8 OTHER ACUTE SINUSITIS 01/26/2013 LANEY LUNSFORD DO K 461.8 OTHER ACUTE SINUSITIS 09/22/2013 TRISTA CARPENTER APRN 522.5 PERIAPICAL ABSCESS WITHOUT SINUS 09/22/2013 LANEY LUNSFORD DO K 522.5 PERIAPICAL ABSCESS WITHOUT SINUS 01/26/2014 JOHN HATFIELD DO Ot 642.93 HYPERTENS NOS-ANTEPARTUM 01/26/2014 JOHN HATFIELD DO Ot 654.23 PREV DELIVERY, ANTEPARTUM COND 01/26/2014 JOHN HATFIELD DO Ot 655.73 DECR MOVEMNT ANTEPARTUM CONDITION 03/10/2014 JOHN HATFIELD DO Ot 642.03 ESSEN HYPERTEN-ANTEPART 03/10/2014 JOHN HATFIELD DO Ot 648.03 DIABETES-ANTEPARTUM 03/10/2014 JOHN HATFIELD DO Ot 655.73 DECR MOVEMNT ANTEPARTUM CONDITION 03/10/2014 JOHN HATFIELD DO Ot V04.81 ND FOR PROPHYLACTIC VACCIN AND INOCULATI 03/24/2014 JOHN HATFIELD DO Ot 218.0 SUBMUCOUS LEIOMYOMA 03/24/2014 JOHN HATFIELD DO Ot 642.31 TRANS HYPERTEN-DELIVERED 03/24/2014 JOHN HATFIELD DO Ot 646.81 PREG COMPL NEC-DELIVERED 03/24/2014 JOHN HATFIELD DO Ot 648.81 ABN GLUCOSE JOSE-DELIV 03/24/2014 JOHN HATFIELD DO Ot 654.21 PREV DELIVRY W/ OR W/O MENT ANT 03/24/2014 JOHN HATFIELD DO Ot V06.1 [id number], COMBINED [ 03/24/2014 JOHN HATFIELD DO Ot V27.0 DELIVER-SINGLE LIVEBORN 03/03/2015 JOHN HATFIELD DO Ot 654.23 03/03/2015 JOHN HATFIELD DO Ot V72.84 03/03/2015 JOHN HATFIELD DO Ot 790.29 03/03/2015 JOHN HATFIELD DO Ot 654.23 03/03/2015 JOHN HATFIELD DO Ot V72.84 03/03/2015 JOHN HATFIELD DO Ot 790.29 03/03/2015 JOHN HATFIELD DO Ot O23.43 UNSP INFCT OF URINARY TRACT IN 03/03/2015 JOHN HATFIELD DO Ot O60.03 LABOR WITHOUT DELIVERY, THIRD TR 03/03/2015 JONH HATFIELD DO Ot Z3A.28 28 WEEKS GESTATION OF 03/21/2015 JOHN HATFIELD DO Ot O99.810 03/21/2015 JOHN HATFIELD DO Ot Z3A.00 05/03/2015 JOHN HATFIELD DO Ot O99.810 05/03/2015 JOHN HATFIELD DO Ot Z3A.00 05/31/2015 JOHN HATFIELD DO Ot O99.810 05/31/2015 JOHN HATFIELD DO Ot Z3A.00 07/03/2015 JOHN HATFIELD DO Ot O99.810 07/03/2015 HATFIELD DOLIBRADOA C Ot Z3A.00 12/07/2015 HATFIELD DO JOHN C Ot 790.29 OTHER ABNORMAL GLUCOSE 03/20/2016 MORALESMESSI R CFNP Ot M54.2 CERVICALGIA 03/20/2016 MORALES, MESSI R CFNP Ot M54.2 CERVICALGIA 04/11/2016 MORALES, MESSI R CFNP Ot M54.2 CERVICALGIA 05/01/2016 MORALES, MESSI R CFNP Ot M54.2 CERVICALGIA 05/01/2016 HATFIELD DO JOHN C Ot 654.23 PREV DELIVERY, ANTEPARTUM COND 05/01/2016 HATFIELD DO JOHN C Ot V72.84 EXAM PRE-OPERATIVE NOS 05/01/2016 HATFIELD DO JOHN C Ot 790.29 OTHER ABNORMAL GLUCOSE 05/01/2016 HATFIELD DO JOHN C Ot O99.810 ABNORMAL GLUCOSE COMPLICATING 05/01/2016 HATFIELD DO JOHN C Ot Z3A.00 WEEKS OF GESTATION OF NOT SPEC 05/01/2016 MORALESMESSI R CFNP Ot M54.2 CERVICALGIA 05/21/2016 MORALESMESSI R CFNP Ot M54.2 CERVICALGIA 10/01/2016 HATFIELD DO JOHN C Ot 654.23 PREV DELIVERY, ANTEPARTUM COND 10/01/2016 HATFIELD DO JOHN C Ot V72.84 EXAM PRE-OPERATIVE NOS 10/01/2016 HATFIELD DO JHON C Ot 790.29 OTHER ABNORMAL GLUCOSE 10/01/2016 HATFIELD DO JOHN C Ot O99.810 ABNORMAL GLUCOSE COMPLICATING 10/01/2016 HATFIELD DO JOHN C Ot Z3A.00 WEEKS OF GESTATION OF NOT SPEC 10/01/2016 MORALESMESSI GONZALEZ R CFNP Ot M54.2 CERVICALGIA 10/02/2016 DEGRAFFENREID-SWEENEY, NILDA L Ot K82.8 OTHER SPECIFIED DISEASES OF GALLBLADDER 10/17/2016 DEGRAFFENREID-SWEENEY, NILDA L Ot K82.8 OTHER SPECIFIED DISEASES OF [place]ALLBLADDER 11/21/2016 DEGRAFFENREID-SWEENEY NILDA L Ot E04.9 NONTOXIC GOITER, UNSPECIFIED 11/21/2016 DEGRAFFENREID-SWEENEY, NILDA L Ot E04.9 NONTOXIC GOITER, UNSPECIFIED 11/28/2016 DEGRAFFENREID-SWEENEY, NILDA L Ot K82.8 OTHER SPECIFIED DISEASES OF GALLBLADDER 12/09/2016 DEGRAFFENREID-SWEENEY, NILDA L Ot E04.9 NONTOXIC GOITER, UNSPECIFIED 01/07/2017 DEGRAFFENREID-SWEENEY, NILDA L Ot K82.8 OTHER SPECIFIED DISEASES OF GALLBLADDER 04/01/2018 HATFIELD DO JOHN C Ot 654.23 PREV DELIVERY, ANTEPARTUM COND 04/01/2018 HATFIELDLIBRADO Mcmahon DOA C Ot V72.84 EXAM PRE-OPERATIVE NOS 04/01/2018 LIBRADO HAFTIELD DOA C Ot 790.29 OTHER ABNORMAL GLUCOSE 04/01/2018 HATFIELD DO JOHN C Ot O99.810 ABNORMAL GLUCOSE COMPLICATING 04/01/2018 LIBRADO HATFIELD DOA C Ot Z3A.00 WEEKS OF GESTATION OF NOT SPEC 04/01/2018 MESSI MORALES Ot M54.2 CERVICALGIA 04/01/2018 DEGFFESHEBA-NILDA SWEENEY Ot K82.8 OTHER SPECIFIED DISEASES OF GALLBLADDER 04/01/2018 DEGRAFFEBOLIVAREIRadu-NILDA SWEENEY L Ot E04.9 NONTOXIC GOITER, UNSPECIFIED 04/06/2018 VICENTA EMERSON MACHINE IRONER Ot T83.32XA DISPLACEMENT OF INTRAUTERINE CONTRACEPTI 04/06/2018 VICENTA EMERSON MACHINE IRONER Ot Z97.5 PRESENCE OF (INTRAUTERINE) CONTRACEPTIVE 06/10/2018 JOSE DE JESUS ELAINE MD Ot E05.00 THYROTOXICOSIS W DIFFUSE GOITER W/O THYR 06/10/2018 JOSE DE JESUS ELAINE MD Ot E78.2 MIXED HYPERLIPIDEMIA 06/10/2018 JOSE DE JESUS ELAINE MD Ot I10 ESSENTIAL (PRIMARY) HYPERTENSION 06/10/2018 JOSE DE JESUS ELAINE MD Ot I21.9 ACUTE MYOCARDIAL INFARCTION, UNSPECIFIED 06/10/2018 JOSE DE JESUS ELAINE MD Ot I25.10 ATHSCL HEART DISEASE OF [place] CORONARY 06/11/2018 JOSE DE JESUS ELAINE MD Ot E05.00 THYROTOXICOSIS W DIFFUSE GOITER W/O THYR 06/11/2018 JOSE DE JESUS ELAINE MD, Ot E78.2 MIXED HYPERLIPIDEMIA 06/11/2018 JOSE DE JESUS ELAINE MD Ot I10 ESSENTIAL (PRIMARY) HYPERTENSION 06/11/2018 JOSE DE JESUS ELAINE MD Ot I25.10 ATHSCL HEART DISEASE OF [place] CORONARY 06/11/2018 JOSE DE JESUS ELAINE MD, Ot I25.2 OLD MYOCARDIAL INFARCTION 06/17/2018 JOHN HATFIELD DO Ot 654.23 PREV DELIVERY, ANTEPARTUM COND 06/17/2018 JOHN HATFIELD DO Ot V72.84 EXAM PRE-OPERATIVE NOS 06/17/2018 JOHN HATFIELD DO Ot 790.29 OTHER ABNORMAL GLUCOSE 06/17/2018 JOHN HATFIELD DO Ot O99.810 ABNORMAL GLUCOSE COMPLICATING 06/17/2018 JOHN HATFIELD DO Ot Z3A.00 WEEKS OF GESTATION OF NOT SPEC 06/17/2018 MESSI MORALES Ot M54.2 CERVICALGIA 06/17/2018 DEGNILDA MCCARTHY Ot K82.8 OTHER SPECIFIED DISEASES OF [place]ALLBLAD[place] 06/17/2018 NILDA MTZ Ot E04.9 NONTOXIC GOITER, UNSPECIFIED 06/17/2018 VICENTA EMERSON Ot T83.32XA DISPLACEMENT OF INTRAUTERINE CONTRACEPTI 06/17/2018 VICENTA EMERSON Ot Z97.5 PRESENCE OF (INTRAUTERINE) CONTRACEPTIVE 06/17/2018 JOSE DE JESUS ELAINE MD Ot E05.00 THYROTOXICOSIS W DIFFUSE GOITER W/O THYR 06/17/2018 JOSE DE JESUS ELAINE MD Ot E78.2 MIXED HYPERLIPIDEMIA 06/17/2018 JOSE DE JESUS ELAINE MD Ot I10 ESSENTIAL (PRIMARY) HYPERTENSION 06/17/2018 JOSE DE JESUS ELAINE MD Ot I25.10 ATHSCL HEART DISEASE OF [place] CORONARY 06/17/2018 JOSE DE JESUS ELAINE MD, Ot I25.2 OLD MYOCARDIAL INFARCTION 06/17/2018 JOSE DE JESUS ELAINE MD Ot E05.00 THYROTOXICOSIS W DIFFUSE GOITER W/O THYR 06/17/2018 JOSE DE JESUS ELAINE MD Ot E78.2 MIXED HYPERLIPIDEMIA 06/17/2018 JOSE DE JESUS ELAINE MD Ot I10 ESSENTIAL (PRIMARY) HYPERTENSION 06/17/2018 JOSE DE JESUS ELAINE MD Ot I21.9 ACUTE MYOCARDIAL INFARCTION, UNSPECIFIED 06/17/2018 JOSE DE JESUS ELAINE MD Ot I25.10 ATHSCL HEART DISEASE OF [place] CORONARY Procedures Code Description [place] [id number] STREP A (IN-HOUSE) 04/27/2012 74.1 LOW CERVICAL 03/21/2014 Results Test Result Range T3 TOTAL - 03/04/17 12:30 T3, TOTAL 440 ng/dL 76-181 TISSUE, SPECIMEN A - 03/18/17 16:30 A SOURCE NRG A GROSS DESCRIPTION NRG A DIAGNOSIS NRG A COMMENT NRG TISSUE, SPECIMEN A - 03/18/17 16:49 A SOURCE NRG A GROSS DESCRIPTION NRG A DIAGNOSIS NRG A COMMENT NRG T4 FREE - 04/02/17 13:06 T4, FREE 3.0 ng/dL 0.8-1.8 T3 TOTAL - 04/02/17 13:06 T3, TOTAL 390 ng/dL 76-181 Encounters ACCT No. Visit Date/Time Discharge Status Pt. Type Provider Facility Loc./Unit Complaint [id number] 01/20/2014 08:40:00 01/20/2014 23:59:59 CLS Outpatient LANEY LUNSFORD DO [id number] 09/22/2013 11:26:00 09/22/2013 23:59:59 CLS Outpatient TRISTA CARPENTER APRN [id number] 01/26/2013 10:31:00 01/26/2013 23:59:59 [place] [id number] 04/27/2012 15:38:00 04/27/2012 23:59:59 CLS Outpatient [id number] 05/21/2018 13:00:00 05/21/2018 23:59:59 CLS Outpatient JORGERAFFESHEBA [facility] [id number] 04/02/2017 12:20:00 Document Registration [id number] 03/18/2017 16:30:00 Document Registration [id number] 03/18/2017 16:00:00 Document Registration [id number] 03/04/2017 10:20:00 Document Registration [id number] 06/09/2018 14:41:00 06/09/2018 23:59:59 CLS Outpatient JOSE DE JESUS ELAINE MD [facility] CARD CAD,HTN,GRAVES DISEASE [id number] 06/08/2018 07:22:00 06/08/2018 23:59:59 CLS Outpatient CHELE FAIRBANKS, JOSE DE JESUS Levi [facility] CARD CAD,HTN,GRAVES DISEASE [id number] 04/02/2018 14:01:00 04/02/2018 23:59:59 CLS Outpatient VICENTA EMERSONP [facility] RAD IUD STRINGS LOST [id number] 01/06/2017 16:30:00 01/06/2017 23:59:59 CLS Preadmit VICENTA EMERSON MACHINE IRONER [facility] RAD R10.2 PELVIC PAIN [id number] 11/20/2016 14:07:00 11/20/2016 23:59:59 CLS Outpatient DEGRAFFENRNILDA MARIA [facility] RAD HYPERTHYROIDISM [id number] 10/01/2016 12:21:00 10/01/2016 23:59:59 CLS Outpatient DEGRANILDA WANG [facility] RAD RLQ ABD PAIN [id number] 03/20/2016 11:53:00 03/20/2016 23:59:59 CLS Outpatient MESSI MORALES [facility] RAD M54.2 [id number] 03/15/2015 11:32:00 03/15/2015 23:59:59 CLS Outpatient JOHN HATFIELD DO [facility] LAB ABNORMAL GLUCOSE IN ,ANTEPARTUM [id number] 03/03/2015 00:53:00 03/03/2015 10:10:00 DIS Outpatient JOHN HATFIELD DO [facility] WSo RIB PAIN, 7 1/2 MONTHS PREG [id number] 03/21/2014 06:20:00 03/24/2014 14:45:00 DIS Inpatient JOHN HATFIELD DO [facility] LDRP [id number] 03/15/2014 10:01:00 03/15/2014 23:59:59 CLS Outpatient JOHN HATFIELD DO [facility] PREOP PREVIOUS SECTION [id number] 03/10/2014 04:30:00 03/10/2014 06:10:00 DIS Outpatient JOHN HATFIELD DO [facility] WSo CONTRACTIONS,NO MOVEMENT, PRESSURE [id number] 02/17/2014 07:34:00 02/17/2014 23:59:59 CLS Outpatient JHON HATFIELD DO [facility] LAB ABNORMAL GLUCOSE [id number] 01/26/2014 00:12:00 01/26/2014 10:05:00 DIS Inpatient JOHN HATFIELD DO [facility] LDRP HURTS,HIGH BP [id number] 06/17/2018 08:51:00 ACT Outpatient CHELE FAIRBANKS, JOSE DE JESUS Levi [facility] CATH ABN STRESS TEST,CAD,HTN
--- NOTE | 2018-06-17 11:43 | Cardiac Procedure Note-CS/ASA ---
Pre-Procedure Note Pre-Op Procedure Note H&P Reviewed The H&P was reviewed, patient examined and no changes noted. Date H&P Reviewed: Jun 17, 2018 Time H&P Reviewed: 11:42 Conscious Sedation Pre-Proced Time 11:42 ASA Score 3 For ASA 3 and 4: Consider anesthesia and medical clearance. Also, for patients with a history of failed moderate sedation consider anesthesia. Airway Lungs Heart ASA score ASA 1: a normal healthy patient ASA 2: a patient with a mild systemic disease (mid diabetes, controlled hypertension, obesity x ASA 3: a patient with a severe systemic disease that limits activity (angina , COPD, prior Myocardial infarction) ASA 4: a patient with an incapacitating disease that is a constant threat to life (CHF, renal failure) ASA 5: a moribund patient not expected to survive 24 hrs. (ruptured aneurysm) ASA 6: a declared brain patient whose organs are being harvested. For emergent operations, add the letter E after the classification Mallampati Classification Grade 3 Sedation Plan Analgesia, Amnesia, Plan communicated to team members, Discussed options with patient/fam, Discussed risks with patient/fam The patient is an appropriate candidate to undergo the planned procedure, sedation, and anesthesia. The patient immediately re-assessed prior to indication. JOSE DE JESUS ELAINE MD Jun 17, 2018 11:43
--- NOTE | 2018-06-17 12:52 | Discharge Inst-Post CATH ---
Discharge Inst-CATH/EP Post Cardiac Cath/EP D/C Inst Follow Up/Plan Appointment with Dr. Christianson's office in 4 weeks CARDIAC CATH DISCHARGE INSTRUCTIONS *Hold Metformin for 48 hours post heart cath. ACTIVITY * Go Home directly and rest. * Limit activity of the leg (or wrist if it was used) for 7 days including aerobics, swimming, jogging, bicycling, etc. * Restrict stair-climbing for 7 days if possible, if not, climb up with your non -cath leg, then bring together on the same step. * Avoid lifting, pushing, pulling or excessive movement of the affected extremity for 7 days. * Customary sexual activity may be resumed after 2 days-use caution not to use a position that strains or causes pain to the affected extremity. * No driving for 24 hours. * NO SMOKING. * Avoid straining for bowel movements for 7 days. * Gentle walking on level ground is allowed. * Returning to work will depend on the type of procedure and the results. Your doctor will discuss this with you. CALL YOUR DOCTOR FOR ANY OF THE FOLLOWING: *If bleeding from the puncture site occurs- Apply gentle pressure to site with clean cloth and call your doctor or EMS. * If a knot or lump forms under the skin, increases in size, or causes pain. * If bruising appears to be worsening or moving further down your leg instead of disappearing. * Temperature above 101 F. CARE OF YOUR GROIN INCISION; * Bruising or purple discoloration of the skin near the puncture site is common. * You may shower only, no bathtub bathing for 5 days. Be careful to avoid slipping as your leg may feel stiff. * If a closure device was used on your femoral artery, please see the attached guide regarding care of the device and your leg. * Leave the dressing on, until removed by office staff. CARE OF YOUR WRIST INCISION; * Bruising or purple discoloration of the skin near the puncture site is common. * You may shower. * DO NOT submerge wrist. * Leave dressing on, until removed by office staff.. JOSE DE JESUS CHRISTIANSON MD Jun 17, 2018 12:52
[2018-06-17] MEDS ORDERED: PATIENT MAY USE OWN MEDS, ALL PO SCH (13:00)
--- NOTE | 2018-06-17 13:11 | Cardiac Cath Report ---
Cardiac Cath Report Physician (s)/Director Of Training (s) Physician JOSE DE JESUS ELAINE MD Pre-Procedure Diagnosis Pre-Procedure Diagnosis: chest pain, coronary artery disease Post-Procedure Note Procedure Start Date: Jun 17, 2018 Name of Procedure: left heart catheterization Left ventriculogram Aortic arch angiogram Findings/Procedure Note PROCEDURE NOTE: 37 years old lady with history of coronary artery disease had ST elevation myocardial infarction and sudden , stent to the right coronary artery and to the LAD, had intra-aortic balloon pump after cardiogenic shock. Had a stress test and it was abnormal with inferior wall ischemia scheduled for cardiac catheterization. After explaining the procedure to the patient, all pros and cons were explained , all questions were answered. The patient signed the consent and then she was placed on the cardiac catheterization laboratory. Groin was prepped SL fashion local anesthesia was used. Sheath placed in the right femoral artery. Katey right and left catheter were used to access the coronary system. Pigtail was used to access the left ventricular cavity. Left ventriculogram was done Aortic arch angiogram was done At the end of the procedure the sheath was removed. Closure device was used FINDINGS: Hemodynamics LV 109/14, end-diastolic pressure 14 Aorta 107/69 mean of 87 ANATOMY: Left Main is free of obstructive disease Left Anterior Descending is known to have mid stent that is patent with good flow distally Left Circumflex is moderate in size with no obstructive disease Right Coronory Artery is known to have stent in the proximal right coronary artery that is patent with mild disease distally structure disease LV Gram was done showing normal left ventricle size, subtle hypokinesia at the inferior wall, systolic function is preserved a similar ejection fraction 60 percent Aorta evaluation done with aortic arch angiogram which showed mild hypertensive changes. No dissection or aneurysm, normal great vessels of the neck with slight tortuosity in the right carotid artery. CONCLUSION: 1. Patent stent in the mid LAD and proximal right coronary artery with mild coronary artery disease nonobstructive disease 2. Normal left ventricle size with subtle hypokinesia at the inferior wall preserved systolic function is ejection fraction 60 percent 3. Normal aortic arch and great vessels of the neck DISCUSSION AND RECOMMENDATION: continue with medical therapy Anesthesia Type: Conscious Sedation Estimated blood loss (mL): 15 ml Contrast Amount: 50 ml Total Radiation Dose: 269 mGy Post-Procedure Diagnosis Post-operative diagnosis: Coronary artery disease Hyperlipidemia Chest pain Hypertension JOSE DE JESUS LEAINE MD Jun 17, 2018 13:11
== END 2018-06-17 17:10 | disposition home or self-care (01) ==
LOC: CATH 08:51 → SDC 13:11 → CATH 17:10
PROVIDERS: ATTEND Internal Medicine Cardiovascular Disease
DX: I25.10 Atherosclerotic heart disease of native coronary artery without angina pectoris (principal); E78.5 Hyperlipidemia, unspecified; R07.9 Chest pain, unspecified; I10 Essential (primary) hypertension; E78.2 Mixed hyperlipidemia; E05.00 Thyrotoxicosis with diffuse goiter without thyrotoxic crisis or storm; I25.2 Old myocardial infarction; R09.89 Other specified symptoms and signs involving the circulatory and respiratory systems; Z95.5 Presence of coronary angioplasty implant and graft; Z87.891 Personal history of nicotine dependence; Z79.899 Other long term (current) drug therapy
CPT/HCPCS: 36221; 36415; 71045; 80053; 80061; 81000; 84703; 85027; 85610; 85730; 87081; 87088; 90686; 93458